=== PATIENT | male | born 1945 | race Caucasian/White ===

== ENCOUNTER 2016-10-20 09:48 | Emergency (ER) | payer MEDICARE ==
--- NOTE | 2016-10-20 10:31 | ED ---
General Adult HPI - General Chief complaint: Weakness Stated complaint: Hypotension Time Seen by Provider: 10/20/16 09:50 Source: patient, EMS, RN notes reviewed Mode of arrival: EMS Limitations: no limitations - History of Present Illness Initial comments: This is a 71-year-old male who presents emergency department with past medical history significant for alcohol some and hypertension. Patient comes emergency Department today because lately has been lightheaded and on occasion has fallen. Patient states he drinks every day particularly in the afternoon. Patient states when he wakes and drinks or eats something he will vomit immediately until he starts drinking afternoon. Patient states then he stops vomiting. Patient states he went to see his primary medical care doctor but but has blood pressure was low so sent to the emergency department. Patient denies any chest pain palpation difficult breathing shortest breath per patient denies any abdominal pain patient denies nausea nausea currently but would vomit in the morning to try to eat or drink anything. Patient denies any diarrhea. Patient denies any recent fever chills or cough. Patient denies headache patient denies numbness weakness. - Related Data Home Medications Medication Instructions Recorded Confirmed Aspirin [Adult Low Dose Aspirin EC] 81 mg PO DAILY 10/20/16 10/20/16 Ibuprofen [Motrin] 400 mg PO Q6HR PRN 10/20/16 10/20/16 Lisinopril [Zestril] 40 mg PO DAILY 10/20/16 10/20/16 Allergies Allergy/AdvReac Type Severity Reaction Status Date / Time No Known Allergies Allergy Verified 10/20/16 10:41 Review of Systems ROS Statement: Those systems with pertinent positive or pertinent negative responses have been documented in the HPI. ROS Other: All systems not noted in ROS Statement are negative. Past Medical History Past Medical History: Hypertension History of Any Multi-Drug Resistant Organisms: None Reported Past Surgical History: No Surgical Hx Reported Past Psychological History: No Psychological Hx Reported Smoking Status: Former smoker Past Alcohol Use History: Daily Past Drug Use History: None Reported General Exam - General Exam Comments Initial Comments: GENERAL: Patient is well-developed and well-nourished. Patient is nontoxic and well- hydrated and is in no acute distress. ENT: Neck is soft and supple. No significant lymphadenopathy is noted. Oropharynx is clear. Moist mucous membranes. Neck has full range of motion without eliciting any pain. EYES: The sclera were anicteric and conjunctiva were pink and moist. Extraocular movements were intact and pupils were equal round and reactive to light. Eyelids were unremarkable. PULMONARY: Unlabored respirations. Good breath sounds bilaterally. No audible rales rhonchi or wheezing was noted. CARDIOVASCULAR: There is a regular rate and rhythm without any murmurs gallops or rubs. ABDOMEN: Soft and nontender with normal bowel sounds. No palpable organomegaly was noted. There is no palpable pulsatile mass. SKIN: Skin is clear with no lesions or rashes and otherwise unremarkable. NEUROLOGIC: Patient is alert and oriented x3. Cranial nerves II through XII are grossly intact. Motor and sensory are also intact. Normal speech, volume and content. Symmetrical smile. MUSCULOSKELETAL: Normal extremities with adequate strength and full range of motion. LYMPHATICS: No significant lymphadenopathy is noted PSYCHIATRIC: Normal psychiatric evaluation. Limitations: no limitations Course Vital Signs 10/20/16 10/20/16 10/20/16 09:51 10:49 11:02 Temperature 97.4 F L Pulse Rate 71 72 Pulse Rate [ 80 Sitting Wet Machine Operator] Pulse Rate [ 96 Standing Wet Machine Operator ] Pulse Rate [ 74 Supine Wet Machine Operator] Respiratory 16 18 Rate Blood Pressure 103/55 103/59 Blood Pressure 114/59 [Right Arm Sitting] Blood Pressure 100/56 [Right Arm Supine] Blood Pressure 104/61 [Right Radial Artery Standing ] O2 Sat by Pulse 98 97 Oximetry 10/20/16 12:03 Temperature Pulse Rate 77 Pulse Rate [ Sitting Wet Machine Operator] Pulse Rate [ Standing Wet Machine Operator ] Pulse Rate [ Supine Wet Machine Operator] Respiratory 18 Rate Blood Pressure 119/57 Blood Pressure [Right Arm Sitting] Blood Pressure [Right Arm Supine] Blood Pressure [Right Radial Artery Standing ] O2 Sat by Pulse 95 Oximetry Medical Decision Making - Medical Decision Making EKG shows normal sinus rhythm at 70 bpm FL interval is 176 QRS is under QT intervals 42 QTC is 434 per patient's EKG shows no ST segment elevation or depression or T-wave abnormality is noted - Lab Data Result diagrams: 10/20/16 10:00 10/20/16 10:00 Lab Results 10/20/16 10/20/16 10/20/16 Range/Units 10:00 10:00 10:00 WBC 5.4 (3.8-10.6) k/uL RBC 3.27 L (4.30-5.90) m/uL Hgb 10.7 L (13.0-17.5) gm/dL Hct 32.4 L (39.0-53.0) % MCV 99.3 (80.0-100.0) fL MCH 32.9 (25.0-35.0) pg MCHC 33.1 (31.0-37.0) g/dL RDW 18.0 H (11.5-15.5) % Plt Count 309 (150-450) k/uL Neutrophils % 75 % Lymphocytes % 11 % Monocytes % 8 % Eosinophils % 4 % Basophils % 1 % Neutrophils # 4.0 (1.3-7.7) k/uL Lymphocytes # 0.6 L (1.0-4.8) k/uL Monocytes # 0.4 (0-1.0) k/uL Eosinophils # 0.2 (0-0.7) k/uL Basophils # 0.1 (0-0.2) k/uL Anisocytosis Slight Macrocytosis Slight Sodium 128 L (137-145) mmol/L Potassium 4.9 (3.5-5.1) mmol/L Chloride 94 L (98-107) mmol/L Carbon Dioxide 16 L (22-30) mmol/L Anion Gap 18 mmol/L BUN 16 (9-20) mg/dL Creatinine 1.30 H (0.66-1.25) mg/dL Est GFR (MDRD) Af Amer >60 (>60 ml/min/1.73 sqM) Est GFR (MDRD) Non-Af 55 (>60 ml/min/1.73 sqM) Glucose 83 (74-99) mg/dL Calcium 8.9 (8.4-10.2) mg/dL Magnesium 1.5 L (1.6-2.3) mg/dL Total Bilirubin 0.6 (0.2-1.3) mg/dL AST 132 H (17-59) U/L ALT 66 (21-72) U/L Alkaline Phosphatase 106 (38-126) U/L Total Protein 7.4 (6.3-8.2) g/dL Albumin 4.4 (3.5-5.0) g/dL Serum Alcohol 133 mg/dL Disposition Clinical Impression: Alcoholism, Lightheaded, Hyponatremia, Hypomagnesemia Disposition: HOME SELF-CARE Condition: Good Instructions: Abuse of Alcohol (ED) Referrals: None,Stated [REFERRING] - 1-2 days Time of Disposition: 13:36
[2016-10-20 10:50] VITALS: RESP 18
[2016-10-20] MEDS ORDERED: SODIUM CHLORIDE 0.9% 1,000 ML IV ONE (11:36)
[2016-10-20 11:45] LABS: Anisocytosis Slight; Basophils # (A) 0.1 k/uL (0-0.2); Basophils % (A) 1 %; CH 32.9; CHCM 33.2; Eosinophils # (A) 0.2 k/uL (0-0.7); Eosinophils % (A) 4 %; HCT 32.4 % (39.0-53.0); HDW 2.23; HGB 10.7 gm/dL (13.0-17.5); Luc # (Auto) 0.11; Luc % (Auto) 2; Lymphocytes # (A) 0.6 k/uL (1.0-4.8); Lymphocytes % (A) 11 %; MCH 32.9 pg (25.0-35.0); MCHC 33.1 g/dL (31.0-37.0); MCV 99.3 fL (80.0-100.0); Macrocytosis Slight; Mean Platelet Volume 7.4; Monocytes # (A) 0.4 k/uL (0-1.0); Monocytes % (A) 8 %; Neutrophils % (A) 75 %; RBC 3.27 m/uL (4.30-5.90); WBC 5.4 k/uL (3.8-10.6); WBC (Perox) 5.56
[2016-10-20 13:18] LABS: ALT 66 U/L (21-72); AST 132 U/L (17-59); Alkaline Phosphatase 106 U/L (38-126); Anion Gap 18 mmol/L; Blood Urea Nitrogen 16 mg/dL (9-20); Calcium 8.9 mg/dL (8.4-10.2); Carbon Dioxide 16 mmol/L (22-30); Chloride 94 mmol/L (98-107); Glucose 83 mg/dL (74-99); Magnesium 1.5 mg/dL (1.6-2.3); Non-African American GFR(MDRD) 55 (>60 ml/min/1.73 sqM); Potassium 4.9 mmol/L (3.5-5.1); Sodium 128 mmol/L (137-145); Total Bilirubin 0.6 mg/dL (0.2-1.3); Total Protein 7.4 g/dL (6.3-8.2)
[2016-10-20] MEDS ORDERED: THIAMINE 100 MG/ML 2 ML VIAL IM STA (13:37)
[2016-10-20] MEDS ORDERED: MAGNESIUM SULFATE-D5W PMX 1 GM in DEXTROSE/WATER 1 100ML.BAG IVPB ONE (13:37)
[2016-10-20 14:46] VITALS: BP 125/73; PULSE 76; TEMP 97.1
== END 2016-10-20 14:46 | disposition home or self-care (01) ==
LOC: EC 09:48
DX: F10.20 Alcohol dependence, uncomplicated (principal); R42 Dizziness and giddiness; E87.1 Hypo-osmolality and hyponatremia; E83.42 Hypomagnesemia; R53.1 Weakness; R11.10 Vomiting, unspecified; I10 Essential (primary) hypertension; Z87.891 Personal history of nicotine dependence; Z79.82 Long term (current) use of aspirin; Z79.899 Other long term (current) drug therapy
CPT/HCPCS: 36415; 93005; 80053; 83735; 85025; 80320; 99285; 96365; 96361; 96372; J3411; J3475

== ENCOUNTER 2017-03-08 11:53 | Inpatient (IN) | payer MEDICARE ==
--- NOTE | 2017-03-08 12:48 | ED ---
General Adult HPI - General Chief complaint: Recheck/Abnormal Lab/Rx Stated complaint: Low blood pressure Time Seen by Provider: 03/08/17 12:10 Source: patient, RN notes reviewed Mode of arrival: wheelchair Limitations: no limitations - History of Present Illness Initial comments: This is a 71-year-old male who presents to the emergency department with a past history of alcoholism and multiple falls. Patient comes in today because anytime he stands up his lightheaded. Patient also is complaining that anytime he eats or drinks anything he throws up. Patient states he did have an endoscopy but has not received the results of. Patient was sent by his primary medical care doctor today the primary medical care doctor wanted to admit the patient but the patient is 31 and for me he does not want to stay. Patient denies any headache patient denies numbness weakness. Patient denies chest pain difficulty breathing or shortness of breath. Patient denies abdominal pain patient denies nausea vomiting diarrhea. Patient states his only problem is he gets lightheaded when he stands any falls and the fact that he has been vomiting when he eats or drinks. - Related Data Home Medications Medication Instructions Recorded Confirmed Aspirin [Adult Low Dose Aspirin EC] 81 mg PO DAILY 10/20/16 03/08/17 Cyanocobalamin (Vitamin B-12) 1,000 mcg PO DAILY 03/08/17 03/08/17 [Vitamin B-12] Allergies Allergy/AdvReac Type Severity Reaction Status Date / Time No Known Allergies Allergy Verified 03/08/17 13:07 Review of Systems ROS Statement: Those systems with pertinent positive or pertinent negative responses have been documented in the HPI. ROS Other: All systems not noted in ROS Statement are negative. Past Medical History Past Medical History: Hypertension Additional Past Medical History / Comment(s): STATES PAST HX OF COLON POLYP, PREVIOUS HX OF HTN, OFF MEDICATIONS PAST 4 MONTHS History of Any Multi-Drug Resistant Organisms: None Reported Past Surgical History: No Surgical Hx Reported Additional Past Surgical History / Comment(s): PREV. COLONOSCOPIES Past Anesthesia/Blood Transfusion Reactions: No Reported Reaction Past Psychological History: No Psychological Hx Reported Smoking Status: Former smoker Past Alcohol Use History: None Reported Past Drug Use History: None Reported - Past Family History Mother Family Medical History: Cancer Additional Family Medical History / Comment(s): COLON General Exam - General Exam Comments Initial Comments: GENERAL: Patient is well-developed and well-nourished. Patient is nontoxic and well- hydrated and is in no acute distress. ENT: Neck is soft and supple. No significant lymphadenopathy is noted. Oropharynx is clear. Moist mucous membranes. Neck has full range of motion without eliciting any pain. EYES: The sclera were anicteric and conjunctiva were pink and moist. Extraocular movements were intact and pupils were equal round and reactive to light. Eyelids were unremarkable. PULMONARY: Unlabored respirations. Good breath sounds bilaterally. No audible rales rhonchi or wheezing was noted. CARDIOVASCULAR: There is a regular rate and rhythm without any murmurs gallops or rubs. ABDOMEN: Soft and nontender with normal bowel sounds. No palpable organomegaly was noted. There is no palpable pulsatile mass. SKIN: Skin is clear with no lesions or rashes and otherwise unremarkable. NEUROLOGIC: Patient is alert and oriented x3. Cranial nerves II through XII are grossly intact. Motor and sensory are also intact. Normal speech, volume and content. Symmetrical smile. MUSCULOSKELETAL: Normal extremities with adequate strength and full range of motion. LYMPHATICS: No significant lymphadenopathy is noted PSYCHIATRIC: Normal psychiatric evaluation. Limitations: no limitations Course Vital Signs 03/08/17 03/08/17 03/08/17 12:08 12:24 12:25 Temperature 97.7 F Pulse Rate 100 98 Pulse Rate [ 98 Pulse Oximetery ] Pulse Rate [ Sitting] Pulse Rate [ Standing] Pulse Rate [ Supine] Respiratory 20 16 Rate Blood Pressure 96/65 119/71 Blood Pressure [Sitting] Blood Pressure [Standing] Blood Pressure [Supine] O2 Sat by Pulse 96 97 Oximetry 03/08/17 03/08/17 03/08/17 13:06 14:16 15:21 Temperature 98.7 F Pulse Rate 101 H 89 Pulse Rate [ Pulse Oximetery ] Pulse Rate [ 101 H Sitting] Pulse Rate [ 125 H Standing] Pulse Rate [ 87 Supine] Respiratory 16 16 Rate Blood Pressure 136/73 139/68 Blood Pressure 128/72 [Sitting] Blood Pressure 120/58 [Standing] Blood Pressure 142/82 [Supine] O2 Sat by Pulse 98 97 Oximetry Medical Decision Making - Medical Decision Making [place] CT of the brain shows no acute abnormality. Patient had orthostatics done patient was orthostatic positive clinically and by the numbers. I spoke with I spoke with Dr. Leach he wanted me to admit the patient because he sentiment from his office. Spoke with Dr. Burnett agreed to admit the patient admitted the patient I wrote admitting orders I wrote orders for alcohol withdrawal as well and I'm hydrating the patient and replace in the patient's magnesium. - Lab Data Result diagrams: 03/08/17 13:10 03/08/17 13:10 Lab Results 03/08/17 03/08/17 Range/Units 13:10 13:10 WBC 4.9 (3.8-10.6) k/uL RBC 3.36 L (4.30-5.90) m/uL Hgb 9.6 L (13.0-17.5) gm/dL Hct 31.7 L (39.0-53.0) % MCV 94.2 (80.0-100.0) fL MCH 28.7 (25.0-35.0) pg MCHC 30.4 L (31.0-37.0) g/dL RDW 19.1 H (11.5-15.5) % Plt Count 262 (150-450) k/uL Neutrophils % 76 % Lymphocytes % 11 % Monocytes % 8 % Eosinophils % 2 % Basophils % 1 % Neutrophils # 3.7 (1.3-7.7) k/uL Lymphocytes # 0.6 L (1.0-4.8) k/uL Monocytes # 0.4 (0-1.0) k/uL Eosinophils # 0.1 (0-0.7) k/uL Basophils # 0.0 (0-0.2) k/uL Hypochromasia Slight Anisocytosis Slight Macrocytosis Slight Sodium 140 (137-145) mmol/L Potassium 4.8 (3.5-5.1) mmol/L Chloride 95 L (98-107) mmol/L Carbon Dioxide 22 (22-30) mmol/L Anion Gap 23 mmol/L BUN 11 (9-20) mg/dL Creatinine 0.80 (0.66-1.25) mg/dL Est GFR (MDRD) Af Amer >60 (>60 ml/min/1.73 sqM) Est GFR (MDRD) Non-Af >60 (>60 ml/min/1.73 sqM) Glucose 103 H (74-99) mg/dL Calcium 9.9 (8.4-10.2) mg/dL Magnesium 1.3 L (1.6-2.3) mg/dL Total Bilirubin 1.1 (0.2-1.3) mg/dL AST 115 H (17-59) U/L ALT 41 (21-72) U/L Alkaline Phosphatase 155 H (38-126) U/L Total Protein 8.6 H (6.3-8.2) g/dL Albumin 4.7 (3.5-5.0) g/dL Serum Alcohol 77 mg/dL Disposition Clinical Impression: Alcoholism, Hypomagnesemia, Dehydration, Orthostatic hypotension Disposition: ADMITTED IP TO THIS HOSP Referrals: Michael Arnold MD [Primary Care Provider] - 1-2 days Time of Disposition: 16:26
[2017-03-08] MEDS ORDERED: SODIUM CHLORIDE 0.9% 1,000 ML with MVI, ADULT NO.4 WITH VIT K 10 ML, THIAMINE 100 MG, F... IV ONE ×4 (13:00)
[2017-03-08 13:32] LABS: Alcohol 77 mg/dL; Anion Gap 23 mmol/L; Calcium 9.9 mg/dL (8.4-10.2); Carbon Dioxide 22 mmol/L (22-30); Chloride 95 mmol/L (98-107); Glucose 103 mg/dL (74-99); Sodium 140 mmol/L (137-145); Total Bilirubin 1.1 mg/dL (0.2-1.3)
[2017-03-08 13:36] LABS: Anisocytosis Slight; Basophils % (A) 1 %; Eosinophils # (A) 0.1 k/uL (0-0.7); Eosinophils % (A) 2 %; HCT 31.7 % (39.0-53.0); HGB 9.6 gm/dL (13.0-17.5); Hypochromasia Slight; Lymphocytes # (A) 0.6 k/uL (1.0-4.8); Lymphocytes % (A) 11 %; MCH 28.7 pg (25.0-35.0); MCHC 30.4 g/dL (31.0-37.0); MCV 94.2 fL (80.0-100.0); Macrocytosis Slight; Mean Platelet Volume 7.6; Monocytes # (A) 0.4 k/uL (0-1.0); Monocytes % (A) 8 %; Neutrophils # (A) 3.7 k/uL (1.3-7.7); Neutrophils % (A) 76 %; Platelet Count 262 k/uL (150-450); RBC 3.36 m/uL (4.30-5.90); RDW 19.1 % (11.5-15.5); WBC 4.9 k/uL (3.8-10.6)
[2017-03-08 13:39] LABS: Albumin 4.7 g/dL (3.5-5.0); Potassium 4.8 mmol/L (3.5-5.1); Total Protein 8.6 g/dL (6.3-8.2)
[2017-03-08 13:40] LABS: ALT 41 U/L (21-72); AST 115 U/L (17-59); Alkaline Phosphatase 155 U/L (38-126); Blood Urea Nitrogen 11 mg/dL (9-20); Magnesium 1.3 mg/dL (1.6-2.3)
--- NOTE | 2017-03-08 13:54 | CT ---
EXAMINATION TYPE: CT brain wo con DATE OF EXAM: 03/08/2017 COMPARISON: NONE INDICATION: hypertension and weakness DLP: 1219 mGycm, Automated exposure control for dose reduction was used. CONTRAST: None CT of the brain is performed utilizing 3 mm thick sections through the posterior fossa and 3 mm thick sections through the remaining calvarium. Study is performed within 24 hours of arrival to the hosp [facility]. No abnormal hyperdensity is present to suggest an acute intracranial hemorrhage. No mass lesion is evident. No acute infarcts are evident. Ventricles and sulci are mildly prominent for the patient age. Minimal mucosal thickening is within the posterior left ethmoid air cell. Remaining paranasal sinuses mastoid air cells are clear. IMPRESSIONS: 1. Mild age-related atrophy.
[2017-03-08] MEDS ORDERED: ONDANSETRON 4 MG/2 ML VIAL IVP STA (14:10)
[2017-03-08] MEDS ORDERED: MAGNESIUM SULFATE-D5W PMX 1 GM in DEXTROSE/WATER 1 100ML.BAG IVPB ONE (14:49)
[2017-03-08] MEDS ORDERED: SODIUM CHLORIDE 0.9% 1,000 ML IV ONE (16:26)
[2017-03-08] MEDS ORDERED: LORazepam 2 MG/ML INJ IV PRN ×2 (16:27)
[2017-03-08] MEDS ORDERED: ONDANSETRON 4 MG/2 ML VIAL IVP PRN (16:27)
[2017-03-08] MEDS ORDERED: LORazepam 2 MG/ML INJ IV STA (16:37)
[2017-03-08] MEDS: THIAMINE 100 MG TAB PO SCH (18:54)
[2017-03-08] MEDS ORDERED: DIAZEPAM 5 MG TAB PO PRN (19:21)
[2017-03-08] MEDS ORDERED: METOPROLOL TARTRATE 12.5 MG TAB PO SCH (21:00)
[2017-03-08] MEDS: DIAZEPAM 5 MG TAB PO SCH (22:20)
[2017-03-08] MEDS: METOPROLOL TARTRATE 12.5 MG TAB PO SCH (22:20)
[2017-03-08] MEDS: FLUDROCORTISONE 0.1 MG TAB PO SCH (23:17)
--- NOTE | 2017-03-08 23:20 | HP ---
HISTORY AND PHYSICAL DATE OF ADMISSION: 03/08/2017 PRESENTING COMPLAINT: Recurrent falls. HISTORY OF PRESENTING COMPLAINT: This is a 71-year-old patient of Dr. Arnold who drinks about 12 ounces of whiskey a day for many years, has been having frequent episodes of falling, gets dizzy when he stands up, now has decided to stop. His last drink was yesterday. He fell again and decided to come into the hospital. The patient eats okay, he thinks. Denies any chest pain. No palpitations. Questionable numbness and tingling in the hands and feet. Does not actually pass out. REVIEW OF SYSTEMS: CONSTITUTIONAL: Tired. HEENT: None. RESPIRATORY: None. CARDIOVASCULAR: None. GASTROINTESTINAL: None. GENITOURINARY: None. MUSCULOSKELETAL: None. DERMATOLOGIC: None. HEMATOLOGIC: None. LYMPHATIC: None. PSYCHIATRY: None. NEUROLOGICAL: As above. No focal symptoms. PAST MEDICAL HISTORY: Hypertension, colon polyps, hiatal hernia, heartburn. PAST SURGICAL HISTORY: EGD, colonoscopy, tonsillectomy. SOCIAL HISTORY: , retired. 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 Also smoked cigars from 1968, quit in 1997. Drinks 12 ounces of bourbon daily. FAMILY HISTORY: Colon cancer. HOME MEDICATIONS: 1. Vitamin B12 1000 mcg p.o. daily. 2. Aspirin 81 mg p.o. daily. ALLERGIES: None. PHYSICAL EXAMINATION: Vital signs on presentation vital signs temperature 98.7, pulse 125, respirations 16, blood pressure 128/72, standing, lying 142/82 pulse ox 98% on 2L. GENERAL APPEARANCE: Average built, sitting up, comfortable. BMI 29.7. EYES: Pupils equal. Conjunctivae normal. HEENT: Oral cavity normal. NECK: JVD not raised. Mass not palpable. RESPIRATORY: Effort normal. Lungs are clear. CARDIOVASCULAR: First and second sounds normal. No edema. ABDOMEN: Soft, nontender. Liver and spleen not palpable. LYMPHATIC: No lymph nodes palpable in neck or axillae. PSYCHIATRY: Alert and oriented x3. Mood and affect were normal. NEUROLOGICAL: Pupils equal. Cranial nerves grossly intact. Power and sensation grossly intact. INVESTIGATIONS: White count 4.9, hemoglobin 9.6, MCV 94.2, platelets 262. Potassium 4.8, BUN and creatinine normal. AST 115. Serum alcohol 77. ASSESSMENT: 1. Recurrent falls in a patient who does get dizzy quite often, likely either orthostatic hypotension or combination of autonomic dysfunction from chronic alcoholism. 2. Hypomagnesemia due to chronic alcoholism. 3. Alcoholic hepatitis. 4. Chronic alcohol dependence. 5. Normocytic anemia, cause unknown. PLAN: Patient will be given BETHANY stockings. Will add some Florinef, check patient's B12 and iron studies. The patient will be put on DVT prophylaxis with Valium and beta erik. Care was discussed with the patient. MMODL / IJN: [id number] /
[2017-03-08 23:43] LABS: Appearance,Urine Clear (Clear); Bilirubin,Urine 1+ (Negative); Blood,Urine Negative (Negative); Color,Urine Dark Yellow; Glucose,Urine (UA) Negative (Negative); Ketones,Urine 1+ (Negative); Leukocyte Esterase,Urine Negative (Negative); Nitrite,Urine Negative (Negative); Protein,Urine Trace (Negative); Specific Gravity,Urine 1.021 (1.001-1.035)
[2017-03-09] MEDS: LORazepam 2 MG/ML INJ IV PRN (02:34)
[2017-03-09] MEDS ORDERED: LORazepam 2 MG/ML INJ IM STA (05:26)
[2017-03-09] MEDS: DIAZEPAM 5 MG TAB PO SCH ×3 (07:51→21:14)
[2017-03-09] MEDS: METOPROLOL TARTRATE 12.5 MG TAB PO SCH ×2 (07:51→21:13)
[2017-03-09] MEDS: FLUDROCORTISONE 0.1 MG TAB PO SCH ×2 (07:52→21:13)
[2017-03-09] MEDS: ASPIRIN 81 MG PO SCH (07:52)
[2017-03-09] MEDS: THIAMINE 100 MG TAB PO SCH ×2 (07:52→15:31)
[2017-03-09] MEDS: CYANOCOBALAMIN 500 MCG TAB PO SCH (07:52)
[2017-03-09 13:51] VITALS: BMI 29.7
[2017-03-09 16:33] LABS: Iron Saturation 22.57 (15.00-50.00)
--- NOTE | 2017-03-09 19:24 | PN ---
PROGRESS NOTE DATE OF SERVICE: 03/09/2017. ATTENDING NOTE: This patient was seen and examined by me. I discussed the case with the nurse practitioner Ms. Connell. Patient was admitted with recurrent falls. Patient is a chronic alcoholic. Patient went into DTs last night, had to be given Ativan. He has a sitter. Lethargic right now. The patient's , son and [id number] are at the bedside. PHYSICAL EXAMINATION: Temperature 97.9, pulse 85, respiration 18, blood pressure 157/77, pulse ox 92% on room air. GENERAL APPEARANCE: Patient is lying in bed, lethargic. LUNGS: Decreased breath sounds. CARDIOVASCULAR: First and second sounds normal. No edema. Currently lethargic. Not answering questions. Received Ativan. ASSESSMENT: 1. Acute delirium tremens, uncontrolled, in an alcoholic. 2. Alcoholic hepatitis. PLAN: Patient's dose of Valium will be increased to 5 mg 3 times a day. I had a lengthy discussion with the patient's family at the bedside. I did tell them that the patient is getting treated and we are to watch him closely, not to argue with him. Keep a close eye. Sitter is to continue for right now. Patient's family questions were answered. MMODL / IJN: [id number] /
--- NOTE | 2017-03-09 21:11 | P.PN ---
Progress Note - Text Progress Note Date: 03/09/17 DATE OF SERVICE: 03/09/2017 PRESENTING COMPLAINT: recurrent falls HISTORY OF PRESENT ILLNESS: 71-year-old male who drinks about 12 ounces whiskey daily having frequent episodes of falling dizziness when he stands up, has decided to stop drinking his last drink was on 03/08/2017. Fell again at home and decided to come to the hospital. Admitted for the same. INTERVAL HISTORY: 03/09/2017: lying in bed sitter at the bedside patient was very restless agitated confused and withdrawing from alcohol overnight. Patient received 2 mg of IM Ativan at about 4:30 AM as he would not allow them to put an IV in. Continues to be somewhat restless agitated is redirectable, CIWA protocol in place, Valium and beta erik also in place to help with delirium tremens. Eating about 20-30% of his meals, currently on bedrest, last BM. prior to admission. REVIEW OF SYSTEMS: Done for constitutional ,cardiovascular, GI, pulmonary with relevant findings as above. CURRENT MEDICATIONS aspirin, vitamin B12, Valium, Florinef, Ativan, Lopressor,Zofran, vitamin B1. PHYSICAL EXAM VITAL SIGNS: temperature 98.6, pulse 72, respiratory rate 18, blood pressure 125/75, oxygen saturations 94% on room air. GENERAL APPEARANCE: Lying in bed, agitated, rolling around in the bed. HEENT: Normocephalic, Pupils equal. Conjunctiva normal. JVD not raised. Mass not palpable.: RESPIRATORY: Respiratory effort normal. Lungs clear to auscultation. CARDIOVASCULAR: First and second sounds normal. No edema. ABDOMEN: Soft. Liver and spleen not palpable. No tenderness. No mass palpable. PSYCHIATRY: currently unable to answer simple questions, Mood and affect agitated. INVESTIGATIONS: LABS: None new ASSESSMENT: -recurrent falls in a patient who does get dizzy quite often, likely orthostatic hypotension or autonomic dysfunction from chronic alcoholism. -acute delirium tremens, uncontrolled in an alcoholic. -Hypomagnesemia due to chronic alcoholism. -Alcoholic hepatitis. -Chronic alcohol dependence. -Normocytic anemia, cause unknown. PLAN: Valium increased, sitter at the bedside,IV fluids continue. We'll continue supportive care. No family present at the bedside. We will follow closely MONOTYPE OPERATOR statement: Patient was seen and examined by nurse practitioner Antonella Connell and all elements of the case discussed with attending Dr. Burnett
[2017-03-10] MEDS: LORazepam 2 MG/ML INJ IV PRN ×2 (04:59→09:39)
[2017-03-10] MEDS: CYANOCOBALAMIN 500 MCG TAB PO SCH (07:48)
[2017-03-10] MEDS: DIAZEPAM 5 MG TAB PO SCH ×3 (07:48→20:55)
[2017-03-10] MEDS: ASPIRIN 81 MG PO SCH (07:48)
[2017-03-10] MEDS: METOPROLOL TARTRATE 12.5 MG TAB PO SCH ×2 (07:49→20:55)
[2017-03-10] MEDS: FLUDROCORTISONE 0.1 MG TAB PO SCH ×2 (07:49→20:55)
[2017-03-10] MEDS: THIAMINE 100 MG TAB PO SCH ×2 (12:50→17:42)
--- NOTE | 2017-03-10 18:23 | P.PN ---
Progress Note - Text Progress Note Date: 03/10/17 DATE OF SERVICE: 03/10/2017 PRESENTING COMPLAINT: recurrent falls HISTORY OF PRESENT ILLNESS: 71-year-old male who drinks about 12 ounces whiskey daily having frequent episodes of falling dizziness when he stands up, has decided to stop drinking his last drink was on 03/08/2017. Fell again at home and decided to come to the hospital. Admitted for the same. INTERVAL HISTORY: 03/10/2017: Lying in bed sitter at the bedside continues to have some restlessness but is much better today. Continues to receive Valium 5 mg and Ativan as needed. Beta erik also in place. Aware of his surroundings able to answer some simple questions and he did ask me a question. Appetite is eating about 20-30% of the meal, did eat more for his , currently on bedrest, last BM prior to admission. 03/09/2017: lying in bed sitter at the bedside patient was very restless agitated confused and withdrawing from alcohol overnight. Patient received 2 mg of IM Ativan at about 4:30 AM as he would not allow them to put an IV in. Continues to be somewhat restless agitated is redirectable, CIWA protocol in place, Valium and beta erik also in place to help with delirium tremens. Eating about 20-30% of his meals, currently on bedrest, last BM. prior to admission. REVIEW OF SYSTEMS: Done for constitutional ,cardiovascular, GI, pulmonary with relevant findings as above. CURRENT MEDICATIONS Aspirin, cyanocobalamin, Valium, Florinef, Ativan, Lopressor, Zofran, thiamine. PHYSICAL EXAM VITAL SIGNS: temperature 97.0, pulse 96, respiratory rate 18, blood pressure 153/87, oxygen saturation 95% on room air. GENERAL APPEARANCE: Lying in bed, agitated, rolling around in the bed. HEENT: Normocephalic, Pupils equal. Conjunctiva normal. JVD not raised. Mass not palpable.: RESPIRATORY: Respiratory effort normal. Lungs clear to auscultation. CARDIOVASCULAR: First and second sounds normal. No edema. ABDOMEN: Soft. Liver and spleen not palpable. No tenderness. No mass palpable. PSYCHIATRY: currently unable to answer simple questions, Mood and affect agitated was able to ask a question. INVESTIGATIONS: LABS: None new ASSESSMENT: -recurrent falls in a patient who does get dizzy quite often, likely orthostatic hypotension or autonomic dysfunction from chronic alcoholism. -acute delirium tremens, improving -Hypomagnesemia due to chronic alcoholism. -Alcoholic hepatitis. -Chronic alcohol dependence. -Normocytic anemia, cause unknown. PLAN: Valium and beta erik sitter and IV fluids continue. at the bedside, plan of care discussed she is agreeable. We will follow closely AUDIT TECH statement: Patient was seen and examined by nurse practitioner Antonella Connell and all elements of the case discussed with attending Dr. Burnett
--- NOTE | 2017-03-10 23:31 | PN ---
PROGRESS NOTE DATE OF SERVICE: 03/10/2017. ATTENDING NOTE: The patient seen and examined by me. I discussed with my nurse practitioner, Ms. Connell. This is a patient who presents with acute DTs. the patient's DTs are uncontrolled. His dose of Valium was increased yesterday. Doing a shade better, has a sitter. Earlier, the fed him. He did eat. Currently, he is sleeping after getting his Valium. EXAMINATION: Temperature 97, pulse 96, respirations 20, blood pressure 150/87. Lying in bed, lethargic. LUNGS: Fair air entry. CARDIOVASCULAR: First and second sounds normal. ASSESSMENT: Acute delirium tremens, uncontrolled. Patient is currently on Valium 5 mg 3 times a day. Care was discussed with the at the bedside. Hopefully by tomorrow, we should be able to start cutting back on the Valium. Heart rate is controlled. Currently slow to respond. MMODL / IJN: [id number] /
[2017-03-11] MEDS: FLUDROCORTISONE 0.1 MG TAB PO SCH ×2 (08:22→20:44)
[2017-03-11] MEDS: CYANOCOBALAMIN 500 MCG TAB PO SCH (08:23)
[2017-03-11] MEDS: METOPROLOL TARTRATE 12.5 MG TAB PO SCH ×2 (08:23→20:45)
[2017-03-11] MEDS: ASPIRIN 81 MG PO SCH (08:23)
[2017-03-11] MEDS: DIAZEPAM 5 MG TAB PO SCH ×2 (08:23→16:53)
[2017-03-11] MEDS: THIAMINE 100 MG TAB PO SCH ×2 (12:34→16:52)
[2017-03-11 14:44] LABS: Anion Gap 12 mmol/L; Blood Urea Nitrogen 8 mg/dL (9-20); Calcium 8.8 mg/dL (8.4-10.2); Carbon Dioxide 25 mmol/L (22-30); Chloride 100 mmol/L (98-107); Glucose 108 mg/dL (74-99); Potassium 4.2 mmol/L (3.5-5.1); Sodium 137 mmol/L (137-145)
--- NOTE | 2017-03-11 19:49 | P.PN ---
Progress Note - Text Progress Note Date: 03/11/17 DATE OF SERVICE: 03/11/2017 PRESENTING COMPLAINT: recurrent falls HISTORY OF PRESENT ILLNESS: 71-year-old male who drinks about 12 ounces whiskey daily having frequent episodes of falling dizziness when he stands up, has decided to stop drinking his last drink was on 03/08/2017. Fell again at home and decided to come to the hospital. Admitted for the same. INTERVAL HISTORY: 03/11/2017: Sitting up in a chair at the bedside present, helping with breakfast. Patient is calm and cooperative no tremors noted. Continues to receive Valium and Ativan as needed. Beta erik also in place. Able to carry on an appropriate conversation. Is very firm and his desire to go home either today or tomorrow. Has been up for short distances states he feels pretty shaky but was able to walk with some standby assistance. Appetite is good eating about 50 % of his meals, last BM prior to admission. 03/10/2017: Lying in bed sitter at the bedside continues to have some restlessness but is much better today. Continues to receive Valium 5 mg and Ativan as needed. Beta erik also in place. Aware of his surroundings able to answer some simple questions and he did ask me a question. Appetite is eating about 20-30% of the meal, did eat more for his , currently on bedrest, last BM prior to admission. 03/09/2017: lying in bed sitter at the bedside patient was very restless agitated confused and withdrawing from alcohol overnight. Patient received 2 mg of IM Ativan at about 4:30 AM as he would not allow them to put an IV in. Continues to be somewhat restless agitated is redirectable, CIWA protocol in place, Valium and beta erik also in place to help with delirium tremens. Eating about 20-30% of his meals, currently on bedrest, last BM. prior to admission. REVIEW OF SYSTEMS: Done for constitutional ,cardiovascular, GI, pulmonary with relevant findings as above. CURRENT MEDICATIONS Aspirin, cyanocobalamin, Valium, Florinef, Ativan, Lopressor, Zofran, thiamine. PHYSICAL EXAM VITAL SIGNS: temperature 96.7, pulse 91, respiratory rate 18, blood pressure 156/89, oxygen saturation 96% on room air. GENERAL APPEARANCE: Sitting up in a chair no distress noted. HEENT: Normocephalic, Pupils equal. Conjunctiva normal. JVD not raised. Mass not palpable.: RESPIRATORY: Respiratory effort normal. Lungs clear to auscultation. CARDIOVASCULAR: First and second sounds normal. No edema. ABDOMEN: Soft. Liver and spleen not palpable. No tenderness. No mass palpable. PSYCHIATRY: Alert and oriented 3 mood and affect normal. INVESTIGATIONS: LABS: BMP unremarkable. ASSESSMENT: -recurrent falls in a patient who does get dizzy quite often, likely orthostatic hypotension or autonomic dysfunction from chronic alcoholism. -acute delirium tremens, uncontrolled in an alcoholic. -Hypomagnesemia due to chronic alcoholism. -Alcoholic hepatitis. -Chronic alcohol dependence. -Normocytic anemia, cause unknown. PLAN: Valium and beta erik continue. at the bedside, discharge planning tomorrow based on patient condition. plan of care discussed they are agreeable. We will follow closely [facility] SPECIALIST statement: Patient was seen and examined by nurse practitioner Antonella Connell and all elements of the case discussed with attending Dr. Burnett
[2017-03-11] MEDS ORDERED: DIAZEPAM 2 MG TAB PO SCH (22:00)
[2017-03-11] MEDS ORDERED: DIAZEPAM 5 MG TAB PO SCH (22:00)
--- NOTE | 2017-03-11 22:26 | PN ---
PROGRESS NOTE DATE OF SERVICE: 03/11/2017. ATTENDING NOTE: The patient seen and examined by me. I discussed with my nurse practitioner, Ms. Connell. Patient admitted with acute severe DTs. Doing better today, sitting up. at the bedside. Did tolerate his diet. Did walk around the room a bit. EXAMINATION: Temperature 96.7, pulse 91, respirations 18, blood pressure 156/81, pulse ox 96% on room air. Awake, answering questions. LUNGS: Fair air entry. ASSESSMENT: Acute delirium tremens with significant improvement. I had a big talk with the patient and . Will start cutting back on the Valium from tomorrow. Hoping the patient can be discharged tomorrow. Overall, patient looks much better. MMODL / IJN: [id number] /
[2017-03-12] MEDS ORDERED: DIAZEPAM 5 MG TAB PO SCH (09:00)
[2017-03-12 09:19] LABS: Anion Gap 14 mmol/L; Blood Urea Nitrogen 9 mg/dL (9-20); Calcium 8.7 mg/dL (8.4-10.2); Carbon Dioxide 23 mmol/L (22-30); Chloride 103 mmol/L (98-107); Glucose 121 mg/dL (74-99); Potassium 3.7 mmol/L (3.5-5.1); Sodium 140 mmol/L (137-145)
[2017-03-12] MEDS: ASPIRIN 81 MG PO SCH (09:47)
[2017-03-12] MEDS: METOPROLOL TARTRATE 12.5 MG TAB PO SCH (09:47)
[2017-03-12] MEDS: FLUDROCORTISONE 0.1 MG TAB PO SCH (09:47)
[2017-03-12] MEDS: THIAMINE 100 MG TAB PO SCH (09:47)
[2017-03-12] MEDS: CYANOCOBALAMIN 500 MCG TAB PO SCH (09:47)
[2017-03-12 15:21] VITALS: BP 144/65; PULSE 96; RESP 16; TEMP 100.3
--- NOTE | 2017-03-12 20:39 | DS ---
DISCHARGE SUMMARY DATE OF ADMISSION: 03/08/17. DATE OF DISCHARGE: 03/12/17 FINAL DIAGNOSES: 1. Recurrent falls likely from autonomic dysfunction from chronic alcoholism. 2. Acute delirium tremens from alcoholism. 3. Hypomagnesemia due to chronic alcoholism. 4. Alcoholic hepatitis. 5. Chronic alcohol dependence. 6. Normocytic anemia cause unknown. HOSPITAL COURSE: This patient presented with falls, felt to be orthostatic, probably from autonomic dysfunction and chronic alcoholism. The patient does not eat much. Also went into full-blown DTs, had to be given beta blockers and Valium. Doing much better at the time of discharge. Able to carry a normal conversation today. Care was discussed with the patient, patient's , [id number]. EXAM: Lungs are clear. Cardiovascular: 1st and 2nd sounds normal. Psych: AO x3. Hemoglobin is 9.6. AST is 115, ALT is 41. Discussion and discharge planning more than 35 minutes. DISCHARGE MEDICATIONS: 1. Aspirin 81 mg a day. 2. Vitamin B12 1000 mcg a day. 3. Lopressor 12.5, b.i.d. 8 tablets. 4. Thiamin 100 mg b.i.d. 5. Valium taper. 6. Florinef 1 mg p.o. b.i.d. The patient does use a cane. CMP in 5 days. Follow up with Dr. Arnold in 3 days. Discussion more than [address] Arnold. MMLOIS / RICARDO: [id number] /
== END 2017-03-12 16:53 | disposition home health service (06) | DRG 57 ==
LOC: EC 11:53 → 4MS4W 16:26
PROVIDERS: ADMIT Hospitalist; ATTEND Hospitalist
DX: G31.2 Degeneration of nervous system due to alcohol (principal); F10.231 Alcohol dependence with withdrawal delirium; D64.9 Anemia, unspecified; E83.42 Hypomagnesemia; E86.0 Dehydration; K70.10 Alcoholic hepatitis without ascites; K44.9 Diaphragmatic hernia without obstruction or gangrene; R29.6 Repeated falls; I10 Essential (primary) hypertension; Y90.3 Blood alcohol level of 60-79 mg/100 ml; Z79.82 Long term (current) use of aspirin; Z79.899 Other long term (current) drug therapy; Z86.010 Personal history of colon polyps; Z87.891 Personal history of nicotine dependence
CPT/HCPCS: 36415; 70450; 80048; 80053; 80320; 81003; 82140; 82607; 82728; 83540; 83550; 83735; 85025; 93005; 96365; 96366; 96368; 96375; 99284

== ENCOUNTER 2017-06-15 08:14 | Day surgery (SDC) | payer MEDICARE ==
[2017-06-15 09:07] VITALS: TEMP 97.8
[2017-06-15 09:19] LABS: Anisocytosis Slight; Basophils % (A) 1 %; Eosinophils # (A) 0.3 k/uL (0-0.7); Eosinophils % (A) 6 %; HGB 8.8 gm/dL (13.0-17.5); Hypochromasia Slight; Lymphocytes # (A) 0.6 k/uL (1.0-4.8); Lymphocytes % (A) 12 %; MCH 28.3 pg (25.0-35.0); MCHC 31.4 g/dL (31.0-37.0); MCV 90.2 fL (80.0-100.0); Mean Platelet Volume 7.5; Monocytes # (A) 0.4 k/uL (0-1.0); Monocytes % (A) 7 %; Neutrophils % (A) 73 %; Platelet Count 227 k/uL (150-450); RBC 3.11 m/uL (4.30-5.90); WBC 5.6 k/uL (3.8-10.6)
[2017-06-15 09:23] LABS: INR 1.3 (<1.2); Prothrombin Time 12.6 sec (9.0-12.0)
[2017-06-15 09:36] LABS: ALT 18 U/L (21-72); AST 47 U/L (17-59); Albumin 3.4 g/dL (3.5-5.0); Alkaline Phosphatase 146 U/L (38-126); Anion Gap 13 mmol/L; Blood Urea Nitrogen 13 mg/dL (9-20); Calcium 9.1 mg/dL (8.4-10.2); Carbon Dioxide 25 mmol/L (22-30); Chloride 101 mmol/L (98-107); Glucose 94 mg/dL (74-99); Potassium 3.7 mmol/L (3.5-5.1); Sodium 139 mmol/L (137-145); Total Protein 6.9 g/dL (6.3-8.2)
[2017-06-15] MEDS: ALBUMIN HUMAN 25% 50 ML in EMPTY BAG 1 BAG IVPB SCH ×2 (10:58→10:59)
[2017-06-15 11:06] VITALS: RESP 16
[2017-06-15 11:07] VITALS: BP 141/75; PULSE 90
[2017-06-15 13:22] LABS: Appearance,BF Hazy; Color,BF Yellow; Nucleated Cells, Body Fluid 51 /uL; RBC, Body Fluid 142 /uL
--- NOTE | 2017-06-15 13:24 | US ---
EXAMINATION TYPE: US paracentesis abd w/image DATE OF EXAM: 06/15/2017 COMPARISON: NONE HISTORY: Ascites. PROCEDURE: Maximal barrier technique was utilized. The skin overlying a suitable pocket of fluid was localized with ultrasound and the overlying skin was prepped and draped. Ultrasound was utilized with sterile technique. Lidocaine was used for local anesthesia and a skin cesar made with a scalpel. Catheter was advanced under direct ultrasound guidance into a suitable pocket of fluid and approximately 3.9 liter s of serous fluid were removed. Catheter was withdrawn and hemostasis achieved. There is no immedia te complication; the patient is discharged in stable condition. IMPRESSION: STATUS POST ULTRASOUND GUIDED PARACENTESIS FOR PALLIATION OF ASCITES. THIS PROCEDURE WA S PERFORMED BY THE UNDERSIGNED.
[2017-06-15 13:25] LABS: Mononuclear WBC,Body Fluid 95 %; Polynuclear WBC,Body Fluid 5 %; Total Cells Counted,Body Fluid 100
[2017-06-15 22:12] LABS: Total Protein, Body Fluid 1648 mg/dL
== END 2017-06-15 10:45 | disposition home or self-care (01) ==
LOC: RADPROMAIN 08:14
PROVIDERS: ATTEND Physician Assistant
DX: R18.8 Other ascites (principal)
CPT/HCPCS: 36415; 49083; 80053; 82945; 83615; 84157; 85025; 85610; 87070; 87075; 87205; 88108; 88305; 88313; 88341; 88342; 89050

== ENCOUNTER → 2017-09-05 | Outpatient (CLI) | payer MEDICARE ==
[2017-09-05 09:15] LABS: Anisocytosis Slight; HCT 31.2 % (39.0-53.0); HGB 10.1 gm/dL (13.0-17.5); MCH 28.6 pg (25.0-35.0); MCHC 32.5 g/dL (31.0-37.0); MCV 87.9 fL (80.0-100.0); Mean Platelet Volume 6.6; Platelet Count 289 k/uL (150-450); RBC 3.55 m/uL (4.30-5.90); RDW 17.8 % (11.5-15.5); WBC 6.6 k/uL (3.8-10.6)
[2017-09-05 09:23] LABS: INR 1.3 (<1.2); Prothrombin Time 12.5 sec (9.0-12.0)
[2017-09-05 09:31] LABS: ALT 24 U/L (21-72); AST 36 U/L (17-59); Albumin 3.9 g/dL (3.5-5.0); Alkaline Phosphatase 120 U/L (38-126); Anion Gap 15 mmol/L; Blood Urea Nitrogen 12 mg/dL (9-20); Calcium 9.6 mg/dL (8.4-10.2); Carbon Dioxide 22 mmol/L (22-30); Chloride 102 mmol/L (98-107); Glucose 104 mg/dL (74-99); Potassium 3.9 mmol/L (3.5-5.1); Sodium 139 mmol/L (137-145); Total Bilirubin 1.1 mg/dL (0.2-1.3); Total Protein 7.7 g/dL (6.3-8.2)
== END | disposition home or self-care (01) ==
LOC: LABWHC1 08:35
PROVIDERS: ATTEND Physician Assistant
DX: K70.30 Alcoholic cirrhosis of liver without ascites (principal)
CPT/HCPCS: 36415; 80053; 82105; 85027; 85610

== ENCOUNTER 2017-10-11 16:35 | Inpatient (IN) | payer MEDICARE ==
--- NOTE | 2017-10-11 16:42 | ED ---
General Adult HPI - General Chief complaint: GI Bleed Stated complaint: vomiting blood Time Seen by Provider: 10/11/17 16:38 Source: patient, EMS, RN notes reviewed, old records reviewed Mode of arrival: EMS Limitations: no limitations - History of Present Illness Initial comments: This is a 72-year-old male the ER for evaluation. Patient presented today for evaluation of weakness, vomiting of bright of blood as well as blood in his stool. Patient had blood in his stool earlier today and then developed vomiting which is a bright red blood currently. Patient does have history of alcoholism. Patient states his last drink was yesterday. He has gone through periods of 3 weeks surgery 3 months without drinking denies withdrawal symptoms. Denies episodes of GI bleed prior. No abdominal pain. No shortness of breath. Family also patient is very pale currently. - Related Data Home Medications Medication Instructions Recorded Confirmed Aspirin [Adult Low Dose Aspirin EC] 81 mg PO DAILY 10/20/16 10/11/17 Ferrous Sulfate [Iron] 325 mg PO DAILY 06/06/17 10/11/17 Allergies Allergy/AdvReac Type Severity Reaction Status Date / Time No Known Allergies Allergy Verified 10/11/17 17:01 Review of Systems ROS Statement: Those systems with pertinent positive or pertinent negative responses have been documented in the HPI. ROS Other: All systems not noted in ROS Statement are negative. Past Medical History Past Medical History: Hypertension, Liver Disease Additional Past Medical History / Comment(s): STATES PAST HX OF COLON POLYP- benign,hiatal hernia, "heartburn" PREVIOUS HX OF HTN but OFF MEDICATIONS PAST 4 MONTHS, etoh, falls. History of Any Multi-Drug Resistant Organisms: None Reported Past Surgical History: Tonsillectomy Additional Past Surgical History / Comment(s): PREV. COLONOSCOPIES, egd Past Anesthesia/Blood Transfusion Reactions: No Reported Reaction Past Psychological History: No Psychological Hx Reported Smoking Status: Former smoker Past Alcohol Use History: Daily Past Drug Use History: None Reported - Past Family History Mother Family Medical History: Cancer Additional Family Medical History / Comment(s): COLON Father Family Medical History: Coronary Artery Disease (CAD) Additional Family Medical History / Comment(s): valve replacment, cataracts General Exam - General Exam Comments Initial Comments: Patient actively vomiting bright red vomitus, pale Limitations: no limitations General appearance: alert, in no apparent distress Head exam: Present: atraumatic, normocephalic, normal inspection Eye exam: Present: normal appearance, PERRL, EOMI. Absent: scleral icterus, conjunctival injection, periorbital swelling ENT exam: Present: normal exam, mucous membranes moist Neck exam: Present: normal inspection. Absent: tenderness, meningismus, lymphadenopathy Respiratory exam: Present: normal lung sounds bilaterally. Absent: respiratory distress, wheezes, rales, rhonchi, stridor Cardiovascular Exam: Present: normal rhythm, tachycardia, normal heart sounds. Absent: systolic murmur, diastolic murmur, rubs, gallop, clicks GI/Abdominal exam: Present: soft, normal bowel sounds. Absent: distended, tenderness, guarding, rebound, rigid Extremities exam: Present: normal inspection, full ROM, normal capillary refill. Absent: tenderness, pedal edema, joint swelling, calf tenderness Back exam: Present: normal inspection Neurological exam: Present: alert, oriented X3, CN II-XII intact Psychiatric exam: Present: normal affect, normal mood Skin exam: Present: warm, dry, intact, normal color. Absent: rash Course Vital Signs 10/11/17 10/11/17 10/11/17 16:37 16:45 16:53 Temperature 97.9 F Pulse Rate 108 H 101 H 100 Respiratory 18 18 20 Rate Blood Pressure 72/51 70/51 57/40 O2 Sat by Pulse 93 L 95 100 Oximetry 10/11/17 10/11/17 10/11/17 17:10 17:18 17:19 Temperature 97.1 F L 97.7 F 97.5 F L Pulse Rate 129 H 96 97 Respiratory 18 18 18 Rate Blood Pressure 92/53 95/53 95/57 O2 Sat by Pulse Oximetry 10/11/17 10/11/17 17:38 17:50 Temperature 97.1 F L Pulse Rate 96 98 Respiratory 18 18 Rate Blood Pressure 103/63 109/59 O2 Sat by Pulse 97 Oximetry - Reevaluation(s) Reevaluation #1: 10/11/17 17:51 Patient remains with worsening blood pressure here in the ER with active nausea and vomiting. After bolus and transfusion patient's blood pressure is improved EKG Findings - EKG Comments: EKG Findings:: EKG shows sinus tachycardia rate of 108, NM 172, QRS 88, QTc 469 Medical Decision Making - Medical Decision Making 72 male the ER for evasive significant bright red blood GI bleed. Patient has likely esophageal varices secondary to history of alcohol. Patient given Kayexalate octreotide and transfusion here in the ER secondary to extremity with blood pressure. Patient be admitted for continued monitoring of cardiopulmonary situation, - Lab Data Result diagrams: 10/11/17 16:42 10/11/17 16:42 Lab Results 10/11/17 10/11/17 10/11/17 Range/Units 16:42 16:42 16:42 WBC 6.5 (3.8-10.6) k/uL RBC 2.66 L (4.30-5.90) m/uL Hgb 8.1 L D (13.0-17.5) gm/dL Hct 24.5 L (39.0-53.0) % MCV 92.0 (80.0-100.0) fL MCH 30.3 (25.0-35.0) pg MCHC 32.9 (31.0-37.0) g/dL RDW 17.5 H (11.5-15.5) % Plt Count 177 (150-450) k/uL Neutrophils % 76 % Lymphocytes % 15 % Monocytes % 6 % Eosinophils % 2 % Basophils % 0 % Neutrophils # 5.0 (1.3-7.7) k/uL Lymphocytes # 1.0 (1.0-4.8) k/uL Monocytes # 0.4 (0-1.0) k/uL Eosinophils # 0.1 (0-0.7) k/uL Basophils # 0.0 (0-0.2) k/uL Hypochromasia Slight Anisocytosis Slight PT 13.6 H (9.0-12.0) sec INR 1.5 H (<1.2) APTT 23.7 (22.0-30.0) sec Sodium 140 (137-145) mmol/L Potassium 3.5 (3.5-5.1) mmol/L Chloride 109 H (98-107) mmol/L Carbon Dioxide 14 L (22-30) mmol/L Anion Gap 17 mmol/L BUN 8 L (9-20) mg/dL Creatinine 0.90 (0.66-1.25) mg/dL Est GFR (CKD-EPI)AfAm >90 (>60 ml/min/1.73 sqM) Est GFR (CKD-EPI)NonAf 86 (>60 ml/min/1.73 sqM) Glucose 181 H (74-99) mg/dL Plasma Lactic Acid [place] (0.7-2.0) mmol/L Calcium 8.6 (8.4-10.2) mg/dL Magnesium 1.4 L (1.6-2.3) mg/dL Total Bilirubin 1.7 H (0.2-1.3) mg/dL AST 63 H (17-59) U/L ALT 20 L (21-72) U/L Alkaline Phosphatase 140 H (38-126) U/L Ammonia (<30) umol/L Total Creatine Kinase (55-170) U/L CK-MB (CK-2) (0.0-2.4) ng/mL CK-MB (CK-2) Rel Index Troponin I (0.000-0.034) ng/mL Total Protein 6.7 (6.3-8.2) g/dL Albumin 3.3 L (3.5-5.0) g/dL Lipase 187 (23-300) U/L 10/11/17 10/11/17 Range/Units 16:42 16:42 WBC (3.8-10.6) k/uL RBC (4.30-5.90) m/uL Hgb (13.0-17.5) gm/dL Hct (39.0-53.0) % MCV (80.0-100.0) fL MCH (25.0-35.0) pg MCHC (31.0-37.0) g/dL RDW (11.5-15.5) % Plt Count (150-450) k/uL Neutrophils % % Lymphocytes % % Monocytes % % Eosinophils % % Basophils % % Neutrophils # (1.3-7.7) k/uL Lymphocytes # (1.0-4.8) k/uL Monocytes # (0-1.0) k/uL Eosinophils # (0-0.7) k/uL Basophils # (0-0.2) k/uL Hypochromasia Anisocytosis PT (9.0-12.0) sec INR (<1.2) APTT (22.0-30.0) sec Sodium (137-145) mmol/L Potassium (3.5-5.1) mmol/L Chloride (98-107) mmol/L Carbon Dioxide (22-30) mmol/L Anion Gap mmol/L BUN (9-20) mg/dL Creatinine (0.66-1.25) mg/dL Est GFR (CKD-EPI)AfAm (>60 ml/min/1.73 sqM) Est GFR (CKD-EPI)NonAf (>60 ml/min/1.73 sqM) Glucose (74-99) mg/dL Plasma Lactic Acid [place] 8.1 H* (0.7-2.0) mmol/L Calcium (8.4-10.2) mg/dL Magnesium (1.6-2.3) mg/dL Total Bilirubin (0.2-1.3) mg/dL AST (17-59) U/L ALT (21-72) U/L Alkaline Phosphatase (38-126) U/L Ammonia 121 H (<30) umol/L Total Creatine Kinase 128 (55-170) U/L CK-MB (CK-2) 1.1 (0.0-2.4) ng/mL CK-MB (CK-2) Rel Index 0.9 Troponin I <0.012 (0.000-0.034) ng/mL Total Protein (6.3-8.2) g/dL Albumin (3.5-5.0) g/dL Lipase (23-300) U/L Critical Care Time Critical Care Time: Yes Total Critical Care Time: 65 Disposition Clinical Impression: Alcoholism, Acute GI bleeding, UGIB (upper gastrointestinal bleed), Hypotension , Anemia Disposition: ADMITTED IP TO THIS [facility] Condition: Critical Is patient prescribed a controlled substance at d/c from ED?: No Referrals: None,Stated [Primary Care Provider] - 1-2 days
[2017-10-11] MEDS ORDERED: OCTREOTIDE 100 MCG/ML INJ IVP STA (16:43)
[2017-10-11] MEDS ORDERED: ONDANSETRON 4 MG/2 ML VIAL IVP STA (16:43)
[2017-10-11] MEDS ORDERED: PANTOPRAZOLE 40 MG/10 ML VIAL IVP STA (16:43)
[2017-10-11] MEDS ORDERED: SODIUM CHLORIDE 0.9% 1,000 ML IV STA ×2 (16:43)
[2017-10-11 16:54] LABS: Anisocytosis Slight; Basophils % (A) 0 %; Eosinophils # (A) 0.1 k/uL (0-0.7); Eosinophils % (A) 2 %; HCT 24.5 % (39.0-53.0); Hypochromasia Slight; Lymphocytes % (A) 15 %; MCH 30.3 pg (25.0-35.0); MCHC 32.9 g/dL (31.0-37.0); Mean Platelet Volume 7.4; Monocytes # (A) 0.4 k/uL (0-1.0); Monocytes % (A) 6 %; Neutrophils % (A) 76 %; Platelet Count 177 k/uL (150-450); RBC 2.66 m/uL (4.30-5.90); RDW 17.5 % (11.5-15.5); WBC 6.5 k/uL (3.8-10.6)
[2017-10-11 16:57] LABS: HGB 8.1 gm/dL (13.0-17.5)
[2017-10-11] MEDS ORDERED: CALCIUM CHLORIDE 1,000 MG in SODIUM CHLORIDE 0.9% 100 ML IVPB STA (16:59)
[2017-10-11] MEDS ORDERED: TRANEXAMIC ACID 1,000 MG in SODIUM CHLORIDE 0.9% 50 ML IVPB STA (17:01)
[2017-10-11 17:05] LABS: ALT 20 U/L (21-72); AST 63 U/L (17-59); Albumin 3.3 g/dL (3.5-5.0); Alkaline Phosphatase 140 U/L (38-126); Anion Gap 17 mmol/L; Blood Urea Nitrogen 8 mg/dL (9-20); Calcium 8.6 mg/dL (8.4-10.2); Carbon Dioxide 14 mmol/L (22-30); Chloride 109 mmol/L (98-107); Glucose 181 mg/dL (74-99); Lipase 187 U/L (23-300); Magnesium 1.4 mg/dL (1.6-2.3); Potassium 3.5 mmol/L (3.5-5.1); Sodium 140 mmol/L (137-145); Total Bilirubin 1.7 mg/dL (0.2-1.3); Total Protein 6.7 g/dL (6.3-8.2)
[2017-10-11 17:13] LABS: Lactic Acid, Venous 8.1 mmol/L (0.7-2.0)
[2017-10-11 17:17] LABS: INR 1.5 (<1.2); Partial Thromboplastin Time 23.7 sec (22.0-30.0); Prothrombin Time 13.6 sec (9.0-12.0)
[2017-10-11 17:18] LABS: Creatine Kinase 128 U/L (55-170)
[2017-10-11] MEDS: MAGNESIUM SULFATE-D5W PMX 1 GM in DEXTROSE/WATER 1 100ML.BAG IVPB SCH ×2 (17:27→22:39)
[2017-10-11 17:31] LABS: Creatine Kinase MB 1.1 ng/mL (0.0-2.4); Troponin I <0.012 ng/mL (0.000-0.034)
[2017-10-11] MEDS ORDERED: IPRATROPIUM-ALBUTEROL 3 ML NEB INHALATION PRN (17:46)
[2017-10-11] MEDS ORDERED: NALOXONE 0.4 MG/ML 1 ML VIAL IV PRN (17:46)
[2017-10-11] MEDS ORDERED: cefTRIAXone IN SWFI 2,000 MG/20 ML SYRINGE IVP STA (17:48)
[2017-10-11] MEDS ORDERED: LORazepam 2 MG/ML INJ IV PRN (17:48)
[2017-10-11] MEDS ORDERED: THIAMINE 100 MG/ML 2 ML VIAL IM STA (17:48)
[2017-10-11] MEDS: SODIUM CHLORIDE 0.9% 1,000 ML IV SCH (18:07)
[2017-10-11] MEDS: THIAMINE 100 MG TAB PO SCH (18:09)
[2017-10-11] MEDS ORDERED: SODIUM CHLORIDE 0.9% 1,000 ML IV ONE (18:12)
[2017-10-11] MEDS: OCTREOTIDE 200 MCG in SODIUM CHLORIDE 0.9% 100 ML IV SCH ×2 (18:28→22:41)
--- NOTE | 2017-10-11 21:01 | HP ---
HISTORY AND PHYSICAL CHIEF COMPLAINTS: Vomiting of blood and GI bleed. HISTORY OF PRESENT ILLNESS: This 72-year-old gentleman with a past medical history of multiple medical problems, including hypertension, history of liver disease, history of recurrent falls, history of delirium tremens, significant history of alcohol, being followed by [facility] Gastroenterology in the outpatient setting, was complaining of a significant amount of hematemesis. The patient had vomiting of blood today and the patient also had blood in the stools. The patient came to [facility] and was admitted for further evaluation and treatment. The patient apparently had stopped alcohol but had taken up alcohol again recently, and the patient has some withdrawal symptoms also. Hemoglobin was found to be 8.1. The patient is receiving multiple transfusions. The patient is admitted for further evaluation and treatment. The patient also had multiple electrolyte lab abnormalities, including hypomagnesemia. There is no history of any fever, rigor or chills. No history of headache, loss of consciousness, seizures. PAST MEDICAL HISTORY: 1. History of hypertension. 2. History of liver disease. 3. History of alcohol. 4. History of tonsillectomy. 5. Autonomic changes. HOME MEDICATIONS: 1. Iron sulfate 325 daily. 2. Aspirin 81 mg daily. ALLERGIES: NONE. FAMILY HISTORY: History of colon cancer in the family. SOCIAL HISTORY: History of alcohol, as mentioned. Previous history of smoking. REVIEW OF SYSTEMS: ENT: No diminished hearing. No diminished vision. CARDIOVASCULAR SYSTEM: No angina, palpitations. RESPIRATORY SYSTEM: As mentioned earlier. GI: No nausea, vomiting. : No dysuria or retention. NERVOUS SYSTEM: No numbness, weakness. ALLERGY/IMMUNOLOGY: No asthma, hayfever. MUSCULOSKELETAL: As mentioned earlier. HEMATOLOGY/ONCOLOGY: No history of anemia. ENDOCRINE: No history of diabetes, hypothyroidism. CONSTITUTIONAL: As mentioned earlier. DERMATOLOGY: Negative. RHEUMATOLOGY: Negative. PSYCHIATRY: As mentioned earlier. PHYSICAL EXAMINATION: Patient is alert and oriented x3. Pulse is 97, blood pressure 106/69, respiration 16, temperature 97.4, pulse ox 98% on room air. HEENT: Conjunctivae pale. Oral mucosa moist. NECK: No jugular venous distention. No carotid bruit. No lymph node enlargement. CARDIOVASCULAR SYSTEM: S1, S2 muffled. No S3. No S4. RESPIRATORY SYSTEM: Breath sounds diminished at the bases. A few scattered rhonchi. No crackles. ABDOMEN: Soft, obese. Non-tender. No mass palpable. LEGS: No edema. No swelling. NERVOUS SYSTEM: Higher functions as mentioned earlier. Moves all 4 limbs. No focal motor or sensory deficit. Diffuse tremors present. Hepatic flap also present. LYMPHATICS: No lymph node palpable in neck, axillae or groin. SKIN: No ulcer, rash, bleeding. LABS: WBC 6.5, hemoglobin 8.1. Ammonia is 121 and magnesium is 1.4. ASSESSMENT: 1. Acute gastrointestinal bleed, possibly from variceal bleeding. 2. Possible cirrhosis of the liver secondary to ethanol. 3. Alcohol withdrawal and early delirium tremens. 4. Increased plasma lactic acid possibly secondary from liver disease. 5. Hyperammonemia with acute on chronic hepatic encephalopathy. 6. Anemia, acute on chronic gastrointestinal bleed, blood loss anemia. 7. Ethanol. 8. Hypertension. 9. Chronic liver disease. 10.Obesity with a body mass index of 30.8. 11.History of nicotine dependence. RECOMMENDATIONS AND DISCUSSION: In this 72-year-old gentleman who presented with multiple complex medical issues, we will monitor the patient closely, continue the current medications, continue with symptomatic treatment. Otherwise at this time I recommend 2 units transfusion. Closely follow with Gastroenterology. Possible EGD, endoscopies. Empiric antibiotics. Continue the rest of the medications. Alcohol cessation recommended and CIWA protocol. Guarded prognosis because of multiple complex medical issues. Further recommendations to follow. The patient has seen Dr. Arnold before. MMWESLEYL / ANIYAHN: [id number] /
[2017-10-11] MEDS ORDERED: LACTULOSE 20 GM/30 ML CUP PO SCH (22:00)
[2017-10-11 22:16] LABS: Glucose,Whole Blood 175 mg/dL (75-99)
[2017-10-11] MEDS: PANTOPRAZOLE 40 MG/10 ML VIAL IV SCH (22:43)
--- NOTE | 2017-10-11 23:29 | XR ---
EXAMINATION TYPE: XR chest 1V portable DATE OF EXAM: 10/11/2017 COMPARISON: NONE HISTORY: NG tube placement TECHNIQUE: Single frontal view of the chest is obtained. FINDINGS: Heart and mediastinum are normal. Lungs are clear. Nasogastric tube has tip in the gastric fundus. There is no heart failure. Costophrenic angles are clear. IMPRESSION: No active cardiopulmonary disease. Nasogastric tube appears in good position.
[2017-10-12 01:12] LABS: Anisocytosis Slight; Basophils % (A) 0 %; Eosinophils % (A) 0 %; HCT 23.1 % (39.0-53.0); HGB 7.6 gm/dL (13.0-17.5); Hypochromasia Slight; Lymphocytes # (A) 0.5 k/uL (1.0-4.8); Lymphocytes % (A) 5 %; MCH 29.3 pg (25.0-35.0); MCHC 32.8 g/dL (31.0-37.0); MCV 89.4 fL (80.0-100.0); Mean Platelet Volume 7.9; Monocytes # (A) 0.5 k/uL (0-1.0); Monocytes % (A) 5 %; Neutrophils % (A) 89 %; Platelet Count 113 k/uL (150-450); Poikilocytosis Slight; RBC 2.59 m/uL (4.30-5.90); RDW 17.2 % (11.5-15.5); WBC 9.1 k/uL (3.8-10.6)
[2017-10-12] MEDS: OCTREOTIDE 200 MCG in SODIUM CHLORIDE 0.9% 100 ML IV SCH ×5 (05:15→20:09)
[2017-10-12] MEDS: SODIUM CHLORIDE 0.9% 1,000 ML IV SCH ×3 (05:15→20:09)
[2017-10-12 05:41] LABS: INR 1.6 (<1.2)
[2017-10-12 05:49] LABS: Albumin 2.9 g/dL (3.5-5.0); Calcium 8.3 mg/dL (8.4-10.2); Magnesium 1.8 mg/dL (1.6-2.3); Phosphorus 4.5 mg/dL (2.5-4.5); Potassium 4.5 mmol/L (3.5-5.1); Total Bilirubin 2.4 mg/dL (0.2-1.3); Total Protein 5.9 g/dL (6.3-8.2)
[2017-10-12 05:55] LABS: Anisocytosis Slight; Basophils % (A) 0 %; Eosinophils % (A) 0 %; HCT 22.1 % (39.0-53.0); HGB 7.3 gm/dL (13.0-17.5); Hypochromasia Slight; Lymphocytes # (A) 0.9 k/uL (1.0-4.8); Lymphocytes % (A) 11 %; MCH 30.1 pg (25.0-35.0); MCV 91.2 fL (80.0-100.0); Mean Platelet Volume 7.3; Monocytes # (A) 0.6 k/uL (0-1.0); Monocytes % (A) 8 %; Neutrophils # (A) 6.5 k/uL (1.3-7.7); Neutrophils % (A) 79 %; Platelet Count 114 k/uL (150-450); Poikilocytosis Slight; RBC 2.43 m/uL (4.30-5.90); RDW 17.5 % (11.5-15.5); WBC 8.2 k/uL (3.8-10.6)
[2017-10-12] MEDS ORDERED: Magnesium Replacement Protocol 1 EACH MISC MISCELLANE PRN (06:28)
--- NOTE | 2017-10-12 07:15 | P.CNPUL ---
History of Present Illness Consult date: 10/12/17 Reason for consult: other Chief complaint: GI bleed, hematemesis, anemia, alcohol abuse History of present illness: Pulmonary consult dated 10/12/2017 72-year-old male with a history of chronic alcohol abuse. Patient drinks about 12 ounces of bourbon every day or more. The patient presents to the emergency department with nausea vomiting abdominal discomfort and vomiting up bright red blood. There is also black tarry stools and blood in his stools. The patient hasn't been feeling well about 3 days prior to admission. His last drink apparently was a day prior to admission. The patient has a prior history of alcohol withdrawal syndrome. He apparently denies a previous history of GI bleed from alcohol abuse. It appears that he has an established history of alcoholic liver disease. His home medications apparently include only aspirin and iron. Apparently he has no known ALLERGIES. He also apparently has a history of essential hypertension and chronic liver disease and alcohol abuse. He also has a history of colon polyp hiatal hernia gastroesophageal reflux disease and chronic falls. Surgical history includes colonoscopy tonsillectomy and possibly EGD. He also is a former smoker. Currently, the patient is not receiving any supplemental oxygen. The patient is on a saline IV at 100 mL an hour. His most recent hemoglobin is 7.6. He is also on Sandostatin or octreotide 50 mics per minute. Review of Systems A 14 point review of system is difficult to obtain. He is not a particularly good historian. Currently, seems to deny everything including abdominal pain and discomfort additional bleeding vomiting up blood blood in his stools or any other complaints for that matter. Past Medical History Past Medical History: Hypertension, Liver Disease Additional Past Medical History / Comment(s): STATES PAST HX OF COLON POLYP- benign,PREVIOUS HX OF HTN but OFF MEDICATIONS PAST 4 MONTHS, etoh, falls. History of Any Multi-Drug Resistant Organisms: None Reported Past Surgical History: Tonsillectomy Additional Past Surgical History / Comment(s): PREV. COLONOSCOPIES, egd Past Anesthesia/Blood Transfusion Reactions: No Reported Reaction Past Psychological History: No Psychological Hx Reported Additional Psychological History / Comment(s): lives at home w/ and daughter. has 1 pet rabbit. served in the [employer]. 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 Smoking Status: Former smoker Past Alcohol Use History: Daily Additional Past Alcohol Use History / Comment(s): SMOKED CIGARS -started 1968 and quit 1997. drinks 12 ounces of bourbon daily. Past Drug Use History: None Reported - Past Family History Mother Family Medical History: Cancer Additional Family Medical History / Comment(s): COLON Father Family Medical History: Coronary Artery Disease (CAD) Additional Family Medical History / Comment(s): valve replacment, cataracts Medications and Allergies Home Medications Medication Instructions Recorded Confirmed Type Aspirin [Adult Low Dose Aspirin EC] 81 mg PO DAILY 10/20/16 10/11/17 History Ferrous Sulfate [Iron] 325 mg PO DAILY 06/06/17 10/11/17 History Allergies Allergy/AdvReac Type Severity Reaction Status Date / Time No Known Allergies Allergy Verified 10/11/17 17:01 Physical Exam Osteopathic Statement: *. No significant issues noted on an osteopathic structural exam other than those noted in the History and Physical/Consult. Vitals: Vital Signs Temp Pulse Pulse Resp BP BP Pulse Ox 10/12/17 07:00 83 17 139/60 95 10/12/17 06:00 88 18 139/60 95 10/12/17 05:00 90 12 107/63 96 10/12/17 04:00 98.1 F 93 22 145/64 94 L 10/12/17 03:00 92 20 140/67 96 10/12/17 02:00 90 16 142/66 93 L 10/12/17 01:00 90 18 118/61 96 10/12/17 00:30 117 H 19 96/48 90 L 10/12/17 00:00 98.1 F 97 30 H 117/60 93 L 10/11/17 23:30 93 22 123/64 94 L 10/11/17 23:04 91 17 111/59 93 L 10/11/17 23:00 95 21 111/59 91 L 10/11/17 22:40 93 14 93 L 10/11/17 22:30 94 20 94 L 10/11/17 22:29 98.1 F 96 20 127/58 96 10/11/17 22:20 98.1 F 100 36 H 127/58 95 10/11/17 22:12 108 H 23 10/11/17 21:15 103 H 20 121/60 99 10/11/17 19:59 107 H 20 137/60 94 L 10/11/17 18:29 97.4 F L 97 16 106/69 98 10/11/17 17:50 98 18 109/59 97 10/11/17 17:38 97.1 F L 96 18 103/63 10/11/17 17:19 97.5 F L 97 18 95/57 10/11/17 17:18 97.7 F 96 18 95/53 10/11/17 17:10 97.1 F L 129 H 18 92/53 10/11/17 16:53 100 20 57/40 100 10/11/17 16:45 101 H 18 70/51 95 10/11/17 16:37 97.9 F 108 H 18 72/51 93 L Intake and Output 10/11/17 10/12/17 10/12/17 22:59 06:59 14:59 Intake Total 411 1261 145 Output Total 300 Balance 111 1261 145 Intake: IV 1160 145 Octreotide 200 mcg In 200 25 Sodium Chloride 0.9% 100 ml @ 50 MCG/HR 25.25 mls/ hr IV .Q4H [facility] Rx#: [id number] Sodium Chloride 0.9% 1, 960 120 000 ml @ 120 mls/hr IV . Q8H20M [facility] Rx#:[id number] Intake, IV Titration 101 101 Amount Octreotide 200 mcg In 101 101 Sodium Chloride 0.9% 100 ml @ 50 MCG/HR 25.25 mls/ hr IV .Q4H [facility] Rx#: [id number] Blood Product 310 Pheresis As-3 Unit 310 [id number] Pheresis As-3 Unit 0 [id number] Output: Emesis 300 Other: Voiding Method Urinal Urinal Weight 101 kg 101 kg No acute distress, oriented 3. No supplemental oxygen noted. NG tube in position. HEENT examination is grossly unremarkable. Mucous membranes are moist. No oral lesions. Neck supple. Full range of motion. No adenopathy thyromegaly or neck vein distention. Cardiovascular examination reveals regular rhythm rate. S1-S2 normal. No S3 or S4. No discernible murmur noted. Lungs reveal clear breath sounds. Her sounds are equal bilaterally. No adventitious lung sounds including wheezes rhonchi or crackles. Abdomen soft bowel sounds are heard. No masses or tenderness. Extremities are intact. No cyanosis clubbing or edema. Skin is without rash or lesion. Neurologic examination is brief but nonfocal. Results - Laboratory Findings CBC and BMP: 10/12/17 05:03 10/12/17 05:03 PT/INR, D-dimer PT 15.0 sec (9.0-12.0) H 10/12/17 05:03 INR 1.6 (<1.2) H 10/12/17 05:03 Abnormal lab findings: Abnormal Labs 10/11/17 10/11/17 10/11/17 16:42 16:42 16:42 RBC 2.66 L Hgb 8.1 L D Hct 24.5 L RDW 17.5 H Plt Count Neutrophils # Lymphocytes # PT 13.6 H INR 1.5 H Chloride 109 H Carbon Dioxide 14 L BUN 8 L Glucose 181 H POC Glucose (mg/dL) Plasma Lactic Acid [place] Calcium Magnesium 1.4 L Total Bilirubin 1.7 H AST 63 H ALT 20 L Alkaline Phosphatase 140 H Ammonia Total Protein Albumin 3.3 L Crossmatch 10/11/17 10/11/17 10/11/17 16:42 17:07 21:16 RBC Hgb Hct RDW Plt Count Neutrophils # Lymphocytes # PT INR Chloride Carbon Dioxide BUN Glucose POC Glucose (mg/dL) Plasma Lactic Acid [place] 8.1 H* 4.4 H* Calcium Magnesium Total Bilirubin AST ALT Alkaline Phosphatase Ammonia 121 H Total Protein Albumin Crossmatch See Detail 10/11/17 10/12/17 10/12/17 22:12 00:58 05:03 RBC 2.59 L Hgb 7.6 L Hct 23.1 L RDW 17.2 H Plt Count 113 L Neutrophils # 8.0 H Lymphocytes # 0.5 L PT 15.0 H INR 1.6 H Chloride Carbon Dioxide BUN Glucose POC Glucose (mg/dL) 175 H Plasma Lactic Acid [place] Calcium Magnesium Total Bilirubin AST ALT Alkaline Phosphatase Ammonia Total Protein Albumin Crossmatch 10/12/17 10/12/17 10/12/17 05:03 05:03 05:03 RBC 2.43 L Hgb 7.3 L Hct 22.1 L RDW 17.5 H Plt Count 114 L Neutrophils # Lymphocytes # 0.9 L PT INR Chloride 111 H Carbon Dioxide 19 L BUN Glucose 120 H POC Glucose (mg/dL) Plasma Lactic Acid [place] Calcium 8.3 L Magnesium Total Bilirubin 2.4 H AST ALT Alkaline Phosphatase Ammonia 164 H Total Protein 5.9 L Albumin 2.9 L Crossmatch - Diagnostic Findings Chest x-ray: report reviewed, image reviewed (Chest x-ray, labs, and medications are all reviewed.) Assessment and Plan Assessment: Assessment Alcoholic liver disease with upper GI bleed, likely related to esophageal varices History of chronic alcohol abuse and alcoholic liver disease with cirrhosis No previous history of GI bleed Vague history of benign essential hypertension Anemia, secondary to GI bleed History of gastroesophageal reflux disease and hiatal hernia History of colonic polyp Mild alcoholic induced coagulopathy. Mild non-anion gap hyperchloremic metabolic acidosis Hyperammonemia Mild hyperbilirubinemia Plan: Plan dated 10/12/2017 The patient will stay here in the ICU to be monitored. He has not been seen by GI as yet. He continues on octreotide. His most recent hemoglobin is actually down to 7.3 from 7.6. We'll recheck her hemoglobin in about 6 hours. The patient's labs x-rays a medications are reviewed. Chest x-ray shows no acute cardiopulmonary disease. Labs are consistent with underlying diagnosis. Currently, the patient is hemodynamically stable. His respiratory status is stable. The patient is not receiving any supplemental oxygen. We'll continue to watch closely. Critical care time 32 minutes Time with Patient: Greater than 30
[2017-10-12] MEDS: LACTULOSE 20 GM/30 ML CUP PO SCH ×3 (08:01→21:23)
[2017-10-12] MEDS: PANTOPRAZOLE 40 MG/10 ML VIAL IV SCH ×2 (08:01→20:09)
[2017-10-12] MEDS: MAGNESIUM SULFATE-D5W PMX 1 GM in DEXTROSE/WATER 1 100ML.BAG IVPB SCH ×2 (08:04→09:40)
[2017-10-12] MEDS: cefTRIAXone IN SWFI 1,000 MG/10 ML SYRINGE IVP SCH ×2 (08:04→20:09)
--- NOTE | 2017-10-12 08:59 | P.CONS ---
History of Present Illness - Reason for Consult Consult date: 10/12/17 GI bleed Requesting physician: Hermelinda Mercado - History of Present Illness 72-year-old gentleman with a long-standing history of EtOH abuse alcohol liver disease cirrhosis portal hypertension and ascites requiring paracentesis, iron deficiency anemia, portal gastropathy actively drinking presents with acute hematemesis and bloody bowel movements. Patient presented yesterday with increased nausea vomiting of bright red blood as well as red blood tinged bowel movements. His last alcoholic drink was 2 days ago. EGD colonoscopy performed January 2017 for evaluation of iron deficiency anemia identified mild antral gastritis diffuse portal hypertensive gastropathy small hiatal hernia and LA grade B reflux esophagitis. Colonoscopy revealed scattered sigmoid diverticulosis and grade 2 internal hemorrhoids. Admission hemoglobin 8.1 previously 10.1 in August. Present hemoglobin is 7.3. Platelet 114. MCV 91. INR 1.6. BUN 8. Creatinine 0.9. Lactic acid 8.1. Ammonia 121. Total bilirubin 1.7. AST 63. ALT 20. AP 140. Hepatitis screen nonreactive December 2016. He received 1 unit of blood. With hydration lactic acid improved to 4.4. Total bilirubin 2.4. AST 50. ALT 27. AP 107. Ammonia 164. NG tube inserted with minimal output. No movements through the night. Presently receiving intravenous Sandostatin and Rocephin. Paracentesis May 2017 3.1 L removed negative cytology. Review of Systems Constitutional: Denies fever, chills, sweats, weight gain, or loss. HEENT: Negative for migraines, blurred vision or loss, earaches, drainage, tinnitus, oral mucosal lesions, dysphagia, or odynophagia. Cardiac: Negative for chest pain, arrhythmias, or palpitation. Respiratory: Negative for shortness of breath, hemoptysis, cough, or sputum production. Gastrointestinal: See HPI for pertinent findings. Genitourinary: Negative for hematuria, urgency, frequency, polyuria, dysuria, or penile discharge. Musculoskeletal: Negative for muscle aches, swelling, arthritis, and arthralgias. Neurologic: Negative for stroke or TIA. Endocrine: Negative for thyroid problems. Skin: Negative for rash or itching. Psychiatric: Negative history for depression and anxiety Past Medical History Past Medical History: Hypertension, Liver Disease Additional Past Medical History / Comment(s): STATES PAST HX OF COLON POLYP- benign,PREVIOUS HX OF HTN but OFF MEDICATIONS PAST 4 MONTHS, etoh, falls. History of Any Multi-Drug Resistant Organisms: None Reported Past Surgical History: Tonsillectomy Additional Past Surgical History / Comment(s): PREV. COLONOSCOPIES, egd Past Anesthesia/Blood Transfusion Reactions: No Reported Reaction Past Psychological History: No Psychological Hx Reported Additional Psychological History / Comment(s): lives at home w/ and daughter. has 1 pet rabbit. served in the [employer]. 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 Smoking Status: Former smoker Past Alcohol Use History: Daily Additional Past Alcohol Use History / Comment(s): SMOKED CIGARS -started 1968 and quit 1997. drinks 12 ounces of bourbon daily. Past Drug Use History: None Reported - Past Family History Mother Family Medical History: Cancer Additional Family Medical History / Comment(s): COLON Father Family Medical History: Coronary Artery Disease (CAD) Additional Family Medical History / Comment(s): valve replacment, cataracts Medications and Allergies Home Medications Medication Instructions Recorded Confirmed Type Aspirin [Adult Low Dose Aspirin EC] 81 mg PO DAILY 10/20/16 10/11/17 History Ferrous Sulfate [Iron] 325 mg PO DAILY 06/06/17 10/11/17 History Allergies Allergy/AdvReac Type Severity Reaction Status Date / Time No Known Allergies Allergy Verified 10/11/17 17:01 Physical Exam Vitals: Vital Signs Temp Pulse Pulse Resp BP BP Pulse Ox 10/12/17 07:00 83 17 139/60 95 10/12/17 06:00 88 18 139/60 95 10/12/17 05:00 90 12 107/63 96 10/12/17 04:00 98.1 F 93 22 145/64 94 L 10/12/17 03:00 92 20 140/67 96 10/12/17 02:00 90 16 142/66 93 L 10/12/17 01:00 90 18 118/61 96 10/12/17 00:30 117 H 19 96/48 90 L 10/12/17 00:00 98.1 F 97 30 H 117/60 93 L 10/11/17 23:30 93 22 123/64 94 L 10/11/17 23:04 91 17 111/59 93 L 10/11/17 23:00 95 21 111/59 91 L 10/11/17 22:40 93 14 93 L 10/11/17 22:30 94 20 94 L 10/11/17 22:29 98.1 F 96 20 127/58 96 10/11/17 22:20 98.1 F 100 36 H 127/58 95 10/11/17 22:12 108 H 23 10/11/17 21:15 103 H 20 121/60 99 10/11/17 19:59 107 H 20 137/60 94 L 10/11/17 18:29 97.4 F L 97 16 106/69 98 10/11/17 17:50 98 18 109/59 97 10/11/17 17:38 97.1 F L 96 18 103/63 10/11/17 17:19 97.5 F L 97 18 95/57 10/11/17 17:18 97.7 F 96 18 95/53 10/11/17 17:10 97.1 F L 129 H 18 92/53 10/11/17 16:53 100 20 57/40 100 10/11/17 16:45 101 H 18 70/51 95 10/11/17 16:37 97.9 F 108 H 18 72/51 93 L Intake and Output 10/11/17 10/12/17 10/12/17 22:59 06:59 14:59 Intake Total 411 1261 214.438 Output Total 300 Balance 111 1261 214.438 Intake: IV 1160 145 Octreotide 200 mcg In 200 25 Sodium Chloride 0.9% 100 ml @ 50 MCG/HR 25.25 mls/ hr IV .Q4H [facility] Rx#: [id number] Sodium Chloride 0.9% 1, 960 120 000 ml @ 120 mls/hr IV . Q8H20M [facility] Rx#:[id number] Intake, IV Titration 101 101 69.438 Amount Octreotide 200 mcg In 101 101 69.438 Sodium Chloride 0.9% 100 ml @ 50 MCG/HR 25.25 mls/ hr IV .Q4H [facility] Rx#: [id number] Blood Product 310 Rc Pheresis As-3 Unit 310 [id number] Rc Pheresis As-3 Unit 0 [id number] Output: Emesis 300 Other: Voiding Method Urinal Urinal Weight 101 kg 101 kg General appearance: The patient is alert, oriented, in no acute distress. HET: Head is normocephalic and atraumatic. Pupils are equal and reactive. Oropharynx is clear without lesions. NG tube with scant blood tinged drainage in tubing only. Neck: Supple without lymphadenopathy. Trachea midline. Heart: S1 S2. Regular rate and rhythm. Lungs: No crackles or wheezes are heard. Abdomen: Soft, mild tenderness to the mid epigastrium, nondistended with bowel sounds. No peritoneal signs. No palpable organomegaly or masses. Extremities: Normal skin color and turgor. No cyanosis, rash, ulceration, clubbing, or edema. Radial and pedal pulses are 2/4 bilaterally. Neurological: No focal deficits. Strength and sensation are grossly intact. Results CBC & Chem 7: 10/12/17 05:03 10/12/17 05:03 Labs: Abnormal Lab Results - Last 24 Hours (Table) 10/11/17 10/11/17 10/11/17 Range/Units 16:42 16:42 16:42 RBC 2.66 L (4.30-5.90) m/uL Hgb 8.1 L D (13.0-17.5) gm/dL Hct 24.5 L (39.0-53.0) % RDW 17.5 H (11.5-15.5) % Plt Count (150-450) k/uL Neutrophils # (1.3-7.7) k/uL Lymphocytes # (1.0-4.8) k/uL PT 13.6 H (9.0-12.0) sec INR 1.5 H (<1.2) Chloride 109 H (98-107) mmol/L Carbon Dioxide 14 L (22-30) mmol/L BUN 8 L (9-20) mg/dL Glucose 181 H (74-99) mg/dL POC Glucose (mg/dL) (75-99) mg/dL Plasma Lactic Acid [place] (0.7-2.0) mmol/L Calcium (8.4-10.2) mg/dL Magnesium 1.4 L (1.6-2.3) mg/dL Total Bilirubin 1.7 H (0.2-1.3) mg/dL AST 63 H (17-59) U/L ALT 20 L (21-72) U/L Alkaline Phosphatase 140 H (38-126) U/L Ammonia (<30) umol/L Total Protein (6.3-8.2) g/dL Albumin 3.3 L (3.5-5.0) g/dL Crossmatch 10/11/17 10/11/17 10/11/17 Range/Units 16:42 17:07 21:16 RBC (4.30-5.90) m/uL Hgb (13.0-17.5) gm/dL Hct (39.0-53.0) % RDW (11.5-15.5) % Plt Count (150-450) k/uL Neutrophils # (1.3-7.7) k/uL Lymphocytes # (1.0-4.8) k/uL PT (9.0-12.0) sec INR (<1.2) Chloride (98-107) mmol/L Carbon Dioxide (22-30) mmol/L BUN (9-20) mg/dL Glucose (74-99) mg/dL POC Glucose (mg/dL) (75-99) mg/dL Plasma Lactic Acid [place] 8.1 H* 4.4 H* (0.7-2.0) mmol/L Calcium (8.4-10.2) mg/dL Magnesium (1.6-2.3) mg/dL Total Bilirubin (0.2-1.3) mg/dL AST (17-59) U/L ALT (21-72) U/L Alkaline Phosphatase (38-126) U/L Ammonia 121 H (<30) umol/L Total Protein (6.3-8.2) g/dL Albumin (3.5-5.0) g/dL Crossmatch See Detail 10/11/17 10/12/17 10/12/17 Range/Units 22:12 00:58 05:03 RBC 2.59 L (4.30-5.90) m/uL Hgb 7.6 L (13.0-17.5) gm/dL Hct 23.1 L (39.0-53.0) % RDW 17.2 H (11.5-15.5) % Plt Count 113 L (150-450) k/uL Neutrophils # 8.0 H (1.3-7.7) k/uL Lymphocytes # 0.5 L (1.0-4.8) k/uL PT 15.0 H (9.0-12.0) sec INR 1.6 H (<1.2) Chloride (98-107) mmol/L Carbon Dioxide (22-30) mmol/L BUN (9-20) mg/dL Glucose (74-99) mg/dL POC Glucose (mg/dL) 175 H (75-99) mg/dL Plasma Lactic Acid [place] (0.7-2.0) mmol/L Calcium (8.4-10.2) mg/dL Magnesium (1.6-2.3) mg/dL Total Bilirubin (0.2-1.3) mg/dL AST (17-59) U/L ALT (21-72) U/L Alkaline Phosphatase (38-126) U/L Ammonia (<30) umol/L Total Protein (6.3-8.2) g/dL Albumin (3.5-5.0) g/dL Crossmatch 10/12/17 10/12/17 10/12/17 Range/Units 05:03 05:03 05:03 RBC 2.43 L (4.30-5.90) m/uL Hgb 7.3 L (13.0-17.5) gm/dL Hct 22.1 L (39.0-53.0) % RDW 17.5 H (11.5-15.5) % Plt Count 114 L (150-450) k/uL Neutrophils # (1.3-7.7) k/uL Lymphocytes # 0.9 L (1.0-4.8) k/uL PT (9.0-12.0) sec INR (<1.2) Chloride 111 H (98-107) mmol/L Carbon Dioxide 19 L (22-30) mmol/L BUN (9-20) mg/dL Glucose 120 H (74-99) mg/dL POC Glucose (mg/dL) (75-99) mg/dL Plasma Lactic Acid [place] (0.7-2.0) mmol/L Calcium 8.3 L (8.4-10.2) mg/dL Magnesium (1.6-2.3) mg/dL Total Bilirubin 2.4 H (0.2-1.3) mg/dL AST (17-59) U/L ALT (21-72) U/L Alkaline Phosphatase (38-126) U/L Ammonia 164 H (<30) umol/L Total Protein 5.9 L (6.3-8.2) g/dL Albumin 2.9 L (3.5-5.0) g/dL Crossmatch Assessment and Plan (1) Hematemesis Narrative/Plan: Acute GI bleed with hematemesis and hematochezia with underlying history of alcohol liver disease cirrhosis portal hypertension and portal hypertensive gastropathy. Underlying esophageal varices development could not be excluded. Current Visit: Yes Status: Acute Code(s): K92.0 - HEMATEMESIS SNOMED Code( s): 1418752 (2) Hematochezia Current Visit: Yes Status: Acute Code(s): K92.1 - MELENA SNOMED Code(s): 814419799 (3) GI bleed Current Visit: Yes Status: Acute Code(s): K92.2 - GASTROINTESTINAL HEMORRHAGE, UNSPECIFIED SNOMED Code(s): 79769004 (4) Acute blood loss anemia Current Visit: Yes Status: Acute Code(s): D62 - ACUTE POSTHEMORRHAGIC ANEMIA SNOMED Code(s): 389280445 (5) ETOH abuse Current Visit: Yes Status: Acute Code(s): F10.10 - ALCOHOL ABUSE, UNCOMPLICATED SNOMED Code(s): 58605891 (6) Hepatic encephalopathy Current Visit: Yes Status: Acute Code(s): K72.90 - HEPATIC FAILURE, UNSPECIFIED WITHOUT COMA SNOMED Code(s): 06573805 (7) Coagulopathy Current Visit: Yes Status: Acute Code(s): D68.9 - COAGULATION DEFECT, UNSPECIFIED SNOMED Code(s): 26993228 (8) Cirrhosis Current Visit: Yes Status: Acute Code(s): K74.60 - UNSPECIFIED CIRRHOSIS OF LIVER SNOMED Code(s): 70956153 (9) Portal hypertension Current Visit: Yes Status: Acute Code(s): K76.6 - PORTAL HYPERTENSION SNOMED Code(s): 93982869 (10) Portal hypertensive gastropathy Current Visit: Yes Status: Acute Code(s): K76.6 - PORTAL HYPERTENSION; K31.89 - OTHER DISEASES OF STOMACH AND DUODENUM SNOMED Code(s): 718511863 Plan: 1. Continue with IV Sandostatin Rocephin. Protonix 40 mg twice a day. Continue NG tube decompression. 2. CBC every 6 hours. Lactulose 30 g 3 times a day titrated 3-4 bowel movements daily. 3. EGD evaluation. The extracting machine operator has discussed the risks, benefits and alternative therapies for the above-mentioned procedure and for both sedation/analgesia as well as necessary blood product administration, if indicated, as they pertain to this patient. The patient has indicated understanding and acceptance of the risks and procedures discussed. Thank you for this kind referral and the opportunity to participate in the care of your patient. This consultation was discussed with Dr. Atkinson. The impression and plan of care have been directed as dictated.
[2017-10-12] MEDS ORDERED: METOCLOPRAMIDE 5 MG/ML 2 ML VIAL IVP STA (11:13)
[2017-10-12] MEDS: RIFAXIMIN 550 MG TABLET NG-TUBE SCH ×2 (11:19→20:10)
[2017-10-12 12:30] LABS: Anisocytosis Slight; HCT 20.7 % (39.0-53.0); Hypochromasia Slight; MCH 30.2 pg (25.0-35.0); MCHC 33.2 g/dL (31.0-37.0); Mean Platelet Volume 8.2; Platelet Count 102 k/uL (150-450); Poikilocytosis Slight; RBC 2.27 m/uL (4.30-5.90); RDW 17.4 % (11.5-15.5); WBC 8.1 k/uL (3.8-10.6)
[2017-10-12 12:39] LABS: HGB 6.9 gm/dL (13.0-17.5)
[2017-10-12] MEDS ORDERED: PROPOFOL 10 MG/ML 20 ML VIAL IV ONE (13:17)
[2017-10-12] MEDS ORDERED: IV FLUID CONTINUATION 1,000 ML IV ONE (13:20)
[2017-10-12] MEDS ORDERED: METOCLOPRAMIDE 5 MG/ML 2 ML VIAL IVP ONE (15:00)
[2017-10-12] MEDS: THIAMINE 100 MG TAB PO SCH ×2 (15:03→17:17)
--- NOTE | 2017-10-12 18:44 | P.PCN ---
Date of Procedure: 10/12/17 Preoperative Diagnosis: Hematemesis, anemia of acute blood loss Postoperative Diagnosis: Small esophageal varices with evidence of recent bleeding status post banding, portal hypertensive gastropathy Condition: critical Disposition: ICU Description of Procedure: BRIEF HISTORY: Patient is a 72-year-old, pleasant, with a known history of alcoholic cirrhosis and prior EGD less than 1 year ago showing portal hypertensive gastropathy without evidence of varices at that time. The patient presents to the hospital with complaints of hematemesis and was found to be anemic. He was transferred to the ICU where he continued to vomit blood. PROCEDURE PERFORMED: Esophagogastroduodenoscopy with variceal banding. PREOPERATIVE DIAGNOSIS: Hematemesis, anemia of acute blood loss, alcoholic cirrhosis. IV sedation per anesthesia. PROCEDURE: After informed consent was obtained, the patient was brought into the endoscopy unit. IV sedation was administered by Anesthesia under continuous monitoring. Initially the Olympus GIF-190 video endoscope was inserted into the mouth. Esophagus intubated without any difficulty. It was gradually advanced into the stomach and duodenum and carefully examined. The bulb and the second part of the duodenum appeared normal however evidence of blood was noted. The scope at this time was withdrawn to the stomach, adequately insufflated with air , and upon careful examination, mucosa of the antrum, body, cardia and the fundus were obscured by copious amounts of retained blood and clots. This was vigorously irrigated and inspection of the stomach did not reveal any active source of GI bleeding. Again portal hypertensive gastropathy was noted as on previous exam.. The scope was then withdrawn into the esophagus where small varices were noted. At the distal esophagus above the GE junction and area of ulceration located on one of the varices was noted. Subsequently the patient was treated with esophageal variceal banding with a total of 4 bands being deployed. Minimal blood loss was noted with hemostasis achieved at the end the procedure. IMPRESSION: 1. Small esophageal varices with evidence of recent GI bleed and ulceration. This was therapeutically treated with esophageal band ligation. 2. Portal hypertensive gastropathy. 3. Copious amounts of blood and clots noted in the stomach and duodenum treated with vigorous irrigation to improve visualization. RECOMMENDATIONS: The findings of this examination were discussed with the patient and his . At this time the recommendation is for the patient to stay in the ICU with close monitoring of his hemoglobin and hematocrit. The patient should be transfused for hemoglobin is lower than 7. He should be continued on both octreotide and pantoprazole, as well as ceftriaxone for SBP prophylaxis. The patient should remain nothing by mouth for now. The patient will need a follow-up endoscopy in 4-6 weeks to assess for healing and the need for further variceal banding. The patient may benefit from treatment with a nonselective beta erik and this will be discussed with him when more hemodynamically stable.
[2017-10-12] MEDS: LORazepam 2 MG/ML INJ IV PRN ×2 (22:32→23:32)
[2017-10-12] MEDS ORDERED: HALOPERIDOL LACTATE 5 MG/ML 1 ML VIAL IVP PRN (23:30)
[2017-10-13] MEDS: OCTREOTIDE 200 MCG in SODIUM CHLORIDE 0.9% 100 ML IV SCH ×8 (00:23→23:57)
[2017-10-13 00:36] LABS: Anisocytosis Slight; HCT 25.3 % (39.0-53.0); Hypochromasia Slight; MCH 29.5 pg (25.0-35.0); MCV 89.2 fL (80.0-100.0); Mean Platelet Volume 7.5; Platelet Count 100 k/uL (150-450); Poikilocytosis Slight; RBC 2.84 m/uL (4.30-5.90); RDW 17.9 % (11.5-15.5); WBC 7.9 k/uL (3.8-10.6)
[2017-10-13 00:40] LABS: HGB 8.4 gm/dL (13.0-17.5)
[2017-10-13] MEDS: LORazepam 2 MG/ML INJ IV PRN ×4 (00:47→11:46)
[2017-10-13] MEDS: SODIUM CHLORIDE 0.9% 1,000 ML IV SCH ×2 (04:29→17:29)
[2017-10-13 04:48] LABS: Anisocytosis Slight; Basophils % (A) 1 %; Eosinophils # (A) 0.3 k/uL (0-0.7); Eosinophils % (A) 4 %; HCT 26.3 % (39.0-53.0); HGB 8.7 gm/dL (13.0-17.5); Hypochromasia Marked; Lymphocytes # (A) 0.8 k/uL (1.0-4.8); Lymphocytes % (A) 12 %; MCHC 32.9 g/dL (31.0-37.0); MCV 91.2 fL (80.0-100.0); Mean Platelet Volume 7.4; Monocytes # (A) 0.5 k/uL (0-1.0); Monocytes % (A) 8 %; Neutrophils # (A) 4.9 k/uL (1.3-7.7); Neutrophils % (A) 74 %; Platelet Count 122 k/uL (150-450); Poikilocytosis Slight; RBC 2.89 m/uL (4.30-5.90); WBC 6.7 k/uL (3.8-10.6)
[2017-10-13 04:59] LABS: ALT 30 U/L (21-72); AST 54 U/L (17-59); Albumin 3.1 g/dL (3.5-5.0); Alkaline Phosphatase 101 U/L (38-126); Anion Gap 9 mmol/L; Blood Urea Nitrogen 16 mg/dL (9-20); Calcium 8.4 mg/dL (8.4-10.2); Carbon Dioxide 18 mmol/L (22-30); Chloride 114 mmol/L (98-107); Glucose 111 mg/dL (74-99); Magnesium 1.8 mg/dL (1.6-2.3); Phosphorus 2.7 mg/dL (2.5-4.5); Potassium 3.6 mmol/L (3.5-5.1); Sodium 141 mmol/L (137-145); Total Bilirubin 1.7 mg/dL (0.2-1.3); Total Protein 6.4 g/dL (6.3-8.2)
[2017-10-13] MEDS ORDERED: Potassium Replacement Protocol 1 EACH MISC MISCELLANE PRN (05:08)
[2017-10-13] MEDS ORDERED: POTASSIUM CHLORIDE 10 MEQ in WATER FOR INJECTION 1 100ML.BAG IVPB SCH (05:09)
[2017-10-13] MEDS: MAGNESIUM SULFATE-D5W PMX 1 GM in DEXTROSE/WATER 1 100ML.BAG IVPB SCH ×2 (05:19→06:44)
--- NOTE | 2017-10-13 07:38 | PN ---
PROGRESS NOTE DATE OF SERVICE: 10/12/2017 This 72-year-old gentleman who was admitted with vomiting and hematemesis had EGD and the patient was noted to have esophageal varices. Patient underwent banding by Gastroenterology. Patient is being closely monitored. Patient is confused at this time. The patient is pulling out the IV lines. The patient is monitored in the ICU. PAST MEDICAL HISTORY: Reviewed. REVIEW OF SYSTEMS: Could not be taken, the patient is confused. MEDICATIONS: Current medications are: 1. DuoNeb q.i.d. and p.r.n. 2. Rocephin 1 gram daily. 3. Haldol p.r.n. 4. Cephulac. 5. Ativan 1 mg. 6. Narcan. 7. Octreotide. 8. Protonix. 9. Xifaxan. PHYSICAL EXAM: Patient is confused. Pulse is 110, blood pressure 144/71, respiration 24, temperature 98.3, pulse ox 96% on 2 L. HEENT: Conjunctivae normal. Oral mucosa moist. Neck is no jugular venous distention. No carotid bruit. No lymph node enlargement. CARDIOVASCULAR: S1 and S2 muffled. No S3, no S4. RESPIRATORY: Breath sounds diminished at the bases. A few scattered rhonchi. No crackles. ABDOMEN: Soft, obese, nontender. LEGS: No edema, no swelling. NERVOUS SYSTEM: Higher function as mentioned. Moves all 4 limbs. No focal deficits. LYMPHATICS: No lymphadenopathy of the neck, axillae or groin. SKIN: No ulcer, rash or bleeding. LABS: Hemoglobin 8.4. ASSESSMENT: 1. Acute upper gastrointestinal bleeding from variceal bleeding, status post EGD and banding. 2. Possible cirrhosis of the liver secondary to EtOH. 3. Change in mental status, metabolic encephalopathy. 4. Alcohol withdrawal and early delirium tremens. 5. Increased plasma lactic acidosis possibly secondary to liver disease. 6. Hyperammonemia with acute on chronic hepatic encephalopathy. 7. Anemia, acute on chronic gastrointestinal bleed with blood-loss anemia. 8. EtOH. 9. Hypertension. 10.Chronic liver disease. 11.Obesity with body mass of 30.8. 12.History of nicotine dependence. RECOMMENDATIONS AND DISCUSSION: Recommend to continue current medications, continue symptomatic treatment. Otherwise at this time, continue to monitor hemoglobin, transfusion accordingly. Continue the proton pump inhibitors and continue with Xifaxan. Continue with the rest of medication. Will closely monitor ammonia, which is still elevated to 164. The prognosis guarded because of multiple complex medical issues. Further recommendations to follow. The CIWA protocol with Ativan and also recommend Haldol also. Prognosis guarded because of multiple complex medical issues. Further recommendations to follow. MMODL / IJN: [id number] /
--- NOTE | 2017-10-13 08:07 | P.PN ---
Subjective Progress Note Date: 10/13/17 Principal diagnosis: GI bleed Progress note dated 10/13/2017 72-year-old male with history of alcohol liver disease who presented with upper GI bleed likely secondary to esophageal varices. He has a history of chronic alcohol abuse and alcoholic liver disease with cirrhosis benign essential hypertension anemia secondary to GI bleeding gastroesophageal reflux disease and hiatal hernia history of colonic polyp alcohol induced coagulopathy a mild non-anion gap hyperchloremic metabolic acidosis. He also presented with mild hyperammonia anemia and mild hyperbilirubinemia. The patient currently is going through alcoholic withdrawal syndrome. The patient's currently on O2 2 L by nasal cannula and is a saline IV at 120 mL an hour. The patient remains on octreotide at 50 g per hour. The patient has received 4 units of PRBCs since he has been here. Today's hemoglobin is 8.7. The nurse tells me he had 4 bloody bowel movements through the night. He is receiving Ativan every every 2 hours. He has had to be restrained. A Sánchez catheter was inserted as well. Currently sleeping and lethargic. Objective - Vital Signs Vital signs: Vital Signs Temp 98.3 F 10/13/17 04:00 Pulse 90 10/13/17 07:00 Resp 13 10/13/17 07:00 BP 114/76 10/13/17 07:00 Pulse Ox 97 10/13/17 07:00 Intake & Output 10/12/17 10/13/17 10/13/17 18:59 06:59 18:59 Intake Total 3810.767 1764.804 240 Output Total 550 1665 325 Balance 3260.767 99.804 -85 Weight 100.4 kg Intake: IV 2325 1490 240 Magnesium Sulfate-D5w Pmx 200 1 gm In Dextrose/Water 1 100ml.bag @ 100 mls/hr IVPB Q1H [facility] Rx#: [id number] Octreotide 200 mcg In 25 50 Sodium Chloride 0.9% 100 ml @ 50 MCG/HR 25.25 mls/ hr IV .Q4H [facility] Rx#: [id number] Sodium Chloride 0.9% 1, 1200 1440 240 000 ml @ 120 mls/hr IV . Q8H20M [facility] Rx#:[id number] Intake, IV Titration 245.767 274.804 Amount Octreotide 200 mcg In 245.767 274.804 Sodium Chloride 0.9% 100 ml @ 50 MCG/HR 25.25 mls/ hr IV .Q4H [facility] Rx#: [id number] Blood Product 1240 Rc Pheresis 2 As3 Unit 310 [id number] Rc Pheresis As-3 Unit 310 [id number] Output: Urine 400 1665 325 Emesis 150 Other: Voiding Method Urinal Indwelling Catheter # Voids 1 1 # Bowel Movements 1 1 - Exam No acute distress, lethargic, sonorous respirations, nasal O2 in place. HEENT examination is grossly unremarkable. Mucous membranes are moist. No oral lesions. Neck supple. Full range of motion. No adenopathy thyromegaly or neck vein distention. Cardiovascular examination reveals regular rhythm rate. S1-S2 normal. No S3 or S4. No discernible murmur noted. Lungs reveal coarse bilateral breath sounds. He's got coarse bilateral rhonchi. No wheezes or crackles. Breath sounds equal bilaterally. Abdomen soft bowel sounds are heard. No masses or tenderness. Extremities are intact. No cyanosis clubbing or edema. Skin is without rash or lesion. Neurologic examination is brief but nonfocal. - Labs CBC & Chem 7: 10/13/17 04:29 10/13/17 04:29 Labs: Abnormal Lab Results - Last 24 Hours (Table) 10/11/17 10/12/17 10/13/17 Range/Units 17:07 10:51 00:19 RBC 2.27 L 2.84 L (4.30-5.90) m/uL Hgb 6.9 L* 8.4 L D (13.0-17.5) gm/dL Hct 20.7 L 25.3 L (39.0-53.0) % RDW 17.4 H 17.9 H (11.5-15.5) % Plt Count 102 L 100 L (150-450) k/uL Lymphocytes # (1.0-4.8) k/uL Chloride (98-107) mmol/L Carbon Dioxide (22-30) mmol/L Glucose (74-99) mg/dL Total Bilirubin (0.2-1.3) mg/dL Ammonia (<30) umol/L Albumin (3.5-5.0) g/dL Crossmatch See Detail 10/13/17 10/13/1718 Range/Units 04:29 04:29 04:29 RBC 2.89 L (4.30-5.90) m/uL Hgb 8.7 L (13.0-17.5) gm/dL Hct 26.3 L (39.0-53.0) % RDW 18.0 H (11.5-15.5) % Plt Count 122 L (150-450) k/uL Lymphocytes # 0.8 L (1.0-4.8) k/uL Chloride 114 H (98-107) mmol/L Carbon Dioxide 18 L (22-30) mmol/L Glucose 111 H (74-99) mg/dL Total Bilirubin 1.7 H (0.2-1.3) mg/dL Ammonia 41 H (<30) umol/L Albumin 3.1 L (3.5-5.0) g/dL Crossmatch Assessment and Plan Assessment: Assessment Alcoholic liver disease with upper GI bleed, likely related to esophageal varices Alcohol withdrawal syndrome History of chronic alcohol abuse and alcoholic liver disease with cirrhosis No previous history of GI bleed Vague history of benign essential hypertension Anemia, secondary to GI bleed History of gastroesophageal reflux disease and hiatal hernia History of colonic polyp Mild alcoholic induced coagulopathy. Mild non-anion gap hyperchloremic metabolic acidosis Hyperammonemia Mild hyperbilirubinemia Plan: Plan dated 10/12/2017 The patient will stay here in the ICU to be monitored. He has not been seen by GI as yet. He continues on octreotide. His most recent hemoglobin is actually down to 7.3 from 7.6. We'll recheck her hemoglobin in about 6 hours. The patient's labs x-rays a medications are reviewed. Chest x-ray shows no acute cardiopulmonary disease. Labs are consistent with underlying diagnosis. Currently, the patient is hemodynamically stable. His respiratory status is stable. The patient is not receiving any supplemental oxygen. We'll continue to watch closely. Critical care time 32 minutes Plan dated 10/13/2017 White count is 6.7, hemoglobin 8.7, maximum 26.3 and platelet count 122,000. Sodium and potassium are normal. Chloride is 114 bicarbonate 18 anion gap 9 BUN 16 and creatinine 0.90 Ammonia level down to 41 from 164. Bilirubin is improved from 2.4 down to 1.7. Labs x-rays a medications are all reviewed. The patient remains on saline IV and octreotide. We will continue to follow. He is currently requiring large amounts of lorazepam for alcohol withdrawal syndrome. Prognosis is guarded. He did have 4 bloody bowel movements to the night. Hemoglobin this morning is stable. Critical care time 32 minutes Time with Patient: Greater than 30
[2017-10-13] MEDS: PANTOPRAZOLE 40 MG/10 ML VIAL IV SCH ×2 (08:34→21:44)
[2017-10-13] MEDS: RIFAXIMIN 550 MG TABLET NG-TUBE SCH ×2 (08:38→21:27)
[2017-10-13] MEDS: LACTULOSE 20 GM/30 ML CUP PO SCH ×3 (08:38→21:47)
[2017-10-13] MEDS: POTASSIUM CHLORIDE 10 MEQ in WATER FOR INJECTION 1 100ML.BAG IVPB SCH ×2 (08:40→10:57)
[2017-10-13] MEDS: cefTRIAXone IN SWFI 1,000 MG/10 ML SYRINGE IVP SCH ×2 (09:12→21:44)
[2017-10-13] MEDS: SODIUM CHLORIDE 0.9% 1,000 ML with POTASSIUM CHLORIDE 20 MEQ, MVI, ADULT NO.4 WITH VIT ... IV SCH ×5 (16:35)
--- NOTE | 2017-10-13 18:24 | PN ---
PROGRESS NOTE DATE OF SERVICE: 10/14/2011 This 72-year-old gentleman admitted with acute hematemesis, GI bleed, had esophageal varices and variceal bleeding. Patient had EGD and banding also by Gastroenterology. Patient also has cirrhosis of liver. The patient is confused as the patient is in alcohol withdrawal. CIWA protocol has been initiated. Patient is placed on IV Ativan. Ammonia is improved to 41 at this time. Hemoglobin is 8.7. PAST MEDICAL HISTORY: Reviewed. REVIEW OF SYSTEMS: Could not be taken because the patient is confused. CURRENT MEDICATIONS: 1. DuoNeb q.i.d. and p.r.n. 2. Rocephin 1 g daily. 3. Haldol p.r.n. 4. Cephalexin. 5. Ativan 1 mg p.r.n. 6. Magnesium oxide. 7. Octreotide infusion. 8. Protonix. 9. Xifaxan. 10.Vitamin B1. PHYSICAL EXAM: Patient is conscious, but confused. Pulse 74, blood pressure 140/75, respirations 13, temperature 98.2, pulse ox 100% on 4L. HEENT: Conjunctivae pale. Oral mucosa moist. NECK: No jugular venous distention. No carotid bruits. No lymph node enlargement. CARDIOVASCULAR SYSTEM: S1, S2 muffled. RESPIRATORY: Breath sounds diminished in the bases. A few scattered rhonchi and crackles. ABDOMEN: Soft, obese, ascites present. LEGS: Bilateral leg edema. NERVOUS SYSTEM: Diffusely weak. SKIN: No ulcer, rash or bleeding. LABS: WBC 6, hemoglobin is 8.7. Sodium 142, potassium 3.6 and CO2 is 18. ASSESSMENT: 1. Acute upper gastrointestinal bleeding with baseline bleeding, status post esophagogastroduodenoscopy and banding with acute blood loss anemia. 2. Possible cirrhosis of liver secondary to ETOH. 3. Change in mental status, metabolic encephalopathy with alcohol withdrawals and delirium tremens. 4. Hyperammonemia with acute on chronic hepatic encephalopathy. 5. Increased plasma lactic acid possibly secondary to liver disease. 6. Anemia, acute on chronic gastrointestinal bleed. 7. EtOH. 8. Hypertension. 9. Chronic liver disease. 10.Obesity with a body mass of 30.8. 11.History of nicotine dependence. 12.FULL CODE. RECOMMENDATIONS AND DISCUSSION: In this 72-year-old gentleman who presented with multiple complex medical issues, will monitor the patient closely, continue with the current medical management and symptomatic treatment. Otherwise at this time, I recommend to continue with current medication and broad-spectrum IV antibiotics, p.r.n. Ativan. Continue to monitor. Follow closely with Gastroenterology. I would recommend a banana bag with potassium and further recommendations to follow. Prognosis guarded. MMODL / IJN: [id number] /
--- NOTE | 2017-10-13 22:14 | P.PN ---
Subjective Progress Note Date: 10/13/17 Principal diagnosis: Hematemesis The patient has remained hemodynamically stable with no further GI bleeding since EGD yesterday. He is somewhat confused and going through alcohol withdrawal. No hematochezia or melena noted with brown-colored stool indicated by nursing staff. Objective - Vital Signs Vital signs: Vital Signs Temp 98.3 F 10/13/17 20:00 Pulse 88 10/13/17 21:00 Resp 17 10/13/17 21:00 BP 129/65 10/13/17 21:00 Pulse Ox 96 10/13/17 21:00 Intake & Output 10/13/17 10/13/17 10/14/17 06:59 18:59 06:59 Intake Total 2605.050 7256 161 Output Total 1665 1865 135 Balance 99.804 -443 26 Weight 100.4 kg Intake: IV 1490 1220 60 Octreotide 200 mcg In 50 Sodium Chloride 0.9% 100 ml @ 50 MCG/HR 25.25 mls/ hr IV .Q4H [facility] Rx#: [id number] Potassium Chloride 10 meq 200 In Water For Injection 1 100ml.bag @ 100 mls/hr IVPB Q1H [facility] Rx#: [id number] Sodium Chloride 0.9% 1, 1440 840 000 ml @ 120 mls/hr IV . Q8H20M [facility] Rx#:[id number] Sodium Chloride 0.9% 1, 180 60 000 ml @ 60 mls/hr IV . Q17H2M [facility] with Potassium Chloride 20 meq with Mvi , Adult No.4 with Vit K 10 ml with Thiamine 100 mg with Folic Acid 1 mg Rx#:[id number] Intake, IV Titration 274.804 202 101 Amount Octreotide 200 mcg In 274.804 202 101 Sodium Chloride 0.9% 100 ml @ 50 MCG/HR 25.25 mls/ hr IV .Q4H [facility] Rx#: [id number] Output: Urine 1665 1865 135 Other: Voiding Method Indwelling Catheter Indwelling Catheter # Voids 1 # Bowel Movements 1 - Constitutional General appearance: Present: morbidly obese - EENT Eyes: Absent: scleral icterus ENT: Present: normal oropharynx - Respiratory Respiratory: bilateral: CTA, negative: rhonchi, wheezing - Cardiovascular Rhythm: regular Heart sounds: normal: S1, S2 - Gastrointestinal General gastrointestinal: Present: distended, normal bowel sounds, soft. Absent : rigid, tenderness - Integumentary Integumentary: Absent: rash, ulcer - Neurologic Neurologic Comment(s): Patient is oriented to place and self, with no evidence of asterixis. - Labs CBC & Chem 7: 10/13/17 04:29 10/13/17 04:29 Labs: Abnormal Lab Results - Last 24 Hours (Table) 10/13/17 10/13/17 10/13/17 Range/Units 00:19 04:29 04:29 RBC 2.84 L 2.89 L (4.30-5.90) m/uL Hgb 8.4 L D 8.7 L (13.0-17.5) gm/dL Hct 25.3 L 26.3 L (39.0-53.0) % RDW 17.9 H 18.0 H (11.5-15.5) % Plt Count 100 L 122 L (150-450) k/uL Lymphocytes # 0.8 L (1.0-4.8) k/uL Chloride 114 H (98-107) mmol/L Carbon Dioxide 18 L (22-30) mmol/L Glucose 111 H (74-99) mg/dL Total Bilirubin 1.7 H (0.2-1.3) mg/dL Ammonia (<30) umol/L Albumin 3.1 L (3.5-5.0) g/dL 10/13/17 Range/Units 04:29 RBC (4.30-5.90) m/uL Hgb (13.0-17.5) gm/dL Hct (39.0-53.0) % RDW (11.5-15.5) % Plt Count (150-450) k/uL Lymphocytes # (1.0-4.8) k/uL Chloride (98-107) mmol/L Carbon Dioxide (22-30) mmol/L Glucose (74-99) mg/dL Total Bilirubin (0.2-1.3) mg/dL Ammonia 41 H (<30) umol/L Albumin (3.5-5.0) g/dL Assessment and Plan (1) Acute GI bleeding Narrative/Plan: No active bleeding found on EGD yesterday. However the exam was significant for small esophageal varices with ulceration suggestive of recent bleeding. Successful banding was performed. The patient has since remained hemodynamically stable with no further signs or symptoms of GI bleeding. Current Visit: Yes Status: Acute Code(s): K92.2 - GASTROINTESTINAL HEMORRHAGE, UNSPECIFIED SNOMED Code(s): 93554829 (2) Alcoholism Narrative/Plan: Long history of alcohol use, currently exhibiting signs and symptoms of alcohol withdrawal. Current Visit: Yes Status: Acute Code(s): F10.20 - ALCOHOL DEPENDENCE, UNCOMPLICATED SNOMED Code(s): 7396548 (3) Anemia Narrative/Plan: Status post EGD hemoglobin has remained stable. No signs or symptoms of further bleeding. Current Visit: Yes Status: Acute Code(s): D64.9 - ANEMIA, UNSPECIFIED SNOMED Code(s): 834382294 (4) Cirrhosis Narrative/Plan: Decompensated cirrhosis with history of portal hypertensive gastropathy and small esophageal varices on endoscopic evaluation. Current Visit: Yes Status: Acute Code(s): K74.60 - UNSPECIFIED CIRRHOSIS OF LIVER SNOMED Code(s): 92826892 (5) ETOH abuse Current Visit: Yes Status: Acute Code(s): F10.10 - ALCOHOL ABUSE, UNCOMPLICATED SNOMED Code(s): 37798425 (6) GI bleed Current Visit: Yes Status: Acute Code(s): K92.2 - GASTROINTESTINAL HEMORRHAGE, UNSPECIFIED SNOMED Code(s): 94231985 Plan: 1. Continue ICU management. 2. Continue octreotide drip for 72 hours. 3. Continue ceftriaxone for SBP prophylaxis. 4. Continue to monitor hemoglobin and hematocrit and transfuse as needed. 5. Continue Protonix therapy. 6. Patient will require repeat upper endoscopy in 4-6 weeks for evaluation of varices which were previously banded. 7. Okay to start clear liquid diet. Patient will eventually be advanced to a 2 g sodium restricted diet. 8. We'll continue to follow. Thank you for allowing us to participate in care of this patient will continue to follow.
[2017-10-13] MEDS: THIAMINE 100 MG TAB PO SCH (23:43)
[2017-10-14] MEDS: LORazepam 2 MG/ML INJ IV PRN (01:41)
[2017-10-14 05:11] LABS: Anisocytosis Slight; Basophils % (A) 0 %; Eosinophils # (A) 0.5 k/uL (0-0.7); Eosinophils % (A) 7 %; HCT 24.9 % (39.0-53.0); HGB 8.3 gm/dL (13.0-17.5); Lymphocytes # (A) 0.9 k/uL (1.0-4.8); Lymphocytes % (A) 14 %; MCH 29.7 pg (25.0-35.0); MCHC 33.4 g/dL (31.0-37.0); MCV 88.7 fL (80.0-100.0); Monocytes # (A) 0.5 k/uL (0-1.0); Monocytes % (A) 8 %; Neutrophils # (A) 4.5 k/uL (1.3-7.7); Neutrophils % (A) 69 %; Platelet Count 122 k/uL (150-450); RDW 17.7 % (11.5-15.5); WBC 6.5 k/uL (3.8-10.6)
[2017-10-14 05:38] LABS: ALT 30 U/L (21-72); AST 64 U/L (17-59); Albumin 3.1 g/dL (3.5-5.0); Alkaline Phosphatase 102 U/L (38-126); Anion Gap 9 mmol/L; Blood Urea Nitrogen 10 mg/dL (9-20); Calcium 8.5 mg/dL (8.4-10.2); Carbon Dioxide 21 mmol/L (22-30); Chloride 111 mmol/L (98-107); Glucose 94 mg/dL (74-99); Magnesium 1.6 mg/dL (1.6-2.3); Phosphorus 2.6 mg/dL (2.5-4.5); Potassium 3.6 mmol/L (3.5-5.1); Sodium 141 mmol/L (137-145); Total Bilirubin 1.4 mg/dL (0.2-1.3); Total Protein 6.3 g/dL (6.3-8.2)
[2017-10-14] MEDS: MAGNESIUM SULFATE-D5W PMX 1 GM in DEXTROSE/WATER 1 100ML.BAG IVPB SCH ×2 (06:32→08:15)
[2017-10-14] MEDS: OCTREOTIDE 200 MCG in SODIUM CHLORIDE 0.9% 100 ML IV SCH (06:32)
[2017-10-14] MEDS ORDERED: POTASSIUM BICARBONATE/CIT AC 20 MEQ TABLET.EFF NG-TUBE SCH (07:00)
[2017-10-14] MEDS: LACTULOSE 20 GM/30 ML CUP PO SCH ×3 (08:28→22:24)
[2017-10-14] MEDS: RIFAXIMIN 550 MG TABLET NG-TUBE SCH ×2 (08:30→20:17)
--- NOTE | 2017-10-14 09:12 | P.PN ---
Subjective Progress Note Date: 10/14/17 Principal diagnosis: GI bleed Progress note dated 10/13/2017 72-year-old male with history of alcohol liver disease who presented with upper GI bleed likely secondary to esophageal varices. He has a history of chronic alcohol abuse and alcoholic liver disease with cirrhosis benign essential hypertension anemia secondary to GI bleeding gastroesophageal reflux disease and hiatal hernia history of colonic polyp alcohol induced coagulopathy a mild non-anion gap hyperchloremic metabolic acidosis. He also presented with mild hyperammonia anemia and mild hyperbilirubinemia. The patient currently is going through alcoholic withdrawal syndrome. The patient's currently on O2 2 L by nasal cannula and is a saline IV at 120 mL an hour. The patient remains on octreotide at 50 g per hour. The patient has received 4 units of PRBCs since he has been here. Today's hemoglobin is 8.7. The nurse tells me he had 4 bloody bowel movements through the night. He is receiving Ativan every every 2 hours. He has had to be restrained. A Sánchez catheter was inserted as well. Currently sleeping and lethargic. Progress note dated 10/14/2017 72-year-old male with history of alcoholic liver disease, alcoholic cirrhosis and upper GI bleed. The bleeding is secondary to esophageal varices. He's had no further bleeding here up in the ICU. He has a history of chronic alcohol abuse, alcoholic liver disease, cirrhosis, benign essential hypertension, anemia secondary to GI bleed, gastroesophageal reflux disease and hiatal hernia. He also has a history of mild alcohol induced coagulopathy and a non- anion gap hyperchloremic metabolic acidosis secondary to aggressive saline replacement. He also presented with mild hyperbilirubinemia and a moderate to high degree of ammonia in the bloodstream. Currently, he is only on room air. His IV is a saline IV at 60 mL now her with multiple vitamin infusion. He remains in octreotide at 50 g per hour. That will be discontinued. In my opinion, the patient stable to be transferred out to the floor. He seems much more awake and alert today. I do chemical dependency counselor him about the importance of alcohol cessation. Objective - Vital Signs Vital signs: Vital Signs Temp 98.2 F 10/14/17 08:00 Pulse 85 10/14/17 09:00 Resp 18 10/14/17 09:00 BP 128/70 10/14/17 09:00 Pulse Ox 94 L 10/14/17 09:00 Intake & Output 10/13/17 10/14/17 10/14/17 18:59 06:59 18:59 Intake Total 1422 916.288 220 Output Total 1865 1075 335 Balance -443 -158.712 -115 Weight 99.8 kg Intake: IV 1220 480 220 Magnesium Sulfate-D5w Pmx 100 1 gm In Dextrose/Water 1 100ml.bag @ 100 mls/hr IVPB Q1H [facility] Rx#: [id number] Potassium Chloride 10 meq 200 In Water For Injection 1 100ml.bag @ 100 mls/hr IVPB Q1H [facility] Rx#: [id number] Sodium Chloride 0.9% 1, 840 000 ml @ 120 mls/hr IV . Q8H20M [facility] Rx#:[id number] Sodium Chloride 0.9% 1, 180 480 120 000 ml @ 60 mls/hr IV . Q17H2M [facility] with Potassium Chloride 20 meq with Mvi , Adult No.4 with Vit K 10 ml with Thiamine 100 mg with Folic Acid 1 mg Rx#:[id number] Intake, IV Titration 202 256.288 Amount Octreotide 200 mcg In 202 256.288 Sodium Chloride 0.9% 100 ml @ 50 MCG/HR 25.25 mls/ hr IV .Q4H [facility] Rx#: [id number] Oral 180 Output: Urine 1865 1075 335 Other: Voiding Method Indwelling Catheter Indwelling Catheter Indwelling Catheter # Voids 1 # Bowel Movements 0 1 - Exam No acute distress, much more oriented today, not requiring any supplemental oxygen. HEENT examination is grossly unremarkable. Mucous membranes are moist. No oral lesions. Neck supple. Full range of motion. No adenopathy thyromegaly or neck vein distention. Cardiovascular examination reveals regular rhythm rate. S1-S2 normal. No S3 or S4. No discernible murmur noted. Lungs reveal mildly coarse bilateral breath sounds. Breath sounds equal bilaterally. No wheezes. A few scattered mild crackles are noted. Breath sounds are improved. Abdomen soft bowel sounds are heard. No masses or tenderness. Extremities are intact. No cyanosis clubbing or edema. Skin is without rash or lesion. Neurologic examination is brief but nonfocal. - Labs CBC & Chem 7: 10/14/17 04:54 10/14/17 04:54 Labs: Abnormal Lab Results - Last 24 Hours (Table) 10/14/17 10/14/17 10/14/17 Range/Units 04:54 04:54 04:54 RBC 2.80 L (4.30-5.90) m/uL Hgb 8.3 L (13.0-17.5) gm/dL Hct 24.9 L (39.0-53.0) % RDW 17.7 H (11.5-15.5) % Plt Count 122 L (150-450) k/uL Lymphocytes # 0.9 L (1.0-4.8) k/uL Chloride 111 H (98-107) mmol/L Carbon Dioxide 21 L (22-30) mmol/L Total Bilirubin 1.4 H (0.2-1.3) mg/dL AST 64 H (17-59) U/L Ammonia 36 H (<30) umol/L Albumin 3.1 L (3.5-5.0) g/dL Assessment and Plan Assessment: Assessment Alcoholic liver disease with upper GI bleed, likely related to esophageal varices Alcohol withdrawal syndrome History of chronic alcohol abuse and alcoholic liver disease with cirrhosis No previous history of GI bleed Vague history of benign essential hypertension Anemia, secondary to GI bleed History of gastroesophageal reflux disease and hiatal hernia History of colonic polyp Mild alcoholic induced coagulopathy. Mild non-anion gap hyperchloremic metabolic acidosis Hyperammonemia Mild hyperbilirubinemia Plan: Plan dated 10/12/2017 The patient will stay here in the ICU to be monitored. He has not been seen by GI as yet. He continues on octreotide. His most recent hemoglobin is actually down to 7.3 from 7.6. We'll recheck her hemoglobin in about 6 hours. The patient's labs x-rays a medications are reviewed. Chest x-ray shows no acute cardiopulmonary disease. Labs are consistent with underlying diagnosis. Currently, the patient is hemodynamically stable. His respiratory status is stable. The patient is not receiving any supplemental oxygen. We'll continue to watch closely. Critical care time 32 minutes Plan dated 10/13/2017 White count is 6.7, hemoglobin 8.7, maximum 26.3 and platelet count 122,000. Sodium and potassium are normal. Chloride is 114 bicarbonate 18 anion gap 9 BUN 16 and creatinine 0.90 Ammonia level down to 41 from 164. Bilirubin is improved from 2.4 down to 1.7. Labs x-rays a medications are all reviewed. The patient remains on saline IV and octreotide. We will continue to follow. He is currently requiring large amounts of lorazepam for alcohol withdrawal syndrome. Prognosis is guarded. He did have 4 bloody bowel movements to the night. Hemoglobin this morning is stable. Critical care time 32 minutes Plan dated 10/14/2017 Currently, laboratory data shows a white count of 6.5, hemoglobin 8.3, hematocrit 24.9 and platelet count of 122,000. Electrolytes look relatively normal today with a chloride of 111 and a CO2 of 21. AST is 64 bilirubin is down to 1.4 and ammonia level is down to 36. No new chest x-rays to review. Medications are reviewed and seem appropriate. The patient's updrafts can be discontinued. The patient can be transferred out to the general medical floor. Additional recommendations and suggestions are forthcoming. We did chemical dependency counselor him about the importance of alcohol cessation. Critical care time 31 minutes Time with Patient: Greater than 30
[2017-10-14] MEDS: PANTOPRAZOLE 40 MG/10 ML VIAL IV SCH ×2 (09:31→20:18)
[2017-10-14] MEDS: cefTRIAXone IN SWFI 1,000 MG/10 ML SYRINGE IVP SCH ×2 (11:59→20:19)
[2017-10-14] MEDS: SODIUM CHLORIDE 0.9% 1,000 ML with POTASSIUM CHLORIDE 20 MEQ, MVI, ADULT NO.4 WITH VIT ... IV SCH ×10 (12:00→22:24)
--- NOTE | 2017-10-14 18:22 | PN ---
PROGRESS NOTE DATE OF SERVICE: 10/14/2017 This 72-year-old gentleman was admitted with hematemesis, blood-loss anemia, had EGD as well as banding of the varices. The patient also had delirium tremens and withdrawal symptoms. The patient was confused yesterday. Currently the patient is slightly more alert and the patient is being closely monitored at this time. PAST MEDICAL HISTORY: Reviewed. REVIEW OF SYSTEM: CARDIOVASCULAR: No angina or palpitations. RESPIRATORY: As mentioned earlier. GI: No nausea, vomiting. : No dysuria. NERVOUS: No numbness or weakness. CURRENT MEDICATIONS: Reviewed, include: 1. Rocephin 1 g daily. 2. Haldol 5 mg every 6 hours p.r.n. 3. Cephulac 30 mg t.i.d. p.r.n. 4. Ativan 1 mg p.r.n. 5. Narcan 0.2 q.2h p.r.n. 6. Protonix. 7. Xifaxan. PHYSICAL EXAM: Patient is alert, oriented x3. Pulse is 84, blood pressure 118/72, respirations 16, temperature is normal, pulse ox 93% on room air. HEENT: Conjunctivae normal. Oral mucosa moist. NECK: No jugular venous distention. No carotid bruits. No lymph node enlargement. CARDIOVASCULAR: S1, S2 muffled. RESPIRATORY: Breath sounds diminished in the bases. A few scattered rhonchi. No crackles. ABDOMEN: Soft, nontender. LEGS: No edema. NERVOUS SYSTEM: Nonfocal. LABS: WBC 6, hemoglobin is 8.3. Otherwise, bilirubin is 1.4. ASSESSMENT: 1. Acute upper gastrointestinal bleeding with blood loss anemia, status post esophagogastroduodenoscopy and banding of the esophageal varices. 2. 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 3. Change in mental status, metabolic encephalopathy. 4. Alcohol withdrawals and delirium tremens. 5. Hyperammonemia with acute on chronic hepatic encephalopathy. 6. Increased plasma lactic acid, possible acute liver disease. 7. Anemia, acute on chronic gastrointestinal bleed. 8. EtOH. 9. Hypertension. 10.Chronic liver disease. 11.Obesity with a body mass index of 30.8. 12.History of nicotine dependence. 13.FULL CODE. RECOMMENDATIONS AND DISCUSSION: Continue current medical management. Continue with monitoring and symptomatic treatment. Otherwise, closely monitor. Closely follow with GI. Repeat hemoglobin. Continue with the CIWA protocol. Guarded prognosis because of multiple complex medical issues. Further recommendations to follow. MMODL / IJN: [id number] /
--- NOTE | 2017-10-14 20:20 | P.PN ---
Subjective Progress Note Date: 10/14/17 Principal diagnosis: Hematemesis The patient has remained hemodynamically stable with no further GI bleeding. He has tolerated his liquid diet and will be advanced to full liquids tomorrow. He is denying any abdominal pain. It is more awake and alert today. No reports of melena or hematemesis. Objective - Vital Signs Vital signs: Vital Signs Temp 97.5 F L 10/14/17 16:56 Pulse 75 10/14/17 16:56 Resp 15 10/14/17 16:56 BP 146/70 10/14/17 16:56 Pulse Ox 96 10/14/17 16:56 Intake & Output 10/14/17 10/14/17 10/15/17 06:59 18:59 06:59 Intake Total 376.496 7716 Output Total 1075 535 Balance -796.050 2946 Weight 99.8 kg 99.8 kg Intake: IV 480 940 Magnesium Sulfate-D5w Pmx 100 1 gm In Dextrose/Water 1 100ml.bag @ 100 mls/hr IVPB Q1H [facility] Rx#: [id number] Sodium Chloride 0.9% 1, 480 840 000 ml @ 60 mls/hr IV . Q17H2M [facility] with Potassium Chloride 20 meq with Mvi , Adult No.4 with Vit K 10 ml with Thiamine 100 mg with Folic Acid 1 mg Rx#:[id number] Intake, IV Titration 256.288 100 Amount Magnesium Sulfate-D5w Pmx 100 1 gm In Dextrose/Water 1 100ml.bag @ 100 mls/hr IVPB Q1H [facility] Rx#: [id number] Octreotide 200 mcg In 256.288 Sodium Chloride 0.9% 100 ml @ 50 MCG/HR 25.25 mls/ hr IV .Q4H [facility] Rx#: [id number] Oral 180 1250 Output: Urine 1075 535 Other: Voiding Method Indwelling Catheter Urinal Incontinent # Voids 1 3 # Bowel Movements 0 1 - Exam On physical examination, patient appears comfortable in no apparent distress. Vital signs are stable. HEENT: Unremarkable. Conjunctivae pink. Sclerae anicteric. Oral cavity no lesions. NECK: No JVD or lymph node enlargement. CHEST: Clear to auscultation. HEART: Regular rate and rhythm. ABDOMEN: Soft. Bowel sounds are positive. Patient is obese. EXTREMITIES: Minimal pedal edema. SKIN: No rashes. NEUROLOGIC: Alert and oriented x3. No focal deficits. No asterixis noted. - Labs CBC & Chem 7: 10/14/17 04:54 10/14/17 10:56 Labs: Abnormal Lab Results - Last 24 Hours (Table) 10/14/17 10/14/17 10/14/17 Range/Units 04:54 04:54 04:54 RBC 2.80 L (4.30-5.90) m/uL Hgb 8.3 L (13.0-17.5) gm/dL Hct 24.9 L (39.0-53.0) % RDW 17.7 H (11.5-15.5) % Plt Count 122 L (150-450) k/uL Lymphocytes # 0.9 L (1.0-4.8) k/uL Chloride 111 H (98-107) mmol/L Carbon Dioxide 21 L (22-30) mmol/L Total Bilirubin 1.4 H (0.2-1.3) mg/dL AST 64 H (17-59) U/L Ammonia 36 H (<30) umol/L Albumin 3.1 L (3.5-5.0) g/dL Assessment and Plan (1) Acute GI bleeding Narrative/Plan: No active bleeding found on EGD. However the exam was significant for small esophageal varices with ulceration suggestive of recent bleeding. Successful banding was performed. The patient has since remained hemodynamically stable with no further signs or symptoms of GI bleeding. He was started on liquid diet which she has tolerated. Current Visit: Yes Status: Acute Code(s): K92.2 - GASTROINTESTINAL HEMORRHAGE, UNSPECIFIED SNOMED Code(s): 61757749 (2) Alcoholism Narrative/Plan: Long history of alcohol use, more alert today. Current Visit: Yes Status: Acute Code(s): F10.20 - ALCOHOL DEPENDENCE, UNCOMPLICATED SNOMED Code(s): 9848895 (3) Anemia Narrative/Plan: Status post EGD hemoglobin has remained stable. No signs or symptoms of further bleeding. Current Visit: Yes Status: Acute Code(s): D64.9 - ANEMIA, UNSPECIFIED SNOMED Code(s): 043849486 (4) Cirrhosis Narrative/Plan: Decompensated cirrhosis with history of portal hypertensive gastropathy and small esophageal varices on endoscopic evaluation. Current Visit: Yes Status: Acute Code(s): K74.60 - UNSPECIFIED CIRRHOSIS OF LIVER SNOMED Code(s): 62802355 (5) ETOH abuse Current Visit: Yes Status: Acute Code(s): F10.10 - ALCOHOL ABUSE, UNCOMPLICATED SNOMED Code(s): 34782479 (6) GI bleed Current Visit: Yes Status: Acute Code(s): K92.2 - GASTROINTESTINAL HEMORRHAGE, UNSPECIFIED SNOMED Code(s): 10470229 Plan: 1. Continue ICU management. 2. Continue octreotide drip for 72 hours. 3. Continue ceftriaxone for SBP prophylaxis for a total of 5 days total. 4. Continue to monitor hemoglobin and hematocrit and transfuse as needed. 5. Continue Protonix therapy. 6. Patient will require repeat upper endoscopy in 4-6 weeks for evaluation of varices which were previously banded. 7. Okay to start full liquid diet. Patient will eventually be advanced to a 2 g sodium restricted diet. 8. We'll continue to follow. Thank you for allowing us to participate in care of this patient will continue to follow.
[2017-10-15 07:13] LABS: Anisocytosis Slight; Basophils % (A) 0 %; Eosinophils # (A) 0.3 k/uL (0-0.7); Eosinophils % (A) 7 %; HCT 23.4 % (39.0-53.0); HGB 7.8 gm/dL (13.0-17.5); Lymphocytes # (A) 0.7 k/uL (1.0-4.8); Lymphocytes % (A) 14 %; MCHC 33.5 g/dL (31.0-37.0); MCV 89.7 fL (80.0-100.0); Mean Platelet Volume 7.2; Monocytes # (A) 0.5 k/uL (0-1.0); Monocytes % (A) 10 %; Neutrophils # (A) 3.3 k/uL (1.3-7.7); Neutrophils % (A) 65 %; Platelet Count 134 k/uL (150-450); RBC 2.61 m/uL (4.30-5.90); RDW 18.4 % (11.5-15.5)
[2017-10-15 07:19] LABS: ALT 29 U/L (21-72); AST 54 U/L (17-59); Albumin 2.8 g/dL (3.5-5.0); Alkaline Phosphatase 89 U/L (38-126); Anion Gap 4 mmol/L; Blood Urea Nitrogen 5 mg/dL (9-20); Calcium 8.5 mg/dL (8.4-10.2); Carbon Dioxide 25 mmol/L (22-30); Chloride 110 mmol/L (98-107); Glucose 103 mg/dL (74-99); Magnesium 1.3 mg/dL (1.6-2.3); Phosphorus 3.3 mg/dL (2.5-4.5); Potassium 3.6 mmol/L (3.5-5.1); Sodium 139 mmol/L (137-145); Total Bilirubin 1.5 mg/dL (0.2-1.3); Total Protein 5.9 g/dL (6.3-8.2)
[2017-10-15] MEDS: LACTULOSE 20 GM/30 ML CUP PO SCH ×3 (08:51→21:41)
[2017-10-15] MEDS: cefTRIAXone IN SWFI 1,000 MG/10 ML SYRINGE IVP SCH ×2 (08:51→19:55)
[2017-10-15] MEDS: PANTOPRAZOLE 40 MG/10 ML VIAL IV SCH ×2 (08:56→19:56)
[2017-10-15] MEDS: RIFAXIMIN 550 MG TABLET NG-TUBE SCH ×2 (08:56→19:56)
[2017-10-15] MEDS: LORazepam 1 MG TAB PO PRN ×5 (11:42→22:01)
--- NOTE | 2017-10-15 14:01 | P.PN ---
Subjective Progress Note Date: 10/15/17 The patient is a 72-year-old male with a long-standing history of EtOH abuse and alcoholic liver disease/cirrhosis/portal hypertension and ascites requiring paracentesis, iron deficiency anemia, portal gastropathy actively drinking presented with acute hematemesis and bloody bowel movements. The patient underwent an upper endoscopy October 12 and was found to have small esophageal varices with evidence of bleeding as well as portal gastropathy and he had band ligation of his esophageal varices. His hemoglobin the following day was 8.7 yesterday it was 8.3 and today it is 7.8. The patient is hemodynamically stable and not manifesting any evidence of bleeding and tolerating his for liquid diet. His prior EGD and colonoscopy performed January 2017 for evaluation of iron deficiency anemia identified mild antral gastritis, diffuse portal hypertensive gastropathy, small hiatal hernia and LA grade B reflux esophagitis. Colonoscopy revealed scattered sigmoid diverticulosis and grade 2 internal hemorrhoids. Objective - Vital Signs Vital signs: Vital Signs Temp 98.0 F 10/15/17 05:33 Pulse 89 10/15/17 05:33 Resp 16 10/15/17 05:33 BP 128/58 10/15/17 05:33 Pulse Ox 97 10/15/17 05:33 Intake & Output 10/14/17 10/15/17 10/15/17 18:59 06:59 18:59 Intake Total 2290 2850 Output Total 535 Balance 1755 2850 Weight 99.8 kg 99.8 kg Intake: IV 940 720 Magnesium Sulfate-D5w Pmx 100 1 gm In Dextrose/Water 1 100ml.bag @ 100 mls/hr IVPB Q1H [facility] Rx#: [id number] Sodium Chloride 0.9% 1, 840 720 000 ml @ 60 mls/hr IV . Q17H2M [facility] with Potassium Chloride 20 meq with Mvi , Adult No.4 with Vit K 10 ml with Thiamine 100 mg with Folic Acid 1 mg Rx#:[id number] Intake, IV Titration 100 Amount Magnesium Sulfate-D5w Pmx 100 1 gm In Dextrose/Water 1 100ml.bag @ 100 mls/hr IVPB Q1H [facility] Rx#: [id number] Oral 1250 2130 Output: Urine 535 Other: Voiding Method Urinal Urinal Urinal Incontinent Incontinent Incontinent # Voids 3 2 1 # Bowel Movements 1 1 - Exam General: Appears stated age, very pleasant, in no acute distress Neck: Normocephalic and atraumatic, conjunctivae pink and sclerae not icteric, mucous membranes moist and pink. No masses in the neck or tracheal shifts Lungs: Clear to auscultation with no dullness to percussion Heart: Regular, no abnormal sounds, gallops or friction rubs Abdomen: Soft, no tenderness, bowel sounds present. No masses or organomegalies Extremities: No clubbing, cyanosis or edema Neurologic: Alert and oriented 3, cranial nerves grossly intact, no gross sensory or motor abnormalities - Labs CBC & Chem 7: 10/15/17 06:52 10/15/17 06:52 Labs: Abnormal Lab Results - Last 24 Hours (Table) 10/15/17 10/15/17 Range/Units 06:52 06:52 RBC 2.61 L (4.30-5.90) m/uL Hgb 7.8 L (13.0-17.5) gm/dL Hct 23.4 L (39.0-53.0) % RDW 18.4 H (11.5-15.5) % Plt Count 134 L (150-450) k/uL Lymphocytes # 0.7 L (1.0-4.8) k/uL Chloride 110 H (98-107) mmol/L BUN 5 L (9-20) mg/dL Glucose 103 H (74-99) mg/dL Magnesium 1.3 L (1.6-2.3) mg/dL Total Bilirubin 1.5 H (0.2-1.3) mg/dL Total Protein 5.9 L (6.3-8.2) g/dL Albumin 2.8 L (3.5-5.0) g/dL Assessment and Plan Assessment: Upper GI bleeding and anemia secondary to bleeding esophageal varices/portal gastropathy appears to be stable after his EGD and banding of esophageal varices on the . Patient articulates his interest and commitment to abstain from drinking alcohol. Plan: Continue to monitor closely and consider discharge if he remains stable. We would like to see him in the office after discharge and he would likely have follow-up upper endoscopy for further banding of his varices in 4-6 weeks.
[2017-10-15] MEDS: HALOPERIDOL LACTATE 5 MG/ML 1 ML VIAL IM PRN ×2 (14:30→22:01)
--- NOTE | 2017-10-15 16:02 | PN ---
PROGRESS NOTE DATE OF SERVICE: 10/15/2017. INTERVAL HISTORY: This 72-year-old gentleman who was admitted with hematemesis, also had cirrhosis of liver. The patient also had change in mental status. Patient also had alcohol withdrawals and delirium tremens also. The patient is confused. The patient wanted to leave the hospital at this time. PAST MEDICAL HISTORY: Reviewed. REVIEW OF SYSTEMS: CARDIOVASCULAR: No angina or palpitations. Respiratory: No cough. GI as mentioned earlier. : No dysuria. NERVOUS SYSTEM: No numbness. Generalized weakness. CURRENT MEDICATIONS ARE: Reviewed and include: 1. Rocephin 1 g daily. 2. Haldol 0.5 mg q.6h p.r.n. 3. Ativan p.r.n. 4. Replacement protocols. 5. Protonix 40 mg b.i.d. 6. Xifaxan. 7. IV fluids. PHYSICAL EXAM: Patient is alert and oriented x1. Pulse 89. Blood pressure 128/50, respirations 16, temperature 98 degrees, pulse ox 97 percent on room air. HEENT: Conjunctivae normal. Oral mucosa moist. Neck is no jugular venous distention. No carotid bruit. No lymph node enlargement. Cardiovascular system: S1, S2 muffled. RESPIRATORY: Breath sounds diminished in the bases. A few scattered rhonchi. No crackles. ABDOMEN: Soft, nontender. No mass palpable. Legs: No edema. No swelling. NERVOUS SYSTEM: Diffusely weak. LAB STUDIES: Hemoglobin 7.8, magnesium is 1.6. ASSESSMENT: 1. Acute upper gastrointestinal bleeding with acute blood loss anemia, status post EGD and banding of the esophagus. 2. Cirrhosis of the liver, secondary to ETOH. 3. Change in mental status, metabolic encephalopathy, multifactorial. 4. Alcohol withdrawal and delirium tremens. 5. Hyperammonemia with acute on chronic metabolic encephalopathy. 6. Increased plasma lactic acid from chronic liver disease. 7. Anemia acute on chronic gastrointestinal bleed. 8. History EtOH. 9. Hypertension. 10.Chronic liver disease. 11.Obesity with body mass index of 30.8. 12.History of nicotine dependence. 13.FULL CODE. RECOMMENDATIONS AND DISCUSSION: Recommend to continue current medication, continue symptomatic treatment. Otherwise at this time I recommend to replace magnesium and continue with Ativan and CIWA protocol. The ammonia is 29. Continue the rest of medications. I would also recommend a CT of the brain also as a baseline. The prognosis guarded because of multiple complex medical issues. Further recommendations to follow. MMODL / IJN: [id number] /
--- NOTE | 2017-10-15 16:03 | CT ---
EXAMINATION TYPE: CT brain wo con DATE OF EXAM: 10/15/2017 HISTORY: Change in mentation CT DLP: 823.2 mGycm. Automated Exposure Control for Dose Reduction was Utilized. TECHNIQUE: CT scan of the head is performed without contrast. COMPARISON: CT brain March 08, 2017. FINDINGS: There is no acute intracranial hemorrhage or midline shift identified. There is diffuse v entricular and sulcal prominence consistent with diffuse age-related cerebral atrophy. Medrano-white mat ter differentiation is fairly well-maintained. The globes are intact and the visualized sinuses are clear. IMPRESSION: No acute intracranial hemorrhage or midline shift. There is mild to moderate diffuse ag e-related cerebral atrophy redemonstrated without significant interval change from prior.
[2017-10-15] MEDS: SODIUM CHLORIDE 0.9% 1,000 ML with POTASSIUM CHLORIDE 20 MEQ, MVI, ADULT NO.4 WITH VIT ... IV SCH ×5 (19:54)
[2017-10-16] MEDS: LORazepam 1 MG TAB PO PRN ×4 (05:23→16:04)
[2017-10-16 06:48] LABS: Anisocytosis Slight; Basophils % (A) 0 %; Eosinophils # (A) 0.3 k/uL (0-0.7); Eosinophils % (A) 6 %; HCT 25.5 % (39.0-53.0); HGB 8.3 gm/dL (13.0-17.5); Hypochromasia Slight; Lymphocytes # (A) 0.7 k/uL (1.0-4.8); Lymphocytes % (A) 13 %; MCH 29.5 pg (25.0-35.0); MCHC 32.5 g/dL (31.0-37.0); MCV 90.8 fL (80.0-100.0); Mean Platelet Volume 6.8; Monocytes # (A) 0.5 k/uL (0-1.0); Monocytes % (A) 10 %; Neutrophils # (A) 3.3 k/uL (1.3-7.7); Neutrophils % (A) 66 %; Platelet Count 138 k/uL (150-450); RBC 2.81 m/uL (4.30-5.90); RDW 18.3 % (11.5-15.5); WBC 5.1 k/uL (3.8-10.6)
[2017-10-16 07:00] LABS: ALT 29 U/L (21-72); AST 56 U/L (17-59); Alkaline Phosphatase 98 U/L (38-126); Anion Gap 7 mmol/L; Blood Urea Nitrogen 3 mg/dL (9-20); Calcium 8.7 mg/dL (8.4-10.2); Carbon Dioxide 21 mmol/L (22-30); Chloride 111 mmol/L (98-107); Glucose 99 mg/dL (74-99); Magnesium 1.2 mg/dL (1.6-2.3); Phosphorus 3.6 mg/dL (2.5-4.5); Potassium 3.8 mmol/L (3.5-5.1); Sodium 139 mmol/L (137-145); Total Bilirubin 1.7 mg/dL (0.2-1.3); Total Protein 6.4 g/dL (6.3-8.2)
[2017-10-16] MEDS ORDERED: Magnesium Replacement Protocol 1 EACH MISC MISCELLANE PRN (07:31)
[2017-10-16] MEDS: cefTRIAXone IN SWFI 1,000 MG/10 ML SYRINGE IVP SCH ×2 (09:00→22:04)
[2017-10-16] MEDS: PANTOPRAZOLE 40 MG/10 ML VIAL IV SCH ×2 (09:00→21:18)
[2017-10-16] MEDS: RIFAXIMIN 550 MG TABLET NG-TUBE SCH ×2 (09:00→21:18)
[2017-10-16] MEDS: MAGNESIUM SULFATE-D5W PMX 1 GM in DEXTROSE/WATER 1 100ML.BAG IVPB SCH ×3 (09:00→12:11)
[2017-10-16] MEDS: LACTULOSE 20 GM/30 ML CUP PO SCH (10:59)
[2017-10-16] MEDS ORDERED: LACTULOSE 20 GM/30 ML CUP PO PRN (11:01)
[2017-10-16] MEDS: SODIUM CHLORIDE 0.9% 1,000 ML with POTASSIUM CHLORIDE 20 MEQ, MVI, ADULT NO.4 WITH VIT ... IV SCH ×10 (13:46→16:04)
--- NOTE | 2017-10-16 21:27 | PN ---
PROGRESS NOTE DATE OF SERVICE: 10/16/2017 INTERIM HISTORY: This 72-year-old gentleman who was admitted with acute upper gastrointestinal bleeding with acute blood loss anemia, also had banding of the esophagus. The patient also had confusion, possibly secondary to metabolic encephalopathy and alcohol withdrawal and delirium tremens also. The patient is on high-dose Ativan. The CT scan of the brain showed no acute abnormality. PAST MEDICAL HISTORY: Reviewed. REVIEW OF SYSTEMS: Could not be taken, the patient is still mildly confused. CURRENT MEDICATIONS ARE: Reviewed and include: 1. Rocephin 1 g daily. 2. Haldol 5 mg q.6 p.r.n. 3. Cephalexin. 4. Ativan p.r.n. 5. Replacement protocols. 6. Narcan p.r.n. 7. Protonix p.r.n. 8. Xifaxan. 9. IV fluids. PHYSICAL EXAM: Patient is alert, oriented x1. Pulse 90, blood pressure 111/64. Respiratory rate 20. Temperature 97.7, pulse ox 98 percent on room air. HEENT: Conjunctivae normal. Oral mucosa moist. Neck is no jugular venous distention. No carotid bruit. No lymph node enlargement. Cardiovascular systems: S1, S2 muffled. Respirations: Breath sounds diminished in the bases. A few scattered rhonchi and crackles. ABDOMEN: Soft, nontender. Legs are no edema. No swelling. Central nervous system: Diffusely weak. LAB STUDIES: WBC 5.9, hemoglobin is 8.3. Otherwise the total bilirubin is 1.7. ASSESSMENT: 1. Acute upper gastrointestinal bleeding with acute blood loss anemia, status post EGD and banding of the esophageal varices. 2. Cirrhosis of liver secondary to ETOH. 3. Change in mental status acute metabolic encephalopathy multifactorial. 4. Acute alcohol withdrawal and delirium tremens. 5. Hyperammonemia with acute on chronic hepatic encephalopathy. 6. Increased plasma lactic acid from chronic liver disease. 7. Anemia, acute on chronic gastrointestinal bleed. 8. History of ETOH. 9. Hypertension. 10.Chronic liver disease. 11.Obesity with body mass index of 30.8. 12.History of nicotine dependence. 13.FULL CODE. RECOMMENDATIONS AND DISCUSSION: Recommend to continue current medication, continue to monitor. Symptomatic treatment. Otherwise at this time, I recommend to continue with the lactulose. Continue the rest of the medications. Otherwise, the prognosis guarded because of multiple complex medical issues. Further recommendations to follow. MMODL / IJN: [id number] /
[2017-10-17 06:55] LABS: Anisocytosis Slight; Basophils % (A) 1 %; Eosinophils # (A) 0.4 k/uL (0-0.7); Eosinophils % (A) 6 %; HCT 28.3 % (39.0-53.0); HGB 9.2 gm/dL (13.0-17.5); Hypochromasia Slight; Lymphocytes # (A) 0.8 k/uL (1.0-4.8); Lymphocytes % (A) 11 %; MCH 29.9 pg (25.0-35.0); MCHC 32.5 g/dL (31.0-37.0); Mean Platelet Volume 7.4; Monocytes # (A) 0.6 k/uL (0-1.0); Monocytes % (A) 8 %; Neutrophils # (A) 5.6 k/uL (1.3-7.7); Neutrophils % (A) 73 %; Platelet Count 191 k/uL (150-450); RBC 3.08 m/uL (4.30-5.90); RDW 17.8 % (11.5-15.5); WBC 7.7 k/uL (3.8-10.6)
[2017-10-17 07:16] LABS: ALT 28 U/L (21-72); AST 58 U/L (17-59); Albumin 3.5 g/dL (3.5-5.0); Alkaline Phosphatase 117 U/L (38-126); Anion Gap 10 mmol/L; Blood Urea Nitrogen 3 mg/dL (9-20); Calcium 8.9 mg/dL (8.4-10.2); Carbon Dioxide 21 mmol/L (22-30); Chloride 109 mmol/L (98-107); Glucose 99 mg/dL (74-99); Magnesium 1.4 mg/dL (1.6-2.3); Potassium 4.1 mmol/L (3.5-5.1); Sodium 140 mmol/L (137-145); Total Bilirubin 1.8 mg/dL (0.2-1.3)
[2017-10-17] MEDS: PANTOPRAZOLE 40 MG/10 ML VIAL IV SCH ×2 (08:06→21:27)
[2017-10-17] MEDS: RIFAXIMIN 550 MG TABLET NG-TUBE SCH ×2 (08:26→22:29)
[2017-10-17] MEDS: cefTRIAXone IN SWFI 1,000 MG/10 ML SYRINGE IVP SCH ×2 (08:26→21:27)
[2017-10-17] MEDS: SODIUM CHLORIDE 0.9% 1,000 ML with POTASSIUM CHLORIDE 20 MEQ, MVI, ADULT NO.4 WITH VIT ... IV SCH ×5 (15:40)
--- NOTE | 2017-10-17 18:18 | P.PN ---
Subjective Progress Note Date: 10/17/17 Principal diagnosis: Hematemesis The patient has remained hemodynamically stable with no further GI bleeding. He has tolerated soft diet. He is denying any abdominal pain. He is awake and alert and there are no reports of melena or hematemesis. Objective - Vital Signs Vital signs: Vital Signs Temp 98.2 F 10/17/17 07:00 Pulse 94 10/17/17 07:00 Resp 16 10/17/17 07:00 BP 121/76 10/17/17 07:00 Pulse Ox 95 10/17/17 07:00 Intake & Output 10/16/17 10/17/17 10/17/17 18:59 06:59 18:59 Intake Total 1400 400 Output Total 650 Balance 750 400 Weight 99.8 kg Intake: Intake, IV Titration 1000 Amount Sodium Chloride 0.9% 1, 1000 000 ml @ 60 mls/hr IV . Q17H2M [facility] with Potassium Chloride 20 meq with Mvi , Adult No.4 with Vit K 10 ml with Thiamine 100 mg with Folic Acid 1 mg Rx#:[id number] Oral 400 400 Output: Urine 650 Other: Voiding Method Urinal Urinal Urinal Incontinent Incontinent Incontinent # Voids 1 4 # Bowel Movements 1 - Exam On physical examination, patient appears comfortable in no apparent distress. Vital signs are stable. HEENT: Unremarkable. Conjunctivae pink. Sclerae anicteric. Oral cavity no lesions. NECK: No JVD or lymph node enlargement. CHEST: Clear to auscultation. HEART: Regular rate and rhythm. ABDOMEN: Soft. Bowel sounds are positive. Patient is obese. EXTREMITIES: Minimal pedal edema. SKIN: No rashes. NEUROLOGIC: Alert and oriented x3. No focal deficits. No asterixis noted. - Labs CBC & Chem 7: 10/17/17 06:29 10/17/17 06:29 Labs: Abnormal Lab Results - Last 24 Hours (Table) 10/17/17 10/17/17 Range/Units 06:29 06:29 RBC 3.08 L (4.30-5.90) m/uL Hgb 9.2 L (13.0-17.5) gm/dL Hct 28.3 L (39.0-53.0) % RDW 17.8 H (11.5-15.5) % Lymphocytes # 0.8 L (1.0-4.8) k/uL Chloride 109 H (98-107) mmol/L Carbon Dioxide 21 L (22-30) mmol/L BUN 3 L (9-20) mg/dL Magnesium 1.4 L (1.6-2.3) mg/dL Total Bilirubin 1.8 H (0.2-1.3) mg/dL Assessment and Plan (1) Acute GI bleeding Narrative/Plan: No active bleeding found on EGD. However the exam was significant for small esophageal varices with ulceration suggestive of recent bleeding. Successful banding was performed. The patient has since remained hemodynamically stable with no further signs or symptoms of GI bleeding. He was started on liquid diet which she has tolerated. Current Visit: Yes Status: Acute Code(s): K92.2 - GASTROINTESTINAL HEMORRHAGE, UNSPECIFIED SNOMED Code(s): 52178416 (2) Alcoholism Narrative/Plan: Long history of alcohol use, abstinence discussed. Current Visit: Yes Status: Acute Code(s): F10.20 - ALCOHOL DEPENDENCE, UNCOMPLICATED SNOMED Code(s): 8414222 (3) Anemia Narrative/Plan: Status post EGD hemoglobin has remained stable. No signs or symptoms of further bleeding. Current Visit: Yes Status: Acute Code(s): D64.9 - ANEMIA, UNSPECIFIED SNOMED Code(s): 097078038 (4) Cirrhosis Narrative/Plan: Decompensated cirrhosis with history of portal hypertensive gastropathy and small esophageal varices on endoscopic evaluation. Current Visit: Yes Status: Acute Code(s): K74.60 - UNSPECIFIED CIRRHOSIS OF LIVER SNOMED Code(s): 60857066 (5) ETOH abuse Current Visit: Yes Status: Acute Code(s): F10.10 - ALCOHOL ABUSE, UNCOMPLICATED SNOMED Code(s): 30566547 (6) GI bleed Current Visit: Yes Status: Acute Code(s): K92.2 - GASTROINTESTINAL HEMORRHAGE, UNSPECIFIED SNOMED Code(s): 01118581 Plan: 1. Continue supportive care. 2. Will start non selective beta erik therapy. 3. Continue ceftriaxone for SBP prophylaxis for a total of 7 days total. 4. Continue to monitor hemoglobin and hematocrit and transfuse as needed. 5. Continue Protonix therapy for 2 weeks total. 6. Patient will require repeat upper endoscopy in 2 weeks for evaluation of varices which were previously banded. 7. Okay for 2 g sodium restricted diet. 8. Discussed recommendations with the patient, his and daughter. 9. We'll continue to follow. Thank you for allowing us to participate in care of this patient will continue to follow.
--- NOTE | 2017-10-17 18:19 | PN ---
PROGRESS NOTE DATE OF SERVICE: 10/17/2017. INTERVAL HISTORY: This 72-year-old gentleman who was admitted with acute upper GI bleeding and acute blood loss anemia, had banding of the esophageal varices. No chest pain. No palpitations. No fever. PT, OT evaluated the patient for possible ECF rehab. EXAM: Alert and oriented x2. Pulse 94, blood pressure 125/70, respirations 16, temp 98.2, pulse ox 94 percent room air. HEENT: Conjunctivae normal. Neck: No jugular venous distention. Cardiovascular: S1, S2 muffled. Respiratory: Breath sounds diminished in the bases. A few scattered rhonchi. No crackles. ABDOMEN: Soft, nontender. Legs: No edema. No swelling. Central nervous system: Diffusely weak. LABS: WBC 7.2, hemoglobin 9.2, sodium 140, potassium 4.1. ASSESSMENT: 1. Acute upper gastrointestinal bleeding with acute blood loss anemia, status post EGD and banding of esophageal varices. 2. Cirrhosis of liver secondary to ETOH. 3. Change in mental status acute metabolic acidosis, multifactorial. 4. Acute alcohol withdrawal and delirium tremens. 5. Hyperammonemia with acute on chronic hepatic encephalopathy. 6. Increased plasma lactic acid from chronic liver disease. 7. Anemia, acute on chronic gastrointestinal bleed. 8. History of ETOH. 9. Hypertension. 10.Chronic liver disease. 11.Obesity with body mass index of 30.8. 12.History of nicotine dependence. 13.FULL CODE. RECOMMENDATIONS AND DISCUSSION: Recommend to continue current medications, continue to monitor. Symptomatic treatment. Otherwise, at this time, I recommend repeat labs and PT, OT evaluation, possible ECF rehab. Guarded prognosis. Further recommendations to follow. MMODL / IJN: [id number] /
[2017-10-17 19:49] VITALS: RESP 16
[2017-10-17] MEDS: NADOLOL 20 MG TAB PO SCH (21:27)
[2017-10-18] MEDS: SODIUM CHLORIDE 0.9% 1,000 ML with POTASSIUM CHLORIDE 20 MEQ, MVI, ADULT NO.4 WITH VIT ... IV SCH ×10 (05:22→09:08)
[2017-10-18] MEDS: LORazepam 2 MG/ML INJ IV PRN (06:42)
[2017-10-18] MEDS: PANTOPRAZOLE 40 MG/10 ML VIAL IV SCH (09:08)
[2017-10-18] MEDS: NADOLOL 20 MG TAB PO SCH (09:08)
[2017-10-18] MEDS: cefTRIAXone IN SWFI 1,000 MG/10 ML SYRINGE IVP SCH (09:08)
[2017-10-18] MEDS: RIFAXIMIN 550 MG TABLET NG-TUBE SCH (09:08)
--- NOTE | 2017-10-18 09:50 | P.PN ---
Subjective Progress Note Date: 10/18/17 Principal diagnosis: GI bleed No active GI bleed. Denies abdominal pain. Tolerating diet. Possible discharge today. Hemoglobin 9.2. Objective - Vital Signs Vital signs: Vital Signs Temp 98.9 F 10/18/17 07:40 Pulse 79 10/18/17 07:40 Resp 16 10/18/17 07:40 BP 120/67 10/18/17 07:40 Pulse Ox 97 10/18/17 07:40 Intake & Output 10/17/17 10/18/17 10/18/17 18:59 06:59 18:59 Intake Total 400 480 Output Total 800 Balance 400 -320 Weight 99.8 kg Intake: Intake, IV Titration 480 Amount Sodium Chloride 0.9% 1, 480 000 ml @ 60 mls/hr IV . Q17H2M CIERRA with Potassium Chloride 20 meq with Mvi , Adult No.4 with Vit K 10 ml with Thiamine 100 mg with Folic Acid 1 mg Rx#:[id number] Oral 400 Output: Urine 800 Other: Voiding Method Urinal Incontinent # Voids 1 3 2 - Exam General appearance: The patient is alert, oriented, in no acute distress. HET: Head is normocephalic and atraumatic. Pupils are equal and reactive. Oropharynx is clear without lesions. Neck: Supple without lymphadenopathy. Trachea midline. Heart: S1 S2. Regular rate and rhythm. Lungs: No crackles or wheezes are heard. Abdomen: Soft, nontender, nondistended with bowel sounds. No peritoneal signs. No palpable organomegaly or masses. Extremities: Normal skin color and turgor. No cyanosis, rash, ulceration, clubbing, or edema. Radial and pedal pulses are 2/4 bilaterally. Neurological: No focal deficits. Strength and sensation are grossly intact. - Labs CBC & Chem 7: 10/17/17 06:29 10/17/17 06:29 Assessment and Plan (1) Hematemesis Narrative/Plan: Acute GI bleed secondary to esophageal varices status post EGD with variceal ligation banding presently no active GI bleeding. Current Visit: Yes Status: Acute Code(s): K92.0 - HEMATEMESIS SNOMED Code( s): 9839109 (2) Hematochezia Current Visit: Yes Status: Acute Code(s): K92.1 - MELENA SNOMED Code(s): 667820678 (3) GI bleed Current Visit: Yes Status: Acute Code(s): K92.2 - GASTROINTESTINAL HEMORRHAGE, UNSPECIFIED SNOMED Code(s): 46400229 (4) Acute blood loss anemia Current Visit: Yes Status: Acute Code(s): D62 - ACUTE POSTHEMORRHAGIC ANEMIA SNOMED Code(s): 434107732 (5) ETOH abuse Current Visit: Yes Status: Acute Code(s): F10.10 - ALCOHOL ABUSE, UNCOMPLICATED SNOMED Code(s): 62201803 (6) Coagulopathy Current Visit: Yes Status: Acute Code(s): D68.9 - COAGULATION DEFECT, UNSPECIFIED SNOMED Code(s): 93015258 (7) Cirrhosis Current Visit: Yes Status: Acute Code(s): K74.60 - UNSPECIFIED CIRRHOSIS OF LIVER SNOMED Code(s): 22271818 (8) Portal hypertension Current Visit: Yes Status: Acute Code(s): K76.6 - PORTAL HYPERTENSION SNOMED Code(s): 30314911 (9) Portal hypertensive gastropathy Current Visit: Yes Status: Acute Code(s): K76.6 - PORTAL HYPERTENSION; K31.89 - OTHER DISEASES OF STOMACH AND DUODENUM SNOMED Code(s): 975715541 Plan: 1. Continue nonselective beta erik therapy on discharge. Rocephin for SBP prophylaxis 7 days total. Protonix 40 mg daily 2 weeks. Return to office in 2-3 weeks for reevaluation. 2 g sodium diet. Discharge per medicine. Assessment and plan a care discussed with Dr. Atkinson
[2017-10-18 09:58] VITALS: BMI 31.6
[2017-10-18] MEDS: MAGNESIUM SULFATE-D5W PMX 1 GM in DEXTROSE/WATER 1 100ML.BAG IVPB SCH ×2 (12:59→14:32)
--- NOTE | 2017-10-18 15:18 | P.DS ---
Providers Date of admission: 10/11/17 17:52 Attending physician: Hermelinda Mercado Consults: 10/11/17 17:46 Consult Physician Routine Consulting Provider: Kemal Garcia Consult Reason/Comments: ICU Do you want consulting provider notified?: Yes Hospital Course: Final diagnosis Acute upper GI bleeding with acute blood loss anemia status post EGD and banding of esophageal varices cirrhosis of liver secondary to EtOH Change in mental status acute metabolic encephalopathy multifactorial Acute alcohol withdrawal and delirium tremens Hyperammonemia and acute on chronic hepatic encephalopathy Increased plasma lactic acid from chronic liver disease Anemia acute on chronic GI bleed History of EtOH Hypertension Chronic liver disease obesity This 71 disposition patient be discharged in a stable condition in a guarded prognosis to [facility] total time taken 35 minutes History of present illness this 72-year-old gentleman with a past medical history multiple medical problems was admitted with acute upper GI bleeding and as well as change in mental status metabolic encephalopathy. gi performed EGD and esophageal variceal ligation. Patient improved significantly. Patient is extremely weak at this time. Patient be discharged in a stable pressure the guarded prognosis with further plans to follow up in the [facility] under Dr. Arnold. On exam vitals are stable. Cardio S1-S2 normal. Respirator system clear to auscultation. Abdomen soft nontender. Nervous system mild diffuse weakness. Patient Condition at Discharge: Critical Plan - Discharge Summary Discharge Rx Participant: Yes New Discharge Prescriptions: New Folic Acid 1 mg PO DAILY #30 tablet Lactulose [Cephulac] 30 gm PO TID PRN ml PRN Reason: Elevated ammonia level LORazepam [Ativan] 1 mg PO Q6HR PRN #10 tab PRN Reason: Agitation Multivitamins, Thera [Multivitamin] 1 tab PO DAILY #30 tablet Nadolol [Corgard] 20 mg PO DAILY tab Pantoprazole Sodium [Protonix] 40 mg PO DAILY #30 tablet. Rifaximin [Xifaxan] 550 mg NG-TUBE BID tablet Thiamine [Vitamin B-1] 100 mg PO DAILY #30 tablet Discontinued Aspirin [Adult Low Dose Aspirin EC] 81 mg PO DAILY Ferrous Sulfate [Iron] 325 mg PO DAILY Discharge Medication List Folic Acid 1 mg PO DAILY #30 tablet 10/18/17 [Rx] LORazepam [Ativan] 1 mg PO Q6HR PRN #10 tab 10/18/17 [Rx] Lactulose [Cephulac] 30 gm PO TID PRN ml 10/18/17 [Rx] Multivitamins, Thera [Multivitamin] 1 tab PO DAILY #30 tablet 10/18/17 [Rx] Nadolol [Corgard] 20 mg PO DAILY tab 10/18/17 [Rx] Pantoprazole Sodium [Protonix] 40 mg PO DAILY #30 tablet. 10/18/17 [Rx] Rifaximin [Xifaxan] 550 mg NG-TUBE BID tablet 10/18/17 [Rx] Thiamine [Vitamin B-1] 100 mg PO DAILY #30 tablet 10/18/17 [Rx] Follow up Appointment(s)/Referral(s): None,Stated [REFERRING] - 1-2 days James Atkinson MD [STAFF PHYSICIAN] - 2 Weeks Activity/Diet/Wound Care/Special Instructions: low sodium 2000mg diet. stand by assistance to the bathroom with walker.
[2017-10-18 15:21] VITALS: BP 101/60; PULSE 71; TEMP 98.6
== END 2017-10-18 17:05 | DRG 432 ==
LOC: EC 16:35 → SUPCPDRO 16:35 → 6ICU 17:52 → 5MS5E 10-14 10:30 → 3SUR 10-16 17:34
PROVIDERS: ADMIT Hospitalist; ATTEND Hospitalist
PROC: 30230N1 Transfusion of Nonautologous Red Blood Cells into Peripheral Vein, Open Approach (ICD-10-PCS; 2017-10-11)
PROC: 0D9670Z Drainage of Stomach with Drainage Device, Via Natural or Artificial Opening (ICD-10-PCS; 2017-10-11)
PROC: 06L38CZ Occlusion of Esophageal Vein with Extraluminal Device, Via Natural or Artificial Opening Endoscopic (ICD-10-PCS; principal; 2017-10-12 10:05)
DX: K70.31 Alcoholic cirrhosis of liver with ascites (principal); I85.11 Secondary esophageal varices with bleeding; K72.00 Acute and subacute hepatic failure without coma; F10.231 Alcohol dependence with withdrawal delirium; D62 Acute posthemorrhagic anemia; E87.2 Acidosis; K76.6 Portal hypertension; D68.4 Acquired coagulation factor deficiency; I95.9 Hypotension, unspecified; E83.42 Hypomagnesemia; K72.10 Chronic hepatic failure without coma; D50.0 Iron deficiency anemia secondary to blood loss (chronic); K21.0 Gastro-esophageal reflux disease with esophagitis; K29.60 Other gastritis without bleeding; K44.9 Diaphragmatic hernia without obstruction or gangrene; K31.89 Other diseases of stomach and duodenum; K57.30 Diverticulosis of large intestine without perforation or abscess without bleeding; K64.1 Second degree hemorrhoids; I10 Essential (primary) hypertension; R32 Unspecified urinary incontinence; R29.6 Repeated falls; E66.9 Obesity, unspecified; Z68.31 Body mass index [BMI] 31.0-31.9, adult; Z79.82 Long term (current) use of aspirin; Z79.899 Other long term (current) drug therapy; Z86.010 Personal history of colon polyps; Z87.891 Personal history of nicotine dependence; Z82.49 Family history of ischemic heart disease and other diseases of the circulatory system; Z80.0 Family history of malignant neoplasm of digestive organs; Z83.518 Family history of other specified eye disorder
CPT/HCPCS: 36415; 43255; 70450; 71045; 80053; 82140; 82550; 82553; 83605; 83690; 83735; 84100; 84132; 84484; 85025; 85027; 85610; 85730; 86850; 86900; 86901; 86920; 93005; 96365; 96366; 96367; 96368; 96375; 96376; 99291

== ENCOUNTER → 2017-11-03 | Outpatient (CLI) | payer MEDICARE ==
[2017-11-03 09:18] LABS: INR 1.3 (<1.2); Prothrombin Time 12.4 sec (9.0-12.0)
[2017-11-03 09:20] LABS: Anisocytosis Slight; Basophils # (A) 0.1 k/uL (0-0.2); Basophils % (A) 1 %; Eosinophils # (A) 0.7 k/uL (0-0.7); Eosinophils % (A) 9 %; HCT 30.2 % (39.0-53.0); HGB 9.4 gm/dL (13.0-17.5); Hypochromasia Moderate; Lymphocytes # (A) 1.1 k/uL (1.0-4.8); Lymphocytes % (A) 16 %; MCH 28.8 pg (25.0-35.0); MCHC 31.1 g/dL (31.0-37.0); MCV 92.7 fL (80.0-100.0); Mean Platelet Volume 6.8; Monocytes # (A) 0.5 k/uL (0-1.0); Monocytes % (A) 7 %; Neutrophils # (A) 4.6 k/uL (1.3-7.7); Neutrophils % (A) 65 %; Platelet Count 287 k/uL (150-450); RBC 3.26 m/uL (4.30-5.90); RDW 16.4 % (11.5-15.5); WBC 7.1 k/uL (3.8-10.6)
[2017-11-03 10:04] LABS: ALT 25 U/L (21-72); AST 52 U/L (17-59); Albumin 3.4 g/dL (3.5-5.0); Alkaline Phosphatase 134 U/L (38-126); Anion Gap 8 mmol/L; Blood Urea Nitrogen 10 mg/dL (9-20); Calcium 9.4 mg/dL (8.4-10.2); Carbon Dioxide 26 mmol/L (22-30); Chloride 104 mmol/L (98-107); Cholesterol 115 mg/dL (<200); Glucose 98 mg/dL (74-99); HDL Cholesterol 29 mg/dL (40-60); LDL Cholesterol,Calculated 71 mg/dL (0-99); Potassium 4.4 mmol/L (3.5-5.1); Sodium 138 mmol/L (137-145); Total Bilirubin 0.7 mg/dL (0.2-1.3); Total Protein 7.1 g/dL (6.3-8.2); Triglycerides 73 mg/dL (<150)
[2017-11-03 10:35] LABS: Prostate Specific Antigen 0.62 ng/mL (0.00-4.00)
[2017-11-03 18:27] LABS: Iron Saturation 34.39 (15.00-50.00)
[2017-11-03 18:38] LABS: Folate, Serum 13.4 ng/mL
== END | disposition home or self-care (01) ==
LOC: LABWHC1 08:44
PROVIDERS: ATTEND Physician Assistant
DX: K70.31 Alcoholic cirrhosis of liver with ascites (principal); K70.10 Alcoholic hepatitis without ascites; Z13.220 Encounter for screening for lipoid disorders; Z12.5 Encounter for screening for malignant neoplasm of prostate
CPT/HCPCS: 36415; 80053; 80061; 82607; 82728; 82746; 83540; 83550; 84153; 84443; 85025; 85610

== ENCOUNTER 2017-11-21 06:43 | Day surgery (SDC) | payer MEDICARE ==
[2017-11-18 13:45] VITALS: BMI 29.2
[~2017-11-21 06:43] MED LIST: LACTATED RINGERS 1,000 ML IV SCH; LIDOCAINE 1% 20 ML VIAL (10MG/ML) FOR IV START INTRADERMA PRN
[2017-11-21 07:01] VITALS: RESP 18; TEMP 98.5
[2017-11-21] MEDS ORDERED: LACTATED RINGERS 1,000 ML IV ONE ×2 (07:06)
[2017-11-21] MEDS ORDERED: PROPOFOL 10 MG/ML 20 ML VIAL IV ONE (07:30)
[2017-11-21 08:10] VITALS: BP 129/63; PULSE 77
--- NOTE | 2017-11-21 08:13 | P.PCN ---
Date of Procedure: 11/21/17 Description of Procedure: BRIEF HISTORY: Patient is a 72-year-old, pleasant, male patient with a known history of alcoholic cirrhosis complicated with ascites and previous variceal bleed which was treated with EGD and banding on 10/14/2017. The patient was previously noted to have evidence of portal hypertensive gastropathy on EGD and presented to the hospital in September with complaints of hematemesis with laboratory evidence of anemia. At that time EGD was significant for a bleeding varices which was treated with band ligation. He is here for follow-up. Currently he is on home treatment with Lasix, Xifaxan and omeprazole. PROCEDURE PERFORMED: Esophagogastroduodenoscopy with biopsy. PREOPERATIVE DIAGNOSIS: Decompensated alcohol cirrhosis with history of varices , follow-up variceal band ligation for repeat banding, anemia. ESTIMATED BLOOD LOSS: Minimal. IV sedation per anesthesia. PROCEDURE: After informed consent was obtained, the patient was brought into the endoscopy unit. IV sedation was administered by Anesthesia under continuous monitoring. Initially the Olympus GIF-180 video endoscope was inserted into the mouth. Esophagus intubated without any difficulty. It was gradually advanced into the stomach and duodenum and carefully examined. The bulb and the second part of the duodenum appeared normal. The scope at this time was withdrawn to the stomach, adequately insufflated with air, and upon careful examination, multiple superficial gastric ulcers in the antrum of the stomach were noted. No active bleeding was noted, or clots or visible vessels to suggest high risk stigmata of bleeding. Biopsies of the gastric antrum were taken. The mucosa of the antrum, body, cardia and the fundus otherwise appeared grossly normal. The scope was then withdrawn into the esophagus. The GE junction was located at 38 cm from the incisors. The esophagus appeared normal with no evidence of varices on insufflation of the esophagus. There were no erosions or ulcerations seen and the patient tolerated the procedure well. IMPRESSION: 1. Multiple superficial antral ulcerations, biopsied. 2. No evidence of esophageal varices, no therapeutic banding required. RECOMMENDATIONS: The findings of this examination were discussed with the patient. The patient will need to continue all medical and nonmedical treatment of cirrhosis. Continue low-salt diet, daily Lasix, Xifaxan and twice daily omeprazole. Follow up with gastroenterology in December as previously scheduled. Continue alcohol abstinence.
== END 2017-11-21 08:47 | disposition home or self-care (01) ==
LOC: ORWHC2ENDO 06:43
PROVIDERS: ATTEND Internal Medicine
DX: K29.50 Unspecified chronic gastritis without bleeding (principal); K25.9 Gastric ulcer, unspecified as acute or chronic, without hemorrhage or perforation; K70.31 Alcoholic cirrhosis of liver with ascites; D64.9 Anemia, unspecified; Z87.19 Personal history of other diseases of the digestive system; Z79.899 Other long term (current) drug therapy
CPT/HCPCS: 88305; 43239; J2704

== ENCOUNTER → 2017-12-20 | Outpatient (CLI) | payer MEDICARE ==
[2017-12-20 10:56] LABS: Anisocytosis Slight; Basophils % (A) 1 %; Eosinophils # (A) 0.5 k/uL (0-0.7); Eosinophils % (A) 7 %; HCT 26.7 % (39.0-53.0); HGB 8.5 gm/dL (13.0-17.5); Lymphocytes # (A) 1.2 k/uL (1.0-4.8); Lymphocytes % (A) 19 %; MCV 90.6 fL (80.0-100.0); Mean Platelet Volume 7.2; Monocytes # (A) 0.5 k/uL (0-1.0); Monocytes % (A) 8 %; Neutrophils # (A) 4.1 k/uL (1.3-7.7); Neutrophils % (A) 62 %; Platelet Count 237 k/uL (150-450); RBC 2.94 m/uL (4.30-5.90); WBC 6.6 k/uL (3.8-10.6)
[2017-12-20 16:07] LABS: Iron Saturation 36.07 (15.00-50.00)
[2017-12-20 16:09] LABS: Albumin 3.7 g/dL (3.80-4.90); Albumin/Globulin Ratio 1.12 (1.20-2.10); Anion Gap 7.2 mmol/L (4.00-12.00); Calcium 8.9 mg/dL (8.7-10.3); Carbon Dioxide 25.8 mmol/L (21.6-31.8); Globulin 3.3 g/dL (2.1-3.7); Potassium 4.1 mmol/L (3.5-5.5); Total Bilirubin 0.7 mg/dL (0.2-1.2)
[2017-12-21 15:13] LABS: Hepatits C Virus RNA Not detected (Not detected); Hepatits C Virus RNA, Quant <12 IU/mL (<12); LOG HCV IU/mL <1.08 (<1.08)
== END | disposition home or self-care (01) ==
LOC: LABWHC1 09:17
PROVIDERS: ATTEND Family Medicine
DX: K70.10 Alcoholic hepatitis without ascites (principal); Z11.59 Encounter for screening for other viral diseases
CPT/HCPCS: 36415; 80053; 82607; 82728; 82746; 83540; 83550; 85025; 87522

== ENCOUNTER → 2018-01-25 | Outpatient (CLI) | payer MEDICARE | END | disposition home or self-care (01) | LOC: RADUSWWP 06:49 | PROVIDERS: ATTEND Family Medicine | DX: Z53.9 Procedure and treatment not carried out, unspecified reason (principal) ==

== ENCOUNTER → 2018-01-25 | Outpatient (CLI) | payer MEDICARE ==
--- NOTE | 2018-01-25 07:35 | US ---
EXAMINATION TYPE: US abdomen complete DATE OF EXAM: 01/25/2018 COMPARISON: NONE CLINICAL HISTORY: K70.31 Alcoholic cirrhosis. Abn labs, screening for AAA, no h/o AAA, no symptoms EXAM MEASUREMENTS: Liver Length: 18.0 cm Gallbladder Wall: 0.2 cm CBD: 0.6 cm Spleen: 13.4 cm Right Kidney: 9.7 x 4.6 x 4.2 cm Left Kidney: 10.7 x 4.6 x 5.3 cm Pancreas: wnl Liver: wnl Gallbladder: wnl Evidence for sonographic Person's sign: no CBD: wnl Spleen: slightly enlarged Right Kidney: wnl Left Kidney: wnl Upper IVC: wnl Abd Aorta: limited views due to bowel gas The liver is homogenous. The intrahepatic portion of the IVC and proximal abdominal aorta are within normal limits. There is no evidence of cholelithiasis. Common bile duct is unremarkable. The visu alized portions of the pancreas are homogenous. Kidneys are symmetric and free of hydronephrosis. No renal lesions are seen. IMPRESSION: 1. Mild splenic enlargement.
== END | disposition home or self-care (01) ==
LOC: RADUSWWP 06:46
DX: R16.1 Splenomegaly, not elsewhere classified (principal)
CPT/HCPCS: 76700

== ENCOUNTER → 2018-02-01 | Outpatient (CLI) | payer MEDICARE ==
--- NOTE | 2018-02-01 14:41 | ECHOF ---
Referral Reason:M79.89 Other specified soft tissue disorders MEASUREMENTS -------- HEIGHT: 162.6 cm WEIGHT: 102.5 kg BP: RVIDd: 3.0 cm (< 3.3) IVSd: 1.2 cm (0.6 - 1.1) LVIDd: 5.3 cm (3.9 - 5.3) LVPWd: 1.1 cm (0.6 - 1.1) IVSs: 1.4 cm LVIDs: 4.5 cm LVPWs: 1.1 cm LA Diam: 4.5 cm (2.7 - 3.8) LAESV Index (A-L): 46.39 ml/m Ao Diam: 3.8 cm (2.0 - 3.7) AV Cusp: 2.2 cm (1.5 - 2.6) LA Diam: 5.2 cm (2.7 - 3.8) EPSS: 0.3 cm MV E Jasmeet: 1.00 m/s MV DecT: 139 ms MV A Jasmeet: 0.90 m/s MV E/A Ratio: 1.11 RAP: 5.00 mmHg RVSP: 30.49 mmHg MV EF SLOPE: 90.41 mm/s (70 - 150) MV EXCURSION: 1.76 cm (> 18.000) FINDINGS -------- Sinus rhythm. This was a technically adequate study. The left ventricular size is normal. There is mild concentric left ventricular hypertrophy. Overa ll left ventricular systolic function is normal with, an EF between 55 - 60 %. The right ventricle is normal in size. The left atrial size is normal. The right atrial size is normal. The aortic valve is trileaflet, and appears structurally normal. No aortic stenosis or regurgitation. The mitral valve leaflets are mildly thickened. Mild mitral regurgitation is present. Mild tricuspid regurgitation present. Right ventricular systolic pressure is normal at < 35 mmHg. The right ventricular systolic pressure, as measured by Doppler, is 30.49mmHg. There is no pulmonic regurgitation present. The aortic root size is normal. There is no pericardial effusion. CONCLUSIONS -------- 1. Sinus rhythm. 2. This was a technically adequate study. 3. The left ventricular size is normal. 4. There is mild concentric left ventricular hypertrophy. 5. Overall left ventricular systolic function is normal with, an EF between 55 - 60 %. 6. The left atrial size is normal. 7. The right atrial size is normal. 8. The aortic valve is trileaflet, and appears structurally normal. No aortic stenosis or regurgitati on. 9. The mitral valve leaflets are mildly thickened. 10. Mild mitral regurgitation is present. 11. Mild tricuspid regurgitation present. 12. Right ventricular systolic pressure is normal at < 35 mmHg. 13. The right ventricular systolic pressure, as measured by Doppler, is 30.49mmHg. 14. There is no pulmonic regurgitation present. 15. The aortic root size is normal. 16. There is no pericardial effusion. METAPHYSICIAN: Jennifer Portillo RDCS
== END | disposition home or self-care (01) ==
LOC: RADECHMAIN 12:58
PROVIDERS: ATTEND Family Medicine
DX: I08.1 Rheumatic disorders of both mitral and tricuspid valves (principal)
CPT/HCPCS: 93306

== ENCOUNTER 2019-01-24 11:55 | Inpatient (IN) | payer MEDICARE ==
[2019-01-24] MEDS ORDERED: SODIUM CHLORIDE 0.9% 1,000 ML IV STA (12:09)
--- NOTE | 2019-01-24 12:37 | ED ---
General Adult HPI - General Chief complaint: Weakness Stated complaint: vomiting x 3 wks Time Seen by Provider: 01/24/19 12:08 Source: patient Mode of arrival: wheelchair Limitations: no limitations - History of Present Illness Initial comments: Dictation was produced using [employer] dictation software. please excuse any grammatical, word or spelling errors. Chief Complaint: 73-year-old male presents with generalized weakness. History of Present Illness: 73-year-old male who was sent in by his primary care physician for generalized weakness, multiple falls at home. Patient is a history of alcohol abuse. Patient has been having significant decrease in appetite nausea and vomiting. He has also been ataxic unsteady gait. Family is at bedside endorses this. He's been aggressively worsening over the last 3 weeks. He seen a primary care physician's office and was referred to the emergency department. Patient is history of heart failure, GI bleed, hypertension liver cirrhosis. Patient denies any pain complaints at this time. States he feels weak symmetrically to his lower extremities especially. The ROS documented in this emergency department record has been reviewed and confirmed by me. Those systems with pertinent positive or negative responses have been documented in the HPI. All other systems are other negative and/or noncontributory. PHYSICAL EXAM: General Impression: Alert and oriented x3, not in acute distress HEENT: Normocephalic atraumatic, extra-ocular movements intact, pupils equal and reactive to light bilaterally, icterus, dry mucous membranes Cardiovascular: Heart regular rate and rhythm, S1&S2 audible, no murmurs, rubs or gallops Chest: Lungs clear to auscultation bilaterally, no rhonchi, no wheeze, no rales Abdomen: Bowel sounds present, abdomen soft, non-tender, non-distended, no organomegaly Musculoskeletal: Pulses present and equal in all extremities, no peripheral ed madan Motor: no focal deficits noted Neurological: CN II-XII grossly intact, no focal motor or sensory deficits noted Skin: Intact with no visualized rashes Psych: Normal affect and mood ED course: 73-year-old male presents generalized weakness. As upon arrival are within acceptable limits.Labatory evaluation obtained. CBC grossly unremarkable. He does have macrocytosis. Coag panel negative. Sodium is 1:30. Patient has anion gap acidosis with anion gap of 25. His creatinine of 3.55 and a BUN of 47. Serum alcohol is negative. Computed tomography scan of the brain, chest x-ray, tib-fib x-rays unremarkable. Given patient's degree of renal markers elevation will have patient admitted with consultation to nephrology. EKG interpretation: Ventricular rate 82, sinus rhythm,. Interval to 12, QS 110, QTc 495. No MS prolongation, no QTC prolongation, no ST or T-wave changes noted. EKG compared to 05/21/2018 showing no changes. Overall, this EKG is unremarkable - Related Data Home Medications Medication Instructions Recorded Confirmed Omeprazole 20 mg PO DAILY 05/11/18 01/24/19 Metoprolol Tartrate [Lopressor] 25 mg PO BID@0900,1600 05/21/18 01/24/19 Previous Rx's Medication Instructions Recorded Spironolactone [Aldactone] 25 mg PO DAILY #30 tab 05/13/18 Ferrous Sulfate [Feosol] 325 mg PO BID #60 tab 05/25/18 Furosemide [Lasix] 20 mg PO BID@0900,1600 #60 tab 05/26/18 Allergies Allergy/AdvReac Type Severity Reaction Status Date / Time No Known Allergies Allergy Verified 01/24/19 13:55 Review of Systems ROS Statement: Those systems with pertinent positive or pertinent negative responses have been documented in the HPI. ROS Other: All systems not noted in ROS Statement are negative. Past Medical History Past Medical History: Heart Failure, GI Bleed, Hypertension, Liver Disease Additional Past Medical History / Comment(s): hx of liver cirrhosis, hx esophageal varices, STATES PAST HX OF COLON POLYP-benign,PREVIOUS HX OF HTN but OFF MEDICATIONS for over a year, History of Any Multi-Drug Resistant Organisms: None Reported Past Surgical History: Tonsillectomy Additional Past Surgical History / Comment(s): EGD WITH BANDING OF VARICES, PREV. COLONOSCOPIES, egd Past Anesthesia/Blood Transfusion Reactions: No Reported Reaction Past Psychological History: PTSD Smoking Status: Former smoker Past Alcohol Use History: Heavy Past Drug Use History: None Reported - Past Family History Mother Family Medical History: Cancer Additional Family Medical History / Comment(s): COLON Father Family Medical History: Coronary Artery Disease (CAD) Additional Family Medical History / Comment(s): valve replacment, cataracts General Exam Limitations: no limitations Course Vital Signs 01/24/19 01/24/19 12:03 13:33 Temperature 98.1 F Pulse Rate 66 79 Respiratory 18 18 Rate Blood Pressure 113/57 128/79 O2 Sat by Pulse 98 97 Oximetry Medical Decision Making - Lab Data Result diagrams: 01/24/19 12:28 01/24/19 12:28 Lab Results 01/24/19 01/24/19 01/24/19 Range/Units 12:28 12:28 12:28 WBC 6.1 (3.8-10.6) k/uL RBC 3.55 L (4.30-5.90) m/uL Hgb 12.6 L (13.0-17.5) gm/dL Hct 36.1 L (39.0-53.0) % MCV 101.4 H (80.0-100.0) fL MCH 35.4 H (25.0-35.0) pg MCHC 34.9 (31.0-37.0) g/dL RDW 15.2 (11.5-15.5) % Plt Count 142 L (150-450) k/uL Neutrophils % 74 % Lymphocytes % 10 % Monocytes % 10 % Eosinophils % 2 % Basophils % 0 % Neutrophils # 4.5 (1.3-7.7) k/uL Lymphocytes # 0.6 L (1.0-4.8) k/uL Monocytes # 0.6 (0-1.0) k/uL Eosinophils # 0.1 (0-0.7) k/uL Basophils # 0.0 (0-0.2) k/uL Macrocytosis Slight PT (9.0-12.0) sec INR (<1.2) APTT (22.0-30.0) sec Sodium 130 L (137-145) mmol/L Potassium 3.6 (3.5-5.1) mmol/L Chloride 84 L (98-107) mmol/L Carbon Dioxide 21 L (22-30) mmol/L Anion Gap 25 mmol/L BUN 47 H (9-20) mg/dL Creatinine 3.55 H (0.66-1.25) mg/dL Est GFR (CKD-EPI)AfAm 19 (>60 ml/min/1.73 sqM) Est GFR (CKD-EPI)NonAf 16 (>60 ml/min/1.73 sqM) Glucose 100 H (74-99) mg/dL Plasma Lactic Acid [place] 1.5 (0.7-2.0) mmol/L Calcium 9.7 (8.4-10.2) mg/dL Phosphorus 2.8 (2.5-4.5) mg/dL Magnesium 1.6 (1.6-2.3) mg/dL Total Bilirubin 10.4 H (0.2-1.3) mg/dL AST 263 H (17-59) U/L ALT 90 H (21-72) U/L Alkaline Phosphatase 169 H (38-126) U/L Troponin I (0.000-0.034) ng/mL NT-Pro-B Natriuret Pep pg/mL Total Protein 9.0 H (6.3-8.2) g/dL Albumin 4.7 (3.5-5.0) g/dL TSH 4.600 (0.465-4.680) mIU/L Serum Alcohol mg/dL 01/24/19 01/24/19 01/24/19 Range/Units 12:28 12:28 12:28 WBC (3.8-10.6) k/uL RBC (4.30-5.90) m/uL Hgb (13.0-17.5) gm/dL Hct (39.0-53.0) % MCV (80.0-100.0) fL MCH (25.0-35.0) pg MCHC (31.0-37.0) g/dL RDW (11.5-15.5) % Plt Count (150-450) k/uL Neutrophils % % Lymphocytes % % Monocytes % % Eosinophils % % Basophils % % Neutrophils # (1.3-7.7) k/uL Lymphocytes # (1.0-4.8) k/uL Monocytes # (0-1.0) k/uL Eosinophils # (0-0.7) k/uL Basophils # (0-0.2) k/uL Macrocytosis PT 13.3 H (9.0-12.0) sec INR 1.3 H (<1.2) APTT 28.3 (22.0-30.0) sec Sodium (137-145) mmol/L Potassium (3.5-5.1) mmol/L Chloride (98-107) mmol/L Carbon Dioxide (22-30) mmol/L Anion Gap mmol/L BUN (9-20) mg/dL Creatinine (0.66-1.25) mg/dL Est GFR (CKD-EPI)AfAm (>60 ml/min/1.73 sqM) Est GFR (CKD-EPI)NonAf (>60 ml/min/1.73 sqM) Glucose (74-99) mg/dL Plasma Lactic Acid [place] (0.7-2.0) mmol/L Calcium (8.4-10.2) mg/dL Phosphorus (2.5-4.5) mg/dL Magnesium (1.6-2.3) mg/dL Total Bilirubin (0.2-1.3) mg/dL AST (17-59) U/L ALT (21-72) U/L Alkaline Phosphatase (38-126) U/L Troponin I 0.033 (0.000-0.034) ng/mL NT-Pro-B Natriuret Pep 1350 pg/mL Total Protein (6.3-8.2) g/dL Albumin (3.5-5.0) g/dL TSH (0.465-4.680) mIU/L Serum Alcohol mg/dL 01/24/19 Range/Units 14:00 WBC (3.8-10.6) k/uL RBC (4.30-5.90) m/uL Hgb (13.0-17.5) gm/dL Hct (39.0-53.0) % MCV (80.0-100.0) fL MCH (25.0-35.0) pg MCHC (31.0-37.0) g/dL RDW (11.5-15.5) % Plt Count (150-450) k/uL Neutrophils % % Lymphocytes % % Monocytes % % Eosinophils % % Basophils % % Neutrophils # (1.3-7.7) k/uL Lymphocytes # (1.0-4.8) k/uL Monocytes # (0-1.0) k/uL Eosinophils # (0-0.7) k/uL Basophils # (0-0.2) k/uL Macrocytosis PT (9.0-12.0) sec INR (<1.2) APTT (22.0-30.0) sec Sodium (137-145) mmol/L Potassium (3.5-5.1) mmol/L Chloride (98-107) mmol/L Carbon Dioxide (22-30) mmol/L Anion Gap mmol/L BUN (9-20) mg/dL Creatinine (0.66-1.25) mg/dL Est GFR (CKD-EPI)AfAm (>60 ml/min/1.73 sqM) Est GFR (CKD-EPI)NonAf (>60 ml/min/1.73 sqM) Glucose (74-99) mg/dL Plasma Lactic Acid [place] (0.7-2.0) mmol/L Calcium (8.4-10.2) mg/dL Phosphorus (2.5-4.5) mg/dL Magnesium (1.6-2.3) mg/dL Total Bilirubin (0.2-1.3) mg/dL AST (17-59) U/L ALT (21-72) U/L Alkaline Phosphatase (38-126) U/L Troponin I (0.000-0.034) ng/mL NT-Pro-B Natriuret Pep pg/mL Total Protein (6.3-8.2) g/dL Albumin (3.5-5.0) g/dL TSH (0.465-4.680) mIU/L Serum Alcohol <10 mg/dL Disposition Clinical Impression: KINGS (acute kidney injury) Disposition: ADMITTED IP TO THIS HOSP Condition: Fair Referrals: Nora Moran MD [Primary Care Provider] - 1-2 days Decision Time: 14:41
[2019-01-24 12:40] LABS: Basophils % (A) 0 %; Eosinophils # (A) 0.1 k/uL (0-0.7); Eosinophils % (A) 2 %; HCT 36.1 % (39.0-53.0); HGB 12.6 gm/dL (13.0-17.5); Lymphocytes # (A) 0.6 k/uL (1.0-4.8); Lymphocytes % (A) 10 %; MCH 35.4 pg (25.0-35.0); MCHC 34.9 g/dL (31.0-37.0); MCV 101.4 fL (80.0-100.0); Macrocytosis Slight; Mean Platelet Volume 6.7; Monocytes # (A) 0.6 k/uL (0-1.0); Monocytes % (A) 10 %; Neutrophils # (A) 4.5 k/uL (1.3-7.7); Neutrophils % (A) 74 %; Platelet Count 142 k/uL (150-450); RBC 3.55 m/uL (4.30-5.90); RDW 15.2 % (11.5-15.5); WBC 6.1 k/uL (3.8-10.6)
[2019-01-24 12:52] LABS: INR 1.3 (<1.2); Partial Thromboplastin Time 28.3 sec (22.0-30.0); Prothrombin Time 13.3 sec (9.0-12.0)
--- NOTE | 2019-01-24 12:52 | XR ---
EXAMINATION TYPE: XR tibia fibula RT DATE OF EXAM: 01/24/2019 COMPARISON: None HISTORY: Fall, pain TECHNIQUE: 2 view right tibia and fibula FINDINGS: No acute fractures or dislocations are evident. Visualized joint spaces appear preserved. T he distal most portion of the fibula on the AP projection is out of the [id number]. Soft tissues a ppear normal. No radiopaque foreign bodies are evident. IMPRESSION: 1. Normal visualized tibia and fibula
[2019-01-24 12:53] LABS: Albumin 4.7 g/dL (3.5-5.0); Calcium 9.7 mg/dL (8.4-10.2); Magnesium 1.6 mg/dL (1.6-2.3); Phosphorus 2.8 mg/dL (2.5-4.5); Potassium 3.6 mmol/L (3.5-5.1); Total Bilirubin 10.4 mg/dL (0.2-1.3)
--- NOTE | 2019-01-24 12:54 | XR ---
EXAMINATION TYPE: XR chest 1V portable DATE OF EXAM: 01/24/2019 COMPARISON: 05/21/2018 INDICATION: Weakness, fall TECHNIQUE: Single frontal view of the chest is obtained. FINDINGS: The heart size is normal. The pulmonary vasculature is normal. The lungs are clear. No pneumothorax is evident. IMPRESSION: 1. No acute pulmonary process.
--- NOTE | 2019-01-24 13:40 | CT ---
EXAMINATION TYPE: CT brain sadie hurd DATE OF EXAM: 01/24/2019 COMPARISON: 10/15/2017 HISTORY: Fall CT DLP: 1631.9 mGycm, Automated exposure control for dose reduction was used. CONTRAST: Patient injected with 0 mL of Isovue 300. CT of the brain is performed utilizing 3 mm thick sections through the posterior fossa and 3 mm thick sections through the remaining calvarium. Study is performed within 24 hours of arrival to the hospital. No abnormal hyperdensity is present to suggest an acute intracranial hemorrhage. No mass lesion is evident. No acute infarcts are evident. An old lacunar infarct may be within the subcortical limbic region, p resent previously. Virchow-Torey's space could be considered. Ventricles are appropriate for the patient age. Sulci and mild prominence compatible some atrophy Paranasal sinuses and mastoid air cells within the [id number] are clear. IMPRESSIONS: 1. Mild age-related atrophy. 2. No acute intracranial process. CT cervical spine. COMPARISON: None CT of the cervical spine is performed in the axial plane at 2 mm thick sections. Reconstructed image s in the coronal, and sagittal plane are reviewed on the computer. No acute fractures are evident. Vertebral body alignment is normal. There is diffuse loss of disc height throughout the cervical spine greatest at C5-6. Vertebral body heights are preserved. No spinal canal stenosis is evident. Uncovertebral joint hypertrophy has moderate right and mild left foraminal stenosis. Moderate bilater al foraminal stenosis is present C5-6. IMPRESSIONS: 1. No acute fracture cervical spine. 2. Uncovertebral joint hypertrophy contributing to foraminal narrowing C5-6 C6-7.
[2019-01-24] MEDS ORDERED: oxyCODONE-APAP 5-325MG 1 EACH TAB PO PRN (14:34)
[2019-01-24] MEDS ORDERED: ONDANSETRON 4 MG/2 ML VIAL IVP PRN (14:34)
[2019-01-24] MEDS ORDERED: ACETAMINOPHEN TAB 325 MG TAB PO PRN (14:34)
[2019-01-24] MEDS ORDERED: NALOXONE 0.4 MG/ML 1 ML VIAL IV PRN (14:34)
[2019-01-24] MEDS ORDERED: SODIUM BICARB 8.4% 50 ML SYR (1 MEQ/ML) IV STA (14:37)
[2019-01-24] MEDS ORDERED: SODIUM CHLORIDE 0.9% 1,000 ML IV SCH (14:45)
[2019-01-24 15:22] LABS: Amorphous Sediment,Urine Rare /hpf; Appearance,Urine Cloudy (Clear); Bilirubin,Urine 1+ (Negative); Blood,Urine Trace (Negative); Color,Urine Yellow; Glucose,Urine (UA) Negative (Negative); Hyaline Casts,Urine 112 /lpf (0-2); Ketones,Urine 1+ (Negative); Leukocyte Esterase,Urine Negative (Negative); Mucus,Urine Occasional /hpf; Nitrite,Urine Negative (Negative); Protein,Urine Trace (Negative); RBC,Urine 1 /hpf (0-5); Specific Gravity,Urine 1.012 (1.001-1.035); Squamous Epithelial Cell,Urine 2 /hpf (0-4)
[2019-01-24] MEDS: DEXTROSE 5% IN WATER 1,000 ML with SODIUM BICARB (1 MEQ/ML) 150 ML IV SCH (15:47)
[2019-01-24] MEDS ORDERED: THIAMINE 100 MG/ML 2 ML VIAL IM STA (19:28)
[2019-01-24] MEDS ORDERED: LORazepam 2 MG/ML INJ IV PRN ×3 (19:28)
--- NOTE | 2019-01-24 21:05 | HP ---
HISTORY AND PHYSICAL DATE OF SERVICE: 01/24/2019 CHIEF COMPLAINTS: Weakness, vomiting and falls. HISTORY OF PRESENT ILLNESS: This 73-year-old gentleman with a past medical history of multiple medical problems, including a history of CHF, history of hypertension, history of liver disease with liver cirrhosis, history of PTSD, history of nicotine dependence, being followed by Dr. Nora Moran in the outpatient setting, was admitted to [facility] earlier this year with features of fluid overload and secondary liver cirrhosis and acute renal failure and multiple other medical issues. The patient follows with Dr. Nora Moran, as mentioned earlier. Apparently the patient's went to the [facility] visiting family. The patient has a history of drinking. The patient reports that he apparently drinks about a pint of whiskey in a week, but apparently the patient took 2 drinks a couple of days ago. The patient apparently had multiple falls. Because of falls and weakness, the patient was taken to [facility] and was admitted for further evaluation and treatment. The patient has some unsteady gait. The patient also has a history of GI bleed, cirrhosis of the liver and other multiple medical issues, also. The patient was taken to [facility] and admitted for further evaluation and treatment. The patient had multiple lab abnormalities, including renal failure which went up to 3.5, indicating acute renal failure. The creatinine was about 1 in May this year. There is no history of any fever, rigor or chills. No history of headache, loss of consciousness, seizures. The LFTs were also elevated. Alcohol was less than 10. PAST MEDICAL HISTORY: 1. History of CHF. 2. History of hypertension. 3. History of liver disease and liver cirrhosis. 4. History of significant alcohol intake. HOME MEDICATIONS: 1. Aldactone 25 mg p.o. daily. 2. Omeprazole 20 mg p.o. daily. 3. Lopressor 25 mg p.o. b.i.d. 4. Lasix 20 mg p.o. b.i.d. 5. Iron sulfate 325 mg p.o. b.i.d. ALLERGIES: NONE. FAMILY HISTORY: History of colon cancer in the family. SOCIAL HISTORY: Previous history of smoking. Occasional alcohol intake. REVIEW OF SYSTEMS: ENT: No diminished hearing. No diminished vision. CARDIOVASCULAR SYSTEM: No angina, palpitations. RESPIRATORY SYSTEM: As mentioned earlier. GI: As mentioned earlier. : As mentioned earlier. NERVOUS SYSTEM: No numbness, weakness. ALLERGY/IMMUNOLOGY: No asthma, hayfever. MUSCULOSKELETAL: As mentioned earlier. HEMATOLOGY/ONCOLOGY: No history of anemia. ENDOCRINE: No history of diabetes, hypothyroidism. CONSTITUTIONAL: As mentioned earlier. DERMATOLOGY: Negative. RHEUMATOLOGY: Negative. PSYCHIATRY: As mentioned earlier. PHYSICAL EXAMINATION: Patient alert and oriented x3. Pulse 74, blood pressure 122/59, respirations 16, temperature 98.3, pulse ox 99% on room air. HEENT: Conjunctivae normal. Oral mucosa moist. Facial puffiness present. NECK: No jugular venous distention. No carotid bruit. No lymph node enlargement. CARDIOVASCULAR SYSTEM: S1, S2 muffled. No S3. No S4. RESPIRATORY SYSTEM: Breath sounds diminished at the bases. A few scattered rhonchi and crackles. ABDOMEN: Soft, obese, non-tender. There is bilateral leg edema. NERVOUS SYSTEM: Higher functions as mentioned earlier. Moves all 4 limbs. Mild decreased weakness. LYMPHATICS: No lymph node palpable in neck, axillae or groin. SKIN: No ulcer, rash, bleeding. JOINTS: No active deforming arthropathy. LABS/IMAGING: WBC 6.2, hemoglobin 12.6, MCV 101.4, platelets 143. INR 1.3. Sodium 130, creatinine 3.55, and AST, ALT noted. The chest x-ray, which was reviewed personally by me, showed some increased bronchovascular markings. Otherwise, a tibial-fibular x-ray showed no acute fractures. CT scan of the head and cervical spine was also done which showed no acute abnormalities. ASSESSMENT: 1. Acute renal failure, possibly prerenal renal failure secondary to dehydration, acute tubular necrosis. Rule out rhabdomyolysis. 2. History of fall and gait dysfunction. 3. Cirrhosis of the liver, possibly secondary to chronic alcohol usage with esophageal varices. 4. History of gastrointestinal bleed. 5. History of congestive heart failure; ejection fraction unknown. 6. Hypertension. 7. History of tonsillectomy. 8. History of post-traumatic stress disorder. 9. Remote history of nicotine dependence. 10.Obesity with body mass index of 33.1. 11.Anemia, macrocytic. 12.Thrombocytopenia. 13.Hyponatremia. 14.Elevated AST, ALT with possible alcoholic hepatitis with bilirubin 10.4. RECOMMENDATIONS AND DISCUSSION: In this 73-year-old gentleman who presented with multiple complex medical issues, we will monitor the patient closely, continue the current medications, continue with symptomatic treatment. I recommend IV fluids cautiously. The patient had elevated LFTs and bilirubin. Possible hepatorenal syndrome is a concern. I would recommend consultation with Gastroenterology as well as Nephrology. Otherwise, symptomatic treatment will be provided. DVT prophylaxis. Proton pump inhibitors. Alcohol cessation has been recommended. The prognosis is extremely guarded because of the above-mentioned multiple complex medical issues, which I discussed at length with the patient and patient's daughter at the bedside. Further recommendations to follow. A copy of this dictation is being forwarded to Dr. Nora Moran, who is the primary physician. MMODL / IJN: [id number] /
[2019-01-24] MEDS: PANTOPRAZOLE 40 MG/10 ML VIAL IVP SCH (21:35)
[2019-01-24] MEDS: THIAMINE 100 MG TAB PO SCH (21:36)
[2019-01-24 23:46] LABS: Hepatitis A Antibody IgM Non-Reactive (Non-Reactive); Hepatitis B Core IgM Non-Reactive (Non-Reactive); Hepatitis B Surface Antigen Non-Reactive (Non-Reactive); Hepatitis C IgG Antibody Non-Reactive (Non-Reactive)
[2019-01-25] MEDS: DEXTROSE 5% IN WATER 1,000 ML with SODIUM BICARB (1 MEQ/ML) 150 ML IV SCH ×2 (00:20→11:31)
[2019-01-25] MEDS: THIAMINE 100 MG TAB PO SCH ×2 (06:50→17:17)
[2019-01-25 07:38] LABS: Basophils % (A) 0 %; Eosinophils # (A) 0.3 k/uL (0-0.7); Eosinophils % (A) 4 %; HCT 30.9 % (39.0-53.0); HGB 11.1 gm/dL (13.0-17.5); Lymphocytes # (A) 0.5 k/uL (1.0-4.8); Lymphocytes % (A) 8 %; MCH 35.4 pg (25.0-35.0); MCHC 35.8 g/dL (31.0-37.0); MCV 98.7 fL (80.0-100.0); Macrocytosis Slight; Mean Platelet Volume 6.5; Monocytes # (A) 0.6 k/uL (0-1.0); Monocytes % (A) 8 %; Neutrophils % (A) 76 %; Platelet Count 110 k/uL (150-450); RBC 3.13 m/uL (4.30-5.90); RDW 15.2 % (11.5-15.5); WBC 6.6 k/uL (3.8-10.6)
[2019-01-25 07:48] LABS: Albumin 3.6 g/dL (3.5-5.0); Magnesium 1.4 mg/dL (1.6-2.3); Total Bilirubin 8.5 mg/dL (0.2-1.3); Total Protein 7.2 g/dL (6.3-8.2)
[2019-01-25 07:50] LABS: Potassium 2.6 mmol/L (3.5-5.1)
[2019-01-25] MEDS: METOPROLOL TARTRATE 25 MG TAB PO SCH ×3 (09:11→16:52)
[2019-01-25] MEDS: PANTOPRAZOLE 40 MG/10 ML VIAL IVP SCH (09:11)
[2019-01-25] MEDS ORDERED: Magnesium Replacement Protocol 1 EACH MISC MISCELLANE PRN (11:13)
[2019-01-25] MEDS ORDERED: Potassium Replacement Protocol 1 EACH MISC MISCELLANE PRN (11:14)
[2019-01-25] MEDS: MAGNESIUM SULFATE-D5W PMX 1 GM in DEXTROSE/WATER 1 100ML.BAG IVPB SCH ×3 (11:29→14:27)
[2019-01-25] MEDS: POTASSIUM CHLORIDE ER 20 MEQ TAB.ER PO SCH ×4 (11:30→19:39)
--- NOTE | 2019-01-25 12:52 | P.NPCON ---
History of Present Illness - Reason for Consult Consult date: 01/25/19 acute renal failure - Chief Complaint Acute kidney injury - History of Present Illness This is a 73-year-old male seen in consultation because of acute kidney injury. He came in because of frequent falls. He is known to have cirrhosis secondary to alcohol intake, history of PTSD, smoker. He says he quit drinking last week. He does admit to having frequent nausea vomiting for the last 2 weeks. No diarrhea no abdominal pain no fever chills no cough no shortness of breath no dizziness No history of taking any nonsteroidals He was here in April of this year with acute kidney injury from cardiorenal syndrome Past Medical History Past Medical History: Heart Failure, GI Bleed, Hypertension, Liver Disease Additional Past Medical History / Comment(s): hx of liver cirrhosis, hx esophageal varices, STATES PAST HX OF COLON POLYP-benign,PREVIOUS HX OF HTN but OFF MEDICATIONS for over a year, History of Any Multi-Drug Resistant Organisms: None Reported Past Surgical History: Tonsillectomy Additional Past Surgical History / Comment(s): EGD WITH BANDING OF VARICES, PREV. COLONOSCOPIES, egd Past Anesthesia/Blood Transfusion Reactions: No Reported Reaction Past Psychological History: PTSD Additional Psychological History / Comment(s): . Smoking Status: Former smoker Past Alcohol Use History: Heavy Additional Past Alcohol Use History / Comment(s): SMOKED CIGARS -started 1968 and quit 1997. PREVIOUS ALCHOHOL USE, STATES NONE IN PAST 3 days Past Drug Use History: None Reported - Past Family History Mother Family Medical History: Cancer Additional Family Medical History / Comment(s): COLON Father Family Medical History: Coronary Artery Disease (CAD) Additional Family Medical History / Comment(s): valve replacment, cataracts Medications and Allergies Home Medications Medication Instructions Recorded Confirmed Type Omeprazole 20 mg PO DAILY 05/11/18 01/24/19 History Spironolactone [Aldactone] 25 mg PO DAILY #30 tab 05/13/18 01/24/19 Rx Metoprolol Tartrate [Lopressor] 25 mg PO BID@0900,1600 05/21/18 01/24/19 History Ferrous Sulfate [Feosol] 325 mg PO BID #60 tab 05/25/18 01/24/19 Rx Furosemide [Lasix] 20 mg PO BID@0900,1600 #60 tab 05/26/18 01/24/19 Rx Allergies Allergy/AdvReac Type Severity Reaction Status Date / Time No Known Allergies Allergy Verified 01/24/19 13:55 Physical Exam Vitals: Vital Signs Temp Pulse Pulse Pulse Pulse Pulse Resp 01/25/19 09:15 98.3 F 97 16 01/25/19 04:00 98.0 F 98 20 01/25/19 00:00 98.0 F 90 16 01/24/19 20:00 97.8 F 82 18 01/24/19 19:24 98.0 F 91 93 78 18 01/24/19 17:42 98.3 F 74 16 01/24/19 17:17 98.3 F 74 16 01/24/19 16:58 98.2 F 79 18 01/24/19 15:08 75 18 01/24/19 13:33 79 18 BP BP BP BP Pulse Ox 01/25/19 09:15 90/52 95 01/25/19 04:00 125/68 97 01/25/19 00:00 114/54 96 01/24/19 20:00 110/56 94 L 01/24/19 19:24 117/58 113/55 116/58 95 01/24/19 17:42 122/59 99 01/24/19 17:17 122/59 99 01/24/19 16:58 107/58 96 01/24/19 15:08 113/61 95 01/24/19 13:33 128/79 97 Intake and Output 01/24/19 01/25/19 01/25/19 22:59 06:59 14:59 Intake Total 120 Output Total 150 Balance -150 120 Intake: Oral 120 Output: Urine 150 Uretheral (Sánchez) 50 Other: # Voids 1 1 # Bowel Movements 1 Weight 101.605 kg 103.4 kg On examination is awake alert oriented comfortable HEENT exam no JVP neck is supple no facial asymmetry Lungs clear to auscultation with good air entry bilaterally Heart sounds are unremarkable for any murmur rub gallop Abdomen soft nontender no significant ascites noted clinically no organomegaly noted no masses noted Extremity exam reveals no edema Neurologically awake alert oriented no asterixis. Results - Lab Results Most recent lab results Calcium 9.0 mg/dL (8.4-10.2) 01/25/19 06:44 Phosphorus 2.8 mg/dL (2.5-4.5) 01/24/19 12:28 Magnesium 1.4 mg/dL (1.6-2.3) L 01/25/19 06:44 01/25/19 06:44 01/25/19 06:44 Assessment and Plan Plan: Impression 1. Acute kidney injury secondary to volume depletion from nausea vomiting and slightly low blood pressure. On admission creatinine was 3.5 as improved 2.91 after hydration. 2. Mild hypokalemia potassium is 3.6 on admission went down to 2.6 because of saline diuresis. 3. Mild degree of hyponatremia secondary to acute kidney injury. Sodium was 131 on 128 after hydration 4. Significant metabolic alkalosis and metabolic acidosis with bicarb 21 but a gap of 25 - explained on the basis of gap acidosis acidosis from acute kidney injury and metabolic alkalosis from nausea vomiting. This is corrected quickly therefore is no need for any further workup for the cause of the severe gap acidosis is gap is 16 now and bicarb is 31 5. Cirrhosis with liver disease with elevated enzymes and total bilirubin of 10.4. 6. Hypomagnesemia secondary to alcohol Recommendation 1. Change IV fluids to normal saline. His bicarb is 31. Gap is 16 we'll watch his gap as well as the metabolic alkalosis 2. Agree with magnesium sulfate IV. Recheck after the IV is given and then may need to be further replace as needed 3. He will require about 100 mEq of potassium at least 2.6. He can be given by mouth 20 mEq for 5 doses and then recheck 4. Watch for hepatorenal syndrome 6. Avoid nephrotoxic medications or 7. Watch for DTs Thank you for this consultation and we'll continue to follow closely
[2019-01-25] MEDS ORDERED: POTASSIUM CHLORIDE ER 20 MEQ TAB.ER PO SCH (14:00)
[2019-01-25] MEDS: SODIUM CHLORIDE 0.9% 1,000 ML IV SCH (16:52)
[2019-01-25 19:15] LABS: Magnesium 2.3 mg/dL (1.6-2.3)
[2019-01-25] MEDS ORDERED: POTASSIUM CHLORIDE ER 20 MEQ TAB.ER PO STA (19:21)
--- NOTE | 2019-01-26 00:47 | PN ---
PROGRESS NOTE DATE OF SERVICE: 01/25/2019. This 73-year-old gentleman who was admitted with acute renal failure, also had severe hypokalemia today. The patient is being gradually hydrated at this time. Nephrology is following the patient closely. The patient also had history of significant weakness and gait dysfunction and falls also. Metabolic alkalosis also noted. PAST MEDICAL HISTORY: Reviewed. REVIEW OF SYSTEMS: Cardiovascular system: No angina or palpitations. Respiratory: As mentioned earlier. GI no nausea or vomiting. no dysuria or hematuria. Central nervous system: No numbness or weakness. CURRENT MEDICATIONS: Reviewed and include: 1. Tylenol p.r.n. 2. Ativan p.r.n. 3. Lopressor. 4. Milk of Magnesia. 5. KCl. 6. Zofran. 7. Percocet. 8. Vitamin B1. PHYSICAL EXAM: Patient is alert, oriented x3. Pulse 97. Blood pressure 115/55, respirations 16, temperature 97.7, pulse ox 94% on room air. HEENT: Conjunctivae normal. NECK: No jugular venous distention. CARDIOVASCULAR SYSTEM: S1, S2 muffled. RESPIRATORY SYSTEM: Breath sounds diminished at the bases. A few scattered rhonchi and crackles. ABDOMEN: Soft, nontender. LEGS are no edema. No swelling. CENTRAL NERVOUS SYSTEM: No focal deficits. LABORATORY DATA: WBC 6.3, hemoglobin 11.1, sodium 128, potassium 3.8, creatinine is 2.91, AST ALT noted. Total bilirubin is 8.5. ASSESSMENT: 1. Acute renal failure possibly prerenal renal failure secondary to dehydration acute tubular necrosis. 2. History of fall and gait dysfunction. 3. Cirrhosis of the liver, possibly secondary to chronic alcohol use with esophageal varices. 4. History of gastrointestinal bleed. 5. History of congestive heart failure with ejection fraction unknown. 6. Hypertension. 7. History of tonsillectomy. 8. History of metabolic alkalosis. 9. History of post-traumatic stress disorder. 10.Remote history of nicotine dependence. 11.Obesity with body mass index of 33.8. 12.Anemia macrocytic. 13.Thrombocytopenia. 14.Hyponatremia. 15.Elevated AST, ALT, possibly alcoholic hepatitis with bilirubin of 8.5. 16.Hypomagnesemia. RECOMMENDATIONS AND DISCUSSION: I recommend to continue current medications, continue with the monitoring, symptomatic treatment. Otherwise, at this time, I recommend to continue the current medication. Magnesium replacement protocol. Otherwise, continue with gentle IV fluids and we will closely monitor. Potassium supplementation. Monitor electrolytes closely. Prognosis guarded. Closely follow with the desk top publisher and guarded prognosis. Further recommendations to follow. MMWESLEYL / ANIYAHN: [id number] /
[2019-01-26] MEDS: SODIUM CHLORIDE 0.9% 1,000 ML IV SCH ×2 (02:30→09:36)
[2019-01-26] MEDS: PANTOPRAZOLE 40 MG TABLET PO SCH (06:34)
[2019-01-26] MEDS: THIAMINE 100 MG TAB PO SCH ×2 (06:34→16:20)
[2019-01-26 07:23] LABS: Albumin 3.4 g/dL (3.5-5.0); Calcium 9.3 mg/dL (8.4-10.2); Potassium 3.5 mmol/L (3.5-5.1); Total Bilirubin 8.1 mg/dL (0.2-1.3); Total Protein 6.9 g/dL (6.3-8.2)
[2019-01-26 07:25] LABS: Basophils % (A) 0 %; Eosinophils # (A) 0.4 k/uL (0-0.7); Eosinophils % (A) 5 %; HCT 30.6 % (39.0-53.0); Lymphocytes # (A) 0.8 k/uL (1.0-4.8); Lymphocytes % (A) 10 %; MCH 35.6 pg (25.0-35.0); MCHC 36.1 g/dL (31.0-37.0); MCV 98.7 fL (80.0-100.0); Macrocytosis Slight; Mean Platelet Volume 6.6; Monocytes # (A) 0.6 k/uL (0-1.0); Monocytes % (A) 8 %; Neutrophils # (A) 5.3 k/uL (1.3-7.7); Neutrophils % (A) 73 %; Platelet Count 103 k/uL (150-450); RDW 15.4 % (11.5-15.5); WBC 7.3 k/uL (3.8-10.6)
--- NOTE | 2019-01-26 08:36 | P.CONS ---
History of Present Illness - Reason for Consult Consult date: 01/25/19 Cirrhosis Requesting physician: Hermelinda Mercado - Chief Complaint Falls - History of Present Illness 73-year-old male with a prior history of alcohol abuse, alcoholic cirrhosis with portal hypertension, ascites, esophageal varices, iron deficiency anemia who presented due to falls which occurred over the past few weeks. History is been taking in conversation with the patient, his and daughter who are in the room with him. The patient reports 3 falls over the past week. He is had an unsteady gait. He also reports generalized weakness. The patient is not very clear on medications he is taking at home but does report compliance with diuresis. He denies any nausea, vomiting or change in bowel habits, no signs or symptoms of GI bleeding reported. The patient does not believe he is currently taking any lactulose therapy at home. He last underwent EGD on 10/2017 with findings of nonbleeding antral ulcers with no varices noted at that time, however he had an EGD previously with banding. Currently on presentation laboratory evaluation is significant for WBC 6.6, hemoglobin 11.1, bili count 110,000, INR 1.3, creatinine 2.9, total bilirubin 8.5, alkaline phosphatase 174, AST 211, and ALT 78. The patient denies any recent alcohol use. Colonoscopy last performed in 01/2017 and significant for scattered sigmoid diverticulosis and internal hemorrhoids. Review of Systems REVIEW OF SYSTEMS: CONSTITUTIONAL: Denies any fevers, chills, weight change but is reporting fatigue. CARDIOVASCULAR: Denies any chest pain, palpitations high or low blood pressures RESPIRATORY: Denies any shortness of breath, hemoptysis or cough. GENITOURINARY: No dysuria or hematuria. MUSCULOSKELETAL: No focal weakness reported. SKIN: Denies any new rashes or lesions, jaundice or pallor. PSYCHIATRIC: Denies any depression or anxiety, but does have a history of PTSD. NEUROLOGY: Denies headache, denies any new focal deficits, but has had problems walking and falls. EARS/NOSE/THROAT: No recent hearing change, congestion, nasal discharge or sore throat. EYES: No pain in eyes, discharge or change in vision. GASTROINTESTINAL: As per HPI. Past Medical History Past Medical History: Heart Failure, GI Bleed, Hypertension, Liver Disease Additional Past Medical History / Comment(s): hx of liver cirrhosis, hx esophageal varices, STATES PAST HX OF COLON POLYP-benign,PREVIOUS HX OF HTN but OFF MEDICATIONS for over a year, History of Any Multi-Drug Resistant Organisms: None Reported Past Surgical History: Tonsillectomy Additional Past Surgical History / Comment(s): EGD WITH BANDING OF VARICES, PREV. COLONOSCOPIES, egd Past Anesthesia/Blood Transfusion Reactions: No Reported Reaction Past Psychological History: PTSD Additional Psychological History / Comment(s): . Smoking Status: Former smoker Past Alcohol Use History: Heavy Additional Past Alcohol Use History / Comment(s): SMOKED CIGARS -started 1968 and quit 1997. PREVIOUS ALCHOHOL USE, STATES NONE IN PAST 3 days Past Drug Use History: None Reported - Past Family History Mother Family Medical History: Cancer Additional Family Medical History / Comment(s): COLON Father Family Medical History: Coronary Artery Disease (CAD) Additional Family Medical History / Comment(s): valve replacment, cataracts Medications and Allergies Home Medications Medication Instructions Recorded Confirmed Type Omeprazole 20 mg PO DAILY 05/11/18 01/24/19 History Spironolactone [Aldactone] 25 mg PO DAILY #30 tab 05/13/18 01/24/19 Rx Metoprolol Tartrate [Lopressor] 25 mg PO BID@0900,1600 05/21/18 01/24/19 History Ferrous Sulfate [Feosol] 325 mg PO BID #60 tab 05/25/18 01/24/19 Rx Furosemide [Lasix] 20 mg PO BID@0900,1600 #60 tab 05/26/18 01/24/19 Rx Allergies Allergy/AdvReac Type Severity Reaction Status Date / Time No Known Allergies Allergy Verified 01/24/19 13:55 Physical Exam Vitals: Vital Signs Temp Pulse Pulse Pulse Pulse Pulse Resp 01/25/19 09:15 98.3 F 97 16 01/25/19 04:00 98.0 F 98 20 01/25/19 00:00 98.0 F 90 16 01/24/19 20:00 97.8 F 82 18 01/24/19 19:24 98.0 F 91 93 78 18 01/24/19 17:42 98.3 F 74 16 01/24/19 17:17 98.3 F 74 16 01/24/19 16:58 98.2 F 79 18 01/24/19 15:08 75 18 01/24/19 13:33 79 18 01/24/19 12:03 98.1 F 66 18 BP BP BP BP Pulse Ox 01/25/19 09:15 90/52 95 01/25/19 04:00 125/68 97 01/25/19 00:00 114/54 96 01/24/19 20:00 110/56 94 L 01/24/19 19:24 117/58 113/55 116/58 95 01/24/19 17:42 122/59 99 01/24/19 17:17 122/59 99 01/24/19 16:58 107/58 96 01/24/19 15:08 113/61 95 01/24/19 13:33 128/79 97 01/24/19 12:03 113/57 98 Intake and Output 01/24/19 01/25/19 01/25/19 22:59 06:59 14:59 Intake Total 120 Output Total 150 Balance -150 120 Intake: Oral 120 Output: Urine 150 Uretheral (Sánchez) 50 Other: # Voids 1 1 # Bowel Movements 1 Weight 101.605 kg 103.4 kg On physical examination, patient appears comfortable in no apparent distress. HEAD: Normocephalic, atraumatic. EYES: Mild scleral icterus. No conjunctival injection. MOUTH: No lesions, tongue midline. NECK: Trachea midline, no gross abnormalities. CHEST: Clear to auscultation with no wheezing or rhonchi appreciated. HEART: S1-S2 appreciated with no murmurs appreciated. ABDOMEN: Soft, obese. Bowel sounds are positive. No organomegaly. No guarding or rigidity. EXTREMITIES: Minimal pedal edema. SKIN: No rashes, no jaundice. NEUROLOGIC: Alert and oriented x3, no asterixis noted. No focal deficits. Results CBC & Chem 7: 01/26/19 06:39 01/26/19 06:39 Labs: Abnormal Lab Results - Last 24 Hours (Table) 01/24/19 01/24/19 01/24/19 Range/Units 12:28 12:28 12:28 RBC 3.55 L (4.30-5.90) m/uL Hgb 12.6 L (13.0-17.5) gm/dL Hct 36.1 L (39.0-53.0) % MCV 101.4 H (80.0-100.0) fL MCH 35.4 H (25.0-35.0) pg Plt Count 142 L (150-450) k/uL Lymphocytes # 0.6 L (1.0-4.8) k/uL PT 13.3 H (9.0-12.0) sec INR 1.3 H (<1.2) Sodium 130 L (137-145) mmol/L Potassium (3.5-5.1) mmol/L Chloride 84 L (98-107) mmol/L Carbon Dioxide 21 L (22-30) mmol/L BUN 47 H (9-20) mg/dL Creatinine 3.55 H (0.66-1.25) mg/dL Glucose 100 H (74-99) mg/dL Magnesium (1.6-2.3) mg/dL Total Bilirubin 10.4 H (0.2-1.3) mg/dL AST 263 H (17-59) U/L ALT 90 H (21-72) U/L Alkaline Phosphatase 169 H (38-126) U/L Total Protein 9.0 H (6.3-8.2) g/dL Urine Protein (Negative) Urine Ketones (Negative) Urine Blood (Negative) Urine Bilirubin (Negative) Amorphous Sediment (None) /hpf Hyaline Casts (0-2) /lpf Urine Mucus (None) /hpf 01/24/19 01/25/19 01/25/19 Range/Units 15:03 06:44 06:44 RBC 3.13 L (4.30-5.90) m/uL Hgb 11.1 L (13.0-17.5) gm/dL Hct 30.9 L (39.0-53.0) % MCV (80.0-100.0) fL MCH 35.4 H (25.0-35.0) pg Plt Count 110 L (150-450) k/uL Lymphocytes # 0.5 L (1.0-4.8) k/uL PT (9.0-12.0) sec INR (<1.2) Sodium 128 L (137-145) mmol/L Potassium 2.6 L* (3.5-5.1) mmol/L Chloride 81 L (98-107) mmol/L Carbon Dioxide 31 H (22-30) mmol/L BUN 51 H (9-20) mg/dL Creatinine 2.91 H (0.66-1.25) mg/dL Glucose 148 H (74-99) mg/dL Magnesium 1.4 L (1.6-2.3) mg/dL Total Bilirubin 8.5 H (0.2-1.3) mg/dL AST 211 H (17-59) U/L ALT 78 H (21-72) U/L Alkaline Phosphatase 174 H (38-126) U/L Total Protein (6.3-8.2) g/dL Urine Protein Trace H (Negative) Urine Ketones 1+ H (Negative) Urine Blood Trace H (Negative) Urine Bilirubin 1+ H (Negative) Amorphous Sediment Rare H (None) /hpf Hyaline Casts 112 H (0-2) /lpf Urine Mucus Occasional H (None) /hpf Chest x-ray: report reviewed (No acute pulmonary process on chest x-ray) Assessment and Plan (1) Alcoholic cirrhosis of liver with ascites Narrative/Plan: 73-year-old male with a past medical history significant for decompensated alcoholic cirrhosis with ascites, encephalopathy and varices with prior admissions for GI bleeding who presented to the hospital due to weakness and falls. The patient was on home diuresis but was not taking any treatments for encephalopathy at present. Previously he had been on lactulose therapy and rifaximin. Unclear etiology of symptoms, patient does report problems with sleep-wake cycle however no signs of asterixis on physical exam. Ammonia level is pending. We'll start empiric treatment for hepatic encephalopathy. Current Visit: Yes Status: Acute Code(s): K70.31 - ALCOHOLIC CIRRHOSIS OF LIVER WITH ASCITES SNOMED Code(s): 514022710 (2) Portal hypertensive gastropathy Current Visit: No Status: Acute Code(s): K76.6 - PORTAL HYPERTENSION; K31.89 - OTHER DISEASES OF STOMACH AND DUODENUM SNOMED Code(s): 781014670 Plan: Supportive care Okay for sodium restricted diet Appreciate recommendations from nephrology services Defer diuretic therapy to nephrology service Continue to monitor CBC, CMP Ammonia level pending Ultrasound abdomen ordered Continue alcohol abstinence Lactulose 20 mg 3 times a day ordered to be titrated to 2-3 bowel movements daily Thank you for allowing us to participate in the care of this patient we will continue to follow
--- NOTE | 2019-01-26 09:24 | P.PN ---
Subjective Progress Note Date: 01/26/19 Principal diagnosis: This is a 73-year-old male seen in consultation because of acute kidney injury, it is deemed to be from low intake, nausea vomiting for 2 weeks and volume depl etion. With IV fluids creatinine is improving. He came in because of frequent falls. He is known with alcohol use and cirrhosis. He was previously admitted with cardiorenal syndrome and acute kidn ey injury. He is also known with PTSD, smoker quit in 1997 Objective - Vital Signs Vital signs: Vital Signs Temp 98.3 F 01/26/19 08:30 Pulse 108 H 01/26/19 08:30 Resp 18 01/26/19 08:30 BP 129/60 01/26/19 08:30 Pulse Ox 96 01/26/19 08:30 Intake & Output 01/25/19 01/26/19 01/26/19 18:59 06:59 18:59 Intake Total 360 236 Output Total 1525 Balance 360 -1525 236 Weight 105.6 kg Intake: Oral 360 236 Output: Urine 1525 Other: Voiding Method Urinal # Voids 1 1 # Bowel Movements 1 1 On examination awake alert oriented comfortable HEENT exam no JVP neck is supple no facial or center Lungs clear to auscultation good air entry bilaterally Heart sounds unremarkable for any murmur rub gallop Abdomen soft nontender no ascites noted No masses noted Extremity exam was no edema Neurologically awake alert oriented No asterixis noted - Labs CBC & Chem 7: 01/26/19 06:39 01/26/19 06:39 Labs: Abnormal Lab Results - Last 24 Hours (Table) 01/25/19 01/26/19 01/26/19 Range/Units 18:18 06:39 06:39 RBC 3.10 L (4.30-5.90) m/uL Hgb 11.0 L (13.0-17.5) gm/dL Hct 30.6 L (39.0-53.0) % MCH 35.6 H (25.0-35.0) pg Plt Count 103 L (150-450) k/uL Lymphocytes # 0.8 L (1.0-4.8) k/uL Sodium 133 L (137-145) mmol/L Potassium 3.0 L (3.5-5.1) mmol/L Chloride 88 L (98-107) mmol/L Carbon Dioxide 33 H (22-30) mmol/L BUN 38 H (9-20) mg/dL Creatinine 1.72 H (0.66-1.25) mg/dL Glucose 104 H (74-99) mg/dL Total Bilirubin 8.1 H (0.2-1.3) mg/dL AST 259 H (17-59) U/L ALT 82 H (21-72) U/L Alkaline Phosphatase 155 H (38-126) U/L Albumin 3.4 L (3.5-5.0) g/dL Assessment and Plan Plan: Impression 1. Acute kidney injury secondary to volume depletion from nausea vomiting and slightly low blood pressure. On admission creatinine was 3.5 as improved 2.91 after hydration yesterday and is down to. 2. Mild hypokalemia potassium is 3.6 on admission went down to 2.6 because of saline diuresis. He was treated with replacement and potassium is up to 3.5 this morning 3. Mild degree of hyponatremia secondary to acute kidney injury. Sodium was 131 on 128 after hydration, improved to 133 this morning 4. Significant metabolic alkalosis and metabolic acidosis with bicarb 21 but a gap of 25 - explained on the basis of gap acidosis acidosis from acute kidney injury and metabolic alkalosis from nausea vomiting. This is corrected quickly therefore is no need for any further workup for the cause of the severe gap acidosis is gap is 16 now and bicarb is 31. Resolved with bicarbonate 33 and anion gap 12 5. Cirrhosis with liver disease with elevated enzymes and total bilirubin of 10.4. 6. Hypomagnesemia secondary to alcohol Recommendation 1. Continue IV fluids normal saline at 100 mL an hour 2. Avoid nephrotoxic medications or 7. Watch for DTs Thank you for this consultation and we'll continue to follow closely
[2019-01-26] MEDS: LACTULOSE 20 GM/30 ML CUP PO SCH ×3 (09:35→23:03)
[2019-01-26] MEDS: METOPROLOL TARTRATE 25 MG TAB PO SCH ×2 (09:35→16:20)
[2019-01-26] MEDS: POTASSIUM CHLORIDE ER 20 MEQ TAB.ER PO SCH ×2 (09:35→11:09)
--- NOTE | 2019-01-26 15:30 | US ---
EXAMINATION TYPE: US abdomen complete DATE OF EXAM: 01/26/2019 COMPARISON: NONE CLINICAL HISTORY: History of cirrhosis. cirrhosisExam limited due to body habitus. EXAM MEASUREMENTS: Liver Length: 19.7 cm Gallbladder Wall: 03 cm CBD: 04 cm Spleen: 11.3 cm Right Kidney: 10.5 x 4.4 x 4.0 cm Left Kidney: 10.2 x 4.6 x 4.3 cm Pancreas: Obscured by bowel gas Liver: Increased attenuation limited. Gallbladder: No stones seen Evidence for sonographic Person's sign: No CBD: wnl Spleen: wnl Right Kidney: wnl Left Kidney: wnl Upper IVC: not well visualized Abd Aorta: not well visualized The intrahepatic portion of the IVC and proximal abdominal aorta are within normal limits. There is no evidence of cholelithiasis. Common bile duct is unremarkable. The visualized portions of the lopes creas are homogenous. The spleen is unremarkable. Kidneys are symmetric and free of hydronephrosis. No renal lesions are seen. IMPRESSION: Fatty hepatic infiltration.
--- NOTE | 2019-01-26 19:33 | PN ---
PROGRESS NOTE DATE OF SERVICE: 01/26/2019 This 73-year-old gentleman who was admitted with acute renal failure is improving significantly. Patient is still on IV fluids. An abdominal ultrasound was done which showed hepatic infiltration with fat. No chest pain. No palpitations. No fever. PHYSICAL EXAMINATION: Alert and oriented x3. Pulse 80, blood pressure 118/60, respiration 18, temperature 98 degrees, pulse ox 96% on room air. HEENT: Conjunctivae normal. NECK: No jugular venous distention. CARDIOVASCULAR SYSTEM: S1, S2 muffled. RESPIRATORY SYSTEM: Breath sounds diminished at the bases. A few rhonchi. NO crackles. ABDOMEN: Soft, obese. LEGS: No edema. No swelling. NERVOUS SYSTEM: No focal deficit. LABS: WBC 7.3, hemoglobin 11. Sodium 133, potassium 3.5. Otherwise, total bilirubin is 8.1, which is stabilizing. ASSESSMENT: 1. Acute renal failure, possibly prerenal acute renal failure secondary to dehydration, acute tubular necrosis. 2. History of fall and gait dysfunction. 3. Cirrhosis of the liver, possibly secondary to chronic alcohol usage and esophageal varices. 4. History of gastrointestinal bleed. 5. History of congestive heart failure with ejection fraction unknown. 6. Hypertension. 7. History of tonsillectomy. 8. History of metabolic acidosis. 9. History of post-traumatic stress disorder. 10.Remote history of nicotine dependence. 11.Obesity with body mass index of 33.8. 12.Anemia, macrocytic. 13.Thrombocytopenia. 14.Hyponatremia. 15.Elevated AST and ALT, possibly alcoholic hepatitis, with bilirubin 8.5. 16.Hypomagnesemia. 17.FULL CODE. RECOMMENDATIONS AND DISCUSSION: In this 73-year-old gentleman who presented with multiple complex medical issues, we will monitor the patient closely, continue the current medications, continue with symptomatic treatment. Otherwise, the patient is still on IV fluids. The creatinine has improved significantly to 1.72. I will increase ambulation and continue to monitor. Further recommendations to follow. MMODL / IJN: [id number] /
[2019-01-27] MEDS: SODIUM CHLORIDE 0.9% 1,000 ML IV SCH ×3 (01:00→16:57)
[2019-01-27] MEDS: THIAMINE 100 MG TAB PO SCH ×2 (06:23→16:57)
[2019-01-27] MEDS: PANTOPRAZOLE 40 MG TABLET PO SCH (06:23)
[2019-01-27 06:51] LABS: Basophils % (A) 1 %; Eosinophils # (A) 0.4 k/uL (0-0.7); Eosinophils % (A) 6 %; HCT 36.4 % (39.0-53.0); HGB 12.2 gm/dL (13.0-17.5); Lymphocytes # (A) 0.7 k/uL (1.0-4.8); Lymphocytes % (A) 12 %; MCH 34.7 pg (25.0-35.0); MCHC 33.4 g/dL (31.0-37.0); Macrocytosis Moderate; Mean Platelet Volume 6.7; Monocytes # (A) 0.5 k/uL (0-1.0); Monocytes % (A) 7 %; Neutrophils # (A) 4.5 k/uL (1.3-7.7); Neutrophils % (A) 70 %; Platelet Count 103 k/uL (150-450); RDW 15.7 % (11.5-15.5); WBC 6.4 k/uL (3.8-10.6)
[2019-01-27 06:56] LABS: Albumin 3.5 g/dL (3.5-5.0); Calcium 9.3 mg/dL (8.4-10.2); Total Bilirubin 7.6 mg/dL (0.2-1.3); Total Protein 7.2 g/dL (6.3-8.2)
[2019-01-27] MEDS: METOPROLOL TARTRATE 25 MG TAB PO SCH ×2 (08:55→16:57)
[2019-01-27] MEDS: LACTULOSE 20 GM/30 ML CUP PO SCH ×3 (08:55→20:00)
--- NOTE | 2019-01-27 10:05 | P.PN ---
Subjective Patient is seen in follow-up for acute kidney injury. Creatinine was 2.5 on admission and is down to 1.2 today. Denies vomiting or diarrhea. Oral intake is good. He is currently receiving IV fluids. Hemodynamically stable. Vital signs are stable. General: The patient appeared well nourished and normally developed. HEENT: Head exam is unremarkable. Neck is without jugular venous distension. LUNGS: Lungs are clear to auscultation and percussion. Breath sounds decreased. HEART: Rate and Rhythm are regular. First and second heart sounds normal. No murmurs, rubs or gallops. ABDOMEN: Abdominal exam reveals normal bowel sounds. Non-tender and non- distended. No evidence of peritonitis. EXTREMITITES: No clubbing, cyanosis, or edema. Objective - Vital Signs Vital signs: Vital Signs Temp 98.3 F 01/27/19 08:00 Pulse 80 01/27/19 08:00 Resp 18 01/27/19 08:00 BP 108/66 01/27/19 08:00 Pulse Ox 98 01/27/19 08:00 Intake & Output 01/26/19 01/27/19 01/27/19 18:59 06:59 18:59 Intake Total 1036 480 Balance 1036 480 Weight 105.3 kg Intake: Intake, IV Titration 800 Amount Sodium Chloride 0.9% 1, 800 000 ml @ 100 mls/hr IV . Q10H CIERRA Rx#:[id number] Oral 236 480 Other: Voiding Method Urinal Urinal # Voids 2 1 # Bowel Movements 1 1 - Labs CBC & Chem 7: 01/27/19 06:03 01/27/19 06:03 Labs: Abnormal Lab Results - Last 24 Hours (Table) 01/27/19 01/27/19 Range/Units 06:03 06:03 RBC 3.50 L (4.30-5.90) m/uL Hgb 12.2 L (13.0-17.5) gm/dL Hct 36.4 L (39.0-53.0) % MCV 104.0 H D (80.0-100.0) fL RDW 15.7 H (11.5-15.5) % Plt Count 103 L (150-450) k/uL Lymphocytes # 0.7 L (1.0-4.8) k/uL Chloride 97 L (98-107) mmol/L BUN 26 H (9-20) mg/dL Glucose 102 H (74-99) mg/dL Total Bilirubin 7.6 H (0.2-1.3) mg/dL AST 373 H (17-59) U/L ALT 98 H (21-72) U/L Alkaline Phosphatase 147 H (38-126) U/L Assessment and Plan Plan: Assessment: 1. Acute kidney injury mostly prerenal improving with IV hydration. Creatinine was 3.5 on admission and is down to 1.2 today. 2. Hypokalemia secondary to hypovolemia induced aldosterone secretion. Better. 3. Hypovolemic hyponatremia improved with IV hydration. 4. Liver cirrhosis. 5. Hypomagnesemia secondary to urinary losses due to chronic alcohol use. Better. Plan: I will decrease rate of normal saline to 75 mL an hour. Encouraged oral intake. Avoid nephrotoxins. Repeat electrolytes in the morning.
[2019-01-27] MEDS ORDERED: traMADol 50 MG TAB PO PRN (18:12)
--- NOTE | 2019-01-27 19:15 | P.PN ---
Subjective Progress Note Date: 01/26/19 Principal diagnosis: Alcoholic cirrhosis with ascites, portal hypertensive gastropathy Patient seen lying in bed in no acute events reported. Tolerating diet. No abdominal pain. Objective - Vital Signs Vital signs: Vital Signs Temp 98.3 F 01/26/19 08:30 Pulse 83 01/26/19 11:05 Resp 18 01/26/19 11:05 BP 117/59 01/26/19 11:05 Pulse Ox 96 01/26/19 11:05 Intake & Output 01/25/19 01/26/19 01/26/19 18:59 06:59 18:59 Intake Total 360 236 Output Total 1525 Balance 360 -1525 236 Weight 105.6 kg Intake: Oral 360 236 Output: Urine 1525 Other: Voiding Method Urinal Urinal # Voids 1 1 # Bowel Movements 1 1 - Exam On physical examination, patient appears comfortable in no apparent distress. HEAD: Normocephalic, atraumatic. EYES: No scleral icterus. No conjunctival injection. MOUTH: No lesions, tongue midline. NECK: Trachea midline, no gross abnormalities. CHEST: No respiratory distress, no audible wheezing. ABDOMEN: Soft, obese. Bowel sounds are positive. No organomegaly. No guarding or rigidity. EXTREMITIES: Mild pedal edema. SKIN: No rashes, no jaundice. NEUROLOGIC: Alert and oriented x3, no asterixis noted. No focal deficits. - Labs CBC & Chem 7: 01/27/19 06:03 01/27/19 06:03 Labs: Abnormal Lab Results - Last 24 Hours (Table) 01/25/19 01/26/19 01/26/19 Range/Units 18:18 06:39 06:39 RBC 3.10 L (4.30-5.90) m/uL Hgb 11.0 L (13.0-17.5) gm/dL Hct 30.6 L (39.0-53.0) % MCH 35.6 H (25.0-35.0) pg Plt Count 103 L (150-450) k/uL Lymphocytes # 0.8 L (1.0-4.8) k/uL Sodium 133 L (137-145) mmol/L Potassium 3.0 L (3.5-5.1) mmol/L Chloride 88 L (98-107) mmol/L Carbon Dioxide 33 H (22-30) mmol/L BUN 38 H (9-20) mg/dL Creatinine 1.72 H (0.66-1.25) mg/dL Glucose 104 H (74-99) mg/dL Total Bilirubin 8.1 H (0.2-1.3) mg/dL AST 259 H (17-59) U/L ALT 82 H (21-72) U/L Alkaline Phosphatase 155 H (38-126) U/L Ammonia (<30) umol/L Albumin 3.4 L (3.5-5.0) g/dL 01/26/19 Range/Units 09:00 RBC (4.30-5.90) m/uL Hgb (13.0-17.5) gm/dL Hct (39.0-53.0) % MCH (25.0-35.0) pg Plt Count (150-450) k/uL Lymphocytes # (1.0-4.8) k/uL Sodium (137-145) mmol/L Potassium (3.5-5.1) mmol/L Chloride (98-107) mmol/L Carbon Dioxide (22-30) mmol/L BUN (9-20) mg/dL Creatinine (0.66-1.25) mg/dL Glucose (74-99) mg/dL Total Bilirubin (0.2-1.3) mg/dL AST (17-59) U/L ALT (21-72) U/L Alkaline Phosphatase (38-126) U/L Ammonia 43 H (<30) umol/L Albumin (3.5-5.0) g/dL Assessment and Plan (1) Alcoholic cirrhosis of liver with ascites Narrative/Plan: 73-year-old male with a past medical history significant for decompensated alcoholic cirrhosis with ascites, encephalopathy and varices with prior admissions for GI bleeding who presented to the hospital due to weakness and falls. The patient was on home diuresis but was not taking any treatments for encephalopathy at present. Previously he had been on lactulose therapy and rifaximin. Unclear etiology of symptoms, patient does report problems with sleep-wake cycle however no signs of asterixis on physical exam. Ammonia level was elevated at 43. The patient has been started on empiric treatment for hepatic encephalopathy. Current Visit: Yes Status: Acute Code(s): K70.31 - ALCOHOLIC CIRRHOSIS OF LIVER WITH ASCITES SNOMED Code(s): 925715249 (2) Portal hypertensive gastropathy Current Visit: No Status: Acute Code(s): K76.6 - PORTAL HYPERTENSION; K31.89 - OTHER DISEASES OF STOMACH AND DUODENUM SNOMED Code(s): 618320684 Plan: Supportive care Okay for sodium restricted diet Appreciate recommendations from nephrology services Defer diuretic therapy to nephrology service Continue to monitor CBC, CMP Ammonia level found to be elevated Ultrasound abdomen unremarkable, negative for any masses Continue alcohol abstinence Lactulose 20 mg 3 times a day ordered to be titrated to 2-3 bowel movements daily Thank you for allowing us to participate in the care of this patient we will continue to follow
--- NOTE | 2019-01-27 19:18 | P.PN ---
Subjective Progress Note Date: 01/27/19 Principal diagnosis: Alcoholic cirrhosis with ascites, portal hypertensive gastropathy Patient seen denying any acute events overnight. He has been tolerating his diet. No abdominal pain. No signs or symptoms of GI bleeding. Objective - Vital Signs Vital signs: Vital Signs Temp 98 F 01/27/19 15:34 Pulse 63 01/27/19 15:34 Resp 18 01/27/19 15:34 BP 106/63 01/27/19 15:34 Pulse Ox 96 01/27/19 15:34 Intake & Output 01/27/19 01/27/19 01/28/19 06:59 18:59 06:59 Intake Total 1080 Balance 1080 Weight 105.3 kg Intake: Oral 1080 Other: Voiding Method Urinal # Voids 1 1 # Bowel Movements 3 - Exam On physical examination, patient appears comfortable in no apparent distress. HEAD: Normocephalic, atraumatic. EYES: No scleral icterus. No conjunctival injection. MOUTH: No lesions, tongue midline. NECK: Trachea midline, no gross abnormalities. CHEST: No respiratory distress, no audible wheezing. ABDOMEN: Soft, obese. Bowel sounds are positive. No organomegaly. No guarding or rigidity. EXTREMITIES: Mild pedal edema. SKIN: No rashes, no jaundice. NEUROLOGIC: Alert and oriented x3, no asterixis noted. No focal deficits. - Labs CBC & Chem 7: 01/27/19 06:03 01/27/19 06:03 Labs: Abnormal Lab Results - Last 24 Hours (Table) 01/27/19 01/27/19 Range/Units 06:03 06:03 RBC 3.50 L (4.30-5.90) m/uL Hgb 12.2 L (13.0-17.5) gm/dL Hct 36.4 L (39.0-53.0) % MCV 104.0 H D (80.0-100.0) fL RDW 15.7 H (11.5-15.5) % Plt Count 103 L (150-450) k/uL Lymphocytes # 0.7 L (1.0-4.8) k/uL Chloride 97 L (98-107) mmol/L BUN 26 H (9-20) mg/dL Glucose 102 H (74-99) mg/dL Total Bilirubin 7.6 H (0.2-1.3) mg/dL AST 373 H (17-59) U/L ALT 98 H (21-72) U/L Alkaline Phosphatase 147 H (38-126) U/L Assessment and Plan (1) Alcoholic cirrhosis of liver with ascites Narrative/Plan: 73-year-old male with a past medical history significant for decompensated alcoholic cirrhosis with ascites, encephalopathy and varices with prior admissions for GI bleeding who presented to the hospital due to weakness and falls. The patient was on home diuresis but was not taking any treatments for encephalopathy at present. Previously he had been on lactulose therapy and rifaximin. Unclear etiology of symptoms, patient does report problems with sleep-wake cycle however no signs of asterixis on physical exam. Ammonia level was elevated at 43. The patient has been started on empiric treatment for hepatic encephalopathy. Current Visit: Yes Status: Acute Code(s): K70.31 - ALCOHOLIC CIRRHOSIS OF LIVER WITH ASCITES SNOMED Code(s): 315696248 (2) Portal hypertensive gastropathy Current Visit: No Status: Acute Code(s): K76.6 - PORTAL HYPERTENSION; K31.89 - OTHER DISEASES OF STOMACH AND DUODENUM SNOMED Code(s): 546106872 Plan: Supportive care Okay for sodium restricted diet Appreciate recommendations from nephrology services Defer diuretic therapy to nephrology service Continue to monitor CBC, CMP Ammonia level found to be elevated Ultrasound abdomen unremarkable, negative for any masses Continue alcohol abstinence Lactulose 20 mg 3 times a day ordered to be titrated to 2-3 bowel movements daily Thank you for allowing us to participate in the care of this patient we will continue to follow
[2019-01-27 20:26] LABS: Glucose,Whole Blood 115 mg/dL (75-99)
--- NOTE | 2019-01-27 21:54 | PN ---
PROGRESS NOTE DATE OF SERVICE: 01/27/2019. This 73-year-old gentleman who was admitted with acute renal failure possibly secondary to dehydration, is being closely monitored. No chest pain. No palpitations. No fever. Dr. Atkinson is following the patient closely as well. Hemoglobin 12.2. Potassium improved to 4.4. Total bilirubin is still elevated 7.6. PAST MEDICAL HISTORY: Reviewed. REVIEW OF SYSTEMS: Cardiovascular is no angina or palpitations. Respiration as mentioned earlier. GASTROINTESTINAL: As mentioned earlier. no dysuria. NERVOUS SYSTEM: No numbness. No weakness. CURRENT MEDICATIONS: Reviewed and include: 1. Tylenol 650 q.6h p.r.n. 2. Cephulac 20 mg t.i.d. 3. Ativan. 4. Lopressor. 5. Magnesium oxide. 6. Narcan. 7. Zofran. 8. Percocet. 9. Protonix. 10.Vitamin B1. PHYSICAL EXAM: Patient is alert, oriented x3. The pulse is 63, blood pressure 106/66, respirations 18, temperature 98 degrees, pulse ox 96% on room air. Conjunctivae icteric. Neck is no jugular venous distention. No carotid bruit. No lymph node enlargement. Cardiovascular systems: S1, S2 muffled. Respiration: Breath sounds diminished in the bases. Few scattered rhonchi and crackles. ABDOMEN: Soft, obese, nontender. LEGS are no edema, no swelling. CENTRAL NERVOUS SYSTEM: No focal deficits. LAB: WBC 6.1, hemoglobin 12.2. Other labs are reviewed. ASSESSMENT: 1. Acute renal failure possibly prerenal acute renal failure secondary to dehydration acute tubular necrosis. 2. Acute hepatitis and possibly alcohol-related. 3. Cirrhosis of the liver, possibly secondary to alcohol . 4. History of fall and gait dysfunction. 5. History of gastrointestinal bleed. 6. History of congestive heart failure ejection fraction unknown. 7. Hypertension. 8. History of tonsillectomy. 9. History of metabolic acidosis. 10.History of post-traumatic stress disorder. 11.Remote history of nicotine dependence. 12.Obesity, body mass index 33.9. 13.Anemia, macrocytic. 14.Thrombocytopenia. 15.Hyponatremia. 16.Hypomagnesemia. 17.FULL CODE. RECOMMENDATIONS AND DISCUSSION: Recommend to continue current medications, management and symptomatic treatment. Repeat labs. Otherwise, we will avoid Tylenol containing products for now and continue to monitor. Guarded prognosis. Further recommendations to follow. Otherwise, Dr. Atkinson is planning endoscopies. IV fluids to continue. Repeat labs. Guarded prognosis because of multiple complex medical issues. Further recommendations to follow. Add folic acid to the current regimen. MMODL / IJN: [id number] /
[2019-01-28] MEDS: THIAMINE 100 MG TAB PO SCH ×2 (04:37→16:15)
[2019-01-28] MEDS: SODIUM CHLORIDE 0.9% 1,000 ML IV SCH ×2 (04:38→08:11)
[2019-01-28 06:32] LABS: HCT 34.6 % (39.0-53.0); HGB 11.6 gm/dL (13.0-17.5); MCH 35.3 pg (25.0-35.0); MCHC 33.5 g/dL (31.0-37.0); MCV 105.3 fL (80.0-100.0); Macrocytosis Moderate; Mean Platelet Volume 6.4; RBC 3.28 m/uL (4.30-5.90)
[2019-01-28 07:51] LABS: Calcium 9.1 mg/dL (8.4-10.2); Magnesium 1.7 mg/dL (1.6-2.3); Potassium 4.1 mmol/L (3.5-5.1); Total Bilirubin 5.9 mg/dL (0.2-1.3); Total Protein 6.3 g/dL (6.3-8.2)
[2019-01-28 08:57] LABS: Eosinophils # (M) 0.48 k/uL (0-0.7); Lymphocytes # (M) 0.56 k/uL (1.0-4.8); Monocytes # (M) 1.12 k/uL (0-1.0); Neutrophils # (M) 5.84 k/uL (1.3-7.7); Neutrophils % (M) 73 %; Nucleated Red Blood Cells 0 /100 WBC (0-0); Total Cells Counted 100
[2019-01-28 08:59] LABS: Target Cells Present
[2019-01-28 09:00] LABS: Platelet Count 94 k/uL (150-450)
[2019-01-28] MEDS ORDERED: PROPOFOL 10 MG/ML 20 ML VIAL IV ONE (09:21)
[2019-01-28] MEDS ORDERED: IV FLUID CONTINUATION 1,000 ML IV ONE (09:22)
--- NOTE | 2019-01-28 09:52 | P.PCN ---
Date of Procedure: 01/28/19 Description of Procedure: BRIEF HISTORY: 73-year-old male with a prior history of alcohol abuse, alcoholic cirrhosis with portal hypertension, ascites, esophageal varices, iron deficiency anemia who presented due to falls which occurred over the past few weeks. History is been taking in conversation with the patient, his and daughter who are in the room with him. The patient reports 3 falls over the past week. He is had an unsteady gait. He also reports generalized weakness. The patient is not very clear on medications he is taking at home but does report compliance with diuresis. He denies any nausea, vomiting or change in bowel habits, no signs or symptoms of GI bleeding reported. The patient does not believe he is currently taking any lactulose therapy at home. He last underwent EGD on 10/2017 with findings of nonbleeding antral ulcers with no varices noted at that time, however he had an EGD previously with banding. The patient denies any recent alcohol use. Colonoscopy last performed in 01/2017 and significant for scattered sigmoid diverticulosis and internal hemorrhoids PROCEDURE PERFORMED: Esophagogastroduodenoscopy with esophageal variceal band ligation. PREOPERATIVE DIAGNOSIS: Esophageal varices, decompensated cirrhosis. ESTIMATED BLOOD LOSS: Minimal. IV sedation per anesthesia. PROCEDURE: After informed consent was obtained, the patient was brought into the endoscopy unit. IV sedation was administered by Anesthesia under continuous monitoring. Initially the Olympus GIF-190 video endoscope was inserted into the mouth. Esophagus intubated without any difficulty. It was gradually advanced into the stomach and duodenum and carefully examined. The bulb and the second part of the duodenum appeared normal. The scope at this time was withdrawn to the stomach, adequately insufflated with air, and upon careful examination, mucosa of the antrum, body, cardia and the fundus appeared grossly normal with some mild erythema in the body and fundus consistent with mild portal hypertensive gastropathy. The scope was then withdrawn into the esophagus. The GE junction was located at 39 cm from the incisors. The esophagus was significant for findings of moderate sized varices in the distal and midesophagus which were banded in a circumferential fashion starting in the distal esophagus with 6 bands placed over the varices. The patient tolerated the procedure well. IMPRESSION: 1. Moderate sized esophageal varices treated with esophageal band ligation performed in a circumferential from the distal esophagus to the midesophagus. 2. Mild portal hypertensive gastropathy. RECOMMENDATIONS: The findings of this examination were discussed with the patient. Okay to resume full liquid diet today and advance tomorrow as tolerated to a low sodium diet. Continue home medical therapy. Continue lactulose therapy. Follow-up in gastroenterology clinic in 2-3 weeks with plan for further endoscopy and obliteration of the varices in the future.
[2019-01-28] MEDS ORDERED: IPRATROPIUM-ALBUTEROL 3 ML NEB INHALATION STA (10:33)
[2019-01-28] MEDS: MULTIVITAMINS, THERA 1 EACH TAB PO SCH (10:40)
[2019-01-28] MEDS: FOLIC ACID 1 MG TAB PO SCH (10:40)
[2019-01-28] MEDS: LACTULOSE 20 GM/30 ML CUP PO SCH ×3 (10:40→14:36)
[2019-01-28] MEDS: METOPROLOL TARTRATE 25 MG TAB PO SCH ×2 (10:40→16:15)
--- NOTE | 2019-01-28 12:43 | P.PN ---
Subjective Patient is seen in follow-up for acute kidney injury. Creatinine was 2.5 on admission and is down to 1.07 today. Denies vomiting or diarrhea. Oral intake is good. He is currently receiving IV fluids. Hemodynamically stable. No active complaints. Vital signs are stable. General: The patient appeared well nourished and normally developed. HEENT: Head exam is unremarkable. Neck is without jugular venous distension. LUNGS: Lungs are clear to auscultation and percussion. Breath sounds decreased. HEART: Rate and Rhythm are regular. First and second heart sounds normal. No murmurs, rubs or gallops. ABDOMEN: Abdominal exam reveals normal bowel sounds. Non-tender and non- distended. No evidence of peritonitis. EXTREMITITES: No clubbing, cyanosis, or edema. Objective - Vital Signs Vital signs: Vital Signs Temp 96.7 F L 01/28/19 08:00 Pulse 85 01/28/19 11:06 Resp 18 01/28/19 10:58 BP 134/77 01/28/19 10:58 Pulse Ox 96 01/28/19 10:58 Intake & Output 01/27/19 01/28/19 01/28/19 18:59 06:59 18:59 Intake Total 1080 100 Balance 1080 100 Weight 108.8 kg Intake: IV 100 Oral 1080 Other: Voiding Method Toilet Toilet Urinal Urinal # Voids 1 3 1 # Bowel Movements 3 1 - Labs CBC & Chem 7: 01/28/19 05:42 01/28/19 05:42 Labs: Abnormal Lab Results - Last 24 Hours (Table) 01/27/19 01/28/19 01/28/19 Range/Units 20:25 05:42 05:42 RBC 3.28 L (4.30-5.90) m/uL Hgb 11.6 L (13.0-17.5) gm/dL Hct 34.6 L (39.0-53.0) % MCV 105.3 H (80.0-100.0) fL MCH 35.3 H (25.0-35.0) pg RDW 16.0 H (11.5-15.5) % Plt Count 94 L (150-450) k/uL Lymphocytes # (Manual) 0.56 L (1.0-4.8) k/uL Monocytes # (Manual) 1.12 H (0-1.0) k/uL Sodium 136 L (137-145) mmol/L Glucose 101 H (74-99) mg/dL POC Glucose (mg/dL) 115 H (75-99) mg/dL Total Bilirubin 5.9 H (0.2-1.3) mg/dL AST 325 H (17-59) U/L ALT 93 H (21-72) U/L Alkaline Phosphatase 156 H (38-126) U/L Albumin 3.0 L (3.5-5.0) g/dL Assessment and Plan Plan: Assessment: 1. Acute kidney injury mostly prerenal improving with IV hydration. Creatinine was 3.5 on admission and is down to 1.07 today. 2. Hypokalemia secondary to hypovolemia induced aldosterone secretion. Better. 3. Hypovolemic hyponatremia improved with IV hydration. 4. Liver cirrhosis. 5. Hypomagnesemia secondary to urinary losses due to chronic alcohol use. Plan: Hep-Lock IV fluids. Encouraged oral intake. Avoid nephrotoxins.
--- NOTE | 2019-01-28 16:51 | PN ---
PROGRESS NOTE DATE OF SERVICE: 01/28/2019 This 73-year-old gentleman who was admitted with acute renal failure secondary to dehydration also had acute hepatitis possibly alcohol related. The patient also has some gait dysfunction. Patient is using a walker at this time. The patient apparently had significant history of EtOH. The patient is unsteady. PT/OT is evaluating the patient closely. The patient also had cirrhosis of the liver. The patient underwent EGD by Dr. Atkinson and EGD showed moderate esophageal varices and was treated with esophageal band ligation. Mild portal hypertensive gastropathy was also noted. Patient being closely monitored at this time. There is no history of fever, rigors or chills. PAST MEDICAL HISTORY: Reviewed. REVIEW OF SYSTEMS: Cardio system: No angina or palpitations. Respiration: As mentioned earlier. GI mentioned earlier. : As mentioned earlier. Central nervous system: No numbness or weakness. CURRENT MEDICATIONS: Reviewed and include: 1. Folic acid 1 mg daily. 2. Cephulac 20 g p.o. t.i.d. 3. Ativan 1 mg CIWA protocol. 4. Lopressor 25 mg p.o. b.i.d. 5. Magnesium, potassium replacement protocol. 6. Narcan. 7. Zofran. 8. Protonix. 9. Vitamin B1. 10.Ultram. 11.Doses reviewed. PHYSICAL EXAM: Patient is alert and oriented times three. Pulse 86, blood pressure 129/75, respiration 20. Temperature 98.8, pulse ox 94% on room air. HEENT: Conjunctivae normal. Oral mucosa moist. NECK is no jugular venous distention. No carotid bruit. No lymph node enlargement. Cardiovascular: S1, S2 muffled. RESPIRATORY: Breath sounds diminished in the bases. A few scattered rhonchi and crackles. ABDOMEN: Soft, obese, nontender. LEGS: Minimal bilateral leg edema. CENTRAL NERVOUS SYSTEM: No focal deficits. LABS: At this time shows WBC, hemoglobin 7.6, MCV 105.3 otherwise total bilirubin is 5.9 and AST 325, ALT is 93, albumin 3. ASSESSMENT: 1. Acute renal failure possibly prerenal acute renal failure secondary to dehydration, acute tubular necrosis. 2. Acute hepatitis, possibly alcohol-related alcoholic hepatitis. 3. Cirrhosis of the liver, possibly secondary to alcohol. 4. Status post EGD showing moderate size esophageal varices treated with esophageal band ligation. 5. Mild portal hypertensive gastropathy. 6. History of fall and gait dysfunction. 7. History of gastrointestinal bleed. 8. History of congestive heart failure, ejection fraction unknown. 9. Hypertension. 10.History of tonsillectomy. 11.History of metabolic acidosis. 12.History of post-traumatic stress disorder. 13.Remote history of nicotine dependence. 14.Obesity, body mass index 33.9. 15.Anemia, macrocytic. 16.Thrombocytopenia. 17.Hyponatremia. 18.Hypomagnesemia. 19.FULL CODE. RECOMMENDATIONS AND DISCUSSION: Recommend to continue current medications, management and symptomatic treatment. Otherwise, at this time, I recommend continue with current medications. The patient is having difficulties in balance issues. I would recommend PT/OT and social media marketing specialist to evaluate for home safety. Otherwise, repeat labs. The bilirubin is still elevated. We will continue to monitor. Avoid hepatotoxic medications. See orders for details. Gastroenterology input appreciated. Further recommendations to follow. Avoid Tylenol. MMWESLEYL / IJN: [id number] /
[2019-01-29 04:15] VITALS: RESP 16
[2019-01-29 07:12] LABS: Glucose,Whole Blood 104 mg/dL (75-99)
[2019-01-29 08:08] LABS: Anisocytosis Slight; Basophils % (A) 1 %; Eosinophils # (A) 0.4 k/uL (0-0.7); Eosinophils % (A) 5 %; HCT 35.4 % (39.0-53.0); HGB 11.8 gm/dL (13.0-17.5); Lymphocytes % (A) 11 %; MCH 34.9 pg (25.0-35.0); MCHC 33.4 g/dL (31.0-37.0); MCV 104.3 fL (80.0-100.0); Macrocytosis Moderate; Mean Platelet Volume 6.9; Monocytes # (A) 0.9 k/uL (0-1.0); Monocytes % (A) 11 %; Neutrophils # (A) 6.1 k/uL (1.3-7.7); Neutrophils % (A) 69 %; Platelet Count 127 k/uL (150-450); RBC 3.39 m/uL (4.30-5.90); RDW 16.4 % (11.5-15.5); WBC 8.8 k/uL (3.8-10.6)
[2019-01-29 08:23] LABS: ALT 85 U/L (21-72); AST 290 U/L (17-59); African American GFR (CKD) >90 (>60 ml/min/1.73 sqM); Albumin 3.2 g/dL (3.5-5.0); Alkaline Phosphatase 135 U/L (38-126); Anion Gap 9 mmol/L; Blood Urea Nitrogen 15 mg/dL (9-20); Calcium 9.3 mg/dL (8.4-10.2); Carbon Dioxide 27 mmol/L (22-30); Chloride 100 mmol/L (98-107); Glucose 106 mg/dL (74-99); Non-African American GFR(CKD) 79 (>60 ml/min/1.73 sqM); Sodium 136 mmol/L (137-145); Total Bilirubin 7.4 mg/dL (0.2-1.3); Total Protein 6.9 g/dL (6.3-8.2)
[2019-01-29] MEDS: MULTIVITAMINS, THERA 1 EACH TAB PO SCH (08:51)
[2019-01-29] MEDS: METOPROLOL TARTRATE 25 MG TAB PO SCH ×2 (08:51→17:25)
[2019-01-29] MEDS: PANTOPRAZOLE 40 MG TABLET PO SCH (08:51)
[2019-01-29] MEDS: FOLIC ACID 1 MG TAB PO SCH (08:51)
[2019-01-29] MEDS: THIAMINE 100 MG TAB PO SCH (08:51)
[2019-01-29] MEDS: LACTULOSE 20 GM/30 ML CUP PO SCH ×2 (08:51→17:25)
--- NOTE | 2019-01-29 14:23 | P.PN ---
Subjective Patient is seen in follow-up for acute kidney injury. Creatinine was 2.5 on admission and is down to 0.96 today. Denies vomiting or diarrhea. Oral intake is good. Off IV fluids. Hemodynamically stable. No active complaints. Vital signs are stable. General: The patient appeared well nourished and normally developed. HEENT: Head exam is unremarkable. Neck is without jugular venous distension. LUNGS: Lungs are clear to auscultation and percussion. Breath sounds decreased. HEART: Rate and Rhythm are regular. First and second heart sounds normal. No murmurs, rubs or gallops. ABDOMEN: Abdominal exam reveals normal bowel sounds. Non-tender and non- distended. No evidence of peritonitis. EXTREMITITES: No clubbing, cyanosis, or edema. Objective - Vital Signs Vital signs: Vital Signs Temp 98.5 F 01/29/19 04:06 Pulse 74 01/29/19 04:06 Resp 16 01/29/19 04:06 BP 104/57 01/29/19 04:06 Pulse Ox 96 01/29/19 04:06 Intake & Output 01/28/19 01/29/19 01/29/19 18:59 06:59 18:59 Intake Total 100 Balance 100 Intake: IV 100 Other: Voiding Method Toilet Toilet Urinal Urinal # Voids 2 4 # Bowel Movements 1 1 - Labs CBC & Chem 7: 01/29/19 07:33 01/29/19 07:33 Labs: Abnormal Lab Results - Last 24 Hours (Table) 01/29/19 01/29/19 01/29/19 Range/Units 07:01 07:33 07:33 RBC 3.39 L (4.30-5.90) m/uL Hgb 11.8 L (13.0-17.5) gm/dL Hct 35.4 L (39.0-53.0) % MCV 104.3 H (80.0-100.0) fL RDW 16.4 H (11.5-15.5) % Plt Count 127 L (150-450) k/uL Sodium 136 L (137-145) mmol/L Glucose 106 H (74-99) mg/dL POC Glucose (mg/dL) 104 H (75-99) mg/dL Total Bilirubin 7.4 H (0.2-1.3) mg/dL AST 290 H (17-59) U/L ALT 85 H (21-72) U/L Alkaline Phosphatase 135 H (38-126) U/L Albumin 3.2 L (3.5-5.0) g/dL Assessment and Plan Plan: Assessment: 1. Acute kidney injury mostly prerenal improving with IV hydration. Creatinine was 3.5 on admission and is down to 0.99 today. 2. Hypokalemia secondary to hypovolemia induced aldosterone secretion. Better. 3. Hypovolemic hyponatremia improved with IV hydration. 4. Liver cirrhosis. 5. Hypomagnesemia secondary to urinary losses due to chronic alcohol use. Improved. Plan: Encouraged oral intake. Avoid nephrotoxins. Stable to be discharged home from nephrology standpoint.
[2019-01-29 14:32] VITALS: BP 112/71; PULSE 78; TEMP 98.8
--- NOTE | 2019-01-29 22:07 | PN ---
PROGRESS NOTE The patient is a 73 -year-old white male with history of alcoholic cirrhosis of the liver with portal hypertension and ascites. He was admitted to the hospital because of generalized weakness and anemia. He underwent an upper endoscopy by Dr. Atkinson yesterday and was noted to have large esophageal varices for which he underwent variceal ligation. The patient is feeling better today. He denies any complaints. He has occasional epigastric discomfort. No nausea, vomiting. PHYSICAL EXAMINATION: He appears comfortable. No apparent distress. VITAL SIGNS: Stable. Blood pressure 119/71. Pulse rate 78, temperature 98.1. HEENT examination unremarkable. Conjunctivae pink. Sclerae slightly icteric. Oral cavity no lesions. NECK: No JVD or lymph node enlargement. CHEST: Clear to auscultation. CARDIAC: Heart regular rate and rhythm. ABDOMEN: Soft, it was slightly distended. Liver was palpable 4 cm below the right costal margin. The spleen was not palpable. EXTREMITIES no pedal edema. SKIN no rashes. NEUROLOGIC: Alert and oriented x3. No focal deficits. LABS: WBC 8.8, hemoglobin 11.5. Platelets 177. Bili 7.4, AST 290, ALT 85, alk phos 125. IMPRESSION: 1. Anemia/esophageal varices status post EGD with variceal ligation by Dr. Atkinson yesterday. 2. Acute alcoholic hepatitis with elevated bilirubin at 7.4 and mild elevation of serum transaminases. 3. History of heavy alcohol abuse. RECOMMENDATIONS AND DISCUSSION: 1. Advance to a regular diet. 2. I had a lengthy discussion with the patient regarding abstinence from alcohol. 3. The patient wants to go home today and apparently is being discharged. I suggested that he follow up with Dr. Atkinson in 1 week. Thank you for this consultation. MMODL / IJN: [id number] /
--- NOTE | 2019-01-30 10:26 | DS ---
DISCHARGE SUMMARY DATE OF SERVICE: 01/29/2019 FINAL DIAGNOSES: 1. Acute renal failure possibly prerenal, acute renal failure secondary to dehydration, acute tubular necrosis. 2. Acute hepatitis possibly alcohol-related hepatitis, alcoholic hepatitis, cirrhosis liver, possibly secondary to alcohol. 3. Status post EGD showing moderate disease vulvitis treated with esophageal band ligation. 4. Mild portal hypertensive gastropathy. 5. History of fall and gait dysfunction. 6. History of gastrointestinal bleed. 7. History of congestive heart failure, ejection fraction unknown. 8. Hypertension. 9. History of tonsillectomy. 10.History metabolic acidosis. 11.History of post-traumatic stress disorder. 12.Remote history of nicotine dependence. 13.Obesity with body mass index 33.9. 14.Anemia, macrocytic. 15.Thrombocytopenia. 16.Hyponatremia. 17.Hypomagnesemia. 18.FULL CODE. DISCHARGE DISPOSITION: The patient will be discharged in a stable condition with guarded prognosis. Total time taken 35 minutes. HISTORY OF PRESENT ILLNESS: This is a 73-year-old gentleman who presented with a past medical history of multiple medical problems, admitted with acute renal failure, acute hepatitis, and multiple other medical problems. Patient treated symptomatically with hydration. The patient improved significantly. Patient also seen by Dr. Atkinson, performed EGD. Patient was also seen by Nephrology, improved significantly. On exam, vitals are stable. CARDIOVASCULAR: S1, S2. ABDOMEN: Soft. NERVOUS SYSTEM: No focal deficit. Creatinine improved normally and bilirubin is 7.4. Recommend close outpatient followup and alcohol cessation. Patient understands and agrees. Once again, total time 35 minutes. Discharge diet is cardiac diet. No alcohol. Follow up with Dr. Nora Moran in 2-3 days. Follow up with Dr. Crockett and Dr. Atkinson as recommended. DISCHARGE MEDICATIONS: 1. Lopressor 25 mg p.o. b.i.d. 2. Omeprazole 20 mg p.o. daily. 3. Aldactone 25 mg p.o. daily. 4. Cephulac 20 g p.o. t.i.d. 5. Iron sulfate 320 mg p.o. b.i.d. 6. Folic acid 1 mg p.o. daily. 7. Lasix 20 mg p.o. b.i.d. 8. Multivitamin 1 p.o. daily. 9. Vitamin thiamine 100 mg p.o. b.i.d. Once again, the patient will be discharged in a stable condition with guarded prognosis. MMLOIS / ANIYAHN: [id number] /
== END 2019-01-29 17:33 | disposition home or self-care (01) | DRG 683 ==
LOC: EC 11:55 → 3SCARD 14:34 → 4MS4W 01-28 15:15
PROVIDERS: ADMIT Hospitalist; ATTEND Hospitalist
PROC: 06L38CZ Occlusion of Esophageal Vein with Extraluminal Device, Via Natural or Artificial Opening Endoscopic (ICD-10-PCS; principal; 2019-01-28 09:00)
DX: N17.0 Acute kidney failure with tubular necrosis (principal); E87.1 Hypo-osmolality and hyponatremia; E87.4 Mixed disorder of acid-base balance; I13.0 Hypertensive heart and chronic kidney disease with heart failure and stage 1 through stage 4 chronic kidney disease, or unspecified chronic kidney disease; K76.6 Portal hypertension; I85.10 Secondary esophageal varices without bleeding; D53.9 Nutritional anemia, unspecified; D69.6 Thrombocytopenia, unspecified; D75.89 Other specified diseases of blood and blood-forming organs; E66.9 Obesity, unspecified; E83.42 Hypomagnesemia; E86.0 Dehydration; E86.1 Hypovolemia; E87.6 Hypokalemia; F43.10 Post-traumatic stress disorder, unspecified; I50.9 Heart failure, unspecified; K70.31 Alcoholic cirrhosis of liver with ascites; K70.11 Alcoholic hepatitis with ascites; N18.9 Chronic kidney disease, unspecified; R29.6 Repeated falls; Z68.35 Body mass index [BMI] 35.0-35.9, adult; Z79.899 Other long term (current) drug therapy; Z80.0 Family history of malignant neoplasm of digestive organs; Z82.49 Family history of ischemic heart disease and other diseases of the circulatory system; Z87.11 Personal history of peptic ulcer disease; Z87.19 Personal history of other diseases of the digestive system; Z87.891 Personal history of nicotine dependence
CPT/HCPCS: 36415; 43255; 51702; 70450; 71045; 72125; 76700; 80053; 80074; 80320; 81001; 82105; 82140; 82550; 83605; 83735; 83880; 84100; 84132; 84443; 84484; 85025; 85610; 85730; 93005; 94640; 96361; 96374; 99285

== ENCOUNTER 2019-06-03 00:10 | Observation (INO) | payer MEDICARE, OTHER ==
--- NOTE | 2019-06-03 00:39 | ED ---
Fall HPI <Yeison Betancourt - Last Filed: 06/03/19 02:22> <Gaudencoi Julio - Last Filed: 06/05/19 06:14> - General Chief Complaint: Fall Stated Complaint: Head wound Time Seen by Provider: 06/03/19 00:14 - History of Present Illness Initial Comments: Patient is 74-year-old male with past medical history of alcohol abuse presenting to emergency Department with a chief complaint of fall. Patient brought to the ED via EMS without a c-collar. Patient states he was drinking "little more than usual" earlier today. Patient states he fell on the floor from ground level but is not completely sure of the mechanism of the fall. No reported loss of consciousness. States she also noted some bleeding coming from the parietal region of his head. Also reports some bleeding from his mouth. States his called EMS. Patient denies any pain right now. Patient denies any blood thinners or antiplatelet. Denies any extremity weakness or paresthesias. Denies any blurry vision headache chest pain shortness breath a bdominal pain back pain. (Yeison Betancourt) - Related Data Home Medications Medication Instructions Recorded Confirmed Metoprolol Tartrate [Lopressor] 25 mg PO BID@0900,1600 05/21/18 06/03/19 Previous Rx's Medication Instructions Recorded Spironolactone [Aldactone] 25 mg PO DAILY #30 tab 05/13/18 Ferrous Sulfate [Feosol] 325 mg PO BID #60 tab 05/25/18 Furosemide [Lasix] 20 mg PO BID@0900,1600 #60 tab 05/26/18 Folic Acid 1 mg PO DAILY@1200 #30 tab 01/28/19 Allergies Allergy/AdvReac Type Severity Reaction Status Date / Time No Known Allergies Allergy Verified 06/03/19 08:33 Review of Systems ROS Other: All systems not noted in ROS Statement are negative. <Yeison Betancourt - Last Filed: 06/03/19 02:22> ROS Other: All systems not noted in ROS Statement are negative. <Gaudencio Julio - Last Filed: 06/05/19 06:14> ROS Statement: Those systems with pertinent positive or pertinent negative responses have been documented in the HPI. Past Medical History Past Medical History: Heart Failure, GI Bleed, Hypertension, Liver Disease Additional Past Medical History / Comment(s): hx of liver cirrhosis, hx esophageal varices, STATES PAST HX OF COLON POLYP-benign,PREVIOUS HX OF HTN but OFF MEDICATIONS for over a year, History of Any Multi-Drug Resistant Organisms: None Reported Past Surgical History: Tonsillectomy Additional Past Surgical History / Comment(s): EGD WITH BANDING OF VARICES, PREV. COLONOSCOPIES, egd Past Anesthesia/Blood Transfusion Reactions: No Reported Reaction Past Psychological History: PTSD Additional Psychological History / Comment(s): . Smoking Status: Former smoker Past Alcohol Use History: Heavy Additional Past Alcohol Use History / Comment(s): SMOKED CIGARS -started 1968 and quit 1997. PREVIOUS ALCHOHOL USE, STATES NONE IN PAST 3 days Past Drug Use History: None Reported - Past Family History Mother Family Medical History: Cancer Additional Family Medical History / Comment(s): COLON Father Family Medical History: Coronary Artery Disease (CAD) Additional Family Medical History / Comment(s): valve replacment, cataracts <Yeison Betancourt - Last Filed: 06/03/19 02:22> General Exam Limitations: no limitations General appearance: alert, in no apparent distress, appears intoxicated Head exam: Present: normocephalic. Absent: atraumatic (6 cm laceration in the parietal region. No active bleeding. Skin tear on nose.), normal inspection, other (Negative Duran sign, raccoon eyes, hemotympanum.) Eye exam: Present: normal appearance, PERRL, EOMI Pupils: Present: normal accommodation ENT exam: Present: normal exam, mucous membranes moist, TM's normal bilaterally, normal external ear exam. Absent: normal oropharynx (2 small intraoral, mucosal lacerations measuring less than 1 cm. No laceration to the vermilion border. No teeth. No septal hematoma.) Neck exam: Present: normal inspection, full ROM (Full active and passive range of motion.). Absent: tenderness Respiratory exam: Present: normal lung sounds bilaterally. Absent: respiratory distress, wheezes, rales, rhonchi, stridor, chest wall tenderness Cardiovascular Exam: Present: regular rate, normal rhythm, normal heart sounds GI/Abdominal exam: Present: soft. Absent: distended, tenderness, guarding Extremities exam: Present: full ROM, normal capillary refill, other (+2 ulnar and radial pulses bilaterally.). Absent: normal inspection (Ecchymosis noted on the left elbow. No edema.), tenderness Back exam: Present: full ROM. Absent: normal inspection (Small region of ecchymosis measuring approximately 2 cm in diameter on the left upper back.), tenderness Neurological exam: Present: alert, oriented X3 Psychiatric exam: Present: normal affect, depressed, other (Patient is very emo tional) Skin exam: Present: warm, dry, intact, normal color <Yeison Betancourt - Last Filed: 06/03/19 02:22> Course Vital Signs 06/03/19 06/03/19 06/03/19 00:18 03:29 03:58 Temperature 97.0 F L 97.0 F L Pulse Rate 106 H 90 98 Respiratory 20 18 18 Rate Blood Pressure 138/67 130/70 122/56 O2 Sat by Pulse 97 97 98 Oximetry Procedures - Laceration Laceration #1 Consent Obtained: verbal consent Indication: laceration Site: scalp Size (cm): 6 Description: linear Depth: simple, single layer Sedation/Analgesia: none Pre-repair: irrigated extensively, deep structures intact Type of Sutures: other (Staple) Size of Sutures: other (Staple) Number of Sutures: 11 (Ailyn) Technique: other (Stable) Patient Tolerated Procedure: well, no complications Laceration #2 Consent Obtained: verbal consent Indication: laceration Site: other (Intraoral mucosal surface of the upper lip. Some gingival involvement) Size (cm): 2 Description: irregular, clean Depth: simple, single layer Sedation/Analgesia: none Pre-repair: irrigated extensively, deep structures intact Type of Sutures: vicryl Size of Sutures: 5-0 Number of Sutures: 3 Technique: simple, interrupted Patient Tolerated Procedure: well, no complications <Yeison Betancourt - Last Filed: 06/03/19 02:22> Medical Decision Making - Lab Data Result diagrams: 06/03/19 01:08 06/03/19 01:08 <Yeison Betancourt - Last Filed: 06/03/19 02:22> - Lab Data Result diagrams: 06/04/19 06:21 06/04/19 06:14 <Gaudencio Julio - Last Filed: 06/05/19 06:14> - Medical Decision Making Patient is 74-year-old male with history of alcohol abuse presenting to emergency Department with chief complaint of a fall. No reported loss of consciousness. Patient brought to the ED via EMS without a c-collar. C-collar placed immediately after arrival to ED. Brain and neck CT without contrast shows no acute fractures, dislocations, intracranial hemorrhage, midline shift. Chest x-ray unremarkable. Left elbow x-ray negative. On exam patient does appear to have a 6 mL laceration in the parietal region. This was repaired with 11 ailyn. Patient also has a small skin tear on the nose and 2 mucosal lacerations in the oral cavity with some gingival involvement. This was repaired with 3 absorbable sutures. No tenderness on the nose. No septal hematoma. Patient is anemic with hemoglobin 9.0. Serum alcohol is 275. EKG shows normal sinus rhythm with prolonged QT. No significant ST changes. EKG similar to his most recent one. Case discussed with Dr. Encinas from trauma surgery who would like to admit the patient under medicine. Trauma surgery will be consulted. also examined the patient and is in agreement with the treatment plan. (Yeison Betancourt) I saw this patient in conjunction with the physician recruitment and outreach assistant. I performed independent history and physical exam. Agree with case management. (Gaudencio Julio) - Lab Data Lab Results 06/03/19 06/03/19 06/03/19 Range/Units 01:08 01:08 01:08 WBC 5.8 (3.8-10.6) k/uL RBC 2.75 L (4.30-5.90) m/uL Hgb 9.0 L (13.0-17.5) gm/dL Hct 27.3 L (39.0-53.0) % MCV 99.3 (80.0-100.0) fL MCH 32.9 (25.0-35.0) pg MCHC 33.1 (31.0-37.0) g/dL RDW 14.2 (11.5-15.5) % Plt Count 319 (150-450) k/uL Neutrophils % 69 % Lymphocytes % 17 % Monocytes % 7 % Eosinophils % 3 % Basophils % 1 % Neutrophils # 4.0 (1.3-7.7) k/uL Lymphocytes # 1.0 (1.0-4.8) k/uL Monocytes # 0.4 (0-1.0) k/uL Eosinophils # 0.2 (0-0.7) k/uL Basophils # 0.1 (0-0.2) k/uL Hypochromasia Slight PT 11.2 (9.0-12.0) sec INR 1.1 (<1.2) APTT 25.1 (22.0-30.0) sec Sodium 136 L (137-145) mmol/L Potassium 4.4 (3.5-5.1) mmol/L Chloride 97 L (98-107) mmol/L Carbon Dioxide 24 (22-30) mmol/L Anion Gap 15 mmol/L BUN 22 H (9-20) mg/dL Creatinine 1.12 (0.66-1.25) mg/dL Est GFR (CKD-EPI)AfAm 75 (>60 ml/min/1.73 sqM) Est GFR (CKD-EPI)NonAf 65 (>60 ml/min/1.73 sqM) Glucose 119 H (74-99) mg/dL Calcium 9.1 (8.4-10.2) mg/dL Total Bilirubin 0.8 (0.2-1.3) mg/dL AST 66 H (17-59) U/L ALT 24 (4-49) U/L Alkaline Phosphatase 128 H (38-126) U/L Total Protein 8.2 (6.3-8.2) g/dL Albumin 4.3 (3.5-5.0) g/dL Serum Alcohol 274 H* mg/dL - EKG Data EKG Comments: Sinus rhythm, prolonged QT, no significant ST changes. Similar EKG to his most recent. Ventricular rate 93, SD 182, QRS 112, QTC 482 (Yeison Betancourt) Disposition Is patient prescribed a controlled substance at d/c from ED?: No Time of Disposition: 02:39 <Yeison Betancourt - Last Filed: 06/03/19 02:22> <Gaudencio Julio - Last Filed: 06/05/19 06:14> Clinical Impression: Head injury due to trauma, Fall, Alcoholic intoxication, Laceration of oral cavity without foreign body, Skin tear Disposition: ADMITTED IP TO THIS HOSP Condition: Good
--- NOTE | 2019-06-03 00:53 | CT ---
EXAMINATION TYPE: CT brain heroine wo con DATE OF EXAM: 06/03/2019 COMPARISON: 01/24/2019 HISTORY: Fall headache. Neck pain CT DLP: 1473.3 mGycm Automated exposure control for dose reduction was used. There is cerebral cortical atrophy. There is no mass effect nor midline shift. There is no sign of in tracranial hemorrhage. Calvarium is intact. The cervical vertebra have normal alignment. There is spurring anteriorly at C5-6 and C7-T1. Posterio r elements are intact. Facet joints are intact. Skull base is intact. IMPRESSION: Mild spondylotic changes in the lower cervical spine. No fracture. Cerebral atrophy. No acute intracranial abnormality. No change compared to old exam.
[2019-06-03 01:23] LABS: Basophils # (A) 0.1 k/uL (0-0.2); Basophils % (A) 1 %; Eosinophils # (A) 0.2 k/uL (0-0.7); Eosinophils % (A) 3 %; HCT 27.3 % (39.0-53.0); Hypochromasia Slight; Lymphocytes % (A) 17 %; MCH 32.9 pg (25.0-35.0); MCHC 33.1 g/dL (31.0-37.0); MCV 99.3 fL (80.0-100.0); Mean Platelet Volume 6.7; Monocytes # (A) 0.4 k/uL (0-1.0); Monocytes % (A) 7 %; Neutrophils % (A) 69 %; Platelet Count 319 k/uL (150-450); RBC 2.75 m/uL (4.30-5.90); RDW 14.2 % (11.5-15.5); WBC 5.8 k/uL (3.8-10.6)
[2019-06-03 01:32] LABS: Albumin 4.3 g/dL (3.5-5.0); Calcium 9.1 mg/dL (8.4-10.2); Potassium 4.4 mmol/L (3.5-5.1); Total Bilirubin 0.8 mg/dL (0.2-1.3); Total Protein 8.2 g/dL (6.3-8.2)
--- NOTE | 2019-06-03 01:33 | XR ---
EXAMINATION TYPE: XR chest 2V DATE OF EXAM: 06/03/2019 COMPARISON: 01/24/2019 HISTORY: Weakness TECHNIQUE: FINDINGS: There is no heart failure nor confluent pneumonic infiltrate. Costophrenic angles are clear . Bony thorax is intact. IMPRESSION: No active cardiopulmonary disease. No change.
--- NOTE | 2019-06-03 01:34 | XR ---
EXAMINATION TYPE: XR elbow complete LT DATE OF EXAM: 06/03/2019 COMPARISON: NONE HISTORY: Pain TECHNIQUE: 3 views FINDINGS: There is no sign of fracture nor dislocation. Joint spaces are normal. There is no sign of elbow joint effusion. IMPRESSION: Negative left elbow exam.
[2019-06-03 01:37] LABS: INR 1.1 (<1.2); Partial Thromboplastin Time 25.1 sec (22.0-30.0); Prothrombin Time 11.2 sec (9.0-12.0)
[2019-06-03] MEDS ORDERED: NALOXONE 0.4 MG/ML 1 ML VIAL IV PRN (02:43)
[2019-06-03] MEDS ORDERED: LORazepam 2 MG/ML INJ IV PRN (02:43)
[2019-06-03] MEDS: MORPHINE SULFATE 4 MG/ML SYRINGE IV PRN ×2 (10:17→15:19)
--- NOTE | 2019-06-03 10:55 | P.GSCN ---
History of Present Illness Consult date: 06/03/19 History of present illness: 74-year-old male 74-year-old male presented to the emergency department after a fall. He was brought in by EMS. He is noted to have a history of alcohol dependence and states that he did have a significant amount of alcohol to drink. He states that this was a ground-level fall. He is unsure of any loss of consciousness. On exam in the emergency department, he was found to have a laceration on his scalp that was repaired with ailyn. He denies any additional pain. He denies any nausea or vomiting. He denied any extremity weakness. He denied any abdominal pain. All imaging that was performed in the emergency department was negative for any traumatic injury.Currently, on exam he denies any pain. He states he feels much better. He denies any weakness in his extremities. He is able to ambulate. On exam, he does state that he may have some left chest pain, however no pain on palpation. Review of Systems All systems: negative Past Medical History Past Medical History: Heart Failure, GI Bleed, Hypertension, Liver Disease Additional Past Medical History / Comment(s): hx of liver cirrhosis, hx esophageal varices, STATES PAST HX OF COLON POLYP-benign,PREVIOUS HX OF HTN but OFF MEDICATIONS for over a year, History of Any Multi-Drug Resistant Organisms: None Reported Past Surgical History: Tonsillectomy Additional Past Surgical History / Comment(s): EGD WITH BANDING OF VARICES, PREV. COLONOSCOPIES, egd Past Anesthesia/Blood Transfusion Reactions: No Reported Reaction Past Psychological History: PTSD Additional Psychological History / Comment(s): . Smoking Status: Former smoker Past Alcohol Use History: Heavy Additional Past Alcohol Use History / Comment(s): patient states he's been drinking everyday for roughly 1 week. States he recently has been drinking more frequently. Past Drug Use History: None Reported - Past Family History Mother Family Medical History: Cancer Additional Family Medical History / Comment(s): COLON Father Family Medical History: Coronary Artery Disease (CAD) Additional Family Medical History / Comment(s): valve replacment, cataracts Medications and Allergies Home Medications Medication Instructions Recorded Confirmed Type Spironolactone [Aldactone] 25 mg PO DAILY #30 tab 05/13/18 06/03/19 Rx Metoprolol Tartrate [Lopressor] 25 mg PO BID@0900,1600 05/21/18 06/03/19 History Ferrous Sulfate [Feosol] 325 mg PO BID #60 tab 05/25/18 06/03/19 Rx Furosemide [Lasix] 20 mg PO BID@0900,1600 #60 tab 05/26/18 06/03/19 Rx Folic Acid 1 mg PO DAILY@1200 #30 tab 01/28/19 06/03/19 Rx Allergies Allergy/AdvReac Type Severity Reaction Status Date / Time No Known Allergies Allergy Verified 06/03/19 08:33 Surgical - Exam Osteopathic Statement: *. No significant issues noted on an osteopathic structural exam other than those noted in the History and Physical/Consult. Vital Signs Temp Pulse Resp BP Pulse Ox 97.0 F L 106 H 20 138/67 97 06/03/19 00:18 06/03/19 00:18 06/03/19 00:18 06/03/19 00:18 06/03/19 00:18 - General well nourished, no distress - Eyes PERRL - ENT no hearing loss - Neck no bruits, trachea midline - Respiratory normal respiratory effort - Abdomen Soft, nontender, nondistended, no rebound, no guarding - Psychiatric oriented to time, oriented to person, oriented to place Head was noted to have a scalp laceration that is stapled in place, no active bleeding. Bridge of nose with has scab. Results - Labs 06/03/19 01:08 06/03/19 01:08 Abnormal Lab Results - Last 24 Hours (Table) 06/03/19 06/03/19 Range/Units 01:08 01:08 RBC 2.75 L (4.30-5.90) m/uL Hgb 9.0 L (13.0-17.5) gm/dL Hct 27.3 L (39.0-53.0) % Sodium 136 L (137-145) mmol/L Chloride 97 L (98-107) mmol/L BUN 22 H (9-20) mg/dL Glucose 119 H (74-99) mg/dL AST 66 H (17-59) U/L Alkaline Phosphatase 128 H (38-126) U/L Serum Alcohol 274 H* mg/dL Diabetes panel 06/03/19 Range/Units 01:08 Sodium 136 L (137-145) mmol/L Potassium 4.4 (3.5-5.1) mmol/L Chloride 97 L (98-107) mmol/L Carbon Dioxide 24 (22-30) mmol/L BUN 22 H (9-20) mg/dL Creatinine 1.12 (0.66-1.25) mg/dL Glucose 119 H (74-99) mg/dL Calcium 9.1 (8.4-10.2) mg/dL AST 66 H (17-59) U/L ALT 24 (4-49) U/L Alkaline Phosphatase 128 H (38-126) U/L Total Protein 8.2 (6.3-8.2) g/dL Albumin 4.3 (3.5-5.0) g/dL Calcium panel 06/03/19 Range/Units 01:08 Calcium 9.1 (8.4-10.2) mg/dL Albumin 4.3 (3.5-5.0) g/dL Pituitary panel 06/03/19 Range/Units 01:08 Sodium 136 L (137-145) mmol/L Potassium 4.4 (3.5-5.1) mmol/L Chloride 97 L (98-107) mmol/L Carbon Dioxide 24 (22-30) mmol/L BUN 22 H (9-20) mg/dL Creatinine 1.12 (0.66-1.25) mg/dL Glucose 119 H (74-99) mg/dL Calcium 9.1 (8.4-10.2) mg/dL Adrenal panel 06/03/19 Range/Units 01:08 Sodium 136 L (137-145) mmol/L Potassium 4.4 (3.5-5.1) mmol/L Chloride 97 L (98-107) mmol/L Carbon Dioxide 24 (22-30) mmol/L BUN 22 H (9-20) mg/dL Creatinine 1.12 (0.66-1.25) mg/dL Glucose 119 H (74-99) mg/dL Calcium 9.1 (8.4-10.2) mg/dL Total Bilirubin 0.8 (0.2-1.3) mg/dL AST 66 H (17-59) U/L ALT 24 (4-49) U/L Alkaline Phosphatase 128 H (38-126) U/L Total Protein 8.2 (6.3-8.2) g/dL Albumin 4.3 (3.5-5.0) g/dL Assessment and Plan Plan: 74-year-old male status post fall, admitted secondary to significant alcohol intoxication and concern for his safety. Patient appears to be doing well. C-spine was cleared and c-collar was removed. Due to complaint of possible left chest pain, will obtain left-sided rib x- rays. Chest x-ray was already performed with no obvious deformity or fracture. Otherwise, patient is surgically stable with no obvious traumatic injury requiring admission. If left-sided rib x-rays are negative, patient is surgi sid stable for discharge.
--- NOTE | 2019-06-03 11:31 | P.HPIM ---
History of Present Illness This is a pleasant 74 years old male with past medical history of heart failure, GI bleed, hypertension, liver cirrhosis with esophageal varices, treated with esophageal band ligation on 01/2019, history of multiple falls, history of ataxic and steady gait. He is a patient of Dr. kinsey This time he presents because of a fall with loss of consciousness associated with head and face laceration. Patient says that he was doing well until about a week ago when his lost her job and his son has been isolated for possible covid-19 for fever and shortness of breath, followed by his daughter also been isolated for the same , patient started drinking alcohol in about a week ago, last night he was this last drink usually he drinks 2 cups of bourbon whiskey daily. Patient after passing out he woke up and his restroom almost right immediately, patient denies coughing or dyspnea, no chest pain at that time but when he came to the hospital he feeling pain in the left lateral chest with tenderness and left rib x-rays been ordered. No change in urine or bowel habits On admission vitals stable, patient is afebrile. CBC is unremarkable except for mild anemia of 9.0, baseline is 8-11, no coagulopathy per INR and PTT, sodium 136, creatinine 1.1, potassium 4.4, glucose 119, AST 66, serum alcohol is elevated at 274 EKG showing normal sinus rhythm at [address]-T changes, QTC is 482. Elbow x-ray no fracture, chest x-ray: No acute process by radiologist. CT of the brain and cervical spine showing no acute changes Surgical team already evaluated the patient and cleared him for discharge Neuro check has been ordered and emergency room every 4 hours Review of Systems CONSTITUTIONAL: No fever, no malaise, no fatigue. HEENT: No recent visual problems or hearing problems. Denied any sore throat. CARDIOVASCULAR: No orthopnea, PND, no palpitations, no syncope. PULMONARY: No shortness of breath, no cough, no hemoptysis. GASTROINTESTINAL: No diarrhea, no nausea, no vomiting, no abdominal pain. Normoactive bowel sounds. NEUROLOGICAL: No headaches, no weakness, no numbness. HEMATOLOGICAL: Denies any bleeding or petechiae. GENITOURINARY: Denies any burning micturition, frequency, or urgency. MUSCULOSKELETAL/RHEUMATOLOGICAL: Denies any joint pain, swelling, or any muscle pain. ENDOCRINE: Denies any polyuria or polydipsia. Past Medical History Past Medical History: Heart Failure, GI Bleed, Hypertension, Liver Disease Additional Past Medical History / Comment(s): hx of liver cirrhosis, hx esophageal varices, STATES PAST HX OF COLON POLYP-benign,PREVIOUS HX OF HTN but OFF MEDICATIONS for over a year, History of Any Multi-Drug Resistant Organisms: None Reported Past Surgical History: Tonsillectomy Additional Past Surgical History / Comment(s): EGD WITH BANDING OF VARICES, PREV. COLONOSCOPIES, egd Past Anesthesia/Blood Transfusion Reactions: No Reported Reaction Past Psychological History: PTSD Additional Psychological History / Comment(s): . Smoking Status: Former smoker Past Alcohol Use History: Heavy Additional Past Alcohol Use History / Comment(s): patient states he's been drinking everyday for roughly 1 week. States he recently has been drinking more frequently. Past Drug Use History: None Reported - Past Family History Mother Family Medical History: Cancer Additional Family Medical History / Comment(s): COLON Father Family Medical History: Coronary Artery Disease (CAD) Additional Family Medical History / Comment(s): valve replacment, cataracts Medications and Allergies Home Medications Medication Instructions Recorded Confirmed Type Spironolactone [Aldactone] 25 mg PO DAILY #30 tab 05/13/18 06/03/19 Rx Metoprolol Tartrate [Lopressor] 25 mg PO BID@0900,1600 05/21/18 06/03/19 History Ferrous Sulfate [Feosol] 325 mg PO BID #60 tab 05/25/18 06/03/19 Rx Furosemide [Lasix] 20 mg PO BID@0900,1600 #60 tab 05/26/18 06/03/19 Rx Folic Acid 1 mg PO DAILY@1200 #30 tab 01/28/19 06/03/19 Rx Allergies Allergy/AdvReac Type Severity Reaction Status Date / Time No Known Allergies Allergy Verified 06/03/19 08:33 Physical Exam Vitals: Vital Signs Temp Pulse Pulse Resp BP BP Pulse Ox 06/03/19 04:29 98.6 F 98 18 132/69 98 06/03/19 03:58 97.0 F L 98 18 122/56 98 06/03/19 03:29 90 18 130/70 97 06/03/19 00:18 97.0 F L 106 H 20 138/67 97 Intake and Output 06/02/19 06/03/19 06/03/19 22:59 06:59 14:59 Other: Voiding Method Urinal # Voids 0 Weight 98 kg GENERAL: The patient is alert and oriented x3, not in any acute distress. Well developed, well nourished. HEENT: Pupils are round and equally reacting to light. EOMI. No scleral icterus. No conjunctival pallor. Normocephalic, atraumatic. No pharyngeal erythema. No thyromegaly. CARDIOVASCULAR: S1 and S2 present. No murmurs, rubs, or gallops. -PULMONARY: Chest is clear to auscultation, no wheezing or crackles. Left lateral chest wall tenderness ABDOMEN: Soft, nontender, nondistended, normoactive bowel sounds. No palpable organomegaly. MUSCULOSKELETAL: No joint swelling or deformity. EXTREMITIES: No cyanosis, clubbing, or pedal edema. NEUROLOGICAL: Gross neurological examination did not reveal any focal deficits. -SKIN: No rashes. No petechiae. Parietal area laceration and most laceration with ailyn, wounds are closed Results CBC & Chem 7: 06/03/19 01:08 06/03/19 01:08 Labs: Abnormal Lab Results - Last 24 Hours (Table) 06/03/19 06/03/19 Range/Units 01:08 01:08 RBC 2.75 L (4.30-5.90) m/uL Hgb 9.0 L (13.0-17.5) gm/dL Hct 27.3 L (39.0-53.0) % Sodium 136 L (137-145) mmol/L Chloride 97 L (98-107) mmol/L BUN 22 H (9-20) mg/dL Glucose 119 H (74-99) mg/dL AST 66 H (17-59) U/L Alkaline Phosphatase 128 H (38-126) U/L Serum Alcohol 274 H* mg/dL Thrombosis Risk Factor Assmnt - Choose All That Apply Any of the Below Risk Factors Present?: Yes Each Factor Represents 1 point: Obesity (BMI >25) Other Risk Factors: Yes Each Risk Factor Represents 2 Points: Age 61-74 years Other congenital or acquired thrombophilia - If yes, enter type in comment: No Thrombosis Risk Factor Assessment Total Risk Factor Score: 3 Thrombosis Risk Factor Assessment Level: Moderate Risk Assessment and Plan Assessment: Syncope, was slightly related to his alcohol problem. Rule out cardiac causes head trauma with 6 cm laceration in the rectal region post 11 ailyn, associate with nasal and buccal laceration status post 3 stitches Surgical team were consulted from 80 they want patient to be admitted under medicine while they will be on consult Patient was started on pain medication Chronic heart failure, no acute exacerbation Alcoholic Liver cirrhosis Alcohol abuse at-risk of local withdrawal h/o Recurrent falls, related to his alcohol problem, generalized weakness and unsteady gait History of esophageal varices and GI bleed Chronic diastolic congestive heart failure, ejection fraction 60-65 History of pulmonary hypertension Plan: This is a pleasant 74 years old male who presents with alcohol abuse and atraumatic head continue with CIWA protocol, continue with same. With the patient and neuro check, surgical consultation is ordered. Monitor hemoglobin, consult cardiology for syncope . Consults psychiatry for depression Labs and medication were reviewed.. Continue same treatment. Continue with symptomatic treatment. Resume home medication. Monitor lytes and vitals. DVT and GI prophylaxis. Further recommendations of the clinical course of the patient DVT prophylaxis: Subcutaneous heparin GI Prophylaxis: Pepcid PT/OT: Pending Prognosis is guarded
--- NOTE | 2019-06-03 13:04 | XR ---
EXAMINATION TYPE: XR ribs LT w pa chest xray , 5 VIEWS DATE OF EXAM ORDERED: 06/03/2019 HISTORY: trauma. COMPARISON: Previous chest x-ray dated 06/03/2019. FINDINGS: The lungs are clear. Pleural space are clear. Heart size upper limits of normal. There is no evidence of pneumothorax. No displaced rib fracture is seen. IMPRESSION: NO ACUTE CARDIOTHORACIC ABNORMALITY. NO DISPLACED RIB FRACTURES SEEN AT THIS TIME.
[2019-06-03] MEDS: FOLIC ACID 1 MG TAB PO SCH (13:39)
[2019-06-03] MEDS: FUROSEMIDE 20 MG TAB PO SCH (15:24)
[2019-06-03] MEDS: METOPROLOL TARTRATE 25 MG TAB PO SCH (15:24)
[2019-06-03] MEDS: FAMOTIDINE 20 MG/2 ML VIAL IV SCH (20:48)
[2019-06-03] MEDS: FERROUS SULFATE 325 MG TAB PO SCH (20:48)
[2019-06-03] MEDS: traMADol 50 MG TAB PO PRN (20:48)
[2019-06-03] MEDS: HEPARIN SODIUM,PORCINE 5,000 UNIT/ML 1 ML VIAL SQ SCH (20:48)
[2019-06-03] MEDS ORDERED: ONDANSETRON 4 MG/2 ML VIAL IVP PRN (21:25)
[2019-06-04] MEDS: MORPHINE SULFATE 4 MG/ML SYRINGE IV PRN (00:31)
[2019-06-04 06:43] LABS: Basophils % (A) 1 %; Eosinophils # (A) 0.2 k/uL (0-0.7); Eosinophils % (A) 3 %; Hypochromasia Slight; Lymphocytes # (A) 0.8 k/uL (1.0-4.8); Lymphocytes % (A) 14 %; MCH 31.6 pg (25.0-35.0); MCHC 31.8 g/dL (31.0-37.0); MCV 99.4 fL (80.0-100.0); Mean Platelet Volume 7.1; Monocytes # (A) 0.5 k/uL (0-1.0); Monocytes % (A) 10 %; Neutrophils # (A) 3.9 k/uL (1.3-7.7); Neutrophils % (A) 70 %; Platelet Count 236 k/uL (150-450); RBC 2.52 m/uL (4.30-5.90); RDW 14.1 % (11.5-15.5); WBC 5.5 k/uL (3.8-10.6)
[2019-06-04 07:05] LABS: Albumin 3.6 g/dL (3.5-5.0); Potassium 3.8 mmol/L (3.5-5.1); Total Protein 7.4 g/dL (6.3-8.2)
[2019-06-04] MEDS: FAMOTIDINE 20 MG/2 ML VIAL IV SCH (07:36)
[2019-06-04] MEDS: HEPARIN SODIUM,PORCINE 5,000 UNIT/ML 1 ML VIAL SQ SCH ×2 (07:36→20:33)
[2019-06-04] MEDS: FERROUS SULFATE 325 MG TAB PO SCH ×2 (07:37→20:33)
[2019-06-04] MEDS: FUROSEMIDE 20 MG TAB PO SCH ×2 (07:37→17:24)
[2019-06-04] MEDS: METOPROLOL TARTRATE 25 MG TAB PO SCH ×2 (07:37→17:24)
[2019-06-04] MEDS: SPIRONOLACTONE 25 MG TAB PO SCH (07:37)
--- NOTE | 2019-06-04 11:43 | P.CRDCN ---
History of Present Illness History of present illness: HISTORY OF PRESENTING ILLNESS This is a pleasant 74-year-old male past medical history significant for hypertension, cirrhosis, esophageal varices, chronic alcohol abuse and PTSD and former nicotine dependence. He follows in the office with Jillian. We have been asked to see in consultation for syncope. He states yesterday he was drinking because of excessive stress throughout the previous week. He doesn't recall feeling any dizziness, palpitations, chest pain or shortness of breath. He recalls getting up to use the restroom and he passed out. He is not sure how long he was passed out. He did not urinate on himself. When he woke up he doesn't remember feeling any symptoms. He did suffer a laceration to his head and across the bridge of his nose. Orthostatic vital signs reviewed, no significant change. DIAGNOSTICS EKG reveals sinus mechanism, left anterior fascicular block and nonspecific ST abnormality. No arrhythmia or acute changes. Chest xray negative for acute cardiopulmonary process. Laboratory reviewed, WBC 5.5, hemoglobin 8, platelets 236, sodium 132, potassium 3.8, creatinine 1.09 and serum alcohol 274. Current cardiac medications include Aldactone 25 mg daily, Lopressor 25 mg twice a day and Lasix 20 mg twice a day. Most recent echocardiogram obtained April 2018 reveals preserved LV systolic function with ejection fraction 60-65%, mild aortic stenosis with mean gradient of 10 mmHg. REVIEW OF SYSTEMS At the time of my exam: CONSTITUTIONAL: Denies fever or chills. CARDIOVASCULAR: Denies chest pain, shortness of breath, orthopnea, PND or palpitations. RESPIRATORY: Denies cough. GASTROINTESTINAL: Denies abdominal pain, diarrhea, constipation, nausea or vomiting. MUSCULOSKELETAL: Denies myalgias. NEUROLOGIC: Denies numbness, tingling or weakness. ENDOCRINE: Denies fatigue, weight change, polydipsia or polyurina. GENITOURINARY: Denies burning, hematuria or urgency with micturation. HEMATOLOGIC: Denies history of anemia or bleeding. PHYSICAL EXAMINATION Blood pressure 135/64 heart rate 79 afebrile and maintaining oxygen saturation on room air. CONSTITUTIONAL: No apparent distress. HEENT: Head is normocephalic. Pupils are equal, round. Sclerae anicteric. Mucous membranes of the mouth are moist. No JVD. No carotid bruit. CHEST EXAMINATION: Lungs are clear to auscultation. No chest wall tenderness is noted on palpation or with deep breathing. HEART EXAMINATION: Regular rate and rhythm. S1, S2 heard. Systolic ejection murmur at the base, no gallops or rub. ABDOMEN: Soft, nontender. Positive bowel sounds. EXTREMITIES: 2+ peripheral pulses, no lower extremity edema and no calf tenderness. NEUROLOGIC EXAMINATION: Patient is awake, alert and oriented x3. ASSESSMENT Syncope, likely vasovagal in nature Alcohol intoxication Aortic stenosis Hypertension Esophageal varices Cirrhosis PLAN Apply alarm security or surveillance monitor to assess for an acute arrhythmia. Obtain 2D echocardiogram and doppler study to assess cardiac structure and func tion. Symptoms sound to be related to a vasovagal reaction given his alcohol intake and getting up to the bathroom. Thank you kindly for this consultation. Nurse Practitioner note has been reviewed, I agree with a documented findings and plan of care. Patient was seen and examined. Past Medical History Past Medical History: Heart Failure, GI Bleed, Hypertension, Liver Disease Additional Past Medical History / Comment(s): hx of liver cirrhosis, hx esophageal varices, STATES PAST HX OF COLON POLYP-benign,PREVIOUS HX OF HTN but OFF MEDICATIONS for over a year, History of Any Multi-Drug Resistant Organisms: None Reported Past Surgical History: Tonsillectomy Additional Past Surgical History / Comment(s): EGD WITH BANDING OF VARICES, PREV. COLONOSCOPIES, egd Past Anesthesia/Blood Transfusion Reactions: No Reported Reaction Past Psychological History: PTSD Additional Psychological History / Comment(s): . Smoking Status: Former smoker Past Alcohol Use History: Heavy Additional Past Alcohol Use History / Comment(s): patient states he's been drinking everyday for roughly 1 week. States he recently has been drinking more frequently. Past Drug Use History: None Reported - Past Family History Mother Family Medical History: Cancer Additional Family Medical History / Comment(s): COLON Father Family Medical History: Coronary Artery Disease (CAD) Additional Family Medical History / Comment(s): valve replacment, cataracts Medications and Allergies Home Medications Medication Instructions Recorded Confirmed Type Spironolactone [Aldactone] 25 mg PO DAILY #30 tab 05/13/18 06/03/19 Rx Metoprolol Tartrate [Lopressor] 25 mg PO BID@0900,1600 05/21/18 06/03/19 History Ferrous Sulfate [Feosol] 325 mg PO BID #60 tab 05/25/18 06/03/19 Rx Furosemide [Lasix] 20 mg PO BID@0900,1600 #60 tab 05/26/18 06/03/19 Rx Folic Acid 1 mg PO DAILY@1200 #30 tab 01/28/19 06/03/19 Rx Allergies Allergy/AdvReac Type Severity Reaction Status Date / Time No Known Allergies Allergy Verified 06/03/19 08:33 Physical Exam Vitals: Vital Signs Temp Pulse Pulse Pulse Pulse Resp BP 06/04/19 09:56 89 92 79 123/58 06/04/19 05:00 97.9 F 86 16 06/03/19 21:00 98.1 F 98 16 06/03/19 11:45 98.2 F 101 H 20 BP BP BP Pulse Ox 06/04/19 09:56 137/56 135/64 06/04/19 05:00 137/67 96 06/03/19 21:00 151/74 96 06/03/19 11:45 136/64 97 Intake and Output 06/03/19 06/04/19 06/04/19 22:59 06:59 14:59 Intake Total 590 590 240 Output Total 300 Balance 590 290 240 Intake: Oral 590 590 240 Output: Urine 300 Other: Voiding Method Urinal # Voids 2 Results 06/04/19 06:21 06/04/19 06:14 Cardiac Enzymes 06/04/19 Range/Units 06:14 AST 51 (17-59) U/L CBC 06/04/19 Range/Units 06:21 WBC 5.5 (3.8-10.6) k/uL RBC 2.52 L (4.30-5.90) m/uL Hgb 8.0 L (13.0-17.5) gm/dL Hct 25.0 L (39.0-53.0) % Plt Count 236 (150-450) k/uL Comprehensive Metabolic Panel 06/04/19 Range/Units 06:14 Sodium 132 L (137-145) mmol/L Potassium 3.8 (3.5-5.1) mmol/L Chloride 95 L (98-107) mmol/L Carbon Dioxide 25 (22-30) mmol/L BUN 17 (9-20) mg/dL Creatinine 1.09 (0.66-1.25) mg/dL Glucose 122 H (74-99) mg/dL Calcium 9.0 (8.4-10.2) mg/dL AST 51 (17-59) U/L ALT 20 (4-49) U/L Alkaline Phosphatase 106 (38-126) U/L Total Protein 7.4 (6.3-8.2) g/dL Albumin 3.6 (3.5-5.0) g/dL Current Medications Generic Name Dose Route Start Last Admin Trade Name Freq PRN Reason Stop Dose Admin Famotidine 20 mg 06/03/19 21:00 06/04/19 07:36 Pepcid IV 20 mg Q12HR [facility] Administration Ferrous Sulfate 325 mg 06/03/19 21:00 06/04/19 07:37 Feosol PO 325 mg BID [facility] Administration Folic Acid 1 mg 06/03/19 12:00 06/03/19 13:39 Folic Acid PO 1 mg DAILY@1200 [facility] Administration Furosemide 20 mg 06/03/19 16:00 06/04/19 07:37 Lasix PO 20 mg BID@0900,1600 [facility] Administration Heparin Sodium (Porcine) 5,000 unit 06/03/19 21:00 06/04/19 07:36 Heparin SQ 5,000 unit Q12HR [facility] Administration Lorazepam 0.5 mg 06/03/19 02:43 06/03/19 20:48 Ativan IV 0.5 mg Q6HR PRN Administration Anxiety Metoprolol Tartrate 25 mg 06/03/19 16:00 06/04/19 07:37 Lopressor PO 25 mg BID@0900,1600 [facility] Administration Morphine Sulfate 4 mg 06/03/19 02:43 06/04/19 00:31 Morphine Sulfate (Inj) IV 4 mg Q4HR PRN Administration Severe Pain Naloxone HCl 0.2 mg 06/03/19 02:43 Narcan IV Q2M PRN Opioid Reversal Ondansetron HCl 4 mg 06/03/19 21:25 Zofran IVP Q6HR PRN Nausea And Vomiting Spironolactone 25 mg 06/04/19 09:00 06/04/19 07:37 Aldactone PO 25 mg DAILY [facility] Administration Tramadol HCl 50 mg 06/03/19 02:43 06/03/19 20:48 Ultram PO 50 mg Q6H PRN Administration Moderate Pain Intake and Output 06/03/19 06/04/19 06/04/19 22:59 06:59 14:59 Intake Total 590 590 240 Output Total 300 Balance 590 290 240 Intake: Oral 590 590 240 Output: Urine 300 Other: Voiding Method Urinal # Voids 2 06/04/19 06:21 06/04/19 06:14
[2019-06-04] MEDS: FOLIC ACID 1 MG TAB PO SCH (12:02)
--- NOTE | 2019-06-04 13:00 | ECHOF ---
Referral Reason:syncope MEASUREMENTS -------- HEIGHT: 180.3 cm WEIGHT: 98.0 kg BP: RVIDd: 2.6 cm (< 3.3) IVSd: 1.0 cm (0.6 - 1.1) LVIDd: 5.0 cm (3.9 - 5.3) LVPWd: 1.1 cm (0.6 - 1.1) IVSs: 1.3 cm LVIDs: 2.7 cm LVPWs: 1.5 cm LAESV Index (A-L): 38.95 ml/m Ao Diam: 3.5 cm (2.0 - 3.7) AV Cusp: 2.2 cm (1.5 - 2.6) LA Diam: 4.9 cm (2.7 - 3.8) MV EXCURSION: 29.154 mm (> 18.000) MV EF SLOPE: 103 mm/s (70 - 150) EPSS: 0.6 cm MV E Jasmeet: 0.89 m/s MV DecT: 220 ms MV A Jasmeet: 0.92 m/s MV E/A Ratio: 0.96 AR PHT: 476 ms RAP: 5.00 mmHg RVSP: 14.52 mmHg FINDINGS -------- Sinus rhythm. This was a technically adequate study. The left ventricular size is normal. There is mild concentric left ventricular hypertrophy. Overa ll left ventricular systolic function is normal with, an EF between 55 - 60 %. The right ventricle is normal in size. LA is moderately dilated 34-39 ml/m2 The right atrial size is normal. Aortic valve is trileaflet and is mildly thickened. The mitral valve is normal. Mild mitral regurgitation is present. The tricuspid valve appears structurally normal. Mild tricuspid regurgitation present. Right vent ricular systolic pressure is normal at < 35 mmHg. There is no pulmonic regurgitation present. The aortic root size is normal. Normal inferior vena cava with normal inspiratory collapse consistent with estimated right atrial pre ssure of 5 mmHg. There is no pericardial effusion. CONCLUSIONS -------- 1. There is mild concentric left ventricular hypertrophy. 2. Overall left ventricular systolic function is normal with, an EF between 55 - 60 %. 3. LA is moderately dilated 34-39 ml/m2 4. Aortic valve is trileaflet and is mildly thickened. 5. The mitral valve is normal. 6. Mild mitral regurgitation is present. 7. Mild tricuspid regurgitation present. 8. Right ventricular systolic pressure is normal at < 35 mmHg. 9. There is no pulmonic regurgitation present. 10. Normal inferior vena cava with normal inspiratory collapse consistent with estimated right atrial pressure of 5 mmHg. 11. There is no pericardial effusion. FINANCIAL PLANNING ASSISTANT: Idania Romero RDCS
[2019-06-04] MEDS: traMADol 50 MG TAB PO PRN (18:06)
[2019-06-04] MEDS: FAMOTIDINE 20 MG TAB PO SCH (20:33)
[2019-06-04 22:59] VITALS: TEMP 98.2
[2019-06-05] MEDS: traMADol 50 MG TAB PO PRN ×2 (00:57→09:02)
--- NOTE | 2019-06-05 01:53 | P.PN ---
Subjective This is a pleasant 74 years old male with past medical history of heart failure, GI bleed, hypertension, liver cirrhosis with esophageal varices, treated with esophageal band ligation on 01/2019, history of multiple falls, history of ataxic and steady gait. He is a patient of Dr. kinsey This time he presents because of a fall with loss of consciousness associated with head and face laceration. Patient says that he was doing well until about a week ago when his lost her job and his son has been isolated for possible covid-19 for fever and shortness of breath, followed by his daughter also been isolated for the same , patient started drinking alcohol in about a week ago, last night he was this last drink usually he drinks 2 cups of bourbon whiskey daily. Patient after passing out he woke up and his restroom almost right immediately, patient denies coughing or dyspnea, no chest pain at that time but when he came to the hospital he feeling pain in the left lateral chest with tenderness and left rib x-rays been ordered. No change in urine or bowel habits On admission vitals stable, patient is afebrile. CBC is unremarkable except for mild anemia of 9.0, baseline is 8-11, no coagulopathy per INR and PTT, sodium 136, creatinine 1.1, potassium 4.4, glucose 119, AST 66, serum alcohol is elevated at 274 EKG showing normal sinus rhythm at [address]-T changes, QTC is 482. Elbow x-ray no fracture, chest x-ray: No acute process by radiologist. CT of the brain and cervical spine showing no acute changes Surgical team already evaluated the patient and cleared him for discharge Neuro check has been ordered and emergency room every 4 hours 06/04/2019 Patient is awake and alert, he has mild withdrawal symptoms from alcoholism. Patient trauma and wounds on his face and head are improving. Patient feels less distress today after he heard that his daughter have been taken out of isolation during coronavirus pandemic The patient fell on his face with no signs symptoms of seizure activity, he woke up right away after syncope, could be due to alcohol over 5-4-firy-old Cardiolog ic causes. Transmitter Engineer recommended echocardiogram and telemetry monitoring sodium slightly trending down to 136 to 132, K monitoring sodium Psychiatric nurse evaluated the patient, patient with no suicidal ideation ROS CONSTITUTIONAL: No fever, no malaise, no fatigue. HEENT: No recent visual problems or hearing problems. Denied any sore throat. CARDIOVASCULAR: No orthopnea, PND, no palpitations, no syncope. PULMONARY: No shortness of breath, no cough, no hemoptysis. GASTROINTESTINAL: No diarrhea, no nausea, no vomiting, no abdominal pain. Normoactive bowel sounds. NEUROLOGICAL: No headaches, no weakness, no numbness. HEMATOLOGICAL: Denies any bleeding or petechiae. GENITOURINARY: Denies any burning micturition, frequency, or urgency. MUSCULOSKELETAL/RHEUMATOLOGICAL: Denies any joint pain, swelling, or any muscle pain. ENDOCRINE: Denies any polyuria or polydipsia. Active Medications Generic Name Dose Route Start Last Admin Trade Name Freq PRN Reason Stop Dose Admin Famotidine 20 mg 06/04/19 21:00 06/04/19 20:33 Pepcid PO 20 mg Q12HR CIERRA Administration Ferrous Sulfate 325 mg 06/03/19 21:00 06/04/19 20:33 Feosol PO 325 mg BID CIERRA Administration Folic Acid 1 mg 06/03/19 12:00 06/04/19 12:02 Folic Acid PO 1 mg DAILY@1200 CIERRA Administration Furosemide 20 mg 06/03/19 16:00 06/04/19 17:24 Lasix PO 20 mg BID@0900,1600 CIERRA Administration Heparin Sodium (Porcine) 5,000 unit 06/03/19 21:00 06/04/19 20:33 Heparin SQ 5,000 unit Q12HR [facility]ERRA Administration Lorazepam 0.5 mg 06/03/19 02:43 06/03/19 20:48 Ativan IV 0.5 mg Q6HR PRN Administration Anxiety Metoprolol Tartrate 25 mg 06/03/19 16:00 06/04/19 17:24 Lopressor PO 25 mg BID@0900,1600 [facility] Administration Morphine Sulfate 4 mg 06/03/19 02:43 06/04/19 00:31 Morphine Sulfate (Inj) IV 4 mg Q4HR PRN Administration Severe Pain Naloxone HCl 0.2 mg 06/03/19 02:43 Narcan IV Q2M PRN Opioid Reversal Ondansetron HCl 4 mg 06/03/19 21:25 06/04/19 17:30 Zofran IVP 4 mg Q6HR PRN Administration Nausea And Vomiting Spironolactone 25 mg 06/04/19 09:00 06/04/19 07:37 Aldactone PO 25 mg DAILY CIERRA Administration Tramadol HCl 50 mg 06/03/19 02:43 06/05/19 00:57 Ultram PO 50 mg Q6H PRN Administration Moderate Pain Objective - Vital Signs Vital signs: Vital Signs Temp 97.9 F 06/04/19 12:39 Pulse 81 06/04/19 12:39 Resp 17 06/04/19 12:39 BP 137/71 06/04/19 12:39 Pulse Ox 95 06/04/19 12:39 Intake & Output 06/04/19 06/04/19 06/05/19 06:59 18:59 06:59 Intake Total 1180 720 Output Total 300 Balance 880 720 Intake: Oral 1180 720 Output: Urine 300 Other: Voiding Method Urinal # Voids 2 3 2 - Exam GENERAL: The patient is alert and oriented x3, not in any acute distress. Well developed, well nourished. HEENT: Pupils are round and equally reacting to light. EOMI. No scleral icterus. No conjunctival pallor. Normocephalic, atraumatic. No pharyngeal erythema. No thyromegaly. CARDIOVASCULAR: S1 and S2 present. No murmurs, rubs, or gallops. -PULMONARY: Chest is clear to auscultation, no wheezing or crackles. Left lateral chest wall tenderness ABDOMEN: Soft, nontender, nondistended, normoactive bowel sounds. No palpable organomegaly. MUSCULOSKELETAL: No joint swelling or deformity. EXTREMITIES: No cyanosis, clubbing, or pedal edema. NEUROLOGICAL: Gross neurological examination did not reveal any focal deficits. -SKIN: No rashes. No petechiae. Parietal area laceration and most laceration with ailyn, wounds are closed - Labs CBC & Chem 7: 06/04/19 06:21 06/04/19 06:14 Labs: Abnormal Lab Results - Last 24 Hours (Table) 06/04/19 06/04/19 Range/Units 06:14 06:21 RBC 2.52 L (4.30-5.90) m/uL Hgb 8.0 L (13.0-17.5) gm/dL Hct 25.0 L (39.0-53.0) % Lymphocytes # 0.8 L (1.0-4.8) k/uL Sodium 132 L (137-145) mmol/L Chloride 95 L (98-107) mmol/L Glucose 122 H (74-99) mg/dL Total Bilirubin 2.0 H (0.2-1.3) mg/dL Assessment and Plan Assessment: Syncope, was slightly related to his alcohol problem. Rule out cardiac causes head trauma with 6 cm laceration in the rectal region post 11 ialyn, associate with nasal and buccal laceration status post 3 stitches Surgical team were consulted from 80 they want patient to be admitted under medicine while they will be on consult Patient was started on pain medication Chronic heart failure, no acute exacerbation Alcoholic Liver cirrhosis Alcohol abuse at-risk of local withdrawal h/o Recurrent falls, related to his alcohol problem, generalized weakness and unsteady gait History of esophageal varices and GI bleed Chronic diastolic congestive heart failure, ejection fraction 60-65 History of pulmonary hypertension Plan: This is a pleasant 74 years old male who presents with alcohol abuse and atraumatic head continue with CIWA protocol, continue with same. With the patient and neuro check, surgical consultation is cleared patient for discharge. Monitor hemoglobin and sodium, appreciated cardiology and psychiatry input. Continue with telemetry Labs and medication were reviewed.. Continue same treatment. Continue with symptomatic treatment. Resume home medication. Monitor lytes and vitals. DVT and GI prophylaxis. Further recommendations of the clinical course of the patient DVT prophylaxis: Subcutaneous heparin GI Prophylaxis: Pepcid PT/OT: Pending Prognosis is guarded
[2019-06-05 05:32] VITALS: BP 117/56; PULSE 81; RESP 18
[2019-06-05 06:23] LABS: Basophils % (A) 1 %; Eosinophils # (A) 0.4 k/uL (0-0.7); Eosinophils % (A) 6 %; HCT 24.5 % (39.0-53.0); HGB 7.9 gm/dL (13.0-17.5); Hypochromasia Slight; Lymphocytes # (A) 0.9 k/uL (1.0-4.8); Lymphocytes % (A) 15 %; MCH 31.7 pg (25.0-35.0); MCHC 32.1 g/dL (31.0-37.0); MCV 98.7 fL (80.0-100.0); Mean Platelet Volume 6.9; Monocytes # (A) 0.5 k/uL (0-1.0); Monocytes % (A) 8 %; Neutrophils # (A) 3.9 k/uL (1.3-7.7); Neutrophils % (A) 66 %; Platelet Count 225 k/uL (150-450); RBC 2.48 m/uL (4.30-5.90); WBC 5.9 k/uL (3.8-10.6)
[2019-06-05 06:36] LABS: Albumin 3.4 g/dL (3.5-5.0); Calcium 8.9 mg/dL (8.4-10.2); Potassium 4.1 mmol/L (3.5-5.1); Total Bilirubin 1.4 mg/dL (0.2-1.3); Total Protein 6.9 g/dL (6.3-8.2)
[2019-06-05] MEDS: SPIRONOLACTONE 25 MG TAB PO SCH (08:59)
[2019-06-05] MEDS: FERROUS SULFATE 325 MG TAB PO SCH (08:59)
[2019-06-05] MEDS: FOLIC ACID 1 MG TAB PO SCH (08:59)
[2019-06-05] MEDS: METOPROLOL TARTRATE 25 MG TAB PO SCH (08:59)
[2019-06-05] MEDS: FAMOTIDINE 20 MG TAB PO SCH (08:59)
[2019-06-05] MEDS: FUROSEMIDE 20 MG TAB PO SCH (08:59)
[2019-06-05] MEDS: HEPARIN SODIUM,PORCINE 5,000 UNIT/ML 1 ML VIAL SQ SCH (09:00)
--- NOTE | 2019-06-05 11:34 | P.PN ---
Subjective HISTORY OF PRESENTING ILLNESS This is a pleasant 74-year-old male past medical history significant for hypertension, cirrhosis, esophageal varices, chronic alcohol abuse and PTSD and former nicotine dependence. He follows in the office with Jillian. He was seen and examined up ambulating around the room in no acute distress. He has had no further symptoms of syncope or dizziness. He denies chest pain, shortness of breath or palpitations. Telemetry tracings have been unremarkable and revealed persistent sinus mechanism. Echocardiogram obtained reveals preserved LV systolic function with ejection fraction 55-60%. Blood pressure 117/56 heart rate 81 afebrile maintaining oxygen saturation on room air. Laboratory data reviewed, WBC 5.9, hemoglobin 7.9, platelets 225, sodium 129, potassium 4.1, creatinine 1.21. PHYSICAL EXAMINATION CONSTITUTIONAL: No apparent distress. HEENT: Head is normocephalic. Pupils are equal, round. Sclerae anicteric. Mucous membranes of the mouth are moist. No JVD. No carotid bruit. CHEST EXAMINATION: Lungs are clear to auscultation. No chest wall tenderness is noted on palpation or with deep breathing. HEART EXAMINATION: Regular rate and rhythm. S1, S2 heard. Systolic ejection murmur at the base, no gallops or rub. EXTREMITIES: 2+ peripheral pulses, no lower extremity edema and no calf t enderness. ASSESSMENT Syncope, likely vasovagal in nature Alcohol intoxication Hyponatremia Anemia Aortic stenosis Hypertension Esophageal varices Cirrhosis PLAN No arrhythmia noted. Syncope likely related to vasovagal reaction secondary to alcohol intake. Follow up with Dr. Walsh upon discharge. Nurse Practitioner note has been reviewed, I agree with a documented findings and plan of care. Patient was seen and examined. Objective - Vital Signs Vital signs: Vital Signs Temp 98.2 F 06/05/19 05:00 Pulse 81 06/05/19 05:00 Resp 18 06/05/19 05:00 BP 117/56 06/05/19 05:00 Pulse Ox 95 06/05/19 05:00 Intake & Output 06/04/19 06/05/19 06/05/19 18:59 06:59 18:59 Intake Total 720 Balance 720 Intake: Oral 720 Other: Voiding Method Toilet # Voids 3 2 - Labs CBC & Chem 7: 06/05/19 05:39 06/05/19 05:39 Labs: Abnormal Lab Results - Last 24 Hours (Table) 06/05/19 06/05/19 Range/Units 05:39 05:39 RBC 2.48 L (4.30-5.90) m/uL Hgb 7.9 L (13.0-17.5) gm/dL Hct 24.5 L (39.0-53.0) % Lymphocytes # 0.9 L (1.0-4.8) k/uL Sodium 129 L (137-145) mmol/L Chloride 93 L (98-107) mmol/L Total Bilirubin 1.4 H (0.2-1.3) mg/dL Albumin 3.4 L (3.5-5.0) g/dL
--- NOTE | 2019-06-05 15:21 | P.DS ---
Providers Date of admission: 06/03/19 03:16 Expected date of discharge: 06/05/19 Attending physician: Hermelinda Mercado Consults: 06/03/19 02:43 Consult Physician Stat Consulting Provider: Rio Encinas Consult Reason/Comments: Head injury or trauma, fall, alcohol intoxication Do you want consulting provider notified?: Yes 06/03/19 11:23 Consult Physician Routine Consulting Provider: Holly Thomas Consult Reason/Comments: syncope Do you want consulting provider notified?: Yes 06/03/19 11:29 Consult Physician Routine Consulting Provider: John Bloom Consult Reason/Comments: Alcohol abuse, with depression Do you want consulting provider notified?: Yes Primary care physician: Nora Moran Hospital Course: Final diagnosis Syncope head trauma with 6 cm laceration associate with nasal and buccal laceration Chronic heart failure, no acute exacerbation Alcoholic Liver cirrhosis Alcohol abuse h/o Recurrent falls, related to his alcohol problem, generalized weakness and unsteady gait History of esophageal varices and GI bleed Chronic diastolic congestive heart failure, ejection fraction 60-65 History of pulmonary hypertension Discharge disposition Patient is being discharged in a stable condition with guarded prognosis to home and will follow-up with Dr. Nora Moran upon discharge. Patient will also follow-up with cardiology Dr. Walsh in the outpatient setting. Total time taken is 35 minutes. History of present illness This is a 74-year-old male who was recently admitted status post fall with loss of consciousness and possible syncope associated with head and facial lacerations and was being closely monitored. Patient does have a history of EtOH abuse. Patient was evaluated by surgery recommending outpatient follow-up at primary care office for suture and staple removal of the head laceration and facial lacerations. Patient was seen and evaluated by cardiology recommending outpatient follow-up with Dr. Walsh. During hospitalization patient underwent CT of the brain and spine showing no acute changes. Patient underwent echo showing overall left ventricular systolic function is normal with an EF between 55 and 60% with some mild mitral and tricuspid regurgitation present. Discussed with the patient at length about avoiding alcohol intake. Patient verbalized understanding. Patient states that he lives with his [id number] and will continue to do so in the outpatient setting. Currently no reports of chest pain, shortness of breath, or palpitations. Patient is afebrile. No reports of nausea or vomiting and patient is tolerating diet. Patient was given some by mouth Ativan and instructed to use as needed for any acute alcohol withdrawal symptoms. Patient also instructed to continue with daily thiamine along with multivitamins daily. Recommended repeat labs in a few days to monitor hemoglobin and electrolytes. Patient will be discharged home today. On exam vital signs are stable. Temp is 98.2F, pulse is 81, respirations are 18, blood pressure is 117/56, oxygen saturation is 95% on room air. Cardio S1, S2 are muffled. Respiratory shows diminished breath sounds at the bases otherwise clear to auscultation. Abdomen is soft and nontender. Nervous system shows no focal deficits. Please refer to medication reconciliation sheet for a list of medications. Patient Condition at Discharge: Good Plan - Discharge Summary Discharge Rx Participant: No New Discharge Prescriptions: New LORazepam [Ativan] 1 mg PO TID PRN #9 tab PRN Reason: Anxiety Multivitamins, Thera [Multivitamin] 1 tab PO DAILY #30 tablet traMADol HCl [Ultram] 50 mg PO Q6H PRN #10 tab PRN Reason: Moderate Pain Continue Spironolactone [Aldactone] 25 mg PO DAILY #30 tab Metoprolol Tartrate [Lopressor] 25 mg PO BID@0900,1600 Ferrous Sulfate [Feosol] 325 mg PO BID #60 tab Furosemide [Lasix] 20 mg PO BID@0900,1600 #60 tab Folic Acid 1 mg PO DAILY@1200 #30 tab Discharge Medication List Spironolactone [Aldactone] 25 mg PO DAILY #30 tab 05/13/18 [Rx] Metoprolol Tartrate [Lopressor] 25 mg PO BID@0900,1600 05/21/18 [History] Ferrous Sulfate [Feosol] 325 mg PO BID #60 tab 05/25/18 [Rx] Furosemide [Lasix] 20 mg PO BID@0900,1600 #60 tab 05/26/18 [Rx] Folic Acid 1 mg PO DAILY@1200 #30 tab 01/28/19 [Rx] LORazepam [Ativan] 1 mg PO TID PRN #9 tab 06/05/19 [Rx] Multivitamins, Thera [Multivitamin] 1 tab PO DAILY #30 tablet 06/05/19 [Rx] traMADol HCl [Ultram] 50 mg PO Q6H PRN #10 tab 06/05/19 [Rx] Follow up Appointment(s)/Referral(s): Nora Moran MD [Primary Care Provider] - 1-2 days (patient will have to call and schedule own appt,office is closed at this time) German Walsh MD [STAFF PHYSICIAN] - 06/26/19 2:30 pm Ambulatory/Diagnostic Orders: Basic Metabolic Panel [LAB.AMB] Time Frame: 2 Days, Location: None Selected Complete Blood Count w/diff [LAB.AMB] Time Frame: 2 Days, Location: None Selected Patient Instructions/Handouts: Staple Care (DC), Fall Prevention (ED) Activity/Diet/Wound Care/Special Instructions: Activity Limited until follow-up Follow-up with primary care provider upon discharge Continue current diet Follow-up with cardiology in the outpatient setting Avoid all alcohol intake Repeat labs in 2-3 days Discharge Disposition: HOME SELF-CARE
== END 2019-06-05 12:42 | disposition home or self-care (01) ==
LOC: EC 00:10 → 5NMEDONC 03:16
PROVIDERS: ADMIT Hospitalist; ATTEND Hospitalist
DX: S01.01XA Laceration without foreign body of scalp, initial encounter (principal); S01.512A Laceration without foreign body of oral cavity, initial encounter; W18.30XA Fall on same level, unspecified, initial encounter; F10.229 Alcohol dependence with intoxication, unspecified; K70.30 Alcoholic cirrhosis of liver without ascites; Y90.8 Blood alcohol level of 240 mg/100 ml or more; I85.10 Secondary esophageal varices without bleeding; I11.0 Hypertensive heart disease with heart failure; I50.32 Chronic diastolic (congestive) heart failure; I44.4 Left anterior fascicular block; I35.0 Nonrheumatic aortic (valve) stenosis; I27.20 Pulmonary hypertension, unspecified; D64.9 Anemia, unspecified; E87.1 Hypo-osmolality and hyponatremia; F32.9 Major depressive disorder, single episode, unspecified; F43.10 Post-traumatic stress disorder, unspecified; Z79.899 Other long term (current) drug therapy; Z82.49 Family history of ischemic heart disease and other diseases of the circulatory system; Z87.19 Personal history of other diseases of the digestive system; Z87.891 Personal history of nicotine dependence; Z91.81 History of falling
CPT/HCPCS: 12002; 12011; 96376 ×2; 96372 ×3; 96374; 96375 ×2; 82075; 99285; 36415; 93005; 93306; 97161; 97165; 80053 ×3; 85025 ×3; 85610; 85730; 71101; 73080; 71046; 72125; 70450; G0378 ×3; G0480; J2060; J2270 ×2; J1644 ×3; J2405; 80320

== ENCOUNTER 2022-06-18 08:36 | Emergency (ER) | payer MEDICARE ==
[2022-06-18 08:41] VITALS: RESP 18; TEMP 98.1
[2022-06-18] MEDS ORDERED: BACITRACIN OINT 1 EACH PACKET TOPICAL ONE (08:59)
[2022-06-18] MEDS ORDERED: LIDOCAINE 1% INJ 10MG/ML (30 ML VIAL-PF) SQ ONE (08:59)
--- NOTE | 2022-06-18 09:03 | ED ---
Fall HPI - General Chief Complaint: Fall Stated Complaint: Fall,Head Injury Time Seen by Provider: 06/18/22 08:43 Source: patient, EMS Mode of arrival: EMS - History of Present Illness Initial Comments: This is a nontoxic appearing 77-year-old male, alert and oriented, that presents to the emergency room with complaints of trip and fall at home hitting his head on the wood floor sustaining a scalp laceration. Denies any loss of consciousness. Does not take any blood thinners. Denies any dizziness, no nausea vomiting. 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 Place Fall Occurred: home Loss of Consciousness: none Prolonged Down Time?: no Symptoms Prior to Fall: none Location: head Location - Extremities: Left: Elbow, Hand Severity scale (1-10): 2 Context: tripped/slipped Associated Symptoms: denies - Related Data Home Medications Medication Instructions Recorded Confirmed Citalopram Hydrobromide [CeleXA] 10 mg PO DAILY 06/18/22 06/18/22 Ferrous Sulfate [Feosol] 325 mg PO DAILY 06/18/22 06/18/22 Folic Acid 1 mg PO DAILY 06/18/22 06/18/22 Lactulose [Constulose] 20 gm PO DAILY 06/18/22 06/18/22 Pantoprazole Sodium [Protonix] 40 mg PO BID 06/18/22 06/18/22 Propranolol [Inderal] 20 mg PO TID 06/18/22 06/18/22 Thiamine [Vitamin B-1] 100 mg PO DAILY 06/18/22 06/18/22 Torsemide [Demadex] 20 mg PO DAILY 06/18/22 06/18/22 Allergies Allergy/AdvReac Type Severity Reaction Status Date / Time No Known Allergies Allergy Verified 06/18/22 11:16 Review of Systems ROS Statement: Those systems with pertinent positive or pertinent negative responses have been documented in the HPI. ROS Other: All systems not noted in ROS Statement are negative. Past Medical History Past Medical History: Heart Failure, GI Bleed, Hypertension, Liver Disease Additional Past Medical History / Comment(s): hx of liver cirrhosis, hx esophageal varices, STATES PAST HX OF COLON POLYP-benign,PREVIOUS HX OF HTN but OFF MEDICATIONS for over a year, History of Any Multi-Drug Resistant Organisms: None Reported Past Surgical History: Tonsillectomy Additional Past Surgical History / Comment(s): EGD WITH BANDING OF VARICES, PREV. COLONOSCOPIES, egd Past Anesthesia/Blood Transfusion Reactions: No Reported Reaction Past Psychological History: PTSD Smoking Status: Former smoker Past Alcohol Use History: Heavy Past Drug Use History: None Reported - Past Family History Mother Family Medical History: Cancer Additional Family Medical History / Comment(s): COLON Father Family Medical History: Coronary Artery Disease (CAD) Additional Family Medical History / Comment(s): valve replacment, cataracts General Exam Limitations: no limitations General appearance: alert, in no apparent distress Head exam: Present: normocephalic, other (3cm left scalp laceration) Eye exam: Present: normal appearance, PERRL, EOMI. Absent: scleral icterus, conjunctival injection, periorbital swelling, periorbital tenderness ENT exam: Present: normal oropharynx, mucous membranes moist Neck exam: Present: full ROM. Absent: tenderness, meningismus Respiratory exam: Absent: respiratory distress, accessory muscle use Cardiovascular Exam: Present: regular rate GI/Abdominal exam: Present: soft. Absent: distended, tenderness, guarding, rebound, rigid Extremities exam: Present: normal capillary refill, pedal edema. Absent: tenderness, joint swelling, calf tenderness Neurological exam: Present: alert, oriented X3, CN II-XII intact Psychiatric exam: Present: normal affect, normal mood Skin exam: Present: warm, dry, normal color. Absent: cyanosis, diaphoretic, petechiae, pallor Course Vital Signs 06/18/22 06/18/22 06/18/22 08:37 09:14 09:51 Temperature 98.1 F Pulse Rate 59 L 58 L 56 L Respiratory 18 18 18 Rate Blood Pressure 107/59 108/52 O2 Sat by Pulse 96 99 Oximetry 06/18/22 11:29 Temperature Pulse Rate 68 Respiratory 18 Rate Blood Pressure 106/55 O2 Sat by Pulse 99 Oximetry Procedures - Laceration Laceration #1 Consent Obtained: verbal consent Site: scalp Size (cm): 3 Description: linear Depth: simple, single layer Anesthetic Used: lidocaine 1% Anesthesia Technique: local infiltration Pre-repair: irrigated extensively Type of Sutures: nylon Size of Sutures: 5-0 Number of Sutures: 5 Technique: simple, interrupted Patient Tolerated Procedure: well, no complications Medical Decision Making - Medical Decision Making Patient tripped at home today falling and sustaining a laceration to the scalp. Is complaining of a headache. Does not take any blood thinners. States did not lose consciousness. He denies any dizziness, chest pain or shortness of breath. He has no focal neurological deficits. This fall was unwitnessed and due to significant laceration to the scalp and patient's history of EtOH abuse, CT brain and C-spine was ordered. States he has been alcohol free for [address] of the brain interpreted by me shows no evidence of intracranial bleed, mass or midline shift. Radiologist interpretation no acute fracture or dislocation of cervical spine. Multilevel degenerative changes. No acute intracranial hemorrhage or midline shift seen. Mild to moderate diffuse cerebral atrophy with chronic small vessel ischemic change without significant change from prior dated 06/03/19 Acute comminuted slightly displaced fracture of the proximal left clavicle at the sternal insertion without sternoclavicular dislocation. Patient denies pain with palpation or movement of the left shoulder and arm. Chest x-ray ordered due to the finding on CT showing clavicular fracture. Chest x-ray interpreted by me shows no evidence of focal consolidation. No evidence of clavicle fracture. Radiologist interpretation no acute pulmonary process. No displaced rib fractures are evident no pneumothorax is seen. Scalp laceration was copiously irrigated and closed with 5 sutures. Skin tears to the hand and elbow were dressed with bacitracin dressing. Tetanus was updated at this visit. Patient discharged home with family who states that they are planning to reestablish with Dr. Melendez now that he just moved back here from [place] last n ight. They were directed to have sutures removed in 5-7 days. Return to the emergency room pain or concerning symptoms. Patient agreeable and family agreeable to this plan of care. Case discussed with Dr. Kuo Was pt. sent in by a medical professional or institution (, PA, ARCHITECTURAL PROJECT CAPTAIN, urgent care, hospital, or longterm...) When possible be specific @ -No Did you speak to anyone other than the patient for history (EMS, parent, family, police, friend...)? What history was obtained from this source @ -Patient's daughter at bedside states he just moved here from [place] and they are going to reestablish care with Dr. melendez Did you review nursing and triage notes (agree or disagree)? Why? @ -I reviewed and agree with nursing and triage notes Were old charts reviewed (outside hosp., previous admission, EMS record, old EKG, old radiological studies, urgent care reports/EKG's, longterm records)? Report findings @ -No old charts were reviewed Differential Diagnosis (chest pain, altered mental status, abdominal pain women, abdominal pain men, vaginal bleeding, weakness, fever, dyspnea, syncope, headache, dizziness, GI bleed, back pain, seizure, CVA, palpatations, mental health, musculoskeletal)? @ -Intracranial bleed, skull fracture, laceration, abrasions, skin tears, this is not all inclusive list EKG interpreted by me (3pts min.). @ -As above X-rays interpreted by me (1pt min.). @ -Yes as above CT interpreted by me (1pt min.). @ -Yes as above U/S interpreted by me (1pt. min.). @ -None done What testing was considered but not performed or refused? (CT, X-rays, U/S, labs)? Why? @ -None What meds were considered but not given or refused? Why? @ -None Did you discuss the management of the patient with other professionals (professionals i.e. , PA, ARCHITECTURAL PROJECT CAPTAIN, lab, RT, psych nurse, social worker psychiatric, railroad firer/fireman, teacher, army senior officer, case worker)? Give summary @ -No Was smoking cessation discussed for >3mins.? @ -No Was critical care preformed (if so, how long)? @ -No Were there social determinants of health that impacted care today? How? (Homelessness, low income, unemployed, alcoholism, drug addiction, transportation, low edu. Level, literacy, decrease access to med. care, half-way, rehab)? @ -No Was there de-escalation of care discussed even if they declined (Discuss DNR or withdrawal of care, Hospice)? DNR status @ -No What co-morbidities impacted this encounter? (DM, HTN, Smoking, COPD, CAD, Cancer, CVA, ARF, Chemo, Hep., AIDS, mental health diagnosis, sleep apnea, morbid obesity)? @ -Patient has a history of heart failure, GI bleed, hypertension, cirrhosis, PTSD history of alcohol abuse has been alcohol free for 10 weeks Was patient admitted / discharged? Hospital course, mention meds given and route, prescriptions, significant lab abnormalities, going to OR and other pertinent info. @ -Discharged Undiagnosed new problem with uncertain prognosis? @ -No Drug Therapy requiring intensive monitoring for toxicity (Heparin, Nitro, Insulin, Cardizem)? @ -No Were any procedures done? @ -Laceration repair Diagnosis/symptom? @ -Fall, scalp laceration, minor head injury, skin tears Acute, or Chronic, or Acute on Chronic? @ -Acute Uncomplicated (without systemic symptoms) or Complicated (systemic symptoms)? @ -Uncomplicated Side effects of treatment? @ -No Exacerbation, Progression, or Severe Exacerbation? @ -No Poses a threat to life or bodily function? How? (Chest pain, [place], ME, pneumonia, PE, COPD, DKA, ARF, appy, cholecystitis, CVA, Diverticulitis, Homicidal, Suicidal, threat to staff... and all critical care pts) @ -No Disposition Clinical Impression: Fall, Laceration of scalp, Minor head trauma Disposition: HOME SELF-CARE Condition: Good Instructions (If sedation given, give patient instructions): Care For Your Stitches (ED), Laceration (ED), Fall Prevention for Older Adults (ED), Head Injury (ED) Additional Instructions: Sutures to be removed in 5-7 days. Follow-up with your primary care doctor next week. Return to the emergency room with any new or concerning symptoms. Is patient prescribed a controlled substance at d/c from ED?: No Referrals: Nora Moran MD [Primary Care Provider] - 06/22/22 1:15 pm Forms: Community Resources, Help In The Home Time of Disposition: 11:11
--- NOTE | 2022-06-18 10:34 | CT ---
EXAMINATION TYPE: CT brain cspine wo con DATE OF EXAM: 06/18/2022 COMPARISON: Prior trauma CT June 03, 2019 HISTORY: Fall, head injury with neck pain. CT DLP: 1432.4 mGycm. Automated Exposure Control for Dose Reduction was Utilized. TECHNIQUE: CT scan of the head and cervical spine are performed without contrast. FINDINGS: There is no acute intracranial hemorrhage or midline shift identified. Mild to moderate v entricular and sulcal prominence is redemonstrated. Mild to moderate low attenuation in the deep and periventricular white matter is redemonstrated. Scleral calcification right globe. Small acute scalp hematoma left frontal region maximum 44. The calvarium is intact. The globes are intact and the visua lized sinuses are clear. Cervical spine is visualized in its entirety from C1 through upper thoracic levels and demonstrates e xaggerated cervical curvature without evidence of acute fracture or dislocation. Prevertebral soft t issue appears within normal limits. The C1-C2 articulation is within normal limits on the coronal im ages. Vertebral body heights are maintained. Moderate disc space narrowing and spurring C5-C6 and C7 -T1 levels is redemonstrated. Spinal canal is grossly preserved. Review of the axial images shows mul tilevel uncovertebral facet degenerative changes contributing to multilevel bilateral neural foramina l narrowing. Lung apices show no pneumothorax. There is acute comminuted minimally displaced fracture of the proximal right clavicle at the sternoclavicular joint without dislocation. IMPRESSION: 1. There is no acute fracture or dislocation evident in the cervical spine. Exaggerated curvature wit h fairly moderate multilevel degenerative changes are redemonstrated as detailed above. 2. No acute intracranial hemorrhage or midline shift is seen. There is [id number] diffuse cereb ral atrophy and chronic small vessel ischemic change redemonstrated without significant change from p rior. 3. Acute comminuted slightly displaced fracture of the proximal left clavicle at the sternal insertio n without sternoclavicular dislocation.
[2022-06-18] MEDS ORDERED: DIPH,PERTUS(ACELL)TETVAC-LF 0.5 ML VIAL IM ONE (10:42)
--- NOTE | 2022-06-18 10:56 | XR ---
EXAMINATION TYPE: XR chest 2V DATE OF EXAM: 06/18/2022 COMPARISON: 06/03/2019 INDICATION: Fall TECHNIQUE: Frontal and lateral views of the chest are obtained. FINDINGS: The heart size is normal. The pulmonary vasculature is normal. The lungs are clear. No displaced rib fractures are evident. No pneumothorax is evident. IMPRESSION: 1. No acute pulmonary process.
[2022-06-18 11:30] VITALS: BP 106/55; PULSE 68
== END 2022-06-18 11:30 | disposition home or self-care (01) ==
LOC: EC 08:36
DX: S01.01XA Laceration without foreign body of scalp, initial encounter (principal); I11.0 Hypertensive heart disease with heart failure; I50.9 Heart failure, unspecified; Z87.891 Personal history of nicotine dependence; W01.10XA Fall on same level from slipping, tripping and stumbling with subsequent striking against unspecified object, initial encounter
CPT/HCPCS: 71046; 72125; 70450; 99284; J2001

== ENCOUNTER 2022-06-22 14:03 | Observation (INO) | payer MEDICARE ==
[2022-06-22] MEDS ORDERED: SODIUM CHLORIDE 0.9% 1,000 ML IV STA (14:39)
--- NOTE | 2022-06-22 14:40 | ED ---
Weakness HPI - General Chief complaint: Shortness of Breath Stated complaint: weakness Time Seen by Provider: 06/22/22 14:39 Source: EMS, RN notes reviewed, old records reviewed Mode of arrival: EMS Limitations: no limitations - History of Present Illness Initial comments: This is a 77-year-old male to the ER for evaluation patient presents today for evaluation regards to weakness on his unable to ambulate significant debility. No fevers no travel history or sick contacts no headache chest pain shortness of breath or abdominal pain MD Complaint: generalized weakness, lack of energy, difficulty walking -: unknown Location: generalized Severity: moderate Quality: aching Consistency: constant Improves with: none Worsens with: none Context: recent illness, history of similar Associated Symptoms: denies other symptoms - Related Data Home Medications Medication Instructions Recorded Confirmed Folic Acid 1 mg PO DAILY 06/18/22 06/22/22 Pantoprazole Sodium [Protonix] 40 mg PO BID 06/18/22 06/22/22 Thiamine [Vitamin B-1] 100 mg PO DAILY 06/18/22 06/22/22 Torsemide [Demadex] 20 mg PO DAILY 06/18/22 06/22/22 Allergies Allergy/AdvReac Type Severity Reaction Status Date / Time No Known Allergies Allergy Verified 06/22/22 15:13 Review of Systems ROS Statement: Those systems with pertinent positive or pertinent negative responses have been documented in the HPI. ROS Other: All systems not noted in ROS Statement are negative. Past Medical History Past Medical History: Heart Failure, GI Bleed, Hypertension, Liver Disease Additional Past Medical History / Comment(s): hx of liver cirrhosis, hx esophageal varices, STATES PAST HX OF COLON POLYP-benign,PREVIOUS HX OF HTN but OFF MEDICATIONS for over a year, History of Any Multi-Drug Resistant Organisms: None Reported Past Surgical History: Tonsillectomy Additional Past Surgical History / Comment(s): EGD WITH BANDING OF VARICES, PREV. COLONOSCOPIES, egd Past Anesthesia/Blood Transfusion Reactions: No Reported Reaction Past Psychological History: PTSD Smoking Status: Former smoker, Light tobacco smoker Past Alcohol Use History: Heavy Past Drug Use History: None Reported - Past Family History Mother Family Medical History: Cancer Additional Family Medical History / Comment(s): COLON Father Family Medical History: Coronary Artery Disease (CAD) Additional Family Medical History / Comment(s): valve replacment, cataracts General Exam Limitations: altered mental status General appearance: alert, in no apparent distress, cachectic Head exam: Present: atraumatic, normocephalic, normal inspection Eye exam: Present: normal appearance, PERRL, EOMI. Absent: scleral icterus, co njunctival injection, periorbital swelling ENT exam: Present: normal exam, mucous membranes dry Neck exam: Present: normal inspection. Absent: tenderness, meningismus, lymphadenopathy Respiratory exam: Present: normal lung sounds bilaterally. Absent: respiratory distress, wheezes, rales, rhonchi, stridor Cardiovascular Exam: Present: regular rate, normal rhythm, normal heart sounds. Absent: systolic murmur, diastolic murmur, rubs, gallop, clicks GI/Abdominal exam: Present: soft, normal bowel sounds. Absent: distended, tenderness, guarding, rebound, rigid Extremities exam: Present: normal inspection, full ROM, normal capillary refill. Absent: tenderness, pedal edema, joint swelling, calf tenderness Back exam: Present: normal inspection Neurological exam: Present: alert, oriented X3, CN II-XII intact Psychiatric exam: Present: normal affect, normal mood Skin exam: Present: warm, dry, intact, normal color. Absent: rash Course Vital Signs 06/22/22 06/22/22 14:07 17:00 Temperature 97.6 F Pulse Rate 77 76 Respiratory 20 18 Rate Blood Pressure 125/57 130/84 O2 Sat by Pulse 99 97 Oximetry - Reevaluation(s) Reevaluation #1: 06/22/22 19:04 Medical record is reviewed Reevaluation #2: 06/22/22 19:05 Mild improvement with hydration here in the ER Reevaluation #3: 06/22/22 19:05 Patient informed results and questions answered Reevaluation #4: 06/22/22 19:22 Was pt. sent in by a medical professional or institution? @ -no Did you speak to anyone other than the patient for history? @ -no Did you review nursing and triage notes? @ -agree Were old charts reviewed? @ -no Differential Diagnosis? @ -weakness EKG interpreted by me (3pts min.)? @ -yes X-rays interpreted by me (1pt min.)? @ -yes CT interpreted by me (1pt min.)? @ -no U/S interpreted by me (1pt. min.)? @ -no What testing was considered but not performed? (CT, X-rays, U/S, labs)? Why? @ -no What meds were considered but not given? Why? @ -no Did you discuss the management of the patient with other professionals? @ -no Did you reconcile home meds? @ -yes Was smoking cessation discussed for >3mins.? @ -no Was critical care preformed (if so, how long)? @ -no Were there social determinants of health that impacted care today? How? (Homelessness, low income, unemployed, alcoholism, drug addiction, transportation, low edu. Level, literacy, decrease access to med. care, usp, rehab)? @ -no Was there de-escalation of care discussed even if they declined? (Discuss DNR or withdrawal of care, Hospice)? @ -no What co-morbidities impacted this encounter? (DM, HTN, Smoking, COPD, CAD, Cancer, CVA,, sleep apnea, morbid obesity) @ -no Was patient admitted / discharged? @ -dc Undiagnosed new problem with uncertain prognosis? @ -no Drug Therapy requiring intensive monitoring for toxicity (Heparin, Nitro, Insulin, Cardizem)? @ -no Were any procedures done? @ -no Diagnosis/symptom? @ -weakness Acute, or Chronic, or Acute on Chronic? @ -chronic Uncomplicated (without systemic symptoms) or Complicated (systemic symptoms)? @ -uncomplicated Side effects of treatment? @ -no Exacerbation, Progression, or Severe Exacerbation] @ -no Poses a threat to life or bodily function? @ -no Reevaluation #5: 06/22/22 19:05 Differential Weakness: Hypoglycemia, shock, sepsis, hyponatremia, anemia, infection, MA, ETOH, adverse medicine reaction, overdose, stroke, this is not meant to be an all-inclusive list. - Consultations Consultation #1: Spoke with Admitting physician who agrees to admit this patient EKG Findings - EKG Comments: EKG Findings:: EKG shows sinus rhythm 74 [place] 182 QRS 158 QTc 454 Medical Decision Making - Medical Decision Making 77 male DF for evaluation. Patient to go to his doctor's appointment patient was found to be covered in stool urine and unable to ambulate severely weak. EMS was called the patient presents to the emergency prior. No acute cause found for symptoms and states he feels better with hydration likely just dehydration underlying failure to thrive. Patient has known at home and take care of family does check on him but states that this is the worst he's been recently. Was in the ER a week ago for a fall with a head injury and laceration. - Lab Data Result diagrams: 06/22/22 14:57 06/22/22 14:57 Lab Results 06/22/22 06/22/22 06/22/22 Range/Units 14:57 14:57 14:57 WBC 3.6 L (3.8-10.6) k/uL RBC 2.76 L (4.30-5.90) m/uL Hgb 7.3 L (13.0-17.5) gm/dL Hct 23.1 L (39.0-53.0) % MCV 83.7 (80.0-100.0) fL MCH 26.6 (25.0-35.0) pg MCHC 31.8 (31.0-37.0) g/dL RDW 21.6 H (11.5-15.5) % Plt Count 156 (150-450) k/uL MPV 8.4 Neutrophils % 61 % Lymphocytes % 13 % Monocytes % 11 % Eosinophils % 11 % Basophils % 0 % Neutrophils # 2.2 (1.3-7.7) k/uL Lymphocytes # 0.5 L (1.0-4.8) k/uL Monocytes # 0.4 (0-1.0) k/uL Eosinophils # 0.4 (0-0.7) k/uL Basophils # 0.0 (0-0.2) k/uL Anisocytosis Moderate Microcytosis Slight PT 12.0 (9.0-12.0) sec INR 1.2 H (<1.2) APTT 29.2 (22.0-30.0) sec Sodium 136 L (137-145) mmol/L Potassium 4.2 (3.5-5.1) mmol/L Chloride 107 (98-107) mmol/L Carbon Dioxide 23 (22-30) mmol/L Anion Gap 6 mmol/L BUN 22 H (9-20) mg/dL Creatinine 1.19 (0.66-1.25) mg/dL Est GFR (CKD-EPI)AfAm 68 (>60 ml/min/1.73 sqM) Est GFR (CKD-EPI)NonAf 59 (>60 ml/min/1.73 sqM) Glucose 115 H (74-99) mg/dL Plasma Lactic Acid [place] (0.7-2.0) mmol/L Calcium 8.4 (8.4-10.2) mg/dL Phosphorus 3.1 (2.5-4.5) mg/dL Magnesium 1.9 (1.6-2.3) mg/dL Total Bilirubin 1.0 (0.2-1.3) mg/dL AST 31 (17-59) U/L ALT 16 (4-49) U/L Alkaline Phosphatase 108 (38-126) U/L Troponin I (0.000-0.034) ng/mL Total Protein 6.6 (6.3-8.2) g/dL Albumin 3.1 L (3.5-5.0) g/dL Urine Color Urine Appearance (Clear) Urine pH (5.0-8.0) Ur Specific [place] (1.001-1.035) Urine Protein (Negative) Urine Glucose (UA) (Negative) Urine Ketones (Negative) Urine Blood (Negative) Urine Nitrite (Negative) Urine Bilirubin (Negative) Urine Urobilinogen (<2.0) mg/dL Ur Leukocyte Esterase (Negative) 06/22/22 06/22/22 06/22/22 Range/Units 14:57 14:57 15:30 WBC (3.8-10.6) k/uL RBC (4.30-5.90) m/uL Hgb (13.0-17.5) gm/dL Hct (39.0-53.0) % MCV (80.0-100.0) fL MCH (25.0-35.0) pg MCHC (31.0-37.0) g/dL RDW (11.5-15.5) % Plt Count (150-450) k/uL MPV Neutrophils % % Lymphocytes % % Monocytes % % Eosinophils % % Basophils % % Neutrophils # (1.3-7.7) k/uL Lymphocytes # (1.0-4.8) k/uL Monocytes # (0-1.0) k/uL Eosinophils # (0-0.7) k/uL Basophils # (0-0.2) k/uL Anisocytosis Microcytosis PT (9.0-12.0) sec INR (<1.2) APTT (22.0-30.0) sec Sodium (137-145) mmol/L Potassium (3.5-5.1) mmol/L Chloride (98-107) mmol/L Carbon Dioxide (22-30) mmol/L Anion Gap mmol/L BUN (9-20) mg/dL Creatinine (0.66-1.25) mg/dL Est GFR (CKD-EPI)AfAm (>60 ml/min/1.73 sqM) Est GFR (CKD-EPI)NonAf (>60 ml/min/1.73 sqM) Glucose (74-99) mg/dL Plasma Lactic Acid [place] 1.3 (0.7-2.0) mmol/L Calcium (8.4-10.2) mg/dL Phosphorus (2.5-4.5) mg/dL Magnesium (1.6-2.3) mg/dL Total Bilirubin (0.2-1.3) mg/dL AST (17-59) U/L ALT (4-49) U/L Alkaline Phosphatase (38-126) U/L Troponin I <0.012 (0.000-0.034) ng/mL Total Protein (6.3-8.2) g/dL Albumin (3.5-5.0) g/dL Urine Color Yellow Urine Appearance Clear (Clear) Urine pH 6.5 (5.0-8.0) Ur Specific [place] 1.015 (1.001-1.035) Urine Protein Negative (Negative) Urine Glucose (UA) Negative (Negative) Urine Ketones Negative (Negative) Urine Blood Negative (Negative) Urine Nitrite Negative (Negative) Urine Bilirubin Negative (Negative) Urine Urobilinogen 4.0 (<2.0) mg/dL Ur Leukocyte Esterase Negative (Negative) - Radiology Data Radiology results: report reviewed (Chest x-rays negative for acute disease), image reviewed Disposition Clinical Impression: Weakness, Anemia, Failure to thrive Disposition: ADMITTED IP TO THIS [facility] Condition: Fair Is patient prescribed a controlled substance at d/c from ED?: No Time of Disposition: 16:45
--- NOTE | 2022-06-22 15:27 | XR ---
EXAMINATION TYPE: XR chest 1V portable DATE OF EXAM: 06/22/2022 HISTORY: Shortness of breath. COMPARISON: 06/18/2022 TECHNIQUE: Single view of the chest is submitted. FINDINGS: Demonstrated are scattered senescent parenchymal change. There is no evidence for focal infiltrate. The heart is stable. Hilar and mediastinal structures are within normal limits. Degenerative changes are seen of the dorsal spine. IMPRESSION: 1. Chronic changes without evidence for acute pulmonary disease.
[2022-06-22 15:48] LABS: Albumin 3.1 g/dL (3.5-5.0); Calcium 8.4 mg/dL (8.4-10.2); Magnesium 1.9 mg/dL (1.6-2.3); Phosphorus 3.1 mg/dL (2.5-4.5); Potassium 4.2 mmol/L (3.5-5.1); Total Protein 6.6 g/dL (6.3-8.2)
[2022-06-22 16:24] LABS: INR 1.2 (<1.2); Partial Thromboplastin Time 29.2 sec (22.0-30.0)
[2022-06-22 16:37] LABS: Appearance,Urine Clear (Clear); Bilirubin,Urine Negative (Negative); Blood,Urine Negative (Negative); Color,Urine Yellow; Glucose,Urine (UA) Negative (Negative); Ketones,Urine Negative (Negative); Leukocyte Esterase,Urine Negative (Negative); Nitrite,Urine Negative (Negative); PH, Urine 6.5 (5.0-8.0); Protein,Urine Negative (Negative); Specific Gravity,Urine 1.015 (1.001-1.035)
[2022-06-22 16:47] LABS: Anisocytosis Moderate; Basophils % (A) 0 %; Eosinophils # (A) 0.4 k/uL (0-0.7); Eosinophils % (A) 11 %; HCT 23.1 % (39.0-53.0); HGB 7.3 gm/dL (13.0-17.5); Lymphocytes # (A) 0.5 k/uL (1.0-4.8); Lymphocytes % (A) 13 %; MCH 26.6 pg (25.0-35.0); MCHC 31.8 g/dL (31.0-37.0); MCV 83.7 fL (80.0-100.0); Mean Platelet Volume 8.4; Microcytosis Slight; Monocytes # (A) 0.4 k/uL (0-1.0); Monocytes % (A) 11 %; Neutrophils # (A) 2.2 k/uL (1.3-7.7); Neutrophils % (A) 61 %; Platelet Count 156 k/uL (150-450); RBC 2.76 m/uL (4.30-5.90); RDW 21.6 % (11.5-15.5); WBC 3.6 k/uL (3.8-10.6)
[2022-06-22] MEDS ORDERED: NALOXONE 0.4 MG/ML 1 ML VIAL IV PRN (16:48)
[2022-06-22] MEDS ORDERED: ONDANSETRON 4 MG/2 ML VIAL IVP PRN (16:48)
[2022-06-22] MEDS: SODIUM CHLORIDE 0.9% 1,000 ML IV SCH (17:05)
[2022-06-23] MEDS: SODIUM CHLORIDE 0.9% 1,000 ML IV SCH ×3 (05:46→21:51)
[2022-06-23 11:28] LABS: African American GFR (CKD) 83.4 (60.0-200.0); Albumin 2.9 g/dL (3.8-4.9); Albumin/Globulin Ratio 0.95 (1.60-3.17); Anion Gap 6.6 mmol/L (10.00-18.00); BUN/Creat Ratio 19.6 Ratio (12.00-20.00); Blood Urea Nitrogen 19.8 mg/dL (9.0-27.0); Calcium 8.5 mg/dL (8.7-10.3); Carbon Dioxide 21.2 mmol/L (20.0-27.5); Magnesium 1.8 mg/dL (1.5-2.4); Non-African American GFR(CKD) 71.9 (60.0-200.0); Total Bilirubin 0.7 mg/dL (0.30-1.20); Total Protein 5.9 g/dL (6.2-8.2)
[2022-06-23 12:23] LABS: Basophils # (A) 0.03 X 10*3/uL (0.00-0.10); Basophils % (A) 0.8 %; HCT 21.3 % (39.6-50.0); HGB 6.7 g/dL (13.0-17.0); Immature Grans, Automated 0.3 %; Lymphocytes # (A) 0.37 X 10*3/uL (0.90-5.00); Lymphocytes % (A) 10.1 %; MCH 26.9 pg (27.0-32.0); MCHC 31.5 g/dL (32.0-37.0); MCV 85.5 fL (80.0-97.0); Mean Platelet Volume 9.7 fL (9.5-12.2); Monocytes # (A) 0.49 X 10*3/uL (0.20-1.00); Monocytes % (A) 13.4 %; NRBC Per 100 WBC 0 /100 WBCS (0.0-0.0); Neutrophils # (A) 2.35 X 10*3/uL (1.80-7.70); Neutrophils % (A) 64.4 %; Platelet Count 143 X 10*3/uL (140-440); RBC 2.49 X 10*6/uL (4.40-5.60); RDW 22.7 % (11.5-14.5); WBC 3.65 X 10*3/uL (4.50-10.00)
[2022-06-23 12:24] LABS: Anisocytosis (M) 2+
[2022-06-23 12:59] VITALS: BMI 34.5
[2022-06-23] MEDS: FOLIC ACID 1 MG TAB PO SCH (14:20)
[2022-06-23] MEDS: PANTOPRAZOLE 40 MG TABLET PO SCH ×2 (14:20→21:49)
[2022-06-23] MEDS: TORSEMIDE 20 MG TAB PO SCH (14:20)
[2022-06-23] MEDS: THIAMINE 100 MG TAB PO SCH (14:20)
[2022-06-23 14:32] LABS: Appearance,Urine Clear (Clear); Bilirubin,Urine Negative (Negative); Blood,Urine Negative (Negative); Color,Urine Yellow; Glucose,Urine (UA) Negative (Negative); Ketones,Urine Negative (Negative); Leukocyte Esterase,Urine Negative (Negative); Nitrite,Urine Negative (Negative); PH, Urine 6.5 (5.0-8.0); Protein,Urine Trace (Negative); Specific Gravity,Urine 1.017 (1.001-1.035)
--- NOTE | 2022-06-23 22:07 | P.CONS ---
History of Present Illness - Reason for Consult Consult date: 06/23/22 Sepsis Requesting physician: Hermelinda Mercado - Chief Complaint Fall and weakness x one day - History of Present Illness Patient is a 77-year-old male with a past medical history pertinent for hypertension GI bleed hepatocellular liver cirrhosis has been brought into the ER after the patient did have a fall and has developed laceration to the left forehead area which has been stitched in the ER patient did not recall having any fever or loss of consciousness denies any headache no URI symptoms no chest pain shortness of breath or cough no abdominal pain no diarrhea and no urinary symptoms patient on presentation to the hospital was afebrile and no fever has been recorded subsequently patient did have a mild leukopenia and also noticed to have a drop in hemoglobin to 6.7 this morning patient did have mild elevated BUN creatinine has been normal liver enzymes are normal he did have a 2 UA that has been negative patient did have a chest x-ray chronic changes without evidence for acute pulmonary disease infectious disease was consulted today concern for possible sepsis Review of Systems Positive point and negatives has been mentioned in the HPI, complete review of systems was performed and all other systems are negative Past Medical History Past Medical History: Heart Failure, GI Bleed, Hypertension, Liver Disease Additional Past Medical History / Comment(s): hx of liver cirrhosis, hx esophageal varices, STATES PAST HX OF COLON POLYP-benign,PREVIOUS HX OF HTN but OFF MEDICATIONS for over a year, History of Any Multi-Drug Resistant Organisms: None Reported Past Surgical History: Tonsillectomy Additional Past Surgical History / Comment(s): EGD WITH BANDING OF VARICES, PREV. COLONOSCOPIES, egd Past Anesthesia/Blood Transfusion Reactions: No Reported Reaction Past Psychological History: PTSD Smoking Status: Former smoker, Light tobacco smoker Past Alcohol Use History: Heavy Past Drug Use History: None Reported - Past Family History Mother Family Medical History: Cancer Additional Family Medical History / Comment(s): COLON Father Family Medical History: Coronary Artery Disease (CAD) Additional Family Medical History / Comment(s): valve replacment, cataracts Medications and Allergies Home Medications Medication Instructions Recorded Confirmed Type Folic Acid 1 mg PO DAILY 06/18/22 06/22/22 History Pantoprazole Sodium [Protonix] 40 mg PO BID 06/18/22 06/22/22 History Thiamine [Vitamin B-1] 100 mg PO DAILY 06/18/22 06/22/22 History Torsemide [Demadex] 20 mg PO DAILY 06/18/22 06/22/22 History Allergies Allergy/AdvReac Type Severity Reaction Status Date / Time No Known Allergies Allergy Verified 06/22/22 15:13 Physical Exam Vitals: Vital Signs Temp Pulse Pulse Pulse Resp BP BP 06/23/22 07:51 06/23/22 07:18 97.7 F 86 18 128/67 06/23/22 02:51 98.3 F 91 16 144/73 06/22/22 19:10 98.2 F 77 18 132/67 06/22/22 18:28 97.9 F 73 18 134/70 06/22/22 17:00 76 18 130/84 06/22/22 14:07 97.6 F 77 20 125/57 Pulse Ox 06/23/22 07:51 97 06/23/22 07:18 98 06/23/22 02:51 96 06/22/22 19:10 100 06/22/22 18:28 100 06/22/22 17:00 97 06/22/22 14:07 99 Intake and Output 06/22/22 06/23/22 06/23/22 22:59 06:59 14:59 Output Total 125 Balance -125 Output: Urine 125 Other: Voiding Method Bedside Commode Bedside Commode Urinal Urinal # Voids 1 Weight 109.316 kg GENERAL DESCRIPTION: Elderly male lying in bed, no distress. No tachypnea or accessory muscle of respiration use. HEENT: Shows Pallor , no scleral icterus. Oral mucous membrane is dry. Left forehead with laceration that is stitched no redness NECK: Trachea central, no thyromegaly. LUNGS: Unlabored breathing. Clear to auscultation anteriorly. No wheeze or crackle. HEART: S1, S2, regular rate and rhythm. No loud murmur ABDOMEN: Soft, no tenderness , guarding or rigidity, no organomegaly EXTREMITIES: No edema of feet. SKIN: No rash, no masses palpable. NEUROLOGICAL: The patient is awake, alert, oriented x2, mood and affect normal. Results CBC & Chem 7: 06/25/22 06:41 06/25/22 06:41 Labs: Abnormal Lab Results - Last 24 Hours (Table) 06/22/22 06/22/22 06/22/22 Range/Units 14:57 14:57 14:57 WBC 3.6 L (3.8-10.6) k/uL RBC 2.76 L (4.30-5.90) m/uL Hgb 7.3 L (13.0-17.5) gm/dL Hct 23.1 L (39.0-53.0) % RDW 21.6 H (11.5-15.5) % Lymphocytes # 0.5 L (1.0-4.8) k/uL INR 1.2 H (<1.2) Sodium 136 L (137-145) mmol/L Chloride (96-109) mmol/L Anion Gap (10.00-18.00) mmol/L BUN 22 H (9-20) mg/dL Glucose 115 H (74-99) mg/dL Calcium (8.7-10.3) mg/dL Total Protein (6.2-8.2) g/dL Albumin 3.1 L (3.5-5.0) g/dL Albumin/Globulin Ratio (1.60-3.17) g/dL 06/23/22 Range/Units 07:17 WBC (3.8-10.6) k/uL RBC (4.30-5.90) m/uL Hgb (13.0-17.5) gm/dL Hct (39.0-53.0) % RDW (11.5-15.5) % Lymphocytes # (1.0-4.8) k/uL INR (<1.2) Sodium (137-145) mmol/L Chloride 110 H (96-109) mmol/L Anion Gap 6.60 L (10.00-18.00) mmol/L BUN (9-20) mg/dL Glucose (74-99) mg/dL Calcium 8.5 L (8.7-10.3) mg/dL Total Protein 5.9 L (6.2-8.2) g/dL Albumin 2.9 L (3.5-5.0) g/dL Albumin/Globulin Ratio 0.95 L (1.60-3.17) g/dL Assessment and Plan (1) Weakness Current Visit: Yes Status: Acute Code(s): R53.1 - WEAKNESS SNOMED Code(s): 48644208 (2) Fall Current Visit: No Status: Acute Code(s): W19.XXXA - UNSPECIFIED FALL, INITIAL ENCOUNTER SNOMED Code(s): 5199996 Plan: 1patient presented to hospital with fall with a laceration to the left forehead that has been stitched in the ER patient did not have any fever during this hospital stay mild leukopenic urine has been negative x2 chest x-ray reported negative for acute infiltrate patient does not look toxic abdominal soft on clinical examination clinically doubt source of infection responsible for his current symptoms of fall 2-we will check his inflammatory markers 3-on empiric Rocephin while waiting for cultures to finalize 4-gentle IV fluid We will follow on clinical condition and cultures to further adjust medication if needed Thank you for this consultation we will follow the patient along with you Time with Patient: Greater than 30
--- NOTE | 2022-06-23 23:09 | HP ---
HISTORY AND PHYSICAL CHIEF COMPLAINT: Weakness, difficulty in walking, and some shortness of breath. HISTORY OF PRESENT ILLNESS: This is a 77-year-old gentleman with a past medical history of CHF, history of cirrhosis liver, who was progressively deteriorating, and the patient currently has very poor p.o. intake. The patient is complaining of significant weakness. The patient also apparently had multiple falls and bruises and taken to [facility] and admitted for further evaluation and treatment. The patient is confused, unable to give a coherent history at this time. PAST MEDICAL HISTORY: Reviewed, includes CHF and liver cirrhosis. Rest of the history and rest of the chart are also reviewed. HOME MEDICATIONS: Demadex. Doses and rest of the medications are reviewed. ALLERGIES: None. FAMILY HISTORY: Could not be taken because of the patient's change in mental status. SOCIAL HISTORY: Could not be taken because of the patient's change in mental status. Apparently, recent heavy alcohol admission including admissions to [facility] in 2022. REVIEW OF SYSTEMS: Could not be taken because of change in mental status. PHYSICAL EXAMINATION: VITAL SIGNS: Pulse 86, blood pressure 128/67, respirations 18. HEENT: Conjunctivae are normal. Oral mucosa is dry. NECK: No jugular venous distention. CARDIOVASCULAR: S1 and S2 muffled. RESPIRATORY: Breath sounds diminished at the bases. ABDOMEN: Soft. No masses palpable. LEGS: Minimal edema. NERVOUS SYSTEM: Diffusely weak. LABORATORY DATA: Reviewed. ASSESSMENT: 1. Significant weakness and dehydration. 2. History of EtOH and alcoholic cirrhosis liver possibly. 3. Anemia and leukopenia, possibly secondary to cirrhosis liver. 4. History of congestive heart failure. 5. History of gastrointestinal bleed. 6. History of hypertension. 7. Multiple medical issues. RECOMMENDATIONS AND DISCUSSION: In this 77-year-old gentleman, who was admitted with multiple complex medical issues, at this time, I would recommend cautious IV fluids. Otherwise, I would also recommend to obtain cultures to rule out the possibility of sepsis and watch for any alcohol withdrawal symptoms. Repeat labs to be ordered. PT and OT evaluation. Possible ECF rehab. aged or disabled care worker to evaluate for the home situation. Resume home medications once they are confirmed. The prognosis is extremely guarded because of multiple complex medical issues. Further recommendations to follow. See orders for the details. MMODL / IJN: [id number] / MTDD
[2022-06-24] MEDS: SODIUM CHLORIDE 0.9% 1,000 ML IV SCH ×3 (01:44→17:07)
[2022-06-24 06:56] LABS: Anisocytosis Moderate; Basophils % (A) 0 %; Eosinophils # (A) 0.4 k/uL (0-0.7); Eosinophils % (A) 10 %; HCT 24.8 % (39.0-53.0); HGB 7.9 gm/dL (13.0-17.5); Lymphocytes # (A) 0.6 k/uL (1.0-4.8); Lymphocytes % (A) 14 %; MCV 84.3 fL (80.0-100.0); Mean Platelet Volume 7.5; Microcytosis Slight; Monocytes # (A) 0.3 k/uL (0-1.0); Monocytes % (A) 8 %; Neutrophils # (A) 2.7 k/uL (1.3-7.7); Neutrophils % (A) 64 %; Platelet Count 169 k/uL (150-450); RBC 2.95 m/uL (4.30-5.90); WBC 4.1 k/uL (3.8-10.6)
[2022-06-24] MEDS: THIAMINE 100 MG TAB PO SCH (08:59)
[2022-06-24] MEDS: TORSEMIDE 20 MG TAB PO SCH (08:59)
[2022-06-24] MEDS: FOLIC ACID 1 MG TAB PO SCH (08:59)
[2022-06-24] MEDS: PANTOPRAZOLE 40 MG TABLET PO SCH ×2 (08:59→22:00)
[2022-06-24 10:09] LABS: ALT 16 U/L (4-49); AST 31 U/L (17-59); African American GFR (CKD) 77 (>60 ml/min/1.73 sqM); Albumin 2.9 g/dL (3.5-5.0); Albumin/Globulin Ratio 0.8; Alkaline Phosphatase 124 U/L (38-126); Anion Gap 10 mmol/L; Blood Urea Nitrogen 20 mg/dL (9-20); Calcium 8.3 mg/dL (8.4-10.2); Carbon Dioxide 21 mmol/L (22-30); Chloride 107 mmol/L (98-107); Globulin 3.6 g/dL; Glucose 97 mg/dL (74-99); Non-African American GFR(CKD) 66 (>60 ml/min/1.73 sqM); Potassium 4.1 mmol/L (3.5-5.1); Sodium 138 mmol/L (137-145); Total Bilirubin 1.7 mg/dL (0.2-1.3); Total Protein 6.5 g/dL (6.3-8.2)
[2022-06-25] MEDS: SODIUM CHLORIDE 0.9% 1,000 ML IV SCH ×3 (00:42→16:17)
--- NOTE | 2022-06-25 05:28 | PN ---
PROGRESS NOTE DATE OF SERVICE: 06/24/2022 SUBJECTIVE: This is a 77-year-old gentleman who was admitted with weakness and dehydration, also had significant history of EtOH and chronic liver disease in the past. The patient is sitting in a chair at this time. The patient also had bruises. The patient is on empiric antibiotics also. Cultures are negative. The patient received 1 transfusion. OBJECTIVE: VITAL SIGNS: Pulse is 84, blood pressure 126/64, respirations 18. CHEST: A few scattered rhonchi. ABDOMEN: Soft, obese, ascites. LEGS: No edema. NERVOUS SYSTEM: Nonfocal. LABORATORY DATA: Labs are reviewed. ASSESSMENT: 1. Significant weakness and dehydration, present on admission. 2. History of EtOH and alcoholic cirrhosis of liver possibly. 3. Anemia, leukopenia, possibly secondary to cirrhosis of liver. 4. History of congestive heart failure. 5. History of gastrointestinal bleed. 6. History of hypertension. 7. History of multiple medical issues. RECOMMENDATIONS: Recommend to continue current medications. Continue symptomatic treatment. Otherwise, increase ambulation. PT/OT evaluation. Possible ECF rehab. Otherwise, we will repeat the labs tomorrow and then continue to monitor. Further recommendations to follow. Await culture. MMODL / IJN: [id number] /
[2022-06-25] MEDS: PANTOPRAZOLE 40 MG TABLET PO SCH (09:27)
[2022-06-25] MEDS: THIAMINE 100 MG TAB PO SCH (09:27)
[2022-06-25] MEDS: FOLIC ACID 1 MG TAB PO SCH (09:27)
[2022-06-25] MEDS: TORSEMIDE 20 MG TAB PO SCH (09:27)
[2022-06-25 11:08] LABS: Basophils # (A) 0.04 X 10*3/uL (0.00-0.10); Basophils % (A) 0.9 %; Eosinophils # (A) 0.41 X 10*3/uL (0.04-0.35); Eosinophils % (A) 9.2 %; HCT 23.9 % (39.6-50.0); HGB 7.4 g/dL (13.0-17.0); Immature Grans, Automated 0.2 %; Lymphocytes # (A) 0.47 X 10*3/uL (0.90-5.00); Lymphocytes % (A) 10.6 %; MCH 27.1 pg (27.0-32.0); MCV 87.5 fL (80.0-97.0); Mean Platelet Volume 9.4 fL (9.5-12.2); Monocytes # (A) 0.54 X 10*3/uL (0.20-1.00); Monocytes % (A) 12.2 %; NRBC Per 100 WBC 0 /100 WBCS (0.0-0.0); Neutrophils # (A) 2.97 X 10*3/uL (1.80-7.70); Neutrophils % (A) 66.9 %; Platelet Count 150 X 10*3/uL (140-440); RBC 2.73 X 10*6/uL (4.40-5.60); RDW 21.6 % (11.5-14.5); WBC 4.44 X 10*3/uL (4.50-10.00)
[2022-06-25 12:07] LABS: African American GFR (CKD) 52.5 (60.0-200.0); Anion Gap 10.9 mmol/L (10.00-18.00); BUN/Creat Ratio 14.73 Ratio (12.00-20.00); Blood Urea Nitrogen 21.8 mg/dL (9.0-27.0); Calcium 8.3 mg/dL (8.7-10.3); Carbon Dioxide 20.6 mmol/L (20.0-27.5); Non-African American GFR(CKD) 45.3 (60.0-200.0); Potassium 3.6 mmol/L (3.5-5.5)
[2022-06-25 12:36] VITALS: BP 129/69; PULSE 95; RESP 18
--- NOTE | 2022-06-25 14:31 | P.DS ---
Providers Date of admission: 06/22/22 16:48 Expected date of discharge: 06/25/22 Attending physician: Hermelinda Mercado Consults: 06/23/22 11:09 Consult Physician Routine Consulting Provider: Chencho Adorno Consult Reason/Comments: sepsis Do you want consulting provider notified?: Yes Primary care physician: Nora Basyemargaret [facility] Course: Final diagnosis Significant weakness and dehydration, present on admission History of EtOH and alcoholic cirrhosis of liver possibly anemia, leukopenia, possibly secondary to cirrhosis of liver History of congestive heart failure History of GI bleed history of hypertension Full code Discharge disposition Patient is being discharged in a stable condition with guarded prognosis to [facility]. Patient will follow-up with Dr. Arnold in the outpatient setting upon discharge. Patient is to continue with medications as prescribed. Total time taken is greater than 35 minutes. Hospital course This is a 77-year-old male who was recently admitted with weakness and dehydration and was being closely monitored. Patient also started on IV antibiotics in the form of ceftriaxone with concerns of UTI. Urinalysis was negative and maintained on hydration showing improvements although continue with significant weakness. Patient agreeable to rehab and patient has been accepted at [facility] with insurance authorization obtained. Patient was evaluated by infectious disease and will not require antibiotics on discharge. Currently no reports of chest pain, shortness of breath, or palpitations. Patient is afebrile. No reports of nausea or vomiting and patient is tolerating diet. Patient will be going to [facility] today. Guarded prognosis. Physical exam: Gen: This is a 77-year-old male who is awake, alert and oriented 3, well- developed, well-nourished, obese HEENT: Head is atraumatic, normocephalic. Pupils equal, round. Sclerae is anicteric. NECK: Supple. No JVD. No lymphadenopathy. No thyromegaly. LUNGS: Diminished breath sounds bilaterally with no wheezes or rhonchi. No intercostal retractions. HEART: S1, S2 are muffled ABDOMEN: Soft. Bowel sounds are present. No masses. No tenderness. EXTREMITIES: No pedal edema. No calf tenderness. NEUROLOGICAL: Patient is awake, alert and oriented x3. Cranial nerves 2 through 12 are grossly intact. Diffusely weak Please refer to medication reconciliation sheet for a list of medications. The impression and plan of care has been dictated by Barbara Whitfield, Nurse Practitioner as directed. Dr. Rogelio MD I have performed a history and examination and MDM of this patient, discussed the same with the dictator, and agree with the dictator's assessment and plan as written ,documented as a scribe. Based on total visit time, I have performed more than 50% of the visit. Patient Condition at Discharge: Fair Plan - Discharge Summary Discharge Rx Participant: Yes New Discharge Prescriptions: Continue Thiamine [Vitamin B-1] 100 mg PO DAILY Torsemide [Demadex] 20 mg PO DAILY Pantoprazole Sodium [Protonix] 40 mg PO BID Folic Acid 1 mg PO DAILY Discharge Medication List Folic Acid 1 mg PO DAILY 06/18/22 [History] Pantoprazole Sodium [Protonix] 40 mg PO BID 06/18/22 [History] Thiamine [Vitamin B-1] 100 mg PO DAILY 06/18/22 [History] Torsemide [Demadex] 20 mg PO DAILY 06/18/22 [History] Follow up Appointment(s)/Referral(s): Nora Moran MD [Primary Care Provider] - 1-2 days Activity/Diet/Wound Care/Special Instructions: Patient is going to [facility] on the noe activity as tolerated Follow-up primary care provider on discharge Continue current diet Discharge Disposition: TRANSFER TO SNF/ECF
[2022-06-25] MEDS ORDERED: ACETAMINOPHEN TAB 325 MG TAB PO PRN (14:39)
[2022-06-25 14:40] VITALS: TEMP 98.2
--- NOTE | 2022-06-25 15:54 | P.PN ---
Subjective Progress Note Date: 06/24/22 Principal diagnosis: Questionable sepsis Patient is a 77-year-old male with a past medical history pertinent for hypertension GI bleed hepatocellular liver cirrhosis has been brought into the ER after the patient did have a fall and has developed laceration to the left forehead area which has been stitched in the ER, infectious disease was consulted with concern for possible sepsis on today's evaluation that is 06/24/2022, the patient denies having any fever or any chills patient denies having any chest pain or shortness of breath or cough no nausea no vomiting no abdominal pain and no diarrhea Objective - Vital Signs Vital signs: Vital Signs Temp 98.2 F 06/24/22 11:36 Pulse 84 06/24/22 11:36 Resp 18 06/24/22 11:36 BP 126/65 06/24/22 11:36 Pulse Ox 100 06/24/22 11:36 FiO2 Intake & Output 06/23/22 06/24/22 06/24/22 18:59 06:59 18:59 Intake Total 0 277 Output Total 125 Balance -125 277 Weight 96.303 kg Intake: Blood Product 0 277 Rc Pheresis As-3 Unit 0 277 [id number] Output: Urine 125 Other: Voiding Method Bedside Commode Bedside Commode Urinal Urinal # Voids 1 4 1 # Bowel Movements 1 - Exam GENERAL DESCRIPTION: An elderly male up in the chair in no distress RESPIRATORY SYSTEM: Unlabored breathing , decreased breath sounds at bases HEART: S1 S2 regular rate and rhythm , ABDOMEN: Soft , no tenderness EXTREMITIES: No edema feet - Labs CBC & Chem 7: 06/25/22 06:41 06/25/22 06:41 Labs: Abnormal Lab Results - Last 24 Hours (Table) 06/23/22 06/23/22 06/24/22 Range/Units 13:01 13:52 05:58 RBC 2.95 L (4.30-5.90) m/uL Hgb 7.9 L (13.0-17.5) gm/dL Hct 24.8 L (39.0-53.0) % RDW 21.0 H (11.5-15.5) % Lymphocytes # 0.6 L (1.0-4.8) k/uL Carbon Dioxide (22-30) mmol/L Calcium (8.4-10.2) mg/dL Total Bilirubin (0.2-1.3) mg/dL C-Reactive Protein (<1.0) mg/dL Albumin (3.5-5.0) g/dL Urine Protein Trace H (Negative) Crossmatch See Detail 06/24/22 Range/Units 05:58 RBC (4.30-5.90) m/uL Hgb (13.0-17.5) gm/dL Hct (39.0-53.0) % RDW (11.5-15.5) % Lymphocytes # (1.0-4.8) k/uL Carbon Dioxide 21 L (22-30) mmol/L Calcium 8.3 L (8.4-10.2) mg/dL Total Bilirubin 1.7 H (0.2-1.3) mg/dL C-Reactive Protein 4.0 H (<1.0) mg/dL Albumin 2.9 L (3.5-5.0) g/dL Urine Protein (Negative) Crossmatch Assessment and Plan (1) Weakness Current Visit: Yes Status: Acute Code(s): R53.1 - WEAKNESS SNOMED Code(s): 65294856 Plan: 1patient presented to hospital with fall with a laceration to the left forehead that has been stitched in the ER patient did not have any fever during this hospital stay mild leukopenic urine has been negative x2 chest x-ray reported negative for acute infiltrate patient does not look toxic abdominal soft on clinical examination clinically doubt source of infection responsible for his current symptoms of fall 2-patient did have mildly elevated inflammatory markers, with a CRP of 4.0 and pro-calcitonin of 0.16, however no clear focus of infection 3-patient to continue with empiric Rocephin while waiting for cultures to finalize Time with Patient: Less than 30
--- NOTE | 2022-06-25 15:56 | P.PN ---
Subjective Progress Note Date: 06/25/22 Principal diagnosis: Questionable sepsis Patient is a 77-year-old male with a past medical history pertinent for hypertension GI bleed hepatocellular liver cirrhosis has been brought into the ER after the patient did have a fall and has developed laceration to the left forehead area which has been stitched in the ER, infectious disease was consulted with concern for possible sepsis on today's evaluation that is 06/25/2022, the patient remains to be afebrile, patient denies having any chest pain or shortness of breath or cough no nausea no vomiting no abdominal pain and no diarrhea, the patient is feeling better and wants to go home Objective - Vital Signs Vital signs: Vital Signs Temp 98.2 F 06/25/22 12:15 Pulse 95 06/25/22 12:15 Resp 18 06/25/22 12:15 BP 129/69 06/25/22 12:15 Pulse Ox 99 06/25/22 12:15 FiO2 21 06/25/22 08:12 Intake & Output 06/24/22 06/25/22 06/25/22 18:59 06:59 18:59 Output Total 500 200 Balance -500 -200 Weight 96.31 kg Output: Urine 500 200 Other: Voiding Method Bedside Commode Bedside Commode Diaper Diaper # Voids 1 2 1 # Bowel Movements 1 1 - Exam GENERAL DESCRIPTION: An elderly male up in the chair in no distress RESPIRATORY SYSTEM: Unlabored breathing , decreased breath sounds at bases HEART: S1 S2 regular rate and rhythm , ABDOMEN: Soft , no tenderness EXTREMITIES: No edema feet - Labs CBC & Chem 7: 06/25/22 06:41 06/25/22 06:41 Labs: Abnormal Lab Results - Last 24 Hours (Table) 06/24/22 06/25/22 06/25/22 Range/Units 05:58 06:41 06:41 WBC 4.44 L (4.50-10.00) X 10*3/uL RBC 2.73 L (4.40-5.60) X 10*6/uL Hgb 7.4 L (13.0-17.0) g/dL Hct 23.9 L (39.6-50.0) % MCHC 31.0 L (32.0-37.0) g/dL RDW 21.6 H (11.5-14.5) % MPV 9.4 L (9.5-12.2) fL Lymphocytes # 0.47 L (0.90-5.00) X 10*3/uL Eosinophils # 0.41 H (0.04-0.35) X 10*3/uL Est GFR (CKD-EPI)AfAm 52.5 L (60.0-200.0) Est GFR (CKD-EPI)NonAf 45.3 L (60.0-200.0) Calcium 8.3 L (8.7-10.3) mg/dL Procalcitonin 0.16 H (0.02-0.09) ng/mL Microbiology - Last 24 Hours (Table) 06/23/22 11:03 Blood Culture - Preliminary Blood Assessment and Plan (1) Elevated C-reactive protein (CRP) Current Visit: Yes Status: Acute Code(s): R79.82 - ELEVATED C-REACTIVE PROTEIN (CRP) SNOMED Code(s): 068955267965575 Plan: 1patient presented to hospital with fall with a laceration to the left forehead that has been stitched in the ER patient did not have any fever during this hospital stay mild leukopenic urine has been negative x2 chest x-ray reported negative for acute infiltrate patient does not look toxic abdominal soft on clinical examination clinically doubt source of infection responsible for his current symptoms of fall 2-patient did have mildly elevated inflammatory markers, with a CRP of 4.0 and pro-calcitonin of 0.16, however no clear focus of infection 3-patient has received about 3 days of Rocephin should be enough with culture negative no need for any antibiotics on discharge and discuss with BUILDING SPECIALIST for admitting team Time with Patient: Less than 30
--- NOTE | 2022-06-29 06:59 | CDI ---
Documentation Clarification Form Date: 06/29/2022 6:49:19 AM From: Brenda Scales Admit Date: 06/22/2022 4:48:00 PM Patient Name: Andrés Merlos Visit Number: [id number] Discharge Date: 06/25/2022 8:23:00 PM ATTENTION: The Clinical Documentation Specialists (CDI) and [facility] Coding Staff appreciate your assistance in clarifying documentation. Please respond to the clarification below the line at the bottom and electronically sign. The CDI & [facility] Coding staff will review the response and follow-up if needed. Please note: Queries are made part of the Legal Health Record. If you have any questions, please contact the author of this message via ITS. Dr. Hermelinda Mercado Your patient has the documented diagnosis of unspecified CHF throughout the chart. Patient on 20mg PO Demadex daily Additional information regarding the type, acuity of CHF is requested. History/Risk Factors: CHF HTN Clinical Indicators: VS/Pulse OX: 97.6 F, 77 bpm, 20, 125/57, 99% RA down to 92% on 06/25 BNP: 242 EKG - Pulmonary disease, LAFB Chest X Ray: Chronic changes without evidence for acute pulmonary disease Treatment: Demadex 20 mg PO daily In your professional opinion, can you please clarify the acuity and type of CHF if known? [ ] Acute Systolic Heart Failure (reduced EF) [ ] Chronic Systolic Heart Failure (reduced EF) [ ] Acute on Chronic Systolic Heart Failure (reduced EF) [ ] Acute Diastolic Heart Failure (preserved EF) [ ] Chronic Diastolic Heart Failure (preserved EF) [ ] Acute on Chronic Diastolic Heart Failure (preserved EF) [ ] Acute Systolic & Diastolic Heart Failure [ ] Chronic Systolic & Diastolic Heart Failure [ ] Acute on Chronic Heart Failure Systolic & Diastolic Heart Failure [ ] Other, please specify [ ] Unable to determine Chronic Diastolic Heart Failure (preserved EF) DINAD
== END 2022-06-25 20:23 ==
LOC: EC 14:03 → INTOOBSV 16:48 → OBSVTOIN 16:48 → 5NMEDONC 16:48 → UNDODISIN 06-25 20:23
PROVIDERS: ADMIT Hospitalist; ATTEND Hospitalist
DX: R53.1 Weakness (principal); I50.32 Chronic diastolic (congestive) heart failure; D64.9 Anemia, unspecified; R62.7 Adult failure to thrive; S01.81XA Laceration without foreign body of other part of head, initial encounter; W19.XXXA Unspecified fall, initial encounter; D72.819 Decreased white blood cell count, unspecified; I11.0 Hypertensive heart disease with heart failure; K70.30 Alcoholic cirrhosis of liver without ascites; F43.10 Post-traumatic stress disorder, unspecified; R29.6 Repeated falls; E86.0 Dehydration; R79.82 Elevated C-reactive protein (CRP); Z87.891 Personal history of nicotine dependence; Z79.899 Other long term (current) drug therapy
CPT/HCPCS: 36430; 96361 ×5; 96365; 96366 ×2; 99285; 36415; 94760 ×3; 93005; 97110; 97162 ×2; 97535; 97166; 86900; 86901; 83880; 80053 ×3; 80048; 83605; 83735 ×2; 84100 ×2; 84484; 85025 ×4; 85610; 85730; 86850; 86920; 86140; 81003 ×2; 84145; 71045; G0378 ×4; P9016; J0696 ×3; 96360

== ENCOUNTER 2022-07-11 22:46 | Emergency (ER) | payer MEDICARE ==
[2022-07-11 23:14] VITALS: RESP 18
--- NOTE | 2022-07-12 | CT ---
EXAM: CT Head Without Intravenous Contrast CLINICAL HISTORY: ITS.REASON CT Reason: Trauma TECHNIQUE: Axial computed tomography images of the head/brain without intravenous contrast. CTDI is 45.3 mGy and DLP is 1048 mGy-cm. This CT exam was performed using one or more of the following dose reduction techniques: automated exposure control, adjustment of the mA and/or kV according to patient size, and/or use of iterative reconstruction technique. COMPARISON: 06/18/2022 FINDINGS: Brain: Unremarkable. No hemorrhage. No significant white matter disease. No edema. Ventricles: Unremarkable. No ventriculomegaly. Bones/joints: Unremarkable. No acute fracture. Soft tissues: Right posterior vertex soft tissue swelling. 1.3 cm subcutaneous nodule in the left frontal lesion likely representing sebaceous cyst. Sinuses: Unremarkable as visualized. No acute sinusitis. Mastoid air cells: Unremarkable as visualized. No mastoid effusion. IMPRESSION: Right posterior vertex soft tissue swelling. No acute intracranial abnormality. EXAM: CT Cervical Spine Without Intravenous Contrast CLINICAL HISTORY: ITS.REASON CT Reason: Trauma TECHNIQUE: Axial computed tomography images of the cervical spine without intravenous contrast. CTDI is 12.9 mGy and DLP is 316.6 mGy-cm. This CT exam was performed using one or more of the following dose reduction techniques: automated exposure control, adjustment of the mA and/or kV according to patient size, and/or use of iterative reconstruction technique. COMPARISON: 06/18/2022 FINDINGS: Vertebrae: Normal alignment with preservation of vertebral body heights. Soft tissues: Unremarkable. DISCS/SPINAL CANAL/NEURAL FORAMINA: C2-C3: Unremarkable. No significant disc disease. No stenosis. C3-C4: Bilateral facet degeneration. No significant disc disease. No stenosis. C4-C5: Unremarkable. No significant disc disease. No stenosis. C5-C6: Spondylosis with posterior bony spurs causes mild right neural foramen stenosis. No significant bony spinal canal stenosis. C6-C7: Spondylosis without significant bony spinal canal stenosis. Mild right bony neural foramen stenosis. C7-T1: Anterior bony spurs without significant bony spinal canal or bony neural foramen stenosis. IMPRESSION: No acute findings in the cervical spine.
[2022-07-12 01:01] LABS: Anisocytosis Slight; HCT 25.6 % (39.0-53.0); HGB 8.1 gm/dL (13.0-17.5); Hypochromasia Slight; MCH 27.4 pg (25.0-35.0); MCHC 31.8 g/dL (31.0-37.0); Mean Platelet Volume 7.8; Microcytosis Slight; Platelet Count 276 k/uL (150-450); RBC 2.97 m/uL (4.30-5.90); RDW 18.6 % (11.5-15.5); WBC 3.7 k/uL (3.8-10.6)
[2022-07-12 01:23] LABS: Albumin 3.2 g/dL (3.5-5.0); Calcium 9.1 mg/dL (8.4-10.2); Magnesium 1.6 mg/dL (1.6-2.3); Potassium 3.5 mmol/L (3.5-5.1); Total Bilirubin 1.1 mg/dL (0.2-1.3); Total Protein 6.9 g/dL (6.3-8.2)
[2022-07-12 01:28] LABS: Band Neutrophils % 1 %; Eosinophils # (M) 0.48 k/uL (0-0.7); Lymphocytes # (M) 0.67 k/uL (1.0-4.8); Monocytes # (M) 0.52 k/uL (0-1.0); Neutrophils % (M) 54 %; Nucleated Red Blood Cells 0 /100 WBC (0-0); Total Cells Counted 100
[2022-07-12 01:30] LABS: Toxic Granulation Present
--- NOTE | 2022-07-12 01:39 | ED ---
General Adult HPI - General Chief complaint: Fall Stated complaint: FALL Time Seen by Provider: 07/11/22 22:49 Source: patient, EMS Mode of arrival: EMS Limitations: no limitations - History of Present Illness Initial comments: This is 77-year-old male with a history of multiple falls presents emergency department via EMS for a fall today causing a head laceration. Is reported the patient had mechanical fall backwards, hitting the back of his head on the floor. The patient denied LOC and EMS did state that the patient had gone through 3-4 ABD pads with bleeding. The patient on arrival was ANO 4 and stated that he denied of any acute complaints currently. The patient denied any acute pain or distress and was resting in bed comfortable B. The patient remembered the entirety of the sequence of events and stated that he has been having multiple falls. The patient denied any other acute pain or complains. - Related Data Home Medications Medication Instructions Recorded Confirmed Folic Acid 1 mg PO DAILY 06/18/22 06/22/22 Pantoprazole Sodium [Protonix] 40 mg PO BID 06/18/22 06/22/22 Thiamine [Vitamin B-1] 100 mg PO DAILY 06/18/22 06/22/22 Torsemide [Demadex] 20 mg PO DAILY 06/18/22 06/22/22 Allergies Allergy/AdvReac Type Severity Reaction Status Date / Time No Known Allergies Allergy Verified 07/11/22 23:14 Review of Systems ROS Statement: Those systems with pertinent positive or pertinent negative responses have been documented in the HPI. ROS Other: All systems not noted in ROS Statement are negative. Past Medical History Past Medical History: Heart Failure, GI Bleed, Hypertension, Liver Disease Additional Past Medical History / Comment(s): hx of liver cirrhosis, hx esophageal varices, STATES PAST HX OF COLON POLYP-benign,PREVIOUS HX OF HTN but OFF MEDICATIONS for over a year, History of Any Multi-Drug Resistant Organisms: None Reported Past Surgical History: Tonsillectomy Additional Past Surgical History / Comment(s): EGD WITH BANDING OF VARICES, PREV. COLONOSCOPIES, egd Past Anesthesia/Blood Transfusion Reactions: No Reported Reaction Past Psychological History: PTSD Smoking Status: Former smoker, Light tobacco smoker Past Alcohol Use History: Heavy Past Drug Use History: None Reported - Past Family History Mother Family Medical History: Cancer Additional Family Medical History / Comment(s): COLON Father Family Medical History: Coronary Artery Disease (CAD) Additional Family Medical History / Comment(s): valve replacment, cataracts General Exam Limitations: no limitations General appearance: alert, in no apparent distress Head exam: Present: other (3 cm laceration noted to the posterior scalp with significant bleeding noted.) Eye exam: Present: normal appearance, PERRL Pupils: Present: normal accommodation ENT exam: Present: normal exam, normal oropharynx, mucous membranes moist Neck exam: Present: normal inspection, full ROM Respiratory exam: Present: normal lung sounds bilaterally Cardiovascular Exam: Present: regular rate, normal rhythm, normal heart sounds GI/Abdominal exam: Present: soft, normal bowel sounds Extremities exam: Present: normal inspection, full ROM Back exam: Present: normal inspection, full ROM Neurological exam: Present: alert, oriented X3, CN II-XII intact Psychiatric exam: Present: normal affect, normal mood Skin exam: Present: warm, dry Course Vital Signs 07/11/22 23:10 Temperature 97.9 F Pulse Rate 81 Respiratory 18 Rate Blood Pressure 122/65 O2 Sat by Pulse 98 Oximetry Procedures - Laceration Laceration #1 Consent Obtained: verbal consent Indication: laceration Site: scalp Size (cm): 3 Description: linear Depth: arterial injury Sedation/Analgesia: none Pre-repair: irrigated extensively Type of Sutures: vicryl Size of Sutures: 3-0 Number of Sutures: 3 Technique: simple, interrupted Complications: bleeding Patient Tolerated Procedure: well Additional Comments: Bleeding was controlled with 3, 3-0 Vicryl sutures and had further 7 ailyn placed and bleeding was controlled and wound was thoroughly cleaned and wrapped. Medical Decision Making - Medical Decision Making Was pt. sent in by a medical professional or institution (, PA, SWEEP PRESS OPERATOR, urgent care, hospital, or fpc...) When possible be specific @ -No Did you speak to anyone other than the patient for history (EMS, parent, family, police, friend...)? What history was obtained from this source @ -Yes, EMS who reported at the scene that there was bleeding from the scalp that was initially controlled however had continued bleeding on arrival. Did you review nursing and triage notes (agree or disagree)? Why? @ -I reviewed and agree with nursing and triage notes Were old charts reviewed (outside hosp., previous admission, EMS record, old EKG, old radiological studies, urgent care reports/EKG's, fpc records)? Report findings @ -No old charts were reviewed Differential Diagnosis (chest pain, altered mental status, abdominal pain women, abdominal pain men, vaginal bleeding, weakness, fever, dyspnea, syncope, headache, dizziness, GI bleed, back pain, seizure, CVA, palpatations, mental health)? @ -Intracranial hemorrhage, laceration, abrasion EKG interpreted by me (3pts min.). @ -None X-rays interpreted by me (1pt min.). @ -None done CT interpreted by me (1pt min.). @ -CT head and CT C-spine were obtained and were interpreted by myself showing a right posterior vertex soft tissue swelling with no acute intracranial abnormalities noted. CT C-spine was negative. U/S interpreted by me (1pt. min.). @ -None done What testing was considered but not performed or refused? (CT, X-rays, U/S, labs)? Why? @ -None What meds were considered but not given or refused? Why? @ -None Did you discuss the management of the patient with other professionals (professionals i.e. , PA, SWEEP PRESS OPERATOR, lab, RT, psych nurse, professor of social work, carpentry specialist, teacher, loan officer, caseworker)? Give summary @ -No Was smoking cessation discussed for >3mins.? @ -No Was critical care preformed (if so, how long)? @ -Yes, see above due to extensive laceration repair Were there social determinants of health that impacted care today? How? (Homelessness, low income, unemployed, alcoholism, drug addiction, transportation, low edu. Level, literacy, decrease access to med. care, group home, rehab)? @ -No Was there de-escalation of care discussed even if they declined (Discuss DNR or withdrawal of care, Hospice)? DNR status @ -No What co-morbidities impacted this encounter? (DM, HTN, Smoking, COPD, CAD, Cancer, CVA, ARF, Chemo, Hep., AIDS, mental health diagnosis, sleep apnea, morbid obesity)? @ -Multiple falls, not on blood thinners Was patient admitted / discharged? Hospital course, mention meds given and route, prescriptions, significant lab abnormalities, going to OR and other pertinent info. @ -The patient was seen and evaluated emergency department. On physical exam, the patient was resting in bed without any acute complaints or distress. Initially on arrival, the patient had significant bleeding from his laceration and the wound was thoroughly cleansed initially on arrival and 6 ailyn were placed prior to imaging. All imaging was negative however reevaluation of the wound showed continued bleeding therefore the 6 ailyn were removed and the wound was thoroughly cleansed once again with saline. It was noted to have a slow arterial bleed and this was tied off with 3, 3-0 Vicryl sutures with contro l of bleeding. The patient's laceration was closed with 7 ailyn. The patient did not have any further oozing or bleeding but did have a noted hematoma to the back of the head. The patient continued to remain stable in laboratory workup was also within normal limits. The patient did have family members at the bedside who agreed to take the patient home. The patient remained stable and was told to have the sutures removed in 10 days. The patient was agreeable to this and all his questions were answered. The patient was discharged home in stable condition with his family. Undiagnosed new problem with uncertain prognosis? @ -No Drug Therapy requiring intensive monitoring for toxicity (Heparin, Nitro, Insulin, Cardizem)? @ -No Were any procedures done? @ -No Diagnosis/symptom? @ -Multiple falls, scalp laceration with hematoma Acute, or Chronic, or Acute on Chronic? @ -Acute Uncomplicated (without systemic symptoms) or Complicated (systemic symptoms)? @ -Uncomplicated Side effects of treatment? @ -No Exacerbation, Progression, or Severe Exacerbation? @ -No Poses a threat to life or bodily function? How? (Chest pain, [place], [place], pneumonia, PE, COPD, DKA, ARF, appy, cholecystitis, CVA, Diverticulitis, Homicidal, Suicidal, threat to staff... and all critical care pts) @ -No - Lab Data Result diagrams: 07/12/22 00:50 07/12/22 00:50 Lab Results 07/12/22 07/12/22 Range/Units 00:50 00:50 WBC 3.7 L (3.8-10.6) k/uL RBC 2.97 L (4.30-5.90) m/uL Hgb 8.1 L (13.0-17.5) gm/dL Hct 25.6 L (39.0-53.0) % MCV 86.0 (80.0-100.0) fL MCH 27.4 (25.0-35.0) pg MCHC 31.8 (31.0-37.0) g/dL RDW 18.6 H (11.5-15.5) % Plt Count 276 (150-450) k/uL MPV 7.8 Hypochromasia Slight Anisocytosis Slight Microcytosis Slight Sodium 140 (137-145) mmol/L Potassium 3.5 (3.5-5.1) mmol/L Chloride 106 (98-107) mmol/L Carbon Dioxide 22 (22-30) mmol/L Anion Gap 12 mmol/L BUN 28 H (9-20) mg/dL Creatinine 1.26 H (0.66-1.25) mg/dL Est GFR (CKD-EPI)AfAm 64 (>60 ml/min/1.73 sqM) Est GFR (CKD-EPI)NonAf 55 (>60 ml/min/1.73 sqM) Glucose 103 H (74-99) mg/dL Calcium 9.1 (8.4-10.2) mg/dL Magnesium 1.6 (1.6-2.3) mg/dL Total Bilirubin 1.1 (0.2-1.3) mg/dL AST 44 (17-59) U/L ALT 21 (4-49) U/L Alkaline Phosphatase 151 H (38-126) U/L Total Protein 6.9 (6.3-8.2) g/dL Albumin 3.2 L (3.5-5.0) g/dL Critical Care Time Critical Care Time: Yes Total Critical Care Time: 35 Disposition Clinical Impression: Fall, Scalp laceration Disposition: HOME SELF-CARE Condition: Stable Instructions (If sedation given, give patient instructions): Fall Prevention for Older Adults (ED), Head Laceration (ED) Is patient prescribed a controlled substance at d/c from ED?: No Referrals: Nora Moran MD [Primary Care Provider] - 1-2 days Time of Disposition: 01:20
[2022-07-12 01:40] VITALS: BP 108/85; PULSE 88; TEMP 98.7
== END 2022-07-12 01:39 | disposition home or self-care (01) ==
LOC: EC 22:46
DX: S01.01XA Laceration without foreign body of scalp, initial encounter (principal); I11.0 Hypertensive heart disease with heart failure; I50.9 Heart failure, unspecified; Z87.891 Personal history of nicotine dependence; W18.30XA Fall on same level, unspecified, initial encounter
CPT/HCPCS: 12002; 36415; 70450; 72125; 80053; 83735; 85025; 99285

== ENCOUNTER 2022-07-21 16:20 | Inpatient (IN) | payer MEDICARE ==
--- NOTE | 2022-07-21 16:52 | ED ---
Weakness HPI - General Source: patient, RN notes reviewed Mode of arrival: ambulatory Limitations: no limitations <Tamra Anna - Last Filed: 07/21/22 16:51> <Elieso Kuo - Last Filed: 07/21/22 20:38> - General Stated complaint: low hgb sent by DR Time Seen by Provider: 07/21/22 16:51 - History of Present Illness Initial comments: Patient is a 77-year-old female who presents to the emergency department for low hemoglobin. Patient was at his primary care provider's office due to weakness, decline in mentation and lower extremity swelling. He had labs done and was told to come to the emergency department today his hemoglobin is 5.7. 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 He does have history of GI bleed states no blood in stool recently. Denies chest pain and shortness of breath. (Tamra Anna) This is a 77-year-old male who presents emergency Department with family family gives most of the history for the reason he is here today and past medical history. Patient with a long-standing drinker. Patient has been brought to [place] recently and family has brought him in the emergency department for multiple falls. Patient went to see his doctor today and his hemoglobin came back 5.7 sodium sent into the emergency department. Patient has also had some increased swelling to the legs and family states his mental status is somewhat altered from his baseline. They state the patient is no longer drinking. (Eliseo Kuo) - Related Data Home Medications Medication Instructions Recorded Confirmed Folic Acid 1 mg PO DAILY 06/18/22 07/21/22 Pantoprazole Sodium [Protonix] 40 mg PO BID 06/18/22 07/21/22 Thiamine [Vitamin B-1] 100 mg PO DAILY 06/18/22 07/21/22 Torsemide [Demadex] 20 mg PO DAILY 06/18/22 07/21/22 Allergies Allergy/AdvReac Type Severity Reaction Status Date / Time No Known Allergies Allergy Verified 07/21/22 18:46 Review of Systems ROS Other: All systems not noted in ROS Statement are negative. <Tamra Anna - Last Filed: 07/21/22 16:51> ROS Other: All systems not noted in ROS Statement are negative. <Eliseo Kuo - Last Filed: 07/21/22 20:38> ROS Statement: Those systems with pertinent positive or pertinent negative responses have been documented in the HPI. Past Medical History Past Medical History: Heart Failure, GI Bleed, Hypertension, Liver Disease Additional Past Medical History / Comment(s): hx of liver cirrhosis, hx eso phageal varices, STATES PAST HX OF COLON POLYP-benign,PREVIOUS HX OF HTN but OFF MEDICATIONS for over a year, History of Any Multi-Drug Resistant Organisms: None Reported Past Surgical History: Tonsillectomy Additional Past Surgical History / Comment(s): EGD WITH BANDING OF VARICES, PREV. COLONOSCOPIES, egd Past Anesthesia/Blood Transfusion Reactions: No Reported Reaction Past Psychological History: PTSD Smoking Status: Former smoker, Light tobacco smoker Past Alcohol Use History: Heavy Past Drug Use History: None Reported - Past Family History Mother Family Medical History: Cancer Additional Family Medical History / Comment(s): COLON Father Family Medical History: Coronary Artery Disease (CAD) Additional Family Medical History / Comment(s): valve replacment, cataracts <Tamra Anna - Last Filed: 07/21/22 16:51> General Exam Limitations: no limitations <Tamra Anna - Last Filed: 07/21/22 16:51> <Eliseo Kuo - Last Filed: 07/21/22 20:38> - General Exam Comments Initial Comments: Visual Physical Exam Vital signs reviewed General: Well-appearing, nontoxic, no acute distress. Head: Normocephalic, atraumatic Eyes: PERRLA, EOMI ENT: Airway patent Chest: Nonlabored breathing Skin: No visual rash, normal skin tone Neuro: Alert and oriented 3 Musculoskeletal: No gross abnormalities (Tamra Anna) GENERAL: Patient is well-developed and well-nourished. Patient is nontoxic and well- hydrated and is in no acute distress. ENT: Neck is soft and supple. No significant lymphadenopathy is noted. Oropharynx is clear. Moist mucous membranes. Neck has full range of motion without eliciting any pain. EYES: The sclera were anicteric and conjunctiva were pink and moist. Extraocular movements were intact and pupils were equal round and reactive to light. Eyelids were unremarkable. PULMONARY: Unlabored respirations. Good breath sounds bilaterally. No audible rales r honchi or wheezing was noted. CARDIOVASCULAR: There is a regular rate and rhythm without any murmurs gallops or rubs. ABDOMEN: Soft and nontender with normal bowel sounds. No palpable organomegaly was noted. There is no palpable pulsatile mass. SKIN: Patient's skin is pale NEUROLOGIC: Patient is alert and oriented 2. Cranial nerves II through XII are grossly intact. Motor and sensory are also intact. Normal speech, volume and content. Symmetrical smile. MUSCULOSKELETAL: Normal extremities with adequate strength and full range of motion. No lower extremity swelling or edema. No calf tenderness. LYMPHATICS: No significant lymphadenopathy is noted PSYCHIATRIC: Normal psychiatric evaluation. (Eliseo Kuo) Course Vital Signs 07/21/22 07/21/22 07/21/22 16:46 18:58 19:11 Temperature 97.4 F L 97.4 F L 97.5 F L Pulse Rate 64 64 76 Respiratory 18 16 18 Rate Blood Pressure 126/74 136/62 142/67 O2 Sat by Pulse 98 100 100 Oximetry 07/21/22 19:31 Temperature 97.5 F L Pulse Rate 71 Respiratory 17 Rate Blood Pressure 131/65 O2 Sat by Pulse 100 Oximetry Medical Decision Making - Lab Data Result diagrams: 07/21/22 17:42 07/21/22 17:42 <Eliseo Kuo - Last Filed: 07/21/22 20:38> - Medical Decision Making EKG shows a sinus rhythm at 65 bpm MD interval 180 QRS 116 QT interval 442 QTC is 493. Patient's EKG shows no ST segment elevation. Was pt. sent in by a medical professional or institution (, PA, AUTOMATIC NAILING MACHINE FEEDER, urgent care, hospital, or jail...) When possible be specific @ -Patient was sent in by the primary medical care doctor. Did you speak to anyone other than the patient for history (EMS, parent, family, police, friend...)? What history was obtained from this source @ -Daughter gave almost all of the history. Did you review nursing and triage notes (agree or disagree)? Why? @ -I reviewed and agree with nursing and triage notes Were old charts reviewed (outside hosp., previous admission, EMS record, old EKG, old radiological studies, urgent care reports/EKG's, jail records)? Report findings @ -I reviewed prior lab work and prior charting on this patient Differential Diagnosis (chest pain, altered mental status, abdominal pain women, abdominal pain men, vaginal bleeding, weakness, fever, dyspnea, syncope, headache, dizziness, GI bleed, back pain, seizure, CVA, palpatations, mental health, musculoskeletal)? @ -Differential Weakness: Hypoglycemia, shock, sepsis, hyponatremia, anemia, infection, CT, ETOH, adverse medicine reaction, overdose, stroke, this is not meant to be an all-inclusive list. EKG interpreted by me (3pts min.). @ -As above X-rays interpreted by me (1pt min.). @ -No CT interpreted by me (1pt min.). @ -CT of the brain shows no acute abnormality U/S interpreted by me (1pt. min.). @ -None done What testing was considered but not performed or refused? (CT, X-rays, U/S, labs)? Why? @ -None What meds were considered but not given or refused? Why? @ -None Did you discuss the management of the patient with other professionals (professionals i.e. , PA, AUTOMATIC NAILING MACHINE FEEDER, lab, RT, psych nurse, social staff worker, lead generator, teacher, radiation officer, social work case manager)? Give summary @ -I spoke with Dr. Ewing and she agreed to admit the patient Was smoking cessation discussed for >3mins.? @ -No Was critical care preformed (if so, how long)? @ -35 minutes Were there social determinants of health that impacted care today? How? (Homelessness, low income, unemployed, alcoholism, drug addiction, transportation, low edu. Level, literacy, decrease access to med. care, penitentiary, rehab)? @ -No Was there de-escalation of care discussed even if they declined (Discuss DNR or withdrawal of care, Hospice)? DNR status @ -No What co-morbidities impacted this encounter? (DM, HTN, Smoking, COPD, CAD, Cancer, CVA, ARF, Chemo, Hep., AIDS, mental health diagnosis, sleep apnea, morbid obesity)? @ -None Was patient admitted / discharged? Hospital course, mention meds given and route, prescriptions, significant lab abnormalities, going to OR and other pertinent info. @ -Patient's hemoglobin was low psychiatric the patient one unit of packed red blood cells OB doing repeat CBCs I spoke with Dr. Torrez she agreed to admit the patient admitted the patient wrote admitting orders patient does have a history of alcohol abuse. Patient has been off alcohol for at least a couple months according to family Undiagnosed new problem with uncertain prognosis? @ -No Drug Therapy requiring intensive monitoring for toxicity (Heparin, Nitro, Insulin, Cardizem)? @ -No Were any procedures done? @ -No Diagnosis/symptom? @ -Anemia Acute, or Chronic, or Acute on Chronic? @ -Acute Uncomplicated (without systemic symptoms) or Complicated (systemic symptoms)? @ -Complicated Side effects of treatment? @ -No Exacerbation, Progression, or Severe Exacerbation? @ -No Poses a threat to life or bodily function? How? (Chest pain, USA, CT, pneumonia, PE, COPD, DKA, ARF, appy, cholecystitis, CVA, Diverticulitis, Homicidal, Suicidal, threat to staff... and all critical care pts) @ -Yes this could lead to hypoxia and end organ dysfunction (Eliseo Kuo) - Lab Data Lab Results 07/21/22 07/21/22 07/21/22 Range/Units 17:35 17:42 17:42 WBC 3.0 L (3.8-10.6) k/uL RBC 2.32 L (4.30-5.90) m/uL Hgb 6.6 L* D (13.0-17.5) gm/dL Hct 20.3 L (39.0-53.0) % MCV 87.5 (80.0-100.0) fL MCH 28.3 (25.0-35.0) pg MCHC 32.4 (31.0-37.0) g/dL RDW 18.0 H (11.5-15.5) % Plt Count 167 (150-450) k/uL MPV 8.9 Hypochromasia Moderate Anisocytosis Slight PT 12.5 H (9.0-12.0) sec INR 1.2 H (<1.2) APTT 28.6 (22.0-30.0) sec Sodium (137-145) mmol/L Potassium (3.5-5.1) mmol/L Chloride (98-107) mmol/L Carbon Dioxide (22-30) mmol/L Anion Gap mmol/L BUN (9-20) mg/dL Creatinine (0.66-1.25) mg/dL Est GFR (CKD-EPI)AfAm (>60 ml/min/1.73 sqM) Est GFR (CKD-EPI)NonAf (>60 ml/min/1.73 sqM) Glucose (74-99) mg/dL Calcium (8.4-10.2) mg/dL Total Bilirubin (0.2-1.3) mg/dL AST (17-59) U/L ALT (4-49) U/L Alkaline Phosphatase (38-126) U/L Total Protein (6.3-8.2) g/dL Albumin (3.5-5.0) g/dL Blood Type O Negative Blood Type Recheck O Neg Bld Type Recheck Status No Antibody Screen NEGATIVE Crossmatch See Detail Spec Expiration Date 07/24/2022 - 233407/21/22 Range/Units 17:42 WBC (3.8-10.6) k/uL RBC (4.30-5.90) m/uL Hgb (13.0-17.5) gm/dL Hct (39.0-53.0) % MCV (80.0-100.0) fL MCH (25.0-35.0) pg MCHC (31.0-37.0) g/dL RDW (11.5-15.5) % Plt Count (150-450) k/uL MPV Hypochromasia Anisocytosis PT (9.0-12.0) sec INR (<1.2) APTT (22.0-30.0) sec Sodium 141 (137-145) mmol/L Potassium 3.6 (3.5-5.1) mmol/L Chloride 113 H (98-107) mmol/L Carbon Dioxide 19 L (22-30) mmol/L Anion Gap 9 mmol/L BUN 18 (9-20) mg/dL Creatinine 1.29 H (0.66-1.25) mg/dL Est GFR (CKD-EPI)AfAm 62 (>60 ml/min/1.73 sqM) Est GFR (CKD-EPI)NonAf 54 (>60 ml/min/1.73 sqM) Glucose 100 H (74-99) mg/dL Calcium 9.2 (8.4-10.2) mg/dL Total Bilirubin 1.3 (0.2-1.3) mg/dL AST 31 (17-59) U/L ALT 18 (4-49) U/L Alkaline Phosphatase 135 H (38-126) U/L Total Protein 7.5 (6.3-8.2) g/dL Albumin 3.6 (3.5-5.0) g/dL Blood Type Blood Type Recheck Bld Type Recheck Status Antibody Screen Crossmatch Spec Expiration Date Critical Care Time Critical Care Time: Yes Total Critical Care Time: 35 <Eliseo Kuo - Last Filed: 07/21/22 20:38> Disposition <Tamra Anna - Last Filed: 07/21/22 16:51> Time of Disposition: 20:38 <Eliseo Kuo - Last Filed: 07/21/22 20:38> Clinical Impression: Anemia, ETOH abuse Disposition: ADMITTED IP TO THIS HOSP Referrals: Nora Moran MD [Primary Care Provider] - 1-2 days
[2022-07-21 17:46] LABS: Anisocytosis Slight; HCT 20.3 % (39.0-53.0); Hypochromasia Moderate; MCH 28.3 pg (25.0-35.0); MCHC 32.4 g/dL (31.0-37.0); MCV 87.5 fL (80.0-100.0); Mean Platelet Volume 8.9; Platelet Count 167 k/uL (150-450); RBC 2.32 m/uL (4.30-5.90)
[2022-07-21 17:57] LABS: Albumin 3.6 g/dL (3.5-5.0); Calcium 9.2 mg/dL (8.4-10.2); INR 1.2 (<1.2); Partial Thromboplastin Time 28.6 sec (22.0-30.0); Potassium 3.6 mmol/L (3.5-5.1); Prothrombin Time 12.5 sec (9.0-12.0); Total Bilirubin 1.3 mg/dL (0.2-1.3); Total Protein 7.5 g/dL (6.3-8.2)
[2022-07-21 18:18] LABS: HGB 6.6 gm/dL (13.0-17.5)
--- NOTE | 2022-07-21 18:28 | CT ---
EXAMINATION TYPE: CT brain wo con DATE OF EXAM: 07/21/2022 COMPARISON: 07/11/2022 INDICATION: ams DLP: 1201.9 mGycm, Automated exposure control for dose reduction was used. CONTRAST: None CT of the brain is performed utilizing 3 mm thick sections through the posterior fossa and 3 mm thick sections through the remaining calvarium. Study is performed within 24 hours of arrival to the hosp ital. No abnormal hyperdensity is present to suggest an acute intracranial hemorrhage. No mass lesion is evident. No acute infarcts are evident. Minimal periventricular white matter hypodensity is present, likely th e basis of chronic white matter ischemic changes. Findings appear stable. Ventricles and sulci are prominent for the patient age. Paranasal sinuses and mastoid air cells within the [id number] are clear. There is some superficial soft tissue swelling in the left frontal temporal region and the posterior right occipital region. N o underlying fracture is evident. IMPRESSIONS: 1. Suggestion of minimal periventricular white matter ischemic type changes with some age related a trophy. 2. Superficial soft tissue swelling.
[2022-07-21 20:31] LABS: Eosinophils # (M) 0.18 k/uL (0-0.7); Lymphocytes # (M) 0.63 k/uL (1.0-4.8); Monocytes # (M) 0.21 k/uL (0-1.0); Neutrophils # (M) 1.98 k/uL (1.3-7.7); Neutrophils % (M) 66 %; Nucleated Red Blood Cells 0 /100 WBC (0-0); Total Cells Counted 100
[2022-07-21] MEDS ORDERED: SODIUM CHLORIDE 0.9% 500 ML 500 ML IV ONE (20:40)
[2022-07-21 22:02] LABS: Anisocytosis Slight; HCT 20.7 % (39.0-53.0); Hypochromasia Moderate; MCH 27.1 pg (25.0-35.0); MCHC 31.2 g/dL (31.0-37.0); MCV 86.7 fL (80.0-100.0); Mean Platelet Volume 7.9; Platelet Count 162 k/uL (150-450); Poikilocytosis Slight; RBC 2.38 m/uL (4.30-5.90); RDW 17.5 % (11.5-15.5); WBC 2.8 k/uL (3.8-10.6)
[2022-07-21 22:09] LABS: HGB 6.5 gm/dL (13.0-17.5)
[2022-07-21 22:36] LABS: Eosinophils # (M) 0.34 k/uL (0-0.7); Lymphocytes # (M) 0.67 k/uL (1.0-4.8); Monocytes # (M) 0.28 k/uL (0-1.0); Neutrophils # (M) 1.51 k/uL (1.3-7.7); Neutrophils % (M) 54 %; Nucleated Red Blood Cells 0 /100 WBC (0-0); Total Cells Counted 100
[2022-07-21 22:38] LABS: Tear Drop Cells Present
[2022-07-21 23:35] LABS: Anisocytosis Slight; Hypochromasia Marked; MCH 27.3 pg (25.0-35.0); MCHC 30.9 g/dL (31.0-37.0); MCV 88.5 fL (80.0-100.0); Mean Platelet Volume 7.8; Platelet Count 164 k/uL (150-450); Poikilocytosis Slight; RBC 2.48 m/uL (4.30-5.90); RDW 17.3 % (11.5-15.5); WBC 2.8 k/uL (3.8-10.6)
[2022-07-21 23:37] LABS: HGB 6.8 gm/dL (13.0-17.5)
[2022-07-22 03:07] LABS: Appearance,Urine Clear (Clear); Bilirubin,Urine Negative (Negative); Blood,Urine Negative (Negative); Color,Urine Yellow; Glucose,Urine (UA) Negative (Negative); Ketones,Urine Negative (Negative); Leukocyte Esterase,Urine Negative (Negative); Nitrite,Urine Negative (Negative); Protein,Urine Negative (Negative); Specific Gravity,Urine 1.012 (1.001-1.035)
[2022-07-22 12:23] LABS: Anisocytosis Slight; HCT 23.1 % (39.0-53.0); HGB 7.5 gm/dL (13.0-17.5); Hypochromasia Moderate; MCHC 32.5 g/dL (31.0-37.0); MCV 89.3 fL (80.0-100.0); Mean Platelet Volume 7.6; Platelet Count 173 k/uL (150-450); Poikilocytosis Slight; RBC 2.59 m/uL (4.30-5.90); WBC 3.1 k/uL (3.8-10.6)
--- NOTE | 2022-07-22 13:03 | HP ---
HISTORY AND PHYSICAL CHIEF COMPLAINT: Anemia. HISTORY OF PRESENT ILLNESS: This is a 77-year-old gentleman with a past medical history of multiple medical problems, alcoholism, and alcohol-induced cirrhosis, had some change in mental status. Hemoglobin was found to be 5.7. The patient had history of GI bleed previously, but no active bleeding currently. There is no history of any fever, rigors, or chills at this time. The patient is confused. PAST MEDICAL HISTORY: Reviewed, include EtOH and alcohol, rest of the history and rest of the chart is also reviewed. CURRENT MEDICATIONS: Reviewed include Demadex, dose and rest of the medications are noted. ALLERGIES: None. FAMILY HISTORY: Could not be taken as the patient is confused. SOCIAL HISTORY: Could not be taken as the patient is confused, significant history of alcohol. REVIEW OF SYSTEMS: Could not be taken as the patient is confused. PHYSICAL EXAMINATION: VITAL SIGNS: Pulse 76, blood pressure 128/61, and respirations 17. HEENT: Conjunctivae pale. NECK: No jugular venous distention. CARDIOVASCULAR: S1, S2 muffled. RESPIRATIONS: Diminished at the bases. ABDOMEN: Soft, distended, some ascites. NERVOUS SYSTEM: No focal deficits. LABORATORY DATA: Reviewed, hemoglobin 6.8. ASSESSMENT: 1. Anemia, possibly GI blood loss from cirrhosis of liver. 2. EtOH. 3. History of cirrhosis liver. 4. History of CHF. 5. Hypertension. 6. Multiple medical issues. RECOMMENDATIONS AND DISCUSSION: This 77-year-old gentleman presented with multiple complex medical issues, we will monitor the patient closely. Recommended transfusion, monitor closely. Resume the home medications, PT OT evaluation. insulation worker and pillowcase maker to evaluate the home situation. Otherwise, repeat labs. Prognosis extremely guarded. We will check ammonia and if ammonia is elevated, I would recommend lactulose. Surgery consultation for followup of anemia and possible scopes. Further recommendations to follow. MMODL / IJN: [id number] /
[2022-07-22 14:38] LABS: Eosinophils # (M) 0.65 k/uL (0-0.7); Monocytes # (M) 0.31 k/uL (0-1.0); Neutrophils # (M) 1.77 k/uL (1.3-7.7); Neutrophils % (M) 57 %; Nucleated Red Blood Cells 0 /100 WBC (0-0); Total Cells Counted 200
--- NOTE | 2022-07-22 14:43 | P.GSCN ---
History of Present Illness Consult date: 07/22/22 History of present illness: CHIEF COMPLAINT: Anemia HISTORY OF PRESENT ILLNESS: This is a 77-year-old male who presented to the hospital with a low hemoglobin. Patient has a known history of EtOH use. Patient reports she has not had any alcohol for the last 2-3 months. He initially went to his PCP office due to weakness and decline in mentation and lower extremity swelling. He is found to have a hemoglobin of 5.7 and was sent to the emergency room. Patient denies any blood in his stools or black stools. Denies any nausea or vomiting. Denies any abdominal pain. Hemoglobin 6.6 on admission up to 7.5 after 2 units of blood. Patient seen and examined with Dr. serna PAST MEDICAL HISTORY: Heart Failure, GI Bleed, Hypertension, liver cirrhosis, esophageal varices, PAST SURGICAL HISTORY: EGD with banding of varices MEDICATIONS: See below ALLERGIES: See below SOCIAL HISTORY: No illicit drug use. REVIEW OF SYSTEMS: CONSTITUTIONAL: Denies fever or chills. HEENT: Denies blurred vision, vision changes, or eye pain. Denies hemoptysis CARDIOVASCULAR: Denies chest pain or pressure. RESPIRATORY: No shortness of breath. GASTROINTESTINAL: See HPI for pertinent findings HEMATOLOGIC: Denies bleeding disorders. GENITOURINARY: Denies any blood in urine or increased urinary frequency. SKIN: Denies pruitis. Denies rash. PHYSICAL EXAM: VITAL SIGNS: Reviewed GENERAL: Well-developed in no acute distress. HEENT: No sclera icterus. Extraocular movements grossly intact. Moist buccal mucosa. Head is atraumatic, normocephalic. No nasal drainage. ABDOMEN: Soft. Nondistended. Nontender NEUROLOGIC: Alert and oriented. Cranial nerves II through XII grossly intact. LABORATORY DATA: hgb 6.6 up to 7.5 WBC 3.1 plt 173 INR 1.2 Sodium 141 potassium 3.6 creatinine 1.29 Ammonia elevated at 80 Urinalysis negative for infection LFTs normal alk phos 135 IMAGING: ASSESSMENT: 1. Acute on chronic anemia with no evidence of active GI bleed 2. History of liver cirrhosis 3. Elevated ammonia level 4. History of alcohol abuse. Quit drinking 2-3 months ago PLAN: -Recommend outpatient endoscopies -Continue Protonix -Continue to monitor hemoglobin -Continue to monitor for any signs or symptoms of bleeding -Check stool for occult blood -OK for regular diet Thank you for this consultation Physician Technical Training Specialist note has been reviewed by physician. Signing provider agrees with the documented findings, assessment, and plan of care. Past Medical History Past Medical History: Heart Failure, GI Bleed, Hypertension, Liver Disease Additional Past Medical History / Comment(s): hx of liver cirrhosis, hx esophageal varices, STATES PAST HX OF COLON POLYP-benign,PREVIOUS HX OF HTN but OFF MEDICATIONS for over a year, History of Any Multi-Drug Resistant Organisms: None Reported Past Surgical History: Tonsillectomy Additional Past Surgical History / Comment(s): EGD WITH BANDING OF VARICES, PREV. COLONOSCOPIES, egd Past Anesthesia/Blood Transfusion Reactions: No Reported Reaction Past Psychological History: PTSD Additional Psychological History / Comment(s): . Smoking Status: Former smoker, Light tobacco smoker Past Alcohol Use History: Heavy Additional Past Alcohol Use History / Comment(s): recent February 2022 admission in hospital in [place] for alcohol withdrawl. patient states he has been sober since then. Past Drug Use History: None Reported - Past Family History Mother Family Medical History: Cancer Additional Family Medical History / Comment(s): COLON Father Family Medical History: Coronary Artery Disease (CAD) Additional Family Medical History / Comment(s): valve replacment, cataracts Medications and Allergies Home Medications Medication Instructions Recorded Confirmed Type Folic Acid 1 mg PO DAILY 06/18/22 07/21/22 History Pantoprazole Sodium [Protonix] 40 mg PO BID 06/18/22 07/21/22 History Thiamine [Vitamin B-1] 100 mg PO DAILY 06/18/22 07/21/22 History Torsemide [Demadex] 20 mg PO DAILY 06/18/22 07/21/22 History Allergies Allergy/AdvReac Type Severity Reaction Status Date / Time No Known Allergies Allergy Verified 07/21/22 18:46 Surgical - Exam Vital Signs Temp Pulse Resp BP Pulse Ox 97.4 F L 64 18 126/74 98 07/21/22 16:46 07/21/22 16:46 07/21/22 16:46 07/21/22 16:46 07/21/22 16:46 Results - Labs 07/22/22 11:58 07/21/22 17:42 Abnormal Lab Results - Last 24 Hours (Table) 07/21/22 07/21/22 07/21/22 Range/Units 17:35 17:42 17:42 WBC 3.0 L (3.8-10.6) k/uL RBC 2.32 L (4.30-5.90) m/uL Hgb 6.6 L* D (13.0-17.5) gm/dL Hct 20.3 L (39.0-53.0) % MCHC (31.0-37.0) g/dL RDW 18.0 H (11.5-15.5) % Lymphocytes # (Manual) 0.63 L (1.0-4.8) k/uL PT 12.5 H (9.0-12.0) sec INR 1.2 H (<1.2) Chloride (98-107) mmol/L Carbon Dioxide (22-30) mmol/L Creatinine (0.66-1.25) mg/dL Glucose (74-99) mg/dL Alkaline Phosphatase (38-126) U/L Ammonia (<30) umol/L Crossmatch See Detail 07/21/22 07/21/22 07/21/22 Range/Units 17:42 21:11 22:54 WBC 2.8 L 2.8 L (3.8-10.6) k/uL RBC 2.38 L 2.48 L (4.30-5.90) m/uL Hgb 6.5 L* 6.8 L* (13.0-17.5) gm/dL Hct 20.7 L 22.0 L (39.0-53.0) % MCHC 30.9 L (31.0-37.0) g/dL RDW 17.5 H 17.3 H (11.5-15.5) % Lymphocytes # (Manual) 0.67 L (1.0-4.8) k/uL PT (9.0-12.0) sec INR (<1.2) Chloride 113 H (98-107) mmol/L Carbon Dioxide 19 L (22-30) mmol/L Creatinine 1.29 H (0.66-1.25) mg/dL Glucose 100 H (74-99) mg/dL Alkaline Phosphatase 135 H (38-126) U/L Ammonia (<30) umol/L Crossmatch 07/22/22 07/22/22 Range/Units 11:58 11:58 WBC 3.1 L (3.8-10.6) k/uL RBC 2.59 L (4.30-5.90) m/uL Hgb 7.5 L (13.0-17.5) gm/dL Hct 23.1 L (39.0-53.0) % MCHC (31.0-37.0) g/dL RDW 17.0 H (11.5-15.5) % Lymphocytes # (Manual) (1.0-4.8) k/uL PT (9.0-12.0) sec INR (<1.2) Chloride (98-107) mmol/L Carbon Dioxide (22-30) mmol/L Creatinine (0.66-1.25) mg/dL Glucose (74-99) mg/dL Alkaline Phosphatase (38-126) U/L Ammonia 80 H (<30) umol/L Crossmatch Diabetes panel 07/21/22 Range/Units 17:42 Sodium 141 (137-145) mmol/L Potassium 3.6 (3.5-5.1) mmol/L Chloride 113 H (98-107) mmol/L Carbon Dioxide 19 L (22-30) mmol/L BUN 18 (9-20) mg/dL Creatinine 1.29 H (0.66-1.25) mg/dL Glucose 100 H (74-99) mg/dL Calcium 9.2 (8.4-10.2) mg/dL AST 31 (17-59) U/L ALT 18 (4-49) U/L Alkaline Phosphatase 135 H (38-126) U/L Total Protein 7.5 (6.3-8.2) g/dL Albumin 3.6 (3.5-5.0) g/dL Calcium panel 07/21/22 Range/Units 17:42 Calcium 9.2 (8.4-10.2) mg/dL Albumin 3.6 (3.5-5.0) g/dL Pituitary panel 07/21/22 Range/Units 17:42 Sodium 141 (137-145) mmol/L Potassium 3.6 (3.5-5.1) mmol/L Chloride 113 H (98-107) mmol/L Carbon Dioxide 19 L (22-30) mmol/L BUN 18 (9-20) mg/dL Creatinine 1.29 H (0.66-1.25) mg/dL Glucose 100 H (74-99) mg/dL Calcium 9.2 (8.4-10.2) mg/dL Adrenal panel 07/21/22 Range/Units 17:42 Sodium 141 (137-145) mmol/L Potassium 3.6 (3.5-5.1) mmol/L Chloride 113 H (98-107) mmol/L Carbon Dioxide 19 L (22-30) mmol/L BUN 18 (9-20) mg/dL Creatinine 1.29 H (0.66-1.25) mg/dL Glucose 100 H (74-99) mg/dL Calcium 9.2 (8.4-10.2) mg/dL Total Bilirubin 1.3 (0.2-1.3) mg/dL AST 31 (17-59) U/L ALT 18 (4-49) U/L Alkaline Phosphatase 135 H (38-126) U/L Total Protein 7.5 (6.3-8.2) g/dL Albumin 3.6 (3.5-5.0) g/dL
[2022-07-22] MEDS ORDERED: FUROSEMIDE 10 MG/ML 2 ML VIAL IV ONE (17:00)
[2022-07-22] MEDS: LACTULOSE 20 GM/30 ML CUP PO SCH ×2 (18:06→20:24)
[2022-07-22] MEDS: PANTOPRAZOLE 40 MG TABLET PO SCH (18:06)
[2022-07-23] MEDS: LACTULOSE 20 GM/30 ML CUP PO SCH ×3 (09:09→20:26)
[2022-07-23] MEDS: TORSEMIDE 20 MG TAB PO SCH (09:10)
[2022-07-23] MEDS: FOLIC ACID 1 MG TAB PO SCH (09:10)
[2022-07-23] MEDS: THIAMINE 100 MG TAB PO SCH (09:10)
[2022-07-23] MEDS: PANTOPRAZOLE 40 MG TABLET PO SCH ×2 (09:10→17:15)
--- NOTE | 2022-07-23 09:36 | CDI ---
Documentation Clarification Form Date: 07/23/2022 09:20:06 AM From: Neelam Guzman RN CCDS Phone: [phone] Admit Date: 07/21/2022 08:39:00 PM Patient Name: Andrés Merlos Visit Number: [id number] Discharge Date: ATTENTION: The Clinical Documentation Specialists (CDI) and [facility] Coding Staff appreciate your assistance in clarifying documentation. Please respond to the clarification below the line at the bottom and electronically sign. The CDI & [facility] Coding staff will review the response and follow-up if needed. Please note: Queries are made part of the Legal Health Record. If you have any questions, please contact the author of this message via ITS. Dr. Reyez Your patient has the documented diagnosis of unspecified CHF 07/22, H&P. Additional information regarding the type, acuity of CHF is requested. History/Risk Factors: 77-year-old male presents with anemia and confusion. Medical History: ETOH, Cirrhosis of the liver; CHF and HTN. 07/22, H&P. Clinical Indicators: VS/Pulse OX: 07/21 B/P 126/74; HR64; Temp 97.4 F Oral; RR 18; SpO2 98% room air Echocardiogram Results: 06/04/2019: Mild concentric left ventricular hypertrophy. Left ventricular systolic function is normal with EF 55-60%. LA is moderately dilated. Aortic valve is tirleaflet and is mildly thickened. Mild mitral regurgitation is present. Mild tricuspid regurgitation present. Treatment: 07/22 Lasix 20mg IV x 1; 07/23 Demadex 20mg po daily In your professional opinion, can you please clarify the acuity and type of CHF if known? [ ] Chronic Diastolic Heart Failure (preserved EF) [ ] Acute on Chronic Diastolic Heart Failure (preserved EF) [ ] Other, please specify [ ] Unable to determine (Template Last Revised: March 2020) Refer to my note MTDD
--- NOTE | 2022-07-23 09:48 | CDI ---
Documentation Clarification Form Date: 07/23/2022 09:38:31 AM From: Neelam Guzman RN CCDS Phone: [phone] Admit Date: 07/21/2022 08:39:00 PM Patient Name: Andrés Merlos Visit Number: [id number] Discharge Date: ATTENTION: The Clinical Documentation Specialists (CDI) and [facility] Coding Staff appreciate your assistance in clarifying documentation. Please respond to the clarification below the line at the bottom and electronically sign. The CDI & [facility] Coding staff will review the response and follow-up if needed. Please note: Queries are made part of the Legal Health Record. If you have any questions, please contact the author of this message via ITS. Dr. Reyez Your patient has the documented symptom of Confusion 07/22, H&P. Additional clarification regarding the etiology/cause of this symptom is requested. History/Risk Factors: 77-year-old male presents with anemia and confusion. Medical History: ETOH, Cirrhosis of the liver; CHF and HTN. 07/22, H&P. Clinical Indicators: VS/Pulse OX: 07/21 B/P 126/74; HR64; Temp 97.4 F Oral; RR 18; SpO2 98% room air Hgb: 07/21 6.6 ; 07/21 6.8; 07/[address], 07/21: Minimal periventricular white matter ischemic type changes with age related atrophy. Superficial soft tissue swelling. H&P, 07/22: Family and Review of systems, Could not be taken as the patient is confused. Social History, could not be taken as the patient is confused, significant history of alcohol. 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
[2022-07-23 10:49] LABS: Basophils # (A) 0.05 X 10*3/uL (0.00-0.10); Basophils % (A) 0.9 %; Eosinophils # (A) 0.71 X 10*3/uL (0.04-0.35); Eosinophils % (A) 12.1 %; HCT 24.8 % (39.6-50.0); HGB 8.1 g/dL (13.0-17.0); Immature Grans, Automated 0.3 %; Lymphocytes # (A) 0.75 X 10*3/uL (0.90-5.00); Lymphocytes % (A) 12.8 %; MCH 28.5 pg (27.0-32.0); MCHC 32.7 g/dL (32.0-37.0); MCV 87.3 fL (80.0-97.0); Mean Platelet Volume 9.6 fL (9.5-12.2); Monocytes # (A) 0.76 X 10*3/uL (0.20-1.00); Monocytes % (A) 12.9 %; NRBC Per 100 WBC 0 /100 WBCS (0.0-0.0); Neutrophils # (A) 3.59 X 10*3/uL (1.80-7.70); Platelet Count 184 X 10*3/uL (140-440); RBC 2.84 X 10*6/uL (4.40-5.60); RDW 16.4 % (11.5-14.5); WBC 5.88 X 10*3/uL (4.50-10.00)
--- NOTE | 2022-07-23 10:49 | P.PN ---
Progress Note - Text Progress Note Date: 07/23/22 The patient remains stable. He shows no signs of GI bleed. His he will was stable at 7.5. On exam vital signs are stable. Abdomen is soft. Anemia. Patient will undergo outpatient endoscopy.
[2022-07-23 11:00] LABS: African American GFR (CKD) 58.7 (60.0-200.0); Albumin 3.3 g/dL (3.8-4.9); Albumin/Globulin Ratio 1.04 (1.60-3.17); BUN/Creat Ratio 11.04 Ratio (12.00-20.00); Blood Urea Nitrogen 14.9 mg/dL (9.0-27.0); Calcium 9.1 mg/dL (8.7-10.3); Carbon Dioxide 19.5 mmol/L (20.0-27.5); Globulin 3.2 g/dL (1.6-3.3); Non-African American GFR(CKD) 50.6 (60.0-200.0); Potassium 3.6 mmol/L (3.5-5.5); Total Bilirubin 1.9 mg/dL (0.30-1.20); Total Protein 6.4 g/dL (6.2-8.2)
[2022-07-24] MEDS: LACTULOSE 20 GM/30 ML CUP PO SCH ×3 (08:04→21:19)
[2022-07-24] MEDS: FOLIC ACID 1 MG TAB PO SCH (08:05)
[2022-07-24] MEDS: TORSEMIDE 20 MG TAB PO SCH (08:05)
[2022-07-24] MEDS: THIAMINE 100 MG TAB PO SCH (08:05)
[2022-07-24] MEDS: PANTOPRAZOLE 40 MG TABLET PO SCH ×2 (08:05→17:26)
--- NOTE | 2022-07-24 10:07 | P.PN ---
Progress Note - Text Progress Note Date: 07/24/22 Patient remains stable. He has no complaints of pain. His he will was a 0.1. On exam vital signs are stable. Abdomen soft. Patient was scheduled for outpatient EGD colonoscopy when medically stable.
[2022-07-24 14:31] LABS: Anisocytosis Slight; HCT 26.6 % (39.0-53.0); HGB 8.8 gm/dL (13.0-17.5); Hypochromasia Slight; MCH 29.1 pg (25.0-35.0); MCV 88.2 fL (80.0-100.0); Mean Platelet Volume 7.4; Platelet Count 187 k/uL (150-450); RBC 3.01 m/uL (4.30-5.90); RDW 16.8 % (11.5-15.5); WBC 10.8 k/uL (3.8-10.6)
[2022-07-24 14:40] LABS: African American GFR (CKD) 68 (>60 ml/min/1.73 sqM); Anion Gap 11 mmol/L; Blood Urea Nitrogen 16 mg/dL (9-20); Calcium 8.3 mg/dL (8.4-10.2); Carbon Dioxide 20 mmol/L (22-30); Chloride 105 mmol/L (98-107); Glucose 112 mg/dL (74-99); Non-African American GFR(CKD) 59 (>60 ml/min/1.73 sqM); Potassium 2.9 mmol/L (3.5-5.1); Sodium 136 mmol/L (137-145)
--- NOTE | 2022-07-24 19:25 | P.PN ---
Subjective Progress Note Date: 07/23/22 77-year-old male patient with past medical history of multiple medical problems, alcoholism, alcohol-induced cirrhosis presents to ED with some change in mental status and was found to have hemoglobin of 5.7 - Patient does have history of GI bleed but no active bleeding was found this admission - Patient has been evaluated by general surgery and is recommended EGD as an outpatient Objective - Vital Signs Vital signs: Vital Signs Temp 98.4 F 07/23/22 07:31 Pulse 80 07/23/22 07:31 Resp 18 07/23/22 07:31 BP 148/62 07/23/22 07:31 Pulse Ox 100 07/23/22 07:31 FiO2 Intake & Output 07/22/22 07/23/22 07/23/22 18:59 06:59 18:59 Intake Total 300 869 Output Total 50 300 Balance 250 569 Intake: Oral 300 590 Blood Product 0 279 Rc Pheresis As-3 Unit 0 279 [id number] Output: Urine 50 300 Other: # Voids 2 10 # Bowel Movements 10 - Exam PHYSICAL EXAMINATION: GENERAL: The patient is alert and oriented x3, not in any acute distress. Well developed, well nourished. HEENT: Pupils are round and equally reacting to light. EOMI. No scleral icterus. No conjunctival pallor. Normocephalic, atraumatic. No pharyngeal erythema. No thyromegaly. CARDIOVASCULAR: S1 and S2 present. No murmurs, rubs, or gallops. PULMONARY: Chest is clear to auscultation, no wheezing or crackles. ABDOMEN: Soft, nontender, nondistended, normoactive bowel sounds. No palpable organomegaly. MUSCULOSKELETAL: No joint swelling or deformity. EXTREMITIES: No cyanosis, clubbing, or pedal edema. NEUROLOGICAL: Gross neurological examination did not reveal any focal deficits. SKIN: No rashes. - Labs CBC & Chem 7: 07/24/22 13:57 07/24/22 13:57 Labs: Abnormal Lab Results - Last 24 Hours (Table) 07/21/22 07/22/22 07/22/22 Range/Units 17:35 11:58 11:58 WBC 3.1 L (3.8-10.6) k/uL RBC 2.59 L (4.30-5.90) m/uL Hgb 7.5 L (13.0-17.5) gm/dL Hct 23.1 L (39.0-53.0) % RDW 17.0 H (11.5-15.5) % Lymphocytes # (0.90-5.00) X 10*3/uL Lymphocytes # (Manual) 0.40 L (1.0-4.8) k/uL Eosinophils # (0.04-0.35) X 10*3/uL Carbon Dioxide (20.0-27.5) mmol/L Est GFR (CKD-EPI)AfAm (60.0-200.0) Est GFR (CKD-EPI)NonAf (60.0-200.0) BUN/Creatinine Ratio (12.00-20.00) Ratio Glucose (70-110) mg/dL Total Bilirubin (0.30-1.20) mg/dL Ammonia 80 H (<30) umol/L Albumin (3.8-4.9) g/dL Albumin/Globulin Ratio (1.60-3.17) g/dL Crossmatch See Detail 07/23/22 07/23/22 07/23/22 Range/Units 07:18 07:18 07:50 WBC (3.8-10.6) k/uL RBC 2.84 L (4.30-5.90) m/uL Hgb 8.1 L (13.0-17.5) gm/dL Hct 24.8 L (39.0-53.0) % RDW 16.4 H (11.5-15.5) % Lymphocytes # 0.75 L (0.90-5.00) X 10*3/uL Lymphocytes # (Manual) (1.0-4.8) k/uL Eosinophils # 0.71 H (0.04-0.35) X 10*3/uL Carbon Dioxide 19.5 L (20.0-27.5) mmol/L Est GFR (CKD-EPI)AfAm 58.7 L (60.0-200.0) Est GFR (CKD-EPI)NonAf 50.6 L (60.0-200.0) BUN/Creatinine Ratio 11.04 L (12.00-20.00) Ratio Glucose 112 H (70-110) mg/dL Total Bilirubin 1.90 H (0.30-1.20) mg/dL Ammonia 42 H (<30) umol/L Albumin 3.3 L (3.8-4.9) g/dL Albumin/Globulin Ratio 1.04 L (1.60-3.17) g/dL Crossmatch Assessment and Plan Assessment: 1. Anemia; likely GI blood loss from liver cirrhosis 2. EtOH 3. History of liver cirrhosis 4. History of CHF 5. Hypertension -- We will plan to continue with current regimen and treatment recommendations and monitor patient closely; PT/OT evaluation as recommended - group worker and case management on board for evaluation of home situation - Monitor ammonia levels closely and treat as needed -- DVT prophylaxis SCDs only given GI bleed/anemia CODE STATUS; full code
--- NOTE | 2022-07-24 19:27 | P.PN ---
Subjective Progress Note Date: 07/24/22 77-year-old male patient with past medical history of multiple medical problems, alcoholism, alcohol-induced cirrhosis presents to ED with some change in mental status and was found to have hemoglobin of 5.7 - Patient does have history of GI bleed but no active bleeding was found this admission - Patient has been evaluated by general surgery and is recommended EGD as an outpatient 07/24/2022 Patient is seen and evaluated in room at bedside; denies any specific complaints Vital signs are reviewed and remained stable Lab review shows a white blood count of 10.8, hemoglobin of 8.8 a remained stable from 8.1 yesterday, platelet count of 184, sodium of 136, potassium 2.9, BUN/creatinine of 16/1.19 - We will supplement with IV and oral potassium and monitor electrolytes closely - Monitor CBC closely and transfuse as needed - Patient has been evaluated by PT/OT and is recommended home with home health care Objective - Vital Signs Vital signs: Vital Signs Temp 99.6 F 07/24/22 07:50 Pulse 95 07/24/22 07:50 Resp 12 07/24/22 07:50 BP 129/70 07/24/22 07:50 Pulse Ox 96 07/24/22 07:50 FiO2 Intake & Output 07/23/22 07/24/22 07/24/22 18:59 06:59 18:59 Intake Total 590 120 Balance 590 120 Weight 85 kg Intake: Oral 590 120 Other: Voiding Method Toilet Bedside Commode Urinal Diaper Incontinent # Voids 3 3 1 # Bowel Movements 4 1 - Exam PHYSICAL EXAMINATION: GENERAL: The patient is alert and oriented x3, not in any acute distress. Well developed, well nourished. HEENT: Pupils are round and equally reacting to light. EOMI. No scleral icterus. No conjunctival pallor. Normocephalic, atraumatic. No pharyngeal erythema. No thyromegaly. CARDIOVASCULAR: S1 and S2 present. No murmurs, rubs, or gallops. PULMONARY: Chest is clear to auscultation, no wheezing or crackles. ABDOMEN: Soft, nontender, nondistended, normoactive bowel sounds. No palpable organomegaly. MUSCULOSKELETAL: No joint swelling or deformity. EXTREMITIES: No cyanosis, clubbing, or pedal edema. NEUROLOGICAL: Gross neurological examination did not reveal any focal deficits. SKIN: No rashes. - Labs CBC & Chem 7: 07/24/22 13:57 07/24/22 13:57 Assessment and Plan Assessment: 1. Anemia; likely GI blood loss from liver cirrhosis 2. EtOH 3. History of liver cirrhosis 4. History of CHF 5. Hypertension -- We will plan to continue with current regimen and treatment recommendations and monitor patient closely; PT/OT evaluation as recommended - refuge worker and case management on board for evaluation of home situation - Monitor ammonia levels closely and treat as needed -- DVT prophylaxis SCDs only given GI bleed/anemia CODE STATUS; full code
[2022-07-24] MEDS: POTASSIUM CHLORIDE 10 MEQ in WATER FOR INJECTION 1 100ML.BAG IVPB SCH ×2 (21:19→22:42)
[2022-07-25] MEDS: POTASSIUM CHLORIDE 10 MEQ in WATER FOR INJECTION 1 100ML.BAG IVPB SCH ×2 (00:36→02:03)
[2022-07-25] MEDS: LACTULOSE 20 GM/30 ML CUP PO SCH ×3 (08:34→21:02)
[2022-07-25] MEDS: PANTOPRAZOLE 40 MG TABLET PO SCH ×2 (08:34→18:00)
[2022-07-25] MEDS: TORSEMIDE 20 MG TAB PO SCH (08:34)
[2022-07-25] MEDS: FOLIC ACID 1 MG TAB PO SCH (08:34)
[2022-07-25] MEDS: THIAMINE 100 MG TAB PO SCH (08:34)
[2022-07-25 09:28] LABS: African American GFR (CKD) 58.7 (60.0-200.0); Anion Gap 11.9 mmol/L (10.00-18.00); BUN/Creat Ratio 12.3 Ratio (12.00-20.00); Blood Urea Nitrogen 16.6 mg/dL (9.0-27.0); Calcium 8.1 mg/dL (8.7-10.3); Carbon Dioxide 19.4 mmol/L (20.0-27.5); Magnesium 1.2 mg/dL (1.5-2.4); Non-African American GFR(CKD) 50.6 (60.0-200.0); Potassium 3.3 mmol/L (3.5-5.5)
--- NOTE | 2022-07-25 10:47 | P.PN ---
Progress Note - Text Progress Note Date: 07/25/22 Patient remains essentially unchanged. His last November was 8.8. He shows no signs of GI bleed. On exam vital signs are stable. Abdomen soft. Patient will be discharged home per the medical service. We'll plan for outpatient endoscopy.
[2022-07-25] MEDS ORDERED: POTASSIUM CHLORIDE ER 20 MEQ TAB.ER PO STA (11:16)
[2022-07-25 11:20] LABS: Basophils # (A) 0.09 X 10*3/uL (0.00-0.10); Basophils % (A) 0.7 %; Eosinophils # (A) 0.57 X 10*3/uL (0.04-0.35); Eosinophils % (A) 4.2 %; Immature Grans, Automated 0.4 %; Lymphocytes # (A) 0.86 X 10*3/uL (0.90-5.00); Lymphocytes % (A) 6.4 %; MCH 28.3 pg (27.0-32.0); MCV 88.3 fL (80.0-97.0); Mean Platelet Volume 10.1 fL (9.5-12.2); Monocytes # (A) 1.29 X 10*3/uL (0.20-1.00); Monocytes % (A) 9.5 %; NRBC Per 100 WBC 0 /100 WBCS (0.0-0.0); Neutrophils # (A) 10.66 X 10*3/uL (1.80-7.70); Neutrophils % (A) 78.8 %; Platelet Count 174 X 10*3/uL (140-440); RBC 2.83 X 10*6/uL (4.40-5.60); RDW 16.5 % (11.5-14.5); WBC 13.52 X 10*3/uL (4.50-10.00)
--- NOTE | 2022-07-25 15:20 | XR ---
EXAMINATION TYPE: XR chest 2V DATE OF EXAM: 07/25/2022 3:11 PM COMPARISON: Chest x-ray 06/22/2022, chest x-ray 06/18/2022 TECHNIQUE: XR chest 2V . CLINICAL INDICATION:Male, 77 years old with history of shortness of breath; FINDINGS: Lungs/Pleura: Low lung volumes are present. There is no evidence of pleural effusion, focal consolida tion, or pneumothorax. Pulmonary vascularity: Unremarkable. Heart/mediastinum: Cardiomediastinal silhouette is enlarged and stable. Atherosclerotic calcificatio ns are seen in the aorta. Musculoskeletal: Multilevel anterior wedging of the mid thoracic vertebra. Degenerative changes of th e thoracolumbar spine as visualized. IMPRESSION: No acute cardiopulmonary disease/process.
--- NOTE | 2022-07-25 18:10 | P.PN ---
Subjective Progress Note Date: 07/25/22 77-year-old male patient with past medical history of multiple medical problems, alcoholism, alcohol-induced cirrhosis presents to ED with some change in mental status and was found to have hemoglobin of 5.7 - Patient does have history of GI bleed but no active bleeding was found this admission - Patient has been evaluated by general surgery and is recommended EGD as an outpatient 07/24/2022 Patient is seen and evaluated in room at bedside; denies any specific complaints Vital signs are reviewed and remained stable Lab review shows a white blood count of 10.8, hemoglobin of 8.8 a remained stable from 8.1 yesterday, platelet count of 184, sodium of 136, potassium 2.9, BUN/creatinine of 16/1.19 - We will supplement with IV and oral potassium and monitor electrolytes closely - Monitor CBC closely and transfuse as needed - Patient has been evaluated by PT/OT and is recommended home with home health care 24 hour interval change 07/25/2022 Patient is seen and evaluated and discussed with nursing staff; reports of patient complaining of shortness of breath and chest congestion; has been extremely weak this morning Vital signs are reviewed patient is a temperature of 100.3, pulse 106, respiration 18 and blood pressure 114/75 and O2 saturation 97% on room air -- White blood count is slowly trending up and is at 13.5 from 10.8 yesterday; potassium at 3.3 which is improved from 2.9 yesterday -- We will initiate sepsis workup and obtain a chest x-ray, UA with culture and sensitivity, blood cultures, pro-calcitonin and CRP,; start patient on IV Zosyn empirically till workup is completed Objective - Vital Signs Vital signs: Vital Signs Temp 99.5 F 07/25/22 07:21 Pulse 83 07/25/22 07:21 Resp 18 07/25/22 07:21 BP 123/69 07/25/22 07:21 Pulse Ox 100 07/25/22 07:21 FiO2 Intake & Output 07/24/22 07/25/22 07/25/22 18:59 06:59 18:59 Intake Total 240 590 Output Total 250 Balance -10 590 Weight 87 kg Intake: Oral 240 590 Output: Urine 250 Other: Voiding Method Toilet Bedside Commode Urinal Diaper Incontinent # Voids 1 4 # Bowel Movements 1 2 - Exam PHYSICAL EXAMINATION: GENERAL: The patient is alert and oriented x3, not in any acute distress. Well developed, well nourished. HEENT: Pupils are round and equally reacting to light. EOMI. No scleral icterus. No conjunctival pallor. Normocephalic, atraumatic. No pharyngeal erythema. No thyromegaly. CARDIOVASCULAR: S1 and S2 present. No murmurs, rubs, or gallops. PULMONARY: Chest is clear to auscultation, no wheezing or crackles. ABDOMEN: Soft, nontender, nondistended, normoactive bowel sounds. No palpable organomegaly. MUSCULOSKELETAL: No joint swelling or deformity. EXTREMITIES: No cyanosis, clubbing, or pedal edema. NEUROLOGICAL: Gross neurological examination did not reveal any focal deficits. SKIN: No rashes. - Labs CBC & Chem 7: 07/25/22 05:45 07/25/22 05:45 Labs: Abnormal Lab Results - Last 24 Hours (Table) 07/24/22 07/24/22 07/25/22 Range/Units 13:57 13:57 05:45 WBC 10.8 H (3.8-10.6) k/uL RBC 3.01 L (4.30-5.90) m/uL Hgb 8.8 L (13.0-17.5) gm/dL Hct 26.6 L (39.0-53.0) % RDW 16.8 H (11.5-15.5) % Sodium 136 L (137-145) mmol/L Potassium 2.9 L 3.3 L (3.5-5.1) mmol/L Carbon Dioxide 20 L 19.4 L (22-30) mmol/L Est GFR (CKD-EPI)AfAm 58.7 L (60.0-200.0) Est GFR (CKD-EPI)NonAf 50.6 L (60.0-200.0) Glucose 112 H (74-99) mg/dL Calcium 8.3 L 8.1 L (8.4-10.2) mg/dL Magnesium 1.2 L (1.5-2.4) mg/dL Assessment and Plan Assessment: 1. Anemia; likely GI blood loss from liver cirrhosis 2. EtOH 3. History of liver cirrhosis 4. History of CHF 5. Hypertension -- We will plan to continue with current regimen and treatment recommendations and monitor patient closely; PT/OT evaluation as recommended - die try out worker stamping and case management on board for evaluation of home situation - Monitor ammonia levels closely and treat as needed -- DVT prophylaxis SCDs only given GI bleed/anemia CODE STATUS; full code
[2022-07-25] MEDS: MAGNESIUM SULFATE-D5W PMX 1 GM in DEXTROSE/WATER 1 100ML.BAG IVPB SCH ×2 (19:37→21:02)
[2022-07-25] MEDS: PIPERACILLIN-TAZOBACTAM 3.375 GM in SODIUM CHLORIDE 0.9% 100 ML IVPB SCH (22:06)
[2022-07-26] MEDS: MAGNESIUM SULFATE-D5W PMX 1 GM in DEXTROSE/WATER 1 100ML.BAG IVPB SCH (02:11)
[2022-07-26] MEDS: PIPERACILLIN-TAZOBACTAM 3.375 GM in SODIUM CHLORIDE 0.9% 100 ML IVPB SCH ×3 (03:22→20:27)
[2022-07-26] MEDS ORDERED: ACETAMINOPHEN TAB 325 MG TAB PO PRN (07:07)
[2022-07-26] MEDS: THIAMINE 100 MG TAB PO SCH (08:37)
[2022-07-26] MEDS: TORSEMIDE 20 MG TAB PO SCH (08:37)
[2022-07-26] MEDS: FOLIC ACID 1 MG TAB PO SCH (08:38)
[2022-07-26] MEDS: PANTOPRAZOLE 40 MG TABLET PO SCH ×2 (08:38→16:50)
[2022-07-26] MEDS: LACTULOSE 20 GM/30 ML CUP PO SCH ×3 (08:39→22:24)
--- NOTE | 2022-07-26 09:50 | P.PN ---
Progress Note - Text Progress Note Date: 07/26/22 Patient been stable. There are no acute changes. On exam vital signs are stable. Abdomen soft. Patiently discharged per the medical service. We will plan for Outpatient endoscopy.
[2022-07-26 11:49] LABS: African American GFR (CKD) 50.5 (60.0-200.0); Anion Gap 11.8 mmol/L (10.00-18.00); BUN/Creat Ratio 13.86 Ratio (12.00-20.00); Blood Urea Nitrogen 21.2 mg/dL (9.0-27.0); Calcium 8.1 mg/dL (8.7-10.3); Carbon Dioxide 19.1 mmol/L (20.0-27.5); Non-African American GFR(CKD) 43.5 (60.0-200.0); Potassium 3.4 mmol/L (3.5-5.5)
[2022-07-26] MEDS: IOPAMIDOL CONTRAST (ORAL USE) VIAL PO PRN ×2 (13:30→14:34)
[2022-07-26 14:40] LABS: Basophils # (A) 0.06 X 10*3/uL (0.00-0.10); Eosinophils # (A) 0.37 X 10*3/uL (0.04-0.35); Eosinophils % (A) 5.9 %; HCT 24.8 % (39.6-50.0); HGB 7.9 g/dL (13.0-17.0); Immature Grans, Automated 0.3 %; Lymphocytes # (A) 0.56 X 10*3/uL (0.90-5.00); MCHC 31.9 g/dL (32.0-37.0); MCV 87.9 fL (80.0-97.0); Mean Platelet Volume 10.4 fL (9.5-12.2); Monocytes # (A) 0.85 X 10*3/uL (0.20-1.00); Monocytes % (A) 13.7 %; NRBC Per 100 WBC 0 /100 WBCS (0.0-0.0); Neutrophils # (A) 4.36 X 10*3/uL (1.80-7.70); Neutrophils % (A) 70.1 %; Platelet Count 133 X 10*3/uL (140-440); RBC 2.82 X 10*6/uL (4.40-5.60); RDW 17.1 % (11.5-14.5); WBC 6.22 X 10*3/uL (4.50-10.00)
--- NOTE | 2022-07-26 15:33 | CT ---
EXAMINATION TYPE: CT abdomen pelvis wo con DATE OF EXAM: 07/26/2022 HISTORY: Alcohol abuse, sepsis CT DLP: 713.3 mGycm. Automated Exposure Control for Dose Reduction was Utilized. TECHNIQUE: CT scan of the abdomen and pelvis is performed with oral but without IV contrast. COMPARISON: Prior CT January 26, 2017 FINDINGS: Within the limitations of a non-contrast study, the following observations are made. LUNG BASES: Prominent bilateral gynecomastia. LIVER/GB: Lobulated peripheral contour to the liver consistent with cirrhosis. Trace ascites along th e right margin. Multiple dependent small stones in the gallbladder. PANCREAS: No significant abnormality is seen. SPLEEN: Spleen mildly enlarged at 13.2 cm long axis coronal image 80. ADRENALS: No significant abnormality is seen. KIDNEYS: No renal calculi or hydronephrosis seen bilaterally. A few tiny left-sided pelvic phlebolith s BOWEL: The oral contrast reaches level of the hepatic flexure. No suspicious small or large bowel dil atation is seen. There is moderate concentric wall thickening in the distal esophagus. Mild to modera te fecal prominence in the left colon. There is redundant sigmoid colon. GENITAL ORGANS: No gross abnormality seen. LYMPH NODES: No greater than 1cm abdominal or pelvic lymph nodes are appreciated. OSSEOUS STRUCTURES: Sclerosis with mild to moderate height loss involving superior T12 endplate. OTHER: Mild fat stranding or fluid throughout the mesentery. IMPRESSION: No suspicious well-formed fluid collection or abscess. Cirrhosis with mild splenomegaly a nd tiny amount of intraperitoneal ascites. No bowel obstruction. Mild colonic Fecal stasis. Subacute or chronic mild to borderline moderate compression type fracture at T12 vertebra.
--- NOTE | 2022-07-26 16:44 | P.PN ---
Subjective Progress Note Date: 07/26/22 77-year-old male patient with past medical history of multiple medical problems, alcoholism, alcohol-induced cirrhosis presents to ED with some change in mental status and was found to have hemoglobin of 5.7 - Patient does have history of GI bleed but no active bleeding was found this admission - Patient has been evaluated by general surgery and is recommended EGD as an outpatient 07/24/2022 Patient is seen and evaluated in room at bedside; denies any specific complaints Vital signs are reviewed and remained stable Lab review shows a white blood count of 10.8, hemoglobin of 8.8 a remained stable from 8.1 yesterday, platelet count of 184, sodium of 136, potassium 2.9, BUN/creatinine of 16/1.19 - We will supplement with IV and oral potassium and monitor electrolytes closely - Monitor CBC closely and transfuse as needed - Patient has been evaluated by PT/OT and is recommended home with home health care 24 hour interval change 07/25/2022 Patient is seen and evaluated and discussed with nursing staff; reports of patient complaining of shortness of breath and chest congestion; has been extremely weak this morning Vital signs are reviewed patient is a temperature of 100.3, pulse 106, respiration 18 and blood pressure 114/75 and O2 saturation 97% on room air -- White blood count is slowly trending up and is at 13.5 from 10.8 yesterday; potassium at 3.3 which is improved from 2.9 yesterday -- We will initiate sepsis workup and obtain a chest x-ray, UA with culture and sensitivity, blood cultures, pro-calcitonin and CRP,; start patient on IV Zosyn empirically till workup is completed 07/26/2022 Patient is seen and evaluated in room at bedside; denies any chest pain or shortness of breath; continues to have frequent loose bowel movements Vital signs are reviewed temperature of 99.1 with T-max of 101, pulse 90, respirations 16, blood pressure 116/54 with O2 saturation 93% on room air Blood work completed intravenous improved WBC of 6.2 down from 13.5 yesterday, hemoglobin of 7.9, platelet count of 133, sodium 132, potassium 3.4, BUN/creatinine of 21/1.5, CRP is elevated at 6.0 with pro-calcitonin of 0.37; stool occult blood is negative; : COVID-[address] of the abdomen and pelvis completed per ID recommendations which does not reveal any fluid collection or abscess, shows cirrhosis with mild splenomegaly and tiny amount of intraperitoneal ascites, mild colonic fecal stasis, subacute or chronic compression type fracture at T12 vertebra -- Patient remains on IV Zosyn; await further recommendations from ID Objective - Vital Signs Vital signs: Vital Signs Temp 99 F 07/26/22 08:00 Pulse 90 07/26/22 08:00 Resp 16 07/26/22 08:00 BP 116/54 07/26/22 08:00 Pulse Ox 97 07/26/22 08:00 FiO2 Intake & Output 07/25/22 07/26/22 07/26/22 18:59 06:59 18:59 Intake Total 590 Output Total 150 Balance 590 -150 Weight 92.5 kg Intake: Oral 590 Output: Urine 150 Other: Voiding Method Toilet Urinal Bedside Commode Diaper Urinal Incontinent Diaper Incontinent # Voids 1 4 1 # Bowel Movements 2 - Exam PHYSICAL EXAMINATION: GENERAL: The patient is alert and oriented x3, not in any acute distress. Well developed, well nourished. HEENT: Pupils are round and equally reacting to light. EOMI. No scleral icterus. No conjunctival pallor. Normocephalic, atraumatic. No pharyngeal erythema. No thyromegaly. CARDIOVASCULAR: S1 and S2 present. No murmurs, rubs, or gallops. PULMONARY: Chest is clear to auscultation, no wheezing or crackles. ABDOMEN: Soft, nontender, nondistended, normoactive bowel sounds. No palpable organomegaly. MUSCULOSKELETAL: No joint swelling or deformity. EXTREMITIES: No cyanosis, clubbing, or pedal edema. NEUROLOGICAL: Gross neurological examination did not reveal any focal deficits. SKIN: No rashes. - Labs CBC & Chem 7: 07/26/22 08:20 07/26/22 08:20 Labs: Abnormal Lab Results - Last 24 Hours (Table) 07/26/22 Range/Units 08:20 Ammonia 43 H (<30) umol/L Assessment and Plan Assessment: 1. Anemia; likely GI blood loss from liver cirrhosis 2. EtOH 3. History of liver cirrhosis 4. History of CHF 5. Hypertension -- We will plan to continue with current regimen and treatment recommendations and monitor patient closely; PT/OT evaluation as recommended - die storage worker and case management on board for evaluation of home situation - Monitor ammonia levels closely and treat as needed -- DVT prophylaxis SCDs only given GI bleed/anemia CODE STATUS; full code
--- NOTE | 2022-07-26 20:07 | P.CONS ---
History of Present Illness - Reason for Consult Consult date: 07/26/22 - History of Present Illness Patient is a 77-year-old male with a past medical history negative for hypertension history of liver cirrhosis GI bleed and heart failure has been brought to the hospital about 6 days ago for evaluation of weakness decline in mentation and lower extremity swelling patient was noticed to have a hemoglobin of 5.7 and the patient has been admitted to the hospital for further work-up of the same and is being monitored by general surgery services patient on presentation to the hospital was afebrile he did spike a fever of 100.3 yesterday afternoon and a fever of 101 degrees following right around 3 this morning patient was not tachycardic or hypoxic and need for supplemental oxygen he did have vital 13.52 yesterday with a left shift creatinine has been normal COVID testing was negative patient did have a chest x-ray that was reported negative for acute cardiopulmonary process infectious disease was consulted because of his fever and need for further work-up patient is currently lethargic and elevated good historian and most information has been extracted from review the chart talking nursing staff Past Medical History Past Medical History: Heart Failure, GI Bleed, Hypertension, Liver Disease Additional Past Medical History / Comment(s): hx of liver cirrhosis, hx esophageal varices, STATES PAST HX OF COLON POLYP-benign,PREVIOUS HX OF HTN but OFF MEDICATIONS for over a year, History of Any Multi-Drug Resistant Organisms: None Reported Past Surgical History: Tonsillectomy Additional Past Surgical History / Comment(s): EGD WITH BANDING OF VARICES, PREV. COLONOSCOPIES, egd Past Anesthesia/Blood Transfusion Reactions: No Reported Reaction Past Psychological History: PTSD Additional Psychological History / Comment(s): . Smoking Status: Former smoker, Light tobacco smoker Past Alcohol Use History: Heavy Additional Past Alcohol Use History / Comment(s): recent February 2022 admission in hospital in [place] for alcohol withdrawl. patient states he has been sober since then. Past Drug Use History: None Reported - Past Family History Mother Family Medical History: Cancer Additional Family Medical History / Comment(s): COLON Father Family Medical History: Coronary Artery Disease (CAD) Additional Family Medical History / Comment(s): valve replacment, cataracts Medications and Allergies Home Medications Medication Instructions Recorded Confirmed Type Folic Acid 1 mg PO DAILY 06/18/22 07/21/22 History Pantoprazole Sodium [Protonix] 40 mg PO BID 06/18/22 07/21/22 History Thiamine [Vitamin B-1] 100 mg PO DAILY 06/18/22 07/21/22 History Torsemide [Demadex] 20 mg PO DAILY 06/18/22 07/21/22 History Allergies Allergy/AdvReac Type Severity Reaction Status Date / Time No Known Allergies Allergy Verified 07/21/22 18:46 Physical Exam Vitals: Vital Signs Temp Pulse Resp BP Pulse Ox 07/26/22 11:50 99.5 F 73 14 115/62 93 L 07/26/22 08:00 99 F 90 16 116/54 97 07/26/22 07:10 99.1 F 07/26/22 03:28 101 F H 85 16 128/65 99 07/25/22 19:16 99.8 F H 100 16 118/63 99 07/25/22 14:00 100.3 F H 106 H 19 114/75 97 Intake and Output 07/25/22 07/26/22 07/26/22 22:59 06:59 14:59 Intake Total 590 Output Total 150 Balance 590 -150 Intake: Oral 590 Output: Urine 150 Other: Voiding Method Toilet Urinal Bedside Commode Diaper Urinal Incontinent Diaper Incontinent # Voids 1 4 1 # Bowel Movements 2 Weight 92.5 kg Results CBC & Chem 7: 07/26/22 08:20 07/26/22 08:20 Labs: Abnormal Lab Results - Last 24 Hours (Table) 07/26/22 07/26/22 Range/Units 08:20 08:20 Sodium 132 L (135-145) mmol/L Potassium 3.4 L (3.5-5.5) mmol/L Carbon Dioxide 19.1 L (20.0-27.5) mmol/L Est GFR (CKD-EPI)AfAm 50.5 L (60.0-200.0) Est GFR (CKD-EPI)NonAf 43.5 L (60.0-200.0) Glucose 123 H (70-110) mg/dL Calcium 8.1 L (8.7-10.3) mg/dL Ammonia 43 H (<30) umol/L C-Reactive Protein 6.00 H (0.00-0.80) mg/dL Assessment and Plan Plan: Patient with fever elevated white count in this patient admitted to hospital about 5 to 6 days ago for low hemoglobin and did have underlying cirrhosis of the liver patient is currently breathing comfortably chest x-ray was negative for any pneumonia did have a negative UA on the 21 of July with a question of possible abdominal source, as no evidence of any cellulitis at the peripheral IV site joint swelling was noticed 2-we will obtain a CT of abdominal pelvis with oral contrast 3-we will check inflammatory markers 4-continue the Zosyn to which his white count has responded well waiting for the culture to finalize We will follow on clinical condition and cultures to further adjust medication if needed Thank you for this consultation we will follow the patient along with you Time with Patient: Greater than 30
[2022-07-27 02:42] LABS: Appearance,Urine Clear (Clear); Bilirubin,Urine Negative (Negative); Blood,Urine Negative (Negative); Color,Urine Yellow; Glucose,Urine (UA) Negative (Negative); Ketones,Urine Negative (Negative); Leukocyte Esterase,Urine Negative (Negative); Nitrite,Urine Negative (Negative); PH, Urine 5.5 (5.0-8.0); Protein,Urine Negative (Negative); Specific Gravity,Urine 1.016 (1.001-1.035); Urobilinogen,Urine <2.0 mg/dL (<2.0)
[2022-07-27] MEDS: PIPERACILLIN-TAZOBACTAM 3.375 GM in SODIUM CHLORIDE 0.9% 100 ML IVPB SCH ×3 (05:24→20:42)
[2022-07-27 08:01] VITALS: RESP 16
[2022-07-27] MEDS: FOLIC ACID 1 MG TAB PO SCH (09:12)
[2022-07-27] MEDS: THIAMINE 100 MG TAB PO SCH (09:12)
[2022-07-27] MEDS: LACTULOSE 20 GM/30 ML CUP PO SCH ×3 (09:12→20:43)
[2022-07-27] MEDS: TORSEMIDE 20 MG TAB PO SCH (09:12)
[2022-07-27] MEDS: PANTOPRAZOLE 40 MG TABLET PO SCH (09:12)
[2022-07-27 11:00] LABS: Anisocytosis Slight; HCT 25.8 % (39.0-53.0); HGB 8.2 gm/dL (13.0-17.5); Hypochromasia Slight; MCH 28.3 pg (25.0-35.0); MCHC 31.9 g/dL (31.0-37.0); MCV 88.7 fL (80.0-100.0); Mean Platelet Volume 9.5; Platelet Count 119 k/uL (150-450); RBC 2.91 m/uL (4.30-5.90); RDW 17.8 % (11.5-15.5)
[2022-07-27 11:20] LABS: African American GFR (CKD) 58 (>60 ml/min/1.73 sqM); Anion Gap 11 mmol/L; Blood Urea Nitrogen 21 mg/dL (9-20); Calcium 7.8 mg/dL (8.4-10.2); Carbon Dioxide 21 mmol/L (22-30); Chloride 103 mmol/L (98-107); Glucose 118 mg/dL (74-99); Magnesium 1.8 mg/dL (1.6-2.3); Non-African American GFR(CKD) 50 (>60 ml/min/1.73 sqM); Potassium 3.4 mmol/L (3.5-5.1); Sodium 135 mmol/L (137-145)
[2022-07-27 12:17] LABS: Eosinophils # (M) 0.84 k/uL (0-0.7); Monocytes # (M) 0.66 k/uL (0-1.0); Neutrophils # (M) 3.96 k/uL (1.3-7.7); Neutrophils % (M) 66 %; Nucleated Red Blood Cells 0 /100 WBC (0-0); Total Cells Counted 200
--- NOTE | 2022-07-27 12:34 | P.PN ---
Subjective Progress Note Date: 07/27/22 Principal diagnosis: Fever Patient is a 77-year-old male with a past medical history negative for hypertension history of liver cirrhosis GI bleed and heart failure has been brought to the hospital on 07/21/2022 for evaluation of weakness, the patient was noticed to be anemic initially afebrile subsequently did spike a fever and white count was trending up, patient did have a CT abdominal pelvis on 07/26/2022 did not show any acute abnormality. On today's evaluation that is 07/27/2022, the patient is afebrile, the patient is more awake and alert and mentioned he is feeling better, the patient is currently breathing comfortably on room air denies any chest pain or shortness breath occasional cough no abdominal pain Objective - Vital Signs Vital signs: Vital Signs Temp 98.2 F 07/27/22 08:00 Pulse 72 07/27/22 08:00 Resp 16 07/27/22 08:00 BP 122/62 07/27/22 08:00 Pulse Ox 97 07/27/22 08:00 FiO2 Intake & Output 07/26/22 07/27/22 07/27/22 18:59 06:59 18:59 Intake Total 100 Output Total 150 300 Balance -150 -200 Weight 83.5 kg Intake: Intake, IV Titration 100 Amount Piperacillin-Tazobactam 3 100 .375 gm In Sodium Chloride 0.9% 100 ml @ 25 mls/hr IVPB Q8H [facility] Rx#: [id number] Output: Urine 150 300 Other: Voiding Method Urinal Urinal Urinal Diaper Diaper Diaper Incontinent Incontinent Incontinent # Voids 1 1 # Bowel Movements 1 - Exam GENERAL DESCRIPTION: An elderly male lying in bed in no distress RESPIRATORY SYSTEM: Unlabored breathing , decreased breath sounds at bases HEART: S1 S2 regular rate and rhythm , ABDOMEN: Soft , no tenderness EXTREMITIES: No edema feet - Labs CBC & Chem 7: 07/27/22 10:28 07/27/22 10:28 Labs: Abnormal Lab Results - Last 24 Hours (Table) 07/26/22 07/26/22 07/26/22 Range/Units 08:20 08:20 08:20 RBC 2.82 L (4.40-5.60) X 10*6/uL Hgb 7.9 L (13.0-17.0) g/dL Hct 24.8 L (39.6-50.0) % MCHC 31.9 L (32.0-37.0) g/dL RDW 17.1 H (11.5-14.5) % Plt Count 133 L (140-440) X 10*3/uL Lymphocytes # 0.56 L (0.90-5.00) X 10*3/uL Eosinophils # 0.37 H (0.04-0.35) X 10*3/uL Sodium 132 L (135-145) mmol/L Potassium 3.4 L (3.5-5.5) mmol/L Carbon Dioxide 19.1 L (20.0-27.5) mmol/L Est GFR (CKD-EPI)AfAm 50.5 L (60.0-200.0) Est GFR (CKD-EPI)NonAf 43.5 L (60.0-200.0) Glucose 123 H (70-110) mg/dL Calcium 8.1 L (8.7-10.3) mg/dL C-Reactive Protein 6.00 H (0.00-0.80) mg/dL Procalcitonin 0.37 H (0.02-0.09) ng/mL Microbiology - Last 24 Hours (Table) 07/25/22 18:36 Blood Culture - Preliminary Blood Assessment and Plan (1) Fever Current Visit: Yes Status: Acute Code(s): R50.9 - FEVER, UNSPECIFIED SNOMED Code(s): 638909358 Plan: Patient with fever elevated white count in this patient admitted to hospital about 5 to 6 days ago for low hemoglobin and did have underlying cirrhosis of the liver patient is currently breathing comfortably chest x-ray was negative for any pneumonia did have a negative UA on the 21 of July with a question of possible abdominal source, as no evidence of any cellulitis at the peripheral IV site joint swelling was noticed 2-patient did have CT of abdominal pelvis with oral contrast and did not show any acute abnormality 3-patient has shown clinical improvement and will continue with the Zosyn while waiting for the culture to finalize Time with Patient: Less than 30
--- NOTE | 2022-07-27 13:27 | P.PN ---
Subjective Progress Note Date: 07/27/22 CHIEF COMPLAINT: Anemia HISTORY OF PRESENT ILLNESS: Patient lying in bed comfortably. Denies any abdominal pain. Denies any blood in his stools. Denies any nausea or vomiting. Hemoglobin today has gone up from 7.9-8.2. Patient did have a temp of 101 yesterday morning. Patient seen by infectious disease a repeat computed tomography scan ordered showing no suspicious well formed fluid collection or abscess. Cirrhosis with mild splenomegaly and tiny amount of intraperitoneal ascites. No bowel obstruction. Myoclonic fecal stasis. Subacute or chronic mild to borderline moderate compression type fracture at T12 vertebra PHYSICAL EXAM: VITAL SIGNS: Reviewed. GENERAL: Well-developed in no acute distress. ABDOMEN: Soft. Nondistended. Nontender. NEUROLOGIC: Alert and oriented. Cranial nerves II through XII grossly intact. ASSESSMENT: 1. Acute on chronic anemia with no evidence of active GI bleed 2. History of liver cirrhosis 3. Elevated ammonia level on admission 4. History of alcohol abuse. Quit drinking 2-3 months ago PLAN: -Patient can be discharged from surgical standpoint when medically cleared -Recommend outpatient endoscopies for evaluation of anemia Physician Assistant Child Care Teacher note has been reviewed by physician. Signing provider agrees with the documented findings, assessment, and plan of care. Objective - Vital Signs Vital signs: Vital Signs Temp 98.2 F 07/27/22 08:00 Pulse 72 07/27/22 08:00 Resp 16 07/27/22 08:00 BP 122/62 07/27/22 08:00 Pulse Ox 97 07/27/22 08:00 FiO2 Intake & Output 07/26/22 07/27/22 07/27/22 18:59 06:59 18:59 Intake Total 100 Output Total 150 300 Balance -150 -200 Weight 83.5 kg Intake: Intake, IV Titration 100 Amount Piperacillin-Tazobactam 3 100 .375 gm In Sodium Chloride 0.9% 100 ml @ 25 mls/hr IVPB Q8H [facility] Rx#: [id number] Output: Urine 150 300 Other: Voiding Method Urinal Urinal Urinal Diaper Diaper Diaper Incontinent Incontinent Incontinent # Voids 1 1 # Bowel Movements 1 - Labs CBC & Chem 7: 07/27/22 10:28 07/27/22 10:28 Labs: Abnormal Lab Results - Last 24 Hours (Table) 07/26/22 07/26/2207/27/23 Range/Units 08:20 08:20 10:28 RBC 2.82 L 2.91 L (4.40-5.60) X 10*6/uL Hgb 7.9 L 8.2 L (13.0-17.0) g/dL Hct 24.8 L 25.8 L (39.6-50.0) % MCHC 31.9 L (32.0-37.0) g/dL RDW 17.1 H 17.8 H (11.5-14.5) % Plt Count 133 L 119 L (140-440) X 10*3/uL Lymphocytes # 0.56 L (0.90-5.00) X 10*3/uL Lymphocytes # (Manual) 0.60 L (1.0-4.8) k/uL Eosinophils # 0.37 H (0.04-0.35) X 10*3/uL Eosinophils # (Manual) 0.84 H (0-0.7) k/uL Sodium (137-145) mmol/L Potassium (3.5-5.1) mmol/L Carbon Dioxide (22-30) mmol/L BUN (9-20) mg/dL Creatinine (0.66-1.25) mg/dL Glucose (74-99) mg/dL Calcium (8.4-10.2) mg/dL Procalcitonin 0.37 H (0.02-0.09) ng/mL 07/27/22 Range/Units 10:28 RBC (4.40-5.60) X 10*6/uL Hgb (13.0-17.0) g/dL Hct (39.6-50.0) % MCHC (32.0-37.0) g/dL RDW (11.5-14.5) % Plt Count (140-440) X 10*3/uL Lymphocytes # (0.90-5.00) X 10*3/uL Lymphocytes # (Manual) (1.0-4.8) k/uL Eosinophils # (0.04-0.35) X 10*3/uL Eosinophils # (Manual) (0-0.7) k/uL Sodium 135 L (137-145) mmol/L Potassium 3.4 L (3.5-5.1) mmol/L Carbon Dioxide 21 L (22-30) mmol/L BUN 21 H (9-20) mg/dL Creatinine 1.36 H (0.66-1.25) mg/dL Glucose 118 H (74-99) mg/dL Calcium 7.8 L (8.4-10.2) mg/dL Procalcitonin (0.02-0.09) ng/mL Microbiology - Last 24 Hours (Table) 07/25/22 18:36 Blood Culture - Preliminary Blood
[2022-07-27] MEDS: POTASSIUM CHLORIDE ER 10 MEQ TAB.ER.PRT PO SCH ×2 (14:37→16:08)
[2022-07-27] MEDS: FAMOTIDINE 20 MG TAB PO SCH (20:43)
--- NOTE | 2022-07-27 23:21 | P.PN ---
Subjective Progress Note Date: 07/27/22 This is a 77 year old male with history of chronic alcohol abuse and liver cirrhosis, patient has quit drinking for over 1 year now. Admitted for anemia and found to have hemoglobin of 6.6 on admission currently up to 8.2, patient has received a total of 3 units of PRBCs. ID has been consulted for the fever and leukocytosis and undergoing workup. Procalcitonin level and CRP are elevated. Urinalysis checked today and negative. Patient had abdominal pelvis CT done showing no suspicious well-formed fluid collection or abscess. Cirrhosis with mild splenomegaly and tiny amount of intraperitoneal ascites, no bowel obstruction. Mild colonic fecal stasis. Subacute to chronic mild to borderline moderate compression type fracture at T12 verebra. Patient denies any knowledge of prior fracture. Fever has resolved and white count is normal. Patient remains on IV zosyn at this time. Patient did have multiple bowel movements today, he has been maintained on lactulose. He is hemodynamically stable. General surgery planning for outpatient EGD/Colonoscopy. Review of Systems Constitutional: Denied any fatigue denied any fever. Cardio vascular: denied any chest pain, palpitations Gastrointestinal: denied any nausea, vomiting, diarrhea Pulmonary: Denied any shortness of breath cough Neurologic denied any new focal deficits All inpatient medications were reviewed and appropriate changes in these medic ations as dictated in the interval history and assessment and plan. PHYSICAL EXAMINATION: GENERAL: The patient is alert and oriented x3, not in any acute distress. Well developed, well nourished. HEENT: Pupils are round and equally reacting to light. EOMI. No scleral icterus. No conjunctival pallor. Normocephalic, atraumatic. No pharyngeal erythema. No thyromegaly. CARDIOVASCULAR: S1 and S2 present. No murmurs, rubs, or gallops. PULMONARY: Faint scattered wheezing ABDOMEN: Soft, nontender, nondistended, normoactive bowel sounds. No palpable organomegaly. MUSCULOSKELETAL: No joint swelling or deformity. EXTREMITIES: No cyanosis, clubbing, or pedal edema. NEUROLOGICAL: Gross neurological examination did not reveal any focal deficits. SKIN: No rashes. Assessment Acute on chronic anemia with no evidence for acute GI bleeding Constipation has resolved Fever and leukocytosis resolved History of liver cirrhosis Elevated ammonia level maintained on lactulose History of alcohol abuse currently not drinking T12 mild/moderate compression fracture subacute to chronic patient denies knowledge of prior fracture GI prophylaxis Plan Continue on IV zosyn pending final blood cultures ID is following General surgery cleared patient with plans for EGD/Colonoscopy outpatient Continue supportive care PT/OT consultation patient cleared for home with home care on discharge Patient will likely discharge home tomorrow The impression and plan of care has been dictated by Meredith Womack, Nurse Practitioner as directed. Dr. Dereje MD I have performed a history and physical examination and medical decision making of this patient, discussed the same with the dictator, and agree with the dictators assessment and plan as written, documented as a scribe. Based on total visit time, I have performed more than 50% of this visit. Objective - Vital Signs Vital signs: Vital Signs Temp 98.2 F 07/27/22 14:18 Pulse 82 07/27/22 14:18 Resp 16 07/27/22 14:18 BP 115/66 07/27/22 14:18 Pulse Ox 98 07/27/22 14:18 FiO2 Intake & Output 07/26/22 07/27/22 07/27/22 18:59 06:59 18:59 Intake Total 100 Output Total 150 300 Balance -150 -200 Weight 83.5 kg Intake: Intake, IV Titration 100 Amount Piperacillin-Tazobactam 3 100 .375 gm In Sodium Chloride 0.9% 100 ml @ 25 mls/hr IVPB Q8H [facility] Rx#: [id number] Output: Urine 150 300 Other: Voiding Method Urinal Urinal Urinal Diaper Diaper Diaper Incontinent Incontinent Incontinent # Voids 1 1 # Bowel Movements 1 - Labs CBC & Chem 7: 07/27/22 10:28 07/27/22 10:28 Labs: Abnormal Lab Results - Last 24 Hours (Table) 07/27/22 07/27/22 Range/Units 10:28 10:28 RBC 2.91 L (4.30-5.90) m/uL Hgb 8.2 L (13.0-17.5) gm/dL Hct 25.8 L (39.0-53.0) % RDW 17.8 H (11.5-15.5) % Plt Count 119 L (150-450) k/uL Lymphocytes # (Manual) 0.60 L (1.0-4.8) k/uL Eosinophils # (Manual) 0.84 H (0-0.7) k/uL Sodium 135 L (137-145) mmol/L Potassium 3.4 L (3.5-5.1) mmol/L Carbon Dioxide 21 L (22-30) mmol/L BUN 21 H (9-20) mg/dL Creatinine 1.36 H (0.66-1.25) mg/dL Glucose 118 H (74-99) mg/dL Calcium 7.8 L (8.4-10.2) mg/dL Microbiology - Last 24 Hours (Table) 07/25/22 18:36 Blood Culture - Preliminary Blood Assessment and Plan Time with Patient: Less than 30
[2022-07-28] MEDS: PIPERACILLIN-TAZOBACTAM 3.375 GM in SODIUM CHLORIDE 0.9% 100 ML IVPB SCH ×2 (04:49→11:45)
[2022-07-28] MEDS: THIAMINE 100 MG TAB PO SCH (07:52)
[2022-07-28] MEDS: FOLIC ACID 1 MG TAB PO SCH (07:52)
[2022-07-28] MEDS: TORSEMIDE 20 MG TAB PO SCH (07:52)
[2022-07-28] MEDS: LACTULOSE 20 GM/30 ML CUP PO SCH ×2 (07:52→17:21)
[2022-07-28] MEDS: FAMOTIDINE 20 MG TAB PO SCH (07:52)
[2022-07-28] MEDS ORDERED: MAGNESIUM OXIDE 400 MG TAB PO SCH (09:00)
[2022-07-28 10:15] VITALS: BMI 27.3
[2022-07-28 11:36] VITALS: BP 118/62; PULSE 81; TEMP 97.8
--- NOTE | 2022-07-28 14:26 | P.PN ---
Subjective Progress Note Date: 07/28/22 Principal diagnosis: Fever Patient is a 77-year-old male with a past medical history negative for hypertension history of liver cirrhosis GI bleed and heart failure has been brought to the hospital on 07/21/2022 for evaluation of weakness, the patient was noticed to be anemic initially afebrile subsequently did spike a fever and white count was trending up, patient did have a CT abdominal pelvis on 07/26/2022 did not show any acute abnormality. On today's evaluation that is 07/28/2022, the patient remains to be afebrile, the patient is feeling better, the patient is breathing comfortably on room air , the patient denies any chest pain or shortness breath occasional cough no abdominal pain Objective - Vital Signs Vital signs: Vital Signs Temp 97.8 F 07/28/22 11:00 Pulse 81 07/28/22 11:00 Resp 16 07/28/22 11:00 BP 118/62 07/28/22 11:00 Pulse Ox 98 07/28/22 11:00 FiO2 Intake & Output 07/27/22 07/28/22 07/28/22 18:59 06:59 18:59 Output Total 600 Balance -600 Weight 84 kg 84 kg Output: Urine 600 Other: Voiding Method Urinal Urinal Urinal Diaper Diaper Diaper Incontinent Incontinent Incontinent # Voids 3 - Exam GENERAL DESCRIPTION: An elderly male lying in bed in no distress RESPIRATORY SYSTEM: Unlabored breathing , decreased breath sounds at bases HEART: S1 S2 regular rate and rhythm , ABDOMEN: Soft , no tenderness EXTREMITIES: No edema feet - Labs CBC & Chem 7: 07/27/22 10:28 07/27/22 10:28 Labs: Abnormal Lab Results - Last 24 Hours (Table) 07/28/22 Range/Units 07:05 Ammonia 55 H (<30) umol/L Microbiology - Last 24 Hours (Table) 07/25/22 18:36 Blood Culture - Preliminary Blood Assessment and Plan (1) Fever Current Visit: Yes Status: Acute Code(s): R50.9 - FEVER, UNSPECIFIED SNOMED Code(s): 296032604 Plan: Patient with fever elevated white count in this patient admitted to hospital about 5 to 6 days ago for low hemoglobin and did have underlying cirrhosis of the liver patient is currently breathing comfortably chest x-ray was negative for any pneumonia did have a negative UA on the 21 of July with a question of possible abdominal source, as no evidence of any cellulitis at the peripheral IV site joint swelling was noticed 2-patient did have CT of abdominal pelvis with oral contrast and did not show any acute abnormality 3-patient has shown clinical improvement with resolution of his fever and cultures are negative so far, the patient will continue with the Zosyn and consider short course of oral Augmentin on discharge Time with Patient: Less than 30
--- NOTE | 2022-07-28 14:45 | P.PN ---
Subjective Progress Note Date: 07/28/22 CHIEF COMPLAINT: Anemia HISTORY OF PRESENT ILLNESS: Patient denies any abdominal pain. Denies blood in stools. He is sitting up at bedside chair. Tolerating diet. Afebrile PHYSICAL EXAM: VITAL SIGNS: Reviewed. GENERAL: Well-developed in no acute distress. ABDOMEN: Soft. Nondistended. Nontender. NEUROLOGIC: Alert and oriented. Cranial nerves II through XII grossly intact. ASSESSMENT: 1. Acute on chronic anemia with no evidence of active GI bleed 2. History of liver cirrhosis 3. Elevated ammonia level on admission 4. History of alcohol abuse. Quit drinking 2-3 months ago PLAN: -Patient can be discharged from surgical standpoint when medically cleared -Recommend outpatient endoscopies for evaluation of anemia Physician Commercial Real Estate Attorney note has been reviewed by physician. Signing provider agrees with the documented findings, assessment, and plan of care. Objective - Vital Signs Vital signs: Vital Signs Temp 97.8 F 07/28/22 11:00 Pulse 81 07/28/22 11:00 Resp 16 07/28/22 11:00 BP 118/62 07/28/22 11:00 Pulse Ox 98 07/28/22 11:00 FiO2 Intake & Output 07/27/22 07/28/22 07/28/22 18:59 06:59 18:59 Output Total 600 Balance -600 Weight 84 kg 84 kg Output: Urine 600 Other: Voiding Method Urinal Urinal Urinal Diaper Diaper Diaper Incontinent Incontinent Incontinent # Voids 3 # Bowel Movements 3 - Labs CBC & Chem 7: 07/27/22 10:28 07/27/22 10:28 Labs: Abnormal Lab Results - Last 24 Hours (Table) 07/28/22 Range/Units 07:05 Ammonia 55 H (<30) umol/L Microbiology - Last 24 Hours (Table) 07/25/22 18:36 Blood Culture - Preliminary Blood
[2022-07-28 14:57] LABS: African American GFR (CKD) 53.4 (60.0-200.0); Anion Gap 10.7 mmol/L (10.00-18.00); BUN/Creat Ratio 15.75 Ratio (12.00-20.00); Calcium 8.1 mg/dL (8.7-10.3); Carbon Dioxide 20.8 mmol/L (20.0-27.5); Non-African American GFR(CKD) 46.1 (60.0-200.0); Potassium 4.2 mmol/L (3.5-5.5)
[2022-07-28] MEDS ORDERED: FUROSEMIDE 10 MG/ML 2 ML VIAL IV ONE (15:45)
[2022-07-29] MEDS ORDERED: FAMOTIDINE 20 MG TAB PO SCH (09:00)
--- NOTE | 2022-07-30 15:34 | P.DS ---
Providers Date of admission: 07/21/22 20:39 Attending physician: Farzana Ewing Consults: 07/22/22 12:22 Consult Physician Routine Consulting Provider: Josias Malin Consult Reason/Comments: CIRRHOSIS, ANEMIA Do you want consulting provider notified?: Yes 07/26/22 11:43 Consult Physician Routine Consulting Provider: Chencho Adorno Consult Reason/Comments: leukocytosis/fever Do you want consulting provider notified?: Yes Primary care physician: Nora Moran [facility] Course: Final Diagnosis Acute on chronic anemia with no evidence for acute GI bleeding Constipation has resolved Fever and leukocytosis resolved History of liver cirrhosis Elevated ammonia level maintained on lactulose History of alcohol abuse currently not drinking T12 mild/moderate compression fracture subacute to chronic patient denies knowledge of prior fracture Discharge Disposition Patient is stable for discharge home. He is felt to be a high risk for readmission was recommended for subacute rehab which patient has refused at this time. Patients son has concerns with patient dcing home but has okayed the plan for patients daughter to come bring him home. Patient is educated extensively on the importance of continuing on lactulose three times day with the goal of 2 to 3 loose bowel movements a day. Patient verbalizes understanding but does have issues with noncompliance with the lactulose and does have elevated ammonia levels. Wound recommend to repeat an ammonia level in 2 to 3 days after discharge. General surgery to f/u with patient on discharge and recommending outpatient EGD/Colonoscopy. No signs of active bleeding at this time. Patient will be discharged on a 5 day course of oral augmentin and to see Dr. Adorno in the office on f/u. Patient has an appointment with his PCP Dr. Nora Moran on 08/11 at 3pm. Repeat labs in 2 to 3 days. Hospital Course This is a 77 year old male with history of chronic alcohol abuse and liver cirrhosis, patient has quit drinking for over 1 year now. Admitted for anemia and found to have hemoglobin of 6.6 on admission currently up to 8.2, patient has received a total of 3 units of PRBCs. ID has been consulted for the fever and leukocytosis and undergoing workup. Procalcitonin level and CRP are elevated. Urinalysis negative. Patient had abdominal pelvis CT done showing no suspicious well-formed fluid collection or abscess. Cirrhosis with mild s plenomegaly and tiny amount of intraperitoneal ascites, no bowel obstruction. Mild colonic fecal stasis. Subacute to chronic mild to borderline moderate compression type fracture at T12 verebra. Patient denies any knowledge of prior fracture. Fever has resolved and white count is normal. Patient received IV zosyn while inpatient and fever and white count have normalized patient recommended by infectious disease for a 5 day course of oral augmentin on discharge. Patient is having multiple BMs daily he has been maintained on lactulose due to the elevated ammonia level. He does have issues with n oncompliance with the lactulose and this is discussed in extent with the patient the importance of compliance. He is hemodynamically stable. General surgery planning for outpatient EGD/Colonoscopy with no signs of active bleeding this hospital stay. Hemoglobin has remained stable at 7.9 and 8.2. Sodium is 134 and patient is given a dose of IV lasix prior to discharge he does have some mild lower extremity edema bilaterally and recommend to continue on torsemide on discharge. He denies shortness of breath, no chest pain, no nausea vomiting or diarrhea. His lungs are clear, S1 S2 auscultated, abdomen is soft and nontender with normoactive bowel sounds. Alert x 3 with generalized weakness no focal deficits. Patient is cleared for DC home with the above mentioned recommendations. Please see medication reconciliation for a list of current medications. Thank you for allowing us to participate in the care of this patient. The impression and plan of care has been dictated by Meredith Womack, Nurse Practitioner as directed. Dr. Dereje MD I have performed a history and physical examination and medical decision making of this patient, discussed the same with the dictator, and agree with the dictators assessment and plan as written, documented as a scribe. Based on total visit time, I have performed more than 50% of this visit. Patient Condition at Discharge: Stable Plan - Discharge Summary Discharge Rx Participant: Yes New Discharge Prescriptions: New Lactulose [Cephulac] 30 gm PO TID 4 Days #500 ml Magnesium Oxide [Mag-Ox] 400 mg PO DAILY #30 tab Amoxic-Pot Clav 875-125Mg [Augmentin 875-125] 1 tab PO Q12HR 5 Days #10 tab Continue Thiamine [Vitamin B-1] 100 mg PO DAILY Torsemide [Demadex] 20 mg PO DAILY Pantoprazole Sodium [Protonix] 40 mg PO BID Folic Acid 1 mg PO DAILY Discharge Medication List Folic Acid 1 mg PO DAILY 06/18/22 [History] Pantoprazole Sodium [Protonix] 40 mg PO BID 06/18/22 [History] Thiamine [Vitamin B-1] 100 mg PO DAILY 06/18/22 [History] Torsemide [Demadex] 20 mg PO DAILY 06/18/22 [History] Amoxic-Pot Clav 875-125Mg [Augmentin 875-125] 1 tab PO Q12HR 5 Days #10 tab 07/28/22 [Rx] Lactulose [Cephulac] 30 gm PO TID 4 Days #500 ml 07/28/22 [Rx] Magnesium Oxide [Mag-Ox] 400 mg PO DAILY #30 tab 07/28/22 [Rx] Follow up Appointment(s)/Referral(s): [facility], [NON-STAFF] - 1 Week Nora Moran MD [Primary Care Provider] - 08/11/22 3:00 pm Chencho Adorno MD [STAFF PHYSICIAN] - 08/17/22 1:45 pm Josias Malin MD [STAFF PHYSICIAN] - 08/10/22 1:45 pm Ambulatory/Diagnostic Orders: Basic Metabolic Panel [LAB.AMB] Time Frame: 3 Days, Location: None Selected Complete Blood Count w/diff [LAB.AMB] Time Frame: 3 Days, Location: None Selected Patient Instructions/Handouts: Cirrhosis (DC), Anemia (DC) Activity/Diet/Wound Care/Special Instructions: Continue with lactulose three times a day with goal of 2 to 3 loose BMs per day This is recommended to keep ammonia level down in your blood stream Notify provider if you are experiencing increased confusion, altered mentation Follow up with general surgery outpatient for EGD/Colonoscopy Follow up labs in 2 to 3 days. Discharge Disposition: HOME WITH HOME HEALTH SERVICES
== END 2022-07-28 18:03 | disposition home health service (06) | DRG 434 ==
LOC: EC 16:20 → 5NMEDONC 20:39
PROVIDERS: ADMIT Internal Medicine; ATTEND Internal Medicine
PROC: 30233N1 Transfusion of Nonautologous Red Blood Cells into Peripheral Vein, Percutaneous Approach (ICD-10-PCS; principal; 2022-07-21)
DX: K70.31 Alcoholic cirrhosis of liver with ascites (principal); D63.8 Anemia in other chronic diseases classified elsewhere; I11.0 Hypertensive heart disease with heart failure; I50.9 Heart failure, unspecified; F10.20 Alcohol dependence, uncomplicated; Z20.822 Contact with and (suspected) exposure to COVID-19; G25.3 Myoclonus; F43.10 Post-traumatic stress disorder, unspecified; K64.1 Second degree hemorrhoids; K57.30 Diverticulosis of large intestine without perforation or abscess without bleeding; R16.1 Splenomegaly, not elsewhere classified; R29.6 Repeated falls; R32 Unspecified urinary incontinence; M48.54XD Collapsed vertebra, not elsewhere classified, thoracic region, subsequent encounter for fracture with routine healing; F17.200 Nicotine dependence, unspecified, uncomplicated; Z79.899 Other long term (current) drug therapy; Z87.11 Personal history of peptic ulcer disease
CPT/HCPCS: 36415; 36430; 70450; 71046; 74176; 80048; 80053; 81003; 82140; 82272; 83735; 84145; 85025; 85027; 85610; 85730; 86140; 86850; 86900; 86901; 86920; 87040; 87635; 93005; 96374; 99291

== ENCOUNTER 2022-08-13 15:07 | Emergency (ER) | payer MEDICARE ==
--- NOTE | 2022-08-13 16:33 | ED ---
General Adult HPI - General Chief complaint: Recheck/Abnormal Lab/Rx Stated complaint: hemoglobin Time Seen by Provider: 08/13/22 15:46 Source: patient, family, RN notes reviewed, old records reviewed Mode of arrival: wheelchair Limitations: no limitations - History of Present Illness Initial comments: 77-year-old male presenting with weakness and mild dyspnea. Patient has history of chronic anemia and states that he had outpatient laboratory testing revealed hemoglobin 7.2 from earlier in the week. He denies hematuria. Denies rectal bleeding. He states his symptoms are consistent with prior episodes of anemia. - Related Data Home Medications Medication Instructions Recorded Confirmed Folic Acid 1 mg PO DAILY 06/18/22 08/13/22 Pantoprazole Sodium [Protonix] 40 mg PO BID 06/18/22 08/13/22 Thiamine [Vitamin B-1] 100 mg PO DAILY 06/18/22 08/13/22 Torsemide [Demadex] 20 mg PO DAILY 06/18/22 08/13/22 Lactulose [Cephulac] 30 gm PO TID PRN 08/13/22 08/13/22 Previous Rx's Medication Instructions Recorded Magnesium Oxide [Mag-Ox] 400 mg PO DAILY #30 tab 07/28/22 Allergies Allergy/AdvReac Type Severity Reaction Status Date / Time No Known Allergies Allergy Verified 08/13/22 15:56 Review of Systems ROS Statement: Those systems with pertinent positive or pertinent negative responses have been documented in the HPI. ROS Other: All systems not noted in ROS Statement are negative. Past Medical History Past Medical History: Heart Failure, GI Bleed, Hypertension, Liver Disease Additional Past Medical History / Comment(s): hx of liver cirrhosis, hx esophageal varices, STATES PAST HX OF COLON POLYP-benign,PREVIOUS HX OF HTN but OFF MEDICATIONS for over a year, History of Any Multi-Drug Resistant Organisms: None Reported Past Surgical History: Tonsillectomy Additional Past Surgical History / Comment(s): EGD WITH BANDING OF VARICES, PREV. COLONOSCOPIES, egd Past Anesthesia/Blood Transfusion Reactions: No Reported Reaction Past Psychological History: PTSD Smoking Status: Former smoker, Light tobacco smoker Past Alcohol Use History: Heavy Past Drug Use History: None Reported - Past Family History Mother Family Medical History: Cancer Additional Family Medical History / Comment(s): COLON Father Family Medical History: Coronary Artery Disease (CAD) Additional Family Medical History / Comment(s): valve replacment, cataracts General Exam Limitations: no limitations General appearance: alert, in no apparent distress Head exam: Present: atraumatic, normocephalic Eye exam: Present: normal appearance, PERRL Respiratory exam: Present: wheezes. Absent: respiratory distress Cardiovascular Exam: Present: regular rate, normal rhythm GI/Abdominal exam: Present: soft. Absent: distended, tenderness, guarding Extremities exam: Present: normal inspection, normal capillary refill Neurological exam: Present: alert. Absent: motor sensory deficit Psychiatric exam: Present: normal affect Skin exam: Present: pallor Course Vital Signs 08/13/22 08/13/22 15:33 16:51 Temperature 98.2 F 98.1 F Pulse Rate 76 71 Respiratory 20 20 Rate Blood Pressure 128/73 127/62 O2 Sat by Pulse 99 Oximetry Medical Decision Making - Medical Decision Making Was pt. sent in by a medical professional or institution (, PA, [employer], urgent care, hospital, or shelter...) When possible be specific @ -[No] Did you speak to anyone other than the patient for history (EMS, parent, family, police, friend...)? What history was obtained from this source @ -[Patient's daughter Did you review nursing and triage notes (agree or disagree)? Why? @ -[I reviewed and agree with nursing and triage notes] Were old charts reviewed (outside hosp., previous admission, EMS record, old EKG, old radiological studies, urgent care reports/EKG's, shelter records)? Report findings @ -[No old charts were reviewed] Differential Diagnosis (chest pain, altered mental status, abdominal pain women, abdominal pain men, vaginal bleeding, weakness, fever, dyspnea, syncope, headache, dizziness, GI bleed, back pain, seizure, CVA, palpatations, mental health, musculoskeletal)? @ -Differential Weakness: Hypoglycemia, shock, sepsis, hyponatremia, anemia, infection, MN, ETOH, adverse medicine reaction, overdose, stroke, this is not meant to be an all-inclusive list. EKG interpreted by me (3pts min.). @Sinus rhythm rate of 75, CO interval 193, QRS duration 120, QTC 453, no ST segment elevation X-rays interpreted by me (1pt min.). @ -[No focal pneumonia, no pulmonary edema or effusions CT interpreted by me (1pt min.). @ -[None done] U/S interpreted by me (1pt. min.). @ -[None done] What testing was considered but not performed or refused? (CT, X-rays, U/S, labs)? Why? @ -[None] What meds were considered but not given or refused? Why? @ -[None] Did you discuss the management of the patient with other professionals (professionals i.e. , PA, [employer], lab, RT, psych nurse, marriage and family social worker, assembler plastic boat, teacher, surveillance sensor officer, case reviewer)? Give summary @ -[No] Was smoking cessation discussed for >3mins.? @ -[No] Was critical care preformed (if so, how long)? @ -[No] Were there social determinants of health that impacted care today? How? (Homelessness, low income, unemployed, alcoholism, drug addiction, transportation, low edu. Level, literacy, decrease access to med. care, intermediate, rehab)? @ -[No] Was there de-escalation of care discussed even if they declined (Discuss DNR or withdrawal of care, Hospice)? DNR status @ -[No] What co-morbidities impacted this encounter? (DM, HTN, Smoking, COPD, CAD, Cancer, CVA, ARF, Chemo, Hep., AIDS, mental health diagnosis, sleep apnea, morbid obesity)? @ -[Anemia, CHF Was patient admitted / discharged? Hospital course, mention meds given and route, prescriptions, significant lab abnormalities, going to OR and other pertinent info. @ -[77-year-old male presenting with anemia, outpatient hemoglobin 7.2 from earlier in the week. Repeat hemoglobin is 8.1 which is stable for this patient. Chest x-ray is clear. Left lites are within normal limits. He is leukopenic which is also a chronic issue for this patient. Patient is eager for discharge does not have any further complaints or issues. Should follow with primary care. Undiagnosed new problem with uncertain prognosis? @ -[No] Drug Therapy requiring intensive monitoring for toxicity (Heparin, Nitro, Insulin, Cardizem)? @ -[No] Were any procedures done? @ -[No] Diagnosis/symptom? @ Anemia Acute, or Chronic, or Acute on Chronic? @ -Chronic Uncomplicated (without systemic symptoms) or Complicated (systemic symptoms)? @ -[default] Side effects of treatment? @ -[No] Exacerbation, Progression, or Severe Exacerbation? @ -[No] Poses a threat to life or bodily function? How? (Chest pain, USA, MN, pneumonia, PE, COPD, DKA, ARF, appy, cholecystitis, CVA, Diverticulitis, Homicidal, Suicidal, threat to staff... and all critical care pts) @ -[Low-risk - Lab Data Result diagrams: 08/13/22 16:30 08/13/22 16:41 Lab Results 08/13/22 08/13/22 08/13/22 Range/Units 16:30 16:41 16:41 WBC 2.6 L (3.8-10.6) k/uL RBC 2.83 L (4.30-5.90) m/uL Hgb 8.1 L (13.0-17.5) gm/dL Hct 25.2 L (39.0-53.0) % MCV 89.0 (80.0-100.0) fL MCH 28.7 (25.0-35.0) pg MCHC 32.2 (31.0-37.0) g/dL RDW 16.5 H (11.5-15.5) % Plt Count 207 (150-450) k/uL MPV 7.7 Neutrophils % 52 % Lymphocytes % 20 % Monocytes % 12 % Eosinophils % 12 % Basophils % 1 % Neutrophils # 1.4 (1.3-7.7) k/uL Lymphocytes # 0.5 L (1.0-4.8) k/uL Monocytes # 0.3 (0-1.0) k/uL Eosinophils # 0.3 (0-0.7) k/uL Basophils # 0.0 (0-0.2) k/uL Hypochromasia Moderate Anisocytosis Slight PT 12.8 H (9.0-12.0) sec INR 1.3 H (<1.2) APTT 27.9 (22.0-30.0) sec Sodium 140 (137-145) mmol/L Potassium 3.5 (3.5-5.1) mmol/L Chloride 112 H (98-107) mmol/L Carbon Dioxide 22 (22-30) mmol/L Anion Gap 6 mmol/L BUN 14 (9-20) mg/dL Creatinine 1.08 (0.66-1.25) mg/dL Est GFR (CKD-EPI)AfAm 77 (>60 ml/min/1.73 sqM) Est GFR (CKD-EPI)NonAf 66 (>60 ml/min/1.73 sqM) Glucose 125 H (74-99) mg/dL Calcium 8.9 (8.4-10.2) mg/dL Magnesium 1.9 (1.6-2.3) mg/dL Total Bilirubin 1.1 (0.2-1.3) mg/dL AST 35 (17-59) U/L ALT 20 (4-49) U/L Alkaline Phosphatase 119 (38-126) U/L Total Protein 6.7 (6.3-8.2) g/dL Albumin 3.1 L (3.5-5.0) g/dL Disposition Clinical Impression: Anemia Disposition: HOME SELF-CARE Condition: Fair Instructions (If sedation given, give patient instructions): Anemia (ED) Is patient prescribed a controlled substance at d/c from ED?: No Referrals: Nora Moran MD [Primary Care Provider] - 1-2 days Time of Disposition: 17:49
[2022-08-13 16:56] VITALS: TEMP 98.1
[2022-08-13 17:10] LABS: ALT 20 U/L (4-49); AST 35 U/L (17-59); African American GFR (CKD) 77 (>60 ml/min/1.73 sqM); Albumin 3.1 g/dL (3.5-5.0); Alkaline Phosphatase 119 U/L (38-126); Anion Gap 6 mmol/L; Blood Urea Nitrogen 14 mg/dL (9-20); Calcium 8.9 mg/dL (8.4-10.2); Carbon Dioxide 22 mmol/L (22-30); Chloride 112 mmol/L (98-107); Glucose 125 mg/dL (74-99); Magnesium 1.9 mg/dL (1.6-2.3); Non-African American GFR(CKD) 66 (>60 ml/min/1.73 sqM); Potassium 3.5 mmol/L (3.5-5.1); Sodium 140 mmol/L (137-145); Total Bilirubin 1.1 mg/dL (0.2-1.3); Total Protein 6.7 g/dL (6.3-8.2)
--- NOTE | 2022-08-13 17:10 | XR ---
EXAMINATION TYPE: XR chest 2V DATE OF EXAM: 08/13/2022 5:02 PM COMPARISON: Chest radiographs from 07/17/2022 TECHNIQUE: XR chest 2V Frontal and lateral views of the chest. CLINICAL INDICATION:Male, 77 years old with history of Weakness; FINDINGS: Lungs/Pleura: There is flattening of the diaphragm with increased lucency of the lungs. No evidence o f pneumothorax, pleural effusion or focal consolidation. Pulmonary vascularity: Unremarkable. Heart/mediastinum: Cardiomediastinal silhouette is enlarged and stable. Musculoskeletal: No acute osseous pathology. IMPRESSION: 1. No acute cardiopulmonary disease process. 2. COPD changes.
[2022-08-13 17:19] LABS: INR 1.3 (<1.2); Partial Thromboplastin Time 27.9 sec (22.0-30.0); Prothrombin Time 12.8 sec (9.0-12.0)
[2022-08-13 17:40] LABS: Anisocytosis Slight; Basophils % (A) 1 %; Eosinophils # (A) 0.3 k/uL (0-0.7); Eosinophils % (A) 12 %; HCT 25.2 % (39.0-53.0); HGB 8.1 gm/dL (13.0-17.5); Hypochromasia Moderate; Lymphocytes # (A) 0.5 k/uL (1.0-4.8); Lymphocytes % (A) 20 %; MCH 28.7 pg (25.0-35.0); MCHC 32.2 g/dL (31.0-37.0); Mean Platelet Volume 7.7; Monocytes # (A) 0.3 k/uL (0-1.0); Monocytes % (A) 12 %; Neutrophils # (A) 1.4 k/uL (1.3-7.7); Neutrophils % (A) 52 %; Platelet Count 207 k/uL (150-450); RBC 2.83 m/uL (4.30-5.90); RDW 16.5 % (11.5-15.5); WBC 2.6 k/uL (3.8-10.6)
[2022-08-13 18:24] VITALS: BP 132/78; PULSE 90; RESP 18
== END 2022-08-13 18:24 | disposition home or self-care (01) ==
LOC: EC 15:07
DX: D64.9 Anemia, unspecified (principal); I11.0 Hypertensive heart disease with heart failure; I50.9 Heart failure, unspecified; J44.9 Chronic obstructive pulmonary disease, unspecified; Z87.891 Personal history of nicotine dependence; Z79.899 Other long term (current) drug therapy
CPT/HCPCS: 36415; 71046; 80053; 83735; 85025; 85610; 85730; 86850; 86900; 86901; 93005; 99284

== ENCOUNTER 2022-10-26 06:23 | Day surgery (SDC) | payer MEDICARE ==
[2022-10-25 08:52] VITALS: BMI 28.1
[2022-10-26] MEDS ORDERED: LACTATED RINGERS 1,000 ML IV ONE (06:46)
[2022-10-26 06:50] VITALS: RESP 18; TEMP 98.4
[2022-10-26] MEDS ORDERED: LIDOCAINE 2% INJ 20 MG/ML (2 ML VIAL) ONE (07:08)
[2022-10-26] MEDS ORDERED: PROPOFOL 10 MG/ML 20 ML VIAL IV ONE (07:08)
--- NOTE | 2022-10-26 07:28 | P.PCN ---
Date of Procedure: 10/26/22 Procedure(s) Performed: Brief history: Patient is a pleasant 77-year-old white male scheduled for an elective upper endoscopy as well as colonoscopy as a part of evaluation of iron deficiency anemia/history of polypoid cirrhosis of the liver and prior history of esophageal varices Procedure performed: Esophagogastroduodenoscopy Colonoscopy Preoperative diagnosis: Iron deficiency anemia History of alcoholic cirrhosis and esophageal varices Anesthesia: MAC Procedure: After informed consent was obtained from the patient was brought into the endoscopy unit and IV sedation was administered by anesthesia under continuous monitoring. Initially upper endoscopy was done. The Olympus GF 160 video endo scope was inserted inserted into the mouth and esophagus intubated without any difficulty and was gradually advanced into the stomach and duodenum and carefully examined. The bulb and second part of the duodenum appeared normal. The scope was then withdrawn into the stomach adequately insufflated with air and upon careful examination the antrum and body, cardia and fundus had changes consistent with mild to moderate portal hypertensive gastropathy. No gastric varices seen. The scope was then withdrawn into the esophagus. Mall hiatal hernia noted. The GE junction was located at 40 cm to the incisors. It appeared regular with no erythema erosions or ulcerations. Small distal esophageal varices seen. Rest of the esophagus appeared normal. Patient tolerated the procedure well. At this time the patient continued to remain sedation. Initial digital rectal examination was normal. Olympus CF 160 video colonoscope was then inserted into the rectum and gradually advanced to the cecum without any difficulty. Careful examination was performed as the scope was gradually being withdrawn. The prep was excellent. The cecum, ascending colon, transverse colon, descending colon, sigmoid colon and rectum appeared normal. Scattered sigmoid diverticulosis. Retroflexion was performed in the rectum and grade 2 internal hemorrhoids were noted. Patient tolerated the procedure well. Impression: 1. Upper endoscopy revealed mild antral gastritis, mild to moderate portal hypertensive gastropathy and small esophageal varices 2. Colonoscopy revealed scattered sigmoid diverticulosis and grade 2 internal hemorrhoids Recommendations: Findings of this examination were discussed with the patient as well as his family. He was advised to follow with the biopsy results. Repeat upper endoscopy in 2 years.
[2022-10-26] MEDS ORDERED: LIDOCAINE 1% (10MG/ML) FOR IV START INTRADERMA PRN (07:43)
[2022-10-26] MEDS ORDERED: LACTATED RINGERS 1,000 ML IV SCH (07:43)
[2022-10-26 07:52] VITALS: BP 144/76; PULSE 75
== END 2022-10-26 08:28 | disposition home or self-care (01) ==
LOC: ORWHC2ENDO 06:23
PROVIDERS: ATTEND Internal Medicine Gastroenterology
DX: K29.50 Unspecified chronic gastritis without bleeding (principal); K44.9 Diaphragmatic hernia without obstruction or gangrene; K57.30 Diverticulosis of large intestine without perforation or abscess without bleeding; D50.9 Iron deficiency anemia, unspecified; I85.10 Secondary esophageal varices without bleeding; I50.9 Heart failure, unspecified; K64.1 Second degree hemorrhoids; I11.0 Hypertensive heart disease with heart failure; L98.499 Non-pressure chronic ulcer of skin of other sites with unspecified severity; K76.6 Portal hypertension; K31.89 Other diseases of stomach and duodenum; K70.30 Alcoholic cirrhosis of liver without ascites; F10.90 Alcohol use, unspecified, uncomplicated; Z79.899 Other long term (current) drug therapy
CPT/HCPCS: 88305; 45378; 43239; J2704; J2001

== ENCOUNTER 2023-07-23 10:28 | Emergency (ER) | payer MEDICARE ==
[2023-07-23 10:53] VITALS: RESP 18
--- NOTE | 2023-07-23 11:36 | ED ---
General Adult HPI - General Chief complaint: Recheck/Abnormal Lab/Rx Stated complaint: Toe Swelling Time Seen by Provider: 07/23/23 11:15 Source: patient, family, RN notes reviewed Mode of arrival: ambulatory Limitations: no limitations - History of Present Illness Initial comments: 78-year-old male presents to the emergency department for evaluation of right toe redness and discomfort. Patient states that he saw his primary care provider recently for neuropathy type symptoms and she noticed redness to his right 1st toe. He underwent x-ray his PCPs office on . His daughter states that his PCP called yesterday and told him to come in for concern of osteomyelitis. He does admit to an episode of vomiting this AM. He reports this is out of the ordinary for him. Denies significant pain in the toe. Denies fever, chills. Denies abdominal pain. PMH includes cirrhosis of the liver, CKD. - Related Data Home Medications Medication Instructions Recorded Confirmed Pantoprazole [Protonix] 40 mg PO DAILY 10/25/22 07/23/23 Ferrous Sulfate [Feosol] 325 mg PO BID 11/27/22 07/23/23 Torsemide [Demadex] 40 mg PO Q48H 11/27/22 07/23/23 Cephalexin [Keflex] 500 mg PO DIRECTED 07/23/23 07/23/23 Lactulose 30 gm PO BID 07/23/23 07/23/23 Spironolactone [Aldactone] 25 mg PO DAILY 07/23/23 07/23/23 Vitamin B Complex 1 cap PO DAILY 07/23/23 07/23/23 Vitamin D3 (Unknown Strength) 1 dose PO DAILY 07/23/23 07/23/23 Allergies Allergy/AdvReac Type Severity Reaction Status Date / Time No Known Allergies Allergy Verified 07/23/23 14:05 Review of Systems ROS Statement: Those systems with pertinent positive or pertinent negative responses have been documented in the HPI. ROS Other: All systems not noted in ROS Statement are negative. Past Medical History Past Medical History: Heart Failure, GI Bleed, Hypertension, Liver Disease Additional Past Medical History / Comment(s): hx of liver cirrhosis, hx esophageal varices, STATES PAST HX OF COLON POLYP-benign,PREVIOUS HX OF HTN but OFF MEDICATIONS for over a year, History of Any Multi-Drug Resistant Organisms: None Reported Past Surgical History: Tonsillectomy Additional Past Surgical History / Comment(s): EGD WITH BANDING OF VARICES, PREV. COLONOSCOPIES, egd Past Anesthesia/Blood Transfusion Reactions: No Reported Reaction Additional Past Anesthesia/Blood Transfusion Reaction / Comment(s): no reaction to blood transfusion Past Psychological History: No Psychological Hx Reported, PTSD Smoking Status: Former smoker, Light tobacco smoker - Past Family History Mother Family Medical History: Cancer Additional Family Medical History / Comment(s): COLON Father Family Medical History: Coronary Artery Disease (CAD) Additional Family Medical History / Comment(s): valve replacment, cataracts General Exam Limitations: no limitations General appearance: alert, in no apparent distress Head exam: Present: atraumatic, normocephalic, normal inspection Eye exam: Present: normal appearance, PERRL, EOMI. Absent: scleral icterus, conjunctival injection, periorbital swelling Respiratory exam: Present: normal lung sounds bilaterally. Absent: respiratory distress, wheezes, rales, rhonchi, stridor Cardiovascular Exam: Present: normal rhythm, tachycardia, normal heart sounds. Absent: systolic murmur, diastolic murmur, rubs, gallop, clicks GI/Abdominal exam: Present: soft, normal bowel sounds. Absent: distended, tenderness, guarding, rebound, rigid Extremities exam: Present: full ROM, normal capillary refill. Absent: tenderness, pedal edema, joint swelling, calf tenderness Neurological exam: Present: alert, oriented X3 Psychiatric exam: Present: normal affect, normal mood Skin exam: Present: warm, dry, erythema (erythema below eponychium of right 1st toe). Absent: intact, normal color Course Vital Signs 07/23/23 07/23/23 07/23/23 10:41 15:53 17:35 Temperature 98.2 F Pulse Rate 113 H 112 H 105 H Respiratory 18 18 18 Rate Blood Pressure 117/70 107/59 108/66 O2 Sat by Pulse 98 97 97 Oximetry 07/23/23 07/23/23 18:15 18:28 Temperature 98.3 F Pulse Rate 108 H 99 Respiratory 18 18 Rate Blood Pressure 116/69 116/69 O2 Sat by Pulse 97 98 Oximetry Medical Decision Making - Medical Decision Making Was pt. sent in by a medical professional or institution (, PA, WELT INSOLE CHANNELER, urgent care, hospital, or jail...) When possible be specific @ -Sent in by primary care provider for possible osteomyelitis Did you speak to anyone other than the patient for history (EMS, parent, family, police, friend...)? What history was obtained from this source @ -Patient's daughter provided some of the history for this patient. Did you review nursing and triage notes (agree or disagree)? Why? @ -I reviewed and agree with nursing and triage notes Were old charts reviewed (outside hosp., previous admission, EMS record, old EKG, old radiological studies, urgent care reports/EKG's, jail records)? Report findings @ -No old charts were reviewed Differential Diagnosis (chest pain, altered mental status, abdominal pain women, abdominal pain men, vaginal bleeding, weakness, fever, dyspnea, syncope, headache, dizziness, GI bleed, back pain, seizure, CVA, palpatations, mental health, musculoskeletal)? @ -Differential Musculoskeletal Muscular strain, contusion, ligament sprain, fracture, arthritis, septic ar thritis, bursitis, cellulitis, muscle spasm, nerve compression, DVT, arterial occlusion, herpes zoster, electrolyte abnormality, tumor.... This is not meant to be in all inclusive list EKG interpreted by me (3pts min.). @ -None X-rays interpreted by me (1pt min.). @ -X-ray of the right foot shows findings suggestive of osteomyelitis of first metatarsophalangeal joint space CT interpreted by me (1pt min.). @ -None done U/S interpreted by me (1pt. min.). @ -None done What testing was considered but not performed or refused? (CT, X-rays, U/S, labs)? Why? @ -None What meds were considered but not given or refused? Why? @ -None Did you discuss the management of the patient with other professionals (professionals i.e. , PA, WELT INSOLE CHANNELER, lab, RT, psych nurse, bilingual social worker, divorce lawyer, teacher, global chief creative officer, director of casework department)? Give summary @ -Case discussed with TIFFANY Paredes at [facility] recommend octreotide and accepts transfer. Was smoking cessation discussed for >3mins.? @ -No Was critical care preformed (if so, how long)? @ -No Were there social determinants of health that impacted care today? How? (Homelessness, low income, unemployed, alcoholism, drug addiction, transportation, low edu. Level, literacy, decrease access to med. care, shelter, rehab)? @ -low income Was there de-escalation of care discussed even if they declined (Discuss DNR or withdrawal of care, Hospice)? DNR status @ -No What co-morbidities impacted this encounter? (DM, HTN, Smoking, COPD, CAD, Cancer, CVA, ARF, Chemo, Hep., AIDS, mental health diagnosis, sleep apnea, morbid obesity)? @ -cirrhosis of liver Was patient admitted / discharged? Hospital course, mention meds given and route, prescriptions, significant lab abnormalities, going to OR and other pertinent info. @ -Patient presented to the emergency department for evaluation of right toe pain, sent in by PCP for possible osteomyelitis. He denies significant pain in the toe. X-ray of the right foot was obtained which shows findings suggestive of osteomyelitis of the right first metatarsal phalangeal joint. Laboratory studies obtained which showed normal WBC of 4.9, hemoglobin 9.1; INR 1.3; CMP shows sodium 135, BUN 35, creatinine 1.64, CRP 0.5. Patient started on IV antibiotics, vancomycin and Unasyn for osteomyelitis. While in the ED, patient had significant episodes of coffee-ground emesis. Emesis tested, gastric occult positive. Patient provided 80mg protonix and 500cc NS. Discussed with patient necessitation for transfer to facility with GI coverage for GI bleed. Patient reluctant for transfer. Discussed risks of delay and AMA. After significant delay patient agreeable. Discussed case with Dr. Mercer, GI at [facility] who is accepting of tranfer. Recommend 50mcg of octreotide IVP and 50mcg continuous as patient transfers. Patient will be started on these medications. Case discussed with Dr. Olsen, attending physician. Undiagnosed new problem with uncertain prognosis? @ -No Drug Therapy requiring intensive monitoring for toxicity (Heparin, Nitro, Insulin, Cardizem)? @ -No Were any procedures done? @ -No Diagnosis/symptom? @ -Osteomyelitis, GI bleed Acute, or Chronic, or Acute on Chronic? @ -Acute Uncomplicated (without systemic symptoms) or Complicated (systemic symptoms)? @ -uncomplicated Side effects of treatment? @ -No Exacerbation, Progression, or Severe Exacerbation? @ -exacerbation Poses a threat to life or bodily function? How? (Chest pain, [place], [place], pneumonia, PE, COPD, DKA, ARF, appy, cholecystitis, CVA, Diverticulitis, Homicidal, Suicidal, threat to staff... and all critical care pts) @ -yes, GI bleed - Lab Data Result diagrams: 07/23/23 12:09 07/23/23 13:05 Lab Results 07/23/23 07/23/23 07/23/23 Range/Units 12:09 13:05 14:01 WBC 4.9 (3.8-10.6) k/uL RBC 3.01 L (4.30-5.90) m/uL Hgb 9.1 L (13.0-17.5) gm/dL Hct 29.1 L (39.0-53.0) % MCV 96.8 (80.0-100.0) fL MCH 30.3 (25.0-35.0) pg MCHC 31.3 (31.0-37.0) g/dL RDW 15.5 (11.5-15.5) % Plt Count 181 (150-450) k/uL MPV 7.5 Neutrophils % 70 % Lymphocytes % 12 % Monocytes % 8 % Eosinophils % 7 % Basophils % 1 % Neutrophils # 3.4 (1.3-7.7) k/uL Lymphocytes # 0.6 L (1.0-4.8) k/uL Monocytes # 0.4 (0-1.0) k/uL Eosinophils # 0.3 (0-0.7) k/uL Basophils # 0.1 (0-0.2) k/uL ESR 31 H (0-20) mm/Hr PT (10.0-12.5) sec INR (<1.2) APTT (22.0-30.0) sec Sodium 135 L (137-145) mmol/L Potassium 4.7 (3.5-5.1) mmol/L Chloride 106 (98-107) mmol/L Carbon Dioxide 21 L (22-30) mmol/L Anion Gap 8 mmol/L BUN 35 H (9-20) mg/dL Creatinine 1.64 H (0.66-1.25) mg/dL Est GFR (CKD-EPI)AfAm 46 (>60 ml/min/1.73 sqM) Est GFR (CKD-EPI)NonAf 40 (>60 ml/min/1.73 sqM) Glucose 97 (74-99) mg/dL Calcium 8.7 (8.4-10.2) mg/dL Total Bilirubin 1.3 (0.2-1.3) mg/dL AST 37 (17-59) U/L ALT 21 (4-49) U/L Alkaline Phosphatase 132 H (38-126) U/L C-Reactive Protein 0.5 (<1.0) mg/dL Total Protein 6.4 (6.3-8.2) g/dL Albumin 3.1 L (3.5-5.0) g/dL Gastric Occult Blood Positive (Negative) Blood Type Blood Type Recheck Bld Type Recheck Status Antibody Screen Spec Expiration Date 07/23/23 07/23/23 Range/Units 14:40 14:40 WBC (3.8-10.6) k/uL RBC (4.30-5.90) m/uL Hgb (13.0-17.5) gm/dL Hct (39.0-53.0) % MCV (80.0-100.0) fL MCH (25.0-35.0) pg MCHC (31.0-37.0) g/dL RDW (11.5-15.5) % Plt Count (150-450) k/uL MPV Neutrophils % % Lymphocytes % % Monocytes % % Eosinophils % % Basophils % % Neutrophils # (1.3-7.7) k/uL Lymphocytes # (1.0-4.8) k/uL Monocytes # (0-1.0) k/uL Eosinophils # (0-0.7) k/uL Basophils # (0-0.2) k/uL ESR (0-20) mm/Hr PT 14.0 H (10.0-12.5) sec INR 1.3 H (<1.2) APTT 27.9 (22.0-30.0) sec Sodium (137-145) mmol/L Potassium (3.5-5.1) mmol/L Chloride (98-107) mmol/L Carbon Dioxide (22-30) mmol/L Anion Gap mmol/L BUN (9-20) mg/dL Creatinine (0.66-1.25) mg/dL Est GFR (CKD-EPI)AfAm (>60 ml/min/1.73 sqM) Est GFR (CKD-EPI)NonAf (>60 ml/min/1.73 sqM) Glucose (74-99) mg/dL Calcium (8.4-10.2) mg/dL Total Bilirubin (0.2-1.3) mg/dL AST (17-59) U/L ALT (4-49) U/L Alkaline Phosphatase (38-126) U/L C-Reactive Protein (<1.0) mg/dL Total Protein (6.3-8.2) g/dL Albumin (3.5-5.0) g/dL Gastric Occult Blood (Negative) Blood Type O Negative Blood Type Recheck O Neg Bld Type Recheck Status No Antibody Screen NEGATIVE Spec Expiration Date 07/26/20232339 Disposition Clinical Impression: GI bleed, Osteomyelitis of toe, Acute GI bleeding, Cirrhosis Disposition: OTHER INSTITUTION NOT DEFINED Condition: Stable Is patient prescribed a controlled substance at d/c from ED?: No Referrals: Nora Moran MD [Primary Care Provider] - 1-2 days - Out of Hospital Transfer - Req. Specs Out of Hospital Transfer - Requested Specifics: Other Emergency Center ([facility])
[2023-07-23 12:33] LABS: Basophils # (A) 0.1 k/uL (0-0.2); Basophils % (A) 1 %; Eosinophils # (A) 0.3 k/uL (0-0.7); Eosinophils % (A) 7 %; HCT 29.1 % (39.0-53.0); HGB 9.1 gm/dL (13.0-17.5); Lymphocytes # (A) 0.6 k/uL (1.0-4.8); Lymphocytes % (A) 12 %; MCH 30.3 pg (25.0-35.0); MCHC 31.3 g/dL (31.0-37.0); MCV 96.8 fL (80.0-100.0); Mean Platelet Volume 7.5; Monocytes # (A) 0.4 k/uL (0-1.0); Monocytes % (A) 8 %; Neutrophils # (A) 3.4 k/uL (1.3-7.7); Neutrophils % (A) 70 %; Platelet Count 181 k/uL (150-450); RBC 3.01 m/uL (4.30-5.90); RDW 15.5 % (11.5-15.5); WBC 4.9 k/uL (3.8-10.6)
--- NOTE | 2023-07-23 12:34 | XR ---
EXAMINATION TYPE: XR foot complete RT DATE OF EXAM: 07/23/2023 COMPARISON: None HISTORY: Great toe pain TECHNIQUE: 3 view right foot FINDINGS: There is erosion of the first metatarsophalangeal joint space. Correlate for osteomyelitis. There may be an additional erosion at the proximal medial fourth metatarsal. This has a more smooth a ppearance while osteomyelitis could be considered, other etiologies such as synovial cysts considered . There is a subtle lucency within the base of the fifth metatarsal. Nondisplaced fracture should be co nsidered. No additional areas suspicious for acute fracture are evident. Small plantar calcaneal heel spur is p resent. Soft tissues appear normal. IMPRESSION: 1. Findings suggestive for osteomyelitis first metatarsophalangeal joint space. 2. Possible nondisplaced fracture base of fifth metatarsal. 3. Smooth erosion at the medial fourth metatarsal uncertain etiology.
[2023-07-23] MEDS: ONDANSETRON 4 MG/2 ML VIAL IVP STA ×2 (13:11→15:47)
[2023-07-23 13:33] LABS: ALT 21 U/L (4-49); AST 37 U/L (17-59); African American GFR (CKD) 46 (>60 ml/min/1.73 sqM); Albumin 3.1 g/dL (3.5-5.0); Alkaline Phosphatase 132 U/L (38-126); Anion Gap 8 mmol/L; Blood Urea Nitrogen 35 mg/dL (9-20); C Reactive Protein 0.5 mg/dL (<1.0); Calcium 8.7 mg/dL (8.4-10.2); Carbon Dioxide 21 mmol/L (22-30); Chloride 106 mmol/L (98-107); Glucose 97 mg/dL (74-99); Non-African American GFR(CKD) 40 (>60 ml/min/1.73 sqM); Potassium 4.7 mmol/L (3.5-5.1); Sodium 135 mmol/L (137-145); Total Bilirubin 1.3 mg/dL (0.2-1.3); Total Protein 6.4 g/dL (6.3-8.2)
[2023-07-23] MEDS ORDERED: VANCOMYCIN 1,000 MG in SODIUM CHLORIDE 0.9% 250 ML IVPB STA (14:22)
[2023-07-23 15:09] LABS: INR 1.3 (<1.2); Partial Thromboplastin Time 27.9 sec (22.0-30.0)
[2023-07-23] MEDS: AMPICILLIN-SULBACTAM 3 GM in SODIUM CHLORIDE 0.9% 100 ML IVPB STA (15:49)
[2023-07-23] MEDS: SODIUM CHLORIDE 0.9% 500 ML 500 ML IV ONE (17:30)
[2023-07-23] MEDS: PANTOPRAZOLE 40 MG/10 ML VIAL IVP STA (17:30)
[2023-07-23] MEDS: VANCOMYCIN 1,500 MG in SODIUM CHLORIDE 0.9% 500 ML 500 ML IVPB STA (17:30)
[2023-07-23] MEDS: OCTREOTIDE 100 MCG/ML INJ IVP SCH (17:37)
[2023-07-23] MEDS: OCTREOTIDE 100 MCG/ML INJ IVP STA (18:04)
[2023-07-23] MEDS: OCTREOTIDE 500 MCG in SODIUM CHLORIDE 0.9% 250 ML IV ONE (18:11)
[2023-07-23] MEDS: METOCLOPRAMIDE 5 MG/ML 2 ML VIAL IVP STA (18:24)
[2023-07-23 19:00] VITALS: BP 116/69; PULSE 99; TEMP 98.3
[2023-07-23 23:34] LABS: Erythrocyte Sedimentation Rate 31 mm/Hr (0-20)
[2023-07-24] MEDS ORDERED: VANCOMYCIN 1,500 MG in SODIUM CHLORIDE 0.9% 500 ML 500 ML IVPB SCH (12:00)
== END 2023-07-23 18:56 | disposition other institution (70) ==
LOC: EC 10:28
DX: K92.2 Gastrointestinal hemorrhage, unspecified (principal); K74.60 Unspecified cirrhosis of liver; M86.9 Osteomyelitis, unspecified; Z87.891 Personal history of nicotine dependence
CPT/HCPCS: 36415; 86900; 86901; 80053; 85652; 85025; 85610; 85730; 86850; 86140; 82271; 87040; 73630; 99284; 96365; 96367 ×2; 96375 ×3; 96376 ×2; J3370; J2765; J2405; J2354 ×2; J0295; C9113

== ENCOUNTER 2024-07-15 21:59 | Emergency (ER) | payer MEDICARE ==
[2024-07-15 22:04] VITALS: RESP 18
--- NOTE | 2024-07-15 23:41 | ED ---
Nausea/Vomiting/Diarrhea HPI - General Chief complaint: Nausea/Vomiting/Diarrhea Stated complaint: vomiting blood Time Seen by Provider: 07/15/24 23:35 Source: patient, family, EMS Mode of arrival: EMS Limitations: no limitations - History of Present Illness Initial comments: 79-year-old male presenting with family for hematemesis x 2 hours. States he was sitting at home and had 2 episodes of vomiting bright red blood. Also reports he had an episode while in the waiting room in the ER. Denies chest pain, abdominal pain, shortness of breath. States he otherwise feels okay. He does have a history of esophageal varices that were treated with banding. Also has a history of alcoholic cirrhosis, congestive heart failure, and hypertension. Denies blood thinners. Family reports patient always has dark, tarry stools. - Related Data Home Medications Medication Instructions Recorded Confirmed Pantoprazole [Protonix] 40 mg PO DAILY 10/25/22 07/23/23 Ferrous Sulfate [Feosol] 325 mg PO BID 11/27/22 07/23/23 Torsemide [Demadex] 40 mg PO Q48H 11/27/22 07/23/23 Cephalexin [Keflex] 500 mg PO DIRECTED 07/23/23 07/23/23 Lactulose 30 gm PO BID 07/23/23 07/23/23 Spironolactone [Aldactone] 25 mg PO DAILY 07/23/23 07/23/23 Vitamin B Complex 1 cap PO DAILY 07/23/23 07/23/23 Vitamin D3 (Unknown Strength) 1 dose PO DAILY 07/23/23 07/23/23 Allergies Allergy/AdvReac Type Severity Reaction Status Date / Time No Known Allergies Allergy Verified 07/15/24 22:03 Review of Systems ROS Statement: Those systems with pertinent positive or pertinent negative responses have been documented in the HPI. ROS Other: All systems not noted in ROS Statement are negative. Past Medical History Past Medical History: Heart Failure, GI Bleed, Hypertension, Liver Disease Additional Past Medical History / Comment(s): hx of liver cirrhosis, hx es ophageal varices, STATES PAST HX OF COLON POLYP-benign,PREVIOUS HX OF HTN but OFF MEDICATIONS for over a year, History of Any Multi-Drug Resistant Organisms: None Reported Past Surgical History: Tonsillectomy Additional Past Surgical History / Comment(s): EGD WITH BANDING OF VARICES, PREV. COLONOSCOPIES, egd Past Anesthesia/Blood Transfusion Reactions: No Reported Reaction Additional Past Anesthesia/Blood Transfusion Reaction / Comment(s): no reaction to blood transfusion Past Psychological History: No Psychological Hx Reported, PTSD Smoking Status: Former smoker Past Alcohol Use History: Occasional Past Drug Use History: None Reported - Past Family History Mother Family Medical History: Cancer Additional Family Medical History / Comment(s): COLON Father Family Medical History: Coronary Artery Disease (CAD) Additional Family Medical History / Comment(s): valve replacment, cataracts General Exam Limitations: no limitations General appearance: alert, in no apparent distress Head exam: Present: atraumatic, normocephalic, normal inspection Eye exam: Present: normal appearance, PERRL, EOMI. Absent: scleral icterus, conjunctival injection, periorbital swelling ENT exam: Present: normal exam, normal oropharynx, mucous membranes moist Respiratory exam: Present: normal lung sounds bilaterally. Absent: respiratory distress, wheezes, rales, rhonchi, stridor Cardiovascular Exam: Present: regular rate, normal rhythm, normal heart sounds. Absent: systolic murmur, diastolic murmur, rubs, gallop, clicks GI/Abdominal exam: Present: soft, normal bowel sounds. Absent: distended, tenderness, guarding, rebound, rigid Neurological exam: Present: alert, oriented X3 Psychiatric exam: Present: normal affect, normal mood Skin exam: Present: warm, dry, intact, normal color. Absent: rash Course Vital Signs 07/15/24 07/16/24 22:01 00:11 Temperature 97.8 F Pulse Rate 114 H Respiratory 18 Rate Blood Pressure 111/72 O2 Sat by Pulse 98 Oximetry Medical Decision Making - Medical Decision Making Was pt. sent in by a medical professional or institution (, PA, HEAD OF DESIGN, urgent care, hospital, or alf...) When possible be specific @ -No Did you speak to anyone other than the patient for history (EMS, parent, family, police, friend...)? What history was obtained from this source @ -No Did you review nursing and triage notes (agree or disagree)? Why? @ -I reviewed and agree with nursing and triage notes Were old charts reviewed (outside hosp., previous admission, EMS record, old EKG, old radiological studies, urgent care reports/EKG's, alf records)? Report findings @ -No old charts were reviewed Differential Diagnosis (chest pain, altered mental status, abdominal pain women, abdominal pain men, vaginal bleeding, weakness, fever, dyspnea, syncope, headache, dizziness, GI bleed, back pain, seizure, CVA, palpatations, mental health, musculoskeletal)? @ -Differential GI Bleed: Esophageal varices, aortoenteric fistula, Renetta-Isbell, gastritis, peptic ulcer disease, diverticulosis, inflammatory bowel disease, hemorrhoids, fissure, colitis, malignancy, Meckel's diverticulum, this is not meant to be an all- inclusive list. EKG interpreted by me (3pts min.). @ -As above X-rays interpreted by me (1pt min.). @ -None done CT interpreted by me (1pt min.). @ -None done U/S interpreted by me (1pt. min.). @ -None done What testing was considered but not performed or refused? (CT, X-rays, U/S, labs)? Why? @ -None What meds were considered but not given or refused? Why? @ -None Did you discuss the management of the patient with other professionals (professionals i.e. DrPorfirio, PA, HEAD OF DESIGN, lab, RT, psych nurse, social media manager, track layer head, teacher, security flex officer, case resource manager)? Give summary @ -My ED attending Dr. Jaems spoke to Dr. Almonte on-call director of group sales at [facility] who accepts transfer for upper GI bleed Was smoking cessation discussed for >3mins.? @ -No Was critical care preformed (if so, how long)? @ -No Were there social determinants of health that impacted care today? How? (Homelessness, low income, unemployed, alcoholism, drug addiction, transportation, low edu. Level, literacy, decrease access to med. care, halfway, rehab)? @ -No Was there de-escalation of care discussed even if they declined (Discuss DNR or withdrawal of care, Hospice)? DNR status @ -No What co-morbidities impacted this encounter? (DM, HTN, Smoking, COPD, CAD, Cancer, CVA, ARF, Chemo, Hep., AIDS, mental health diagnosis, sleep apnea, morbid obesity)? @ -None Was patient admitted / discharged? Hospital course, mention meds given and route, prescriptions, significant lab abnormalities, going to OR and other pertinent info. @ -Transferred. 79-year-old male with history of esophageal varices and alcoholic cirrhosis presenting for hematemesis x 2 hours. Reports 3 episodes of bright red blood in the vomit. Denies abdominal pain. Patient is tachycardic, blood pressure normal. Patient is given one-time dose of Protonix and octreotide. Hemoglobin is 8.6 comparable to baseline. Patient will be transferred via ambulance to [facility] as he is requiring GI services for upper GI bleed with history of esophageal varices. Accepting physician is Dr. Almonte. Case was discussed with my ED attending Dr. James. Undiagnosed new problem with uncertain prognosis? @ -No Drug Therapy requiring intensive monitoring for toxicity (Heparin, Nitro, Insulin, Cardizem)? @ -No Were any procedures done? @ -No Diagnosis/symptom? @ -Upper GI bleed Acute, or Chronic, or Acute on Chronic? @ -Acute Uncomplicated (without systemic symptoms) or Complicated (systemic symptoms)? @ -Uncomplicated Side effects of treatment? @ -No Exacerbation, Progression, or Severe Exacerbation? @ -No Poses a threat to life or bodily function? How? (Chest pain, [place], [place], pneumonia, PE, COPD, DKA, ARF, appy, cholecystitis, CVA, Diverticulitis, Homicidal, Suicidal, threat to staff... and all critical care pts) @ -Yes - Lab Data Result diagrams: 07/16/24 00:03 07/16/24 00:03 Lab Results 07/16/24 07/16/24 07/16/24 Range/Units 00:03 00:03 00:03 WBC 9.35 (4.50-10.00) 10*3/uL RBC 2.75 L (4.40-5.60) 10*6/uL Hgb 8.6 L (13.0-17.0) g/dL Hct 25.0 L (39.6-50.0) % MCV 90.9 (80.0-97.0) fL MCH 31.3 (27.0-32.0) pg MCHC 34.4 (32.0-37.0) g/dL Plt Count 288 (140-440) 10*3/uL MPV 9.7 (9.5-12.2) fL Immature Gran % (Auto) 0.6 % Neutrophils % 80.2 % Lymphocytes % 7.0 % Monocytes % 10.3 % Eosinophils % 0.9 % Basophils % 1.0 % Immature Gran # 0.06 H (0.00-0.04) 10*3/uL Neutrophils # 7.51 (1.80-7.70) 10*3/uL Lymphocytes # 0.65 L (0.90-5.00) 10*3/uL Monocytes # 0.96 (0.20-1.00) 10*3/uL Eosinophils # 0.08 (0.04-0.35) 10*3/uL Basophils # 0.09 (0.00-0.10) 10*3/uL PT 13.3 H (10.0-12.5) sec INR 1.2 H (<1.2) APTT 22.1 (22.0-30.0) sec Sodium 135 L (137-145) mmol/L Potassium 4.1 (3.5-5.1) mmol/L Chloride 102 (98-107) mmol/L Carbon Dioxide 19 L (22-30) mmol/L Anion Gap 14 mmol/L BUN 55 H (9-20) mg/dL Creatinine 1.46 H (0.66-1.25) mg/dL Est GFR (CKD-EPI)AfAm 53 (>60 ml/min/1.73 sqM) Est GFR (CKD-EPI)NonAf 45 (>60 ml/min/1.73 sqM) Glucose 125 H (74-99) mg/dL Calcium 9.4 (8.4-10.2) mg/dL Total Bilirubin 1.2 (0.2-1.3) mg/dL AST 23 (17-59) U/L ALT 14 (4-49) U/L Alkaline Phosphatase 140 H (38-126) U/L Total Protein 6.6 (6.3-8.2) g/dL Albumin 3.5 (3.5-5.0) g/dL - EKG Data -: EKG Interpreted by Nv EKG Comments: EKG reveals sinus rhythm with left anterior fascicular block unchanged from previous EKG, ventricular rate 92 bpm, NH interval 197, QRS duration 105, QT/QTc 372/422 Disposition Clinical Impression: Upper gastrointestinal bleed Disposition: OTHER INSTITUTION NOT DEFINED Condition: Fair Referrals: Nora Moran MD [Primary Care Provider] - 1-2 days Time of Disposition: 01:25 - Out of Hospital Transfer - Req. Specs Out of Hospital Transfer - Requested Specifics: Other Emergency Center ([facility])
[2024-07-16 00:22] LABS: Basophils # (A) 0.09 10*3/uL (0.00-0.10); Eosinophils # (A) 0.08 10*3/uL (0.04-0.35); Eosinophils % (A) 0.9 %; HGB 8.6 g/dL (13.0-17.0); Lymphocytes # (A) 0.65 10*3/uL (0.90-5.00); MCH 31.3 pg (27.0-32.0); MCHC 34.4 g/dL (32.0-37.0); MCV 90.9 fL (80.0-97.0); Mean Platelet Volume 9.7 fL (9.5-12.2); Monocytes # (A) 0.96 10*3/uL (0.20-1.00); Monocytes % (A) 10.3 %; Neutrophils # (A) 7.51 10*3/uL (1.80-7.70); Neutrophils % (A) 80.2 %; Platelet Count 288 10*3/uL (140-440); RBC 2.75 10*6/uL (4.40-5.60); RDW 15.9 % (11.5-14.5); WBC 9.35 10*3/uL (4.50-10.00)
[2024-07-16 00:35] LABS: INR 1.2 (<1.2); Partial Thromboplastin Time 22.1 sec (22.0-30.0); Prothrombin Time 13.3 sec (10.0-12.5)
[2024-07-16 00:40] LABS: ALT 14 U/L (4-49); AST 23 U/L (17-59); African American GFR (CKD) 53 (>60 ml/min/1.73 sqM); Albumin 3.5 g/dL (3.5-5.0); Alkaline Phosphatase 140 U/L (38-126); Anion Gap 14 mmol/L; Blood Urea Nitrogen 55 mg/dL (9-20); Calcium 9.4 mg/dL (8.4-10.2); Carbon Dioxide 19 mmol/L (22-30); Chloride 102 mmol/L (98-107); Glucose 125 mg/dL (74-99); Non-African American GFR(CKD) 45 (>60 ml/min/1.73 sqM); Potassium 4.1 mmol/L (3.5-5.1); Sodium 135 mmol/L (137-145); Total Bilirubin 1.2 mg/dL (0.2-1.3); Total Protein 6.6 g/dL (6.3-8.2)
[2024-07-16] MEDS: PANTOPRAZOLE 40 MG/10 ML VIAL IVP STA (00:53)
[2024-07-16] MEDS: OCTREOTIDE 100 MCG/ML INJ IVP STA (01:39)
[2024-07-16 02:00] VITALS: BP 110/84; PULSE 86; TEMP 98.2
== END 2024-07-16 02:00 | disposition other institution (70) ==
LOC: EC 21:59
DX: K92.2 Gastrointestinal hemorrhage, unspecified (principal); Z87.891 Personal history of nicotine dependence
CPT/HCPCS: 36415; 93005; 80053; 85025; 85610; 85730; 99285; 96374; 96375; J2354; J2470

== ENCOUNTER 2024-08-17 14:51 | Emergency (ER) | payer MEDICARE ==
[2024-08-17 14:56] VITALS: TEMP 97.6
--- NOTE | 2024-08-17 15:05 | ED ---
SOB HPI - General Chief Complaint: Shortness of Breath Stated Complaint: KARLEE Time Seen by Provider: 08/17/24 15:01 Source: patient Mode of arrival: ambulatory Limitations: no limitations - History of Present Illness Initial Comments: This patient is a 79-year-old man who arrives here to have evaluation for wheezing. The patient states that he had a routine follow-up with his primary physician Dr. Eligio Mercado. He had been in the skilled nursing for rehab and then had gone home and today was a follow-up. He states that she noted that he was wheezing today and sent him over to have evaluation for that. The patient states that he always wheezes in the morning and that today he does not feel any different from his baseline. He does not use oxygen or inhalers at home. The patient has not noted fever or chills. Denies productive cough. No chest pain. No leg pain or swelling. He does note that since he left the skilled nursing he has been feeling generalized weakness and fatigue. He denies any focal weakness or strokelike symptoms. MD Complaint: shortness of breath -: unknown Severity scale (1-10): 0 Improves With: nothing Worsens With: nothing Associated Symptoms: other (Generalized weakness) Treatments Prior to Arrival: none - Related Data Home Oxygen Therapy: No Home Medications Medication Instructions Recorded Confirmed Ferrous Sulfate [Feosol] 325 mg PO BID 11/27/22 08/17/24 Lactulose 10 gm PO BID 07/23/23 08/17/24 Spironolactone [Aldactone] 12.5 mg PO DAILY 07/23/23 08/17/24 Acetaminophen [Tylenol] 650 mg PO Q4H PRN 08/17/24 08/17/24 Furosemide [Lasix] 40 mg PO DAILY 08/17/24 08/17/24 Omeprazole [PriLOSEC] 20 mg PO DAILY 08/17/24 08/17/24 Propranolol [Inderal] 20 mg PO BID 08/17/24 08/17/24 Rifaximin [Xifaxan] 550 mg PO DIRECTED 08/17/24 08/17/24 Previous Rx's Medication Instructions Recorded Albuterol Inhaler [Ventolin Hfa 2 puff INHALATION Q4HR PRN #8 gm 08/17/24 Inhaler] Allergies Allergy/AdvReac Type Severity Reaction Status Date / Time No Known Allergies Allergy Verified 08/17/24 15:53 Review of Systems ROS Statement: Those systems with pertinent positive or pertinent negative responses have been documented in the HPI. ROS Other: All systems not noted in ROS Statement are negative. Constitutional: Reports: weakness. Denies: fever, chills Respiratory: Reports: cough, wheezes. Denies: dyspnea, hemoptysis Cardiovascular: Denies: chest pain, palpitations, edema, syncope Gastrointestinal: Denies: abdominal pain, nausea, vomiting, diarrhea Genitourinary: Denies: dysuria, hematuria Musculoskeletal: Denies: back pain Skin: Denies: rash Neurological: Denies: headache, weakness Past Medical History Past Medical History: Heart Failure, GI Bleed, Hypertension, Liver Disease Additional Past Medical History / Comment(s): hx of liver cirrhosis, hx esophageal varices, STATES PAST HX OF COLON POLYP-benign,PREVIOUS HX OF HTN but OFF MEDICATIONS for over a year, History of Any Multi-Drug Resistant Organisms: None Reported Past Surgical History: Tonsillectomy Additional Past Surgical History / Comment(s): EGD WITH BANDING OF VARICES, PREV. COLONOSCOPIES, egd Past Anesthesia/Blood Transfusion Reactions: No Reported Reaction Additional Past Anesthesia/Blood Transfusion Reaction / Comment(s): no reaction to blood transfusion Past Psychological History: No Psychological Hx Reported, PTSD Smoking Status: Former smoker Past Alcohol Use History: Occasional Past Drug Use History: None Reported - Past Family History Mother Family Medical History: Cancer Additional Family Medical History / Comment(s): COLON Father Family Medical History: Coronary Artery Disease (CAD) Additional Family Medical History / Comment(s): valve replacment, cataracts General Exam Limitations: no limitations General appearance: alert, in no apparent distress Head exam: Present: atraumatic, normocephalic Eye exam: Present: normal appearance. Absent: scleral icterus, conjunctival injection Neck exam: Present: normal inspection Respiratory exam: Present: wheezes. Absent: respiratory distress, rales, rhonchi, stridor, accessory muscle use Cardiovascular Exam: Present: normal rhythm, bradycardia (Rate 56 at my exam), normal heart sounds. Absent: systolic murmur, diastolic murmur, rubs, gallop GI/Abdominal exam: Present: soft. Absent: distended, tenderness, guarding, rebound, rigid, mass Extremities exam: Present: normal inspection, normal capillary refill. Absent: pedal edema, calf tenderness Back exam: Present: normal inspection. Absent: CVA tenderness (R), CVA tenderness (L) Neurological exam: Present: alert. Absent: motor sensory deficit Skin exam: Present: warm, dry, intact, normal color. Absent: rash Course Vital Signs 08/17/24 08/17/24 08/17/24 14:52 15:59 16:08 Temperature 97.6 F Pulse Rate 60 49 L 50 L Respiratory 22 Rate Blood Pressure 113/53 O2 Sat by Pulse 98 Oximetry 08/17/24 18:13 Temperature Pulse Rate 48 L Respiratory 17 Rate Blood Pressure 120/61 O2 Sat by Pulse 95 Oximetry Medical Decision Making - Medical Decision Making The patient had chest x-ray that I interpreted as negative for acute infiltrate, pneumothorax, congestive heart failure Was pt. sent in by a medical professional or institution ([facility], UNIT LEADER, urgent care, hospital, or skilled nursing...) When possible be specific @ -[Patient sent from the clinic to have evaluation for wheezing and cough Did you speak to anyone other than the patient for history (EMS, parent, family, police, friend...)? What history was obtained from this source @ -[No] Did you review nursing and triage notes (agree or disagree)? Why? @ -[I reviewed and agree with nursing and triage notes] Were old charts reviewed (outside hosp., previous admission, EMS record, old EKG, old radiological studies, urgent care reports/EKG's, skilled nursing records)? Report findings @ -[No old charts were reviewed] Differential Diagnosis (chest pain, altered mental status, abdominal pain women, abdominal pain men, vaginal bleeding, weakness, fever, dyspnea, syncope, he adache, dizziness, GI bleed, back pain, seizure, CVA, palpatations, mental health, musculoskeletal)? @ -[Differential Dyspnea: Coronary syndrome, arrhythmia, tamponade, asthma, COPD, pulmonary embolism, pneumonia, pneumothorax, pulmonary effusion, anaphylaxis, diabetic ketoacidosis, flailed chest, pulmonary contusion, diaphragmatic rupture, anemia, neuromuscular, this is not meant to be an all-inclusive list. EKG interpreted by me (3pts min.). @ -[I interpreted as above] X-rays interpreted by me (1pt min.). @ -[I interpreted as above CT interpreted by me (1pt min.). @ -[None done] U/S interpreted by me (1pt. min.). @ -[None done] What testing was considered but not performed or refused? (CT, X-rays, U/S, labs)? Why? @ -[None] What meds were considered but not given or refused? Why? @ -[None] Did you discuss the management of the patient with other professionals (professionals i.e. DrPorfirio, PA, UNIT LEADER, lab, RT, psych nurse, renal social worker, launchman, teacher, corporate security officer, caseworker protective services)? Give summary @ -[No] Was smoking cessation discussed for >3mins.? @ -[No] Was critical care preformed (if so, how long)? @ -[No] Were there social determinants of health that impacted care today? How? (Homelessness, low income, unemployed, alcoholism, drug addiction, transportation, low edu. Level, literacy, decrease access to med. care, half-way, rehab)? @ -[No] Was there de-escalation of care discussed even if they declined (Discuss DNR or withdrawal of care, Hospice)? DNR status @ -[No] What co-morbidities impacted this encounter? (DM, HTN, Smoking, COPD, CAD, Cancer, CVA, ARF, Chemo, Hep., AIDS, mental health diagnosis, sleep apnea, morbid obesity)? @ -[Smoking history Was patient admitted / discharged? Hospital course, mention meds given and route, prescriptions, significant lab abnormalities, going to OR and other pertinent info. @ -[Patient is 79-year-old man here to have evaluation for cough that is productive. And some wheezing. The patient had workup here including chest x- ray that radiology interpreted as showing some possible vascular congestion. The patient's BNP is normal for age. The patient did have response to albuterol, consistent with element of bronchitis. He is feeling better and would like to go home. Patient to return if he is not continuing to improve or if there is any worsening. Undiagnosed new problem with uncertain prognosis? @ -[No] Drug Therapy requiring intensive monitoring for toxicity (Heparin, Nitro, Insulin, Cardizem)? @ -[No] Were any procedures done? @ -[No] Diagnosis/symptom? @ -[Acute bronchitis Acute, or Chronic, or Acute on Chronic? @ -[Acute Uncomplicated (without systemic symptoms) or Complicated (systemic symptoms)? @ -[Uncomplicated Side effects of treatment? @ -[No] Exacerbation, Progression, or Severe Exacerbation? @ -[No] Poses a threat to life or bodily function? How? (Chest pain, [place], [place], pneumonia, PE, COPD, DKA, ARF, appy, cholecystitis, CVA, Diverticulitis, Homicidal, Suicidal, threat to staff... and all critical care pts) @ -[No] All treatments are based on ideal body weight as in ED triage - Lab Data Result diagrams: 08/17/24 15:15 08/17/24 15:15 Lab Results 08/17/24 08/17/24 08/17/24 Range/Units 15:15 15:15 15:15 WBC 8.06 (4.50-10.00) 10*3/uL RBC 2.98 L (4.40-5.60) 10*6/uL Hgb 9.0 L (13.0-17.0) g/dL Hct 28.2 L (39.6-50.0) % MCV 94.6 (80.0-97.0) fL MCH 30.2 (27.0-32.0) pg MCHC 31.9 L (32.0-37.0) g/dL Plt Count 216 (140-440) 10*3/uL MPV 9.7 (9.5-12.2) fL Immature Gran % (Auto) 0.4 % Neutrophils % 72.6 % Lymphocytes % 7.7 % Monocytes % 10.2 % Eosinophils % 8.1 % Basophils % 1.0 % Immature Gran # 0.03 (0.00-0.04) 10*3/uL Neutrophils # 5.86 (1.80-7.70) 10*3/uL Lymphocytes # 0.62 L (0.90-5.00) 10*3/uL Monocytes # 0.82 (0.20-1.00) 10*3/uL Eosinophils # 0.65 H (0.04-0.35) 10*3/uL Basophils # 0.08 (0.00-0.10) 10*3/uL PT 13.7 H (10.0-12.5) sec INR 1.3 H (<1.2) APTT 24.2 (22.0-30.0) sec Sodium 137 (137-145) mmol/L Potassium 4.4 (3.5-5.1) mmol/L Chloride 108 H (98-107) mmol/L Carbon Dioxide 21 L (22-30) mmol/L Anion Gap 8 mmol/L BUN 26 H (9-20) mg/dL Creatinine 1.12 (0.66-1.25) mg/dL Est GFR (CKD-EPI)AfAm 73 (>60 ml/min/1.73 sqM) Est GFR (CKD-EPI)NonAf 63 (>60 ml/min/1.73 sqM) Glucose 112 H (74-99) mg/dL Plasma Lactic Acid [place] (0.7-2.0) mmol/L Calcium 8.6 (8.4-10.2) mg/dL Total Bilirubin 1.2 (0.2-1.3) mg/dL AST 57 (17-59) U/L ALT 20 (4-49) U/L Alkaline Phosphatase 225 H (38-126) U/L Troponin I (0.000-0.034) ng/mL NT-Pro-B Natriuret Pep 634 pg/mL Total Protein 6.5 (6.3-8.2) g/dL Albumin 3.1 L (3.5-5.0) g/dL Influenza Type A (PCR) (Not Detectd) Influenza Type B (PCR) (Not Detectd) RSV (PCR) (Not Detectd) SARS-CoV-2 (PCR) (Not Detectd) 08/17/24 08/17/24 08/17/24 Range/Units 15:15 15:15 15:22 WBC (4.50-10.00) 10*3/uL RBC (4.40-5.60) 10*6/uL Hgb (13.0-17.0) g/dL Hct (39.6-50.0) % MCV (80.0-97.0) fL MCH (27.0-32.0) pg MCHC (32.0-37.0) g/dL Plt Count (140-440) 10*3/uL MPV (9.5-12.2) fL Immature Gran % (Auto) % Neutrophils % % Lymphocytes % % Monocytes % % Eosinophils % % Basophils % % Immature Gran # (0.00-0.04) 10*3/uL Neutrophils # (1.80-7.70) 10*3/uL Lymphocytes # (0.90-5.00) 10*3/uL Monocytes # (0.20-1.00) 10*3/uL Eosinophils # (0.04-0.35) 10*3/uL Basophils # (0.00-0.10) 10*3/uL PT (10.0-12.5) sec INR (<1.2) APTT (22.0-30.0) sec Sodium (137-145) mmol/L Potassium (3.5-5.1) mmol/L Chloride (98-107) mmol/L Carbon Dioxide (22-30) mmol/L Anion Gap mmol/L BUN (9-20) mg/dL Creatinine (0.66-1.25) mg/dL Est GFR (CKD-EPI)AfAm (>60 ml/min/1.73 sqM) Est GFR (CKD-EPI)NonAf (>60 ml/min/1.73 sqM) Glucose (74-99) mg/dL Plasma Lactic Acid [place] 1.5 (0.7-2.0) mmol/L Calcium (8.4-10.2) mg/dL Total Bilirubin (0.2-1.3) mg/dL AST (17-59) U/L ALT (4-49) U/L Alkaline Phosphatase (38-126) U/L Troponin I <0.012 (0.000-0.034) ng/mL NT-Pro-B Natriuret Pep pg/mL Total Protein (6.3-8.2) g/dL Albumin (3.5-5.0) g/dL Influenza Type A (PCR) Not Detected (Not Detectd) Influenza Type B (PCR) Not Detected (Not Detectd) RSV (PCR) Not Detected (Not Detectd) SARS-CoV-2 (PCR) Not Detected (Not Detectd) - EKG Data -: EKG Interpreted by Sc EKG shows normal: sinus rhythm (With occasional premature supraventricular complex), QRS complexes (Low voltage QRS complex. Left anterior fascicular block possible old anterior infarct.), ST-T waves (Normal) Rate: bradycardia (Rate 52 bpm) Disposition Clinical Impression: Bronchitis Disposition: HOME SELF-CARE Condition: Good Additional Instructions: As we discussed, if you continue to have wheezing follow-up with the shoe sprayer for further evaluation and treatment. Prescriptions: Albuterol Inhaler [Ventolin Hfa Inhaler] 2 puff INHALATION Q4HR PRN #8 gm PRN Reason: Wheezing Is patient prescribed a controlled substance at d/c from ED?: No Referrals: Nora Moran MD [Primary Care Provider] - 1-2 days Sepideh Malik MD [STAFF PHYSICIAN] - 1-2 days
[2024-08-17] MEDS: IPRATROPIUM-ALBUTEROL 3 ML NEB INHALATION STA (15:59)
[2024-08-17 16:13] LABS: Basophils # (A) 0.08 10*3/uL (0.00-0.10); Eosinophils # (A) 0.65 10*3/uL (0.04-0.35); Eosinophils % (A) 8.1 %; HCT 28.2 % (39.6-50.0); Lymphocytes # (A) 0.62 10*3/uL (0.90-5.00); Lymphocytes % (A) 7.7 %; MCH 30.2 pg (27.0-32.0); MCHC 31.9 g/dL (32.0-37.0); MCV 94.6 fL (80.0-97.0); Mean Platelet Volume 9.7 fL (9.5-12.2); Monocytes # (A) 0.82 10*3/uL (0.20-1.00); Monocytes % (A) 10.2 %; Neutrophils # (A) 5.86 10*3/uL (1.80-7.70); Neutrophils % (A) 72.6 %; Platelet Count 216 10*3/uL (140-440); RBC 2.98 10*6/uL (4.40-5.60); RDW 16.8 % (11.5-14.5); WBC 8.06 10*3/uL (4.50-10.00)
[2024-08-17 16:22] LABS: INR 1.3 (<1.2); Partial Thromboplastin Time 24.2 sec (22.0-30.0); Prothrombin Time 13.7 sec (10.0-12.5)
[2024-08-17 16:28] LABS: ALT 20 U/L (4-49); African American GFR (CKD) 73 (>60 ml/min/1.73 sqM); Anion Gap 8 mmol/L; Blood Urea Nitrogen 26 mg/dL (9-20); Calcium 8.6 mg/dL (8.4-10.2); Carbon Dioxide 21 mmol/L (22-30); Chloride 108 mmol/L (98-107); Glucose 112 mg/dL (74-99); Non-African American GFR(CKD) 63 (>60 ml/min/1.73 sqM); Sodium 137 mmol/L (137-145)
[2024-08-17 16:29] LABS: AST 57 U/L (17-59); Albumin 3.1 g/dL (3.5-5.0); Alkaline Phosphatase 225 U/L (38-126); Potassium 4.4 mmol/L (3.5-5.1); Total Bilirubin 1.2 mg/dL (0.2-1.3); Total Protein 6.5 g/dL (6.3-8.2)
[2024-08-17 16:36] LABS: NT-Pro-B-Type Natriuretic Pept 634 pg/mL
--- NOTE | 2024-08-17 16:45 | XR ---
EXAMINATION TYPE: XR chest 2V DATE OF EXAM: 08/17/2024 4:31 PM COMPARISON: 11/27/2022 CLINICAL INDICATION: Male, 79 years old with history of difficulty breathing: Shortness of breath TECHNIQUE: XR chest 2V views of the chest are obtained. FINDINGS: Scattered senescent parenchymal changes noted. Hyperinflation compatible with COPD. No evidence for infiltrate. No evidence for atelectasis. Heart size is stable. Mild pulmonary venous congestion without overt failure. Mediastinal structures are stable and grossly unremarkable. No evidence for hilar prominence. Degenerative changes dorsal spine. IMPRESSION: 1. Mild pulmonary venous congestion without overt failure. [facility], , 08/17/2024 4:43 PM
[2024-08-17 16:48] LABS: Influenza A Not Detected (Not Detectd); Influenza B Not Detected (Not Detectd); RSV Not Detected (Not Detectd)
[2024-08-17 18:13] VITALS: BP 120/61; PULSE 48; RESP 17
== END 2024-08-17 18:15 | disposition home or self-care (01) ==
LOC: EC 14:51
DX: J40 Bronchitis, not specified as acute or chronic (principal); Z87.891 Personal history of nicotine dependence
CPT/HCPCS: 36415; 71046; 80053; 83605; 83880; 84484; 85025; 85610; 85730; 87636; 93005; 94640; 99285